=== PATIENT | female | born 1985 | race Caucasian/White ===

== ENCOUNTER 2022-06-11 02:43 | Outpatient (CLI) | payer BC, SELFPAY ==
[2022-06-11 09:25] LABS: *AMPHETAMINES SCREEN URINE Negative (Negative); *BARBITURATES SCREEN URINE Negative (Negative); *BENZODIAZEPINES SCREEN URINE Negative (Negative); Cannabinoids THC Negative (Negative); Cocaine Screen,Urine Negative (Negative); METHADONE URINE SCREEN Negative (Negative); OPIATES URINE SCREEN Negative (Negative)
[2022-06-11 09:27] LABS: Tricyclic Antidepressants Negative (Negative)
[2022-06-11 09:36] LABS: ALT 31 U/L (14-59); AST 16 U/L (15-37); Albumin 3.9 g/dL (3.4-5.0); Alkaline Phosphatase 87 U/L (46-116); Anion Gap 9.5 mmol/L (3-11); BUN 11 mg/dL (7-18); Bilirubin, Total 0.4 mg/dL (0.2-1.0); CO2 25.5 mmol/L (21.0-32.0); CREATININE 0.9 mg/dL (0.55-1.02); Calcium 8.4 mg/dL (8.5-10.1); Calculated LDL 131 mg/dL (<100); Chloride 102 mmol/L (98-107); Cholesterol 207 mg/dL (<200); Glucose 102 mg/dL (74-106); HDL Cholesterol 48 mg/dL (40-60); Potassium 3.7 mmol/L (3.5-5.1); Sodium 137 mmol/L (136-145); Total Protein 7.1 g/dL (6.4-8.2); Triglyceride 143 mg/dL (<150)
== END 2022-06-11 02:44 | disposition home or self-care (01) ==
LOC: LBO 02:45
PROVIDERS: Visit Provider Nurse Practitioner Adult Health
DX: F41.9 Anxiety disorder, unspecified (principal); E66.9 Obesity, unspecified; Z79.899 Other long term (current) drug therapy
CPT/HCPCS: 36415; 80053; 80061; 80307; 83036

== ENCOUNTER 2023-03-10 10:23 | Outpatient (REF) | payer BC, SELFPAY ==
--- NOTE | 2023-03-10 09:50 | ENDOMET_PTH ---
PATIENT: Kay Wyatt LOC: [facility] #:[id number] AGE/SX: 37/F ROOM: RE03/10/[address]: Florencia Srivastava : 1985 BED: DIS: 03/10/2023 SPEC #: [id number] RECD: 03/10/23 12:43 STATUS: GREG REQ #: [id number] TENA: 03/10/23 09:[address]: Florencia Srivastava DEPT: Surgical Specimen RECD BY: Chelo Short Tissues: 1 - ENDOMETRIUM BX/DEMAR Procedures: GROSS AND MICRO LEVEL 4 Comments: [id number]
== END 2023-03-10 10:24 | disposition home or self-care (01) ==
LOC: LBN 10:23
PROVIDERS: Visit Provider Obstetrics & Gynecology Gynecology
DX: N93.9 Abnormal uterine and vaginal bleeding, unspecified (principal)
CPT/HCPCS: 88305

== ENCOUNTER 2023-04-01 04:57 | Outpatient (CLI) | payer BC, SELFPAY ==
[2023-04-01 10:09] LABS: HCT 44.1 % (36.0-46.0); HGB 14.5 g/dL (11.2-15.7); MCHC 32.9 % (32.0-36.0); MCV 85 fL (80-95); MPV 9.8 fL (8.0-11.0); Platelet Count 363 10^3/uL (130-400); RBC 5.17 10^6/uL (3.93-5.22); RDW 12.8 % (11.7-14.6); RDW-SD 39.9 fL; WBC 6.98 10^3/uL (4.4-10.8)
[2023-04-01 10:27] LABS: ALT 25 U/L (14-59); AST 15 U/L (15-37); Albumin 4.2 g/dL (3.4-5.0); Alkaline Phosphatase 85 U/L (46-116); Anion Gap 9.5 mmol/L (3-11); BUN 14 mg/dL (7-18); Bilirubin, Total 0.8 mg/dL (0.2-1.0); CO2 25.5 mmol/L (21.0-32.0); Calcium 9.1 mg/dL (8.5-10.1); Chloride 103 mmol/L (98-107); Estimated GFR 74.88 (mL/min/1.73m2); Glucose 100 mg/dL (74-106); Potassium 4.3 mmol/L (3.5-5.1); Sodium 138 mmol/L (136-145); Total Protein 7.9 g/dL (6.4-8.2)
[2023-04-01 10:54] LABS: HCG Qual (Serum) Negative
[2023-04-01 11:05] LABS: Calculated LDL 167 mg/dL (<100); Cholesterol 236 mg/dL (<200); HDL Cholesterol 52 mg/dL (40-60); Triglyceride 86 mg/dL (<150)
== END 2023-04-01 04:58 | disposition home or self-care (01) ==
LOC: LBO 04:58
PROVIDERS: Nurse Practitioner Adult Health; Visit Provider Obstetrics & Gynecology Gynecology
DX: Z00.01 Encounter for general adult medical examination with abnormal findings (principal)
CPT/HCPCS: 36415; 80048; 80053; 80061; 85027; 86850; 86900; 86901; 84443; 84703

== ENCOUNTER 2023-04-03 09:01 | Day surgery (SDC) | payer BC, SELFPAY ==
[2023-04-03] VITALS (10 sets, daily range): BP systolic 125–154; BP diastolic 61–98; PULSE 74–84; RESP 11–17; TEMP 36.5–37; O2SAT 95–98; BMI 32.5
[2023-04-03] MEDS: Lactated Ringers 1,000 ML 125 ML IV (09:25)
--- NOTE | 2023-04-03 10:21 | W.ANESPRE ---
General Info Date of Service Date Performed: 04/03/23 Height: 5 ft 5 in Weight: 88.6 kg Body Mass Index (BMI): 32.5 Surgical Procedure: Operation Date: 04/03/23 10:40 Proposed Procedure Side Surgeon p DIXIE Endometrial Ablation Florencia Srivastava MD s Salpingectomy Laparoscopic Bilateral Florencia Srivastava MD Meds Allergies and Home Medications Allergies Allergy/AdvReac Type Severity Reaction Status Date / Time cat dander Allergy Mild Verified 04/02/23 12:37 Home Medication Medication Instructions Recorded buspirone 10 mg tablet 10 mg PO BID 02/10/23 trazodone 50 mg tablet 50 mg PO QHS PRN 02/10/23 semaglutide (weight loss) 0.25 0.25 mg subcut QWEEK 04/01/23 mg/0.5 mL subcutaneous pen injector (Wegovy) erenumab-aooe 140 mg/mL 140 mg subcut DIRECTED 04/02/23 subcutaneous auto-injector (Aimovig Autoinjector) loratadine 10 mg tablet 10 mg PO DAILY 04/02/23 Current Visit Medications: Current Medications Generic Name Dose Route Start Last Admin Trade Name Freq PRN Reason Stop Dose Admin Ringer's Solution 1,000 mls @ 125 mls/hr 04/03/23 06:00 04/03/23 09:25 IV 05/02/23 23:59 125 mls/hr INFUSION LIZBETH Administration IV Miscellaneous Supplies 1 each 04/03/23 06:00 Iv Access IV 05/02/23 23:59 DIRECTED LIZBETH Sodium Chloride 0 ml 04/03/23 06:00 Normal Saline Flush 10 Ml Syr IV 05/02/23 23:59 PRN PRN Sodium Chloride 0 ml 04/03/23 06:00 Normal Saline 10 Ml Vial IJ 05/02/23 23:59 DIRECTED PRN Sterile Water 0 ml 04/03/23 06:00 Water,Injection,Sterile 10 Ml Vial IJ 05/02/23 23:59 DIRECTED PRN PFSH Active Problems Active Problems: Problem Status Onset Code Sterilization Z30.2 Dysmenorrhea N94.6 Preop examination Z01.818 History of endometrial biopsy Z92.89 General counseling and advice on female contraception Z30.09 Tobacco use Z72.0 Heavy menstrual bleeding N92.0 Endometriosis determined by laparoscopy N80.9 PCOS (polycystic ovarian syndrome) E28.2 Medical History Medical History Migraine Surgical History Surgical History H/O laparoscopy (~2009) Tobacco Smoking/Tobacco Use Status: Current-Occasional Tobacco Type: cigars Per week: 1 Counseling given: provider counseling Alcohol Alcohol Intake: current Alcohol intake frequency: a few times a week Substance Use Substance use: Never Substance use type: does not use Prental History History 0 Para Hx # Term Pregnancies Multiple births Hx # Pregnancies Ectopic pregnancies AB induced Hx Number of Living Children AB spontaneous Vital Signs and Lab Results Vital Signs Most Recent Vital Signs in EMR: Most Recent Vital Signs Temp Pulse Resp BP Pulse Ox 36.5 C 81 16 130/83 98 04/03/23 09:11 04/03/23 09:11 04/03/23 09:11 04/03/23 09:11 04/03/23 09:11 Lab Results Blood Type / Crossmatch: Patient ABO/Rh O Positive 04/01/23 Antibody Screen NEGATIVE 04/01/23 Complete Blood Count: White Blood Count 6.98 10^3/uL (4.4-10.8) 04/01/23 10:04 Red Blood Count 5.17 10^6/uL (3.93-5.22) 04/01/23 10:04 Hemoglobin 14.5 g/dL (11.2-15.7) 04/01/23 10:04 Hematocrit 44.1 % (36.0-46.0) 04/01/23 10:04 Platelet Count 363 10^3/uL (130-400) 04/01/23 10:04 Complete Metabolic Panel: Sodium 138 mmol/L (136-145) 04/01/23 10:04 Potassium 4.3 mmol/L (3.5-5.1) 04/01/23 10:04 Chloride 103 mmol/L (98-107) 04/01/23 10:04 Carbon Dioxide 25.5 mmol/L (21.0-32.0) 04/01/23 10:04 BUN 14 mg/dL (7-18) 04/01/23 10:04 Creatinine 1.0 mg/dL (0.55-1.02) 04/01/23 10:04 Est GFR (CKD-EPI 2020) 74.88 (mL/min/1.73m2) 04/01/23 10:04 Calcium 9.1 mg/dL (8.5-10.1) 04/01/23 10:04 Albumin 4.2 g/dL (3.4-5.0) 04/01/23 10:04 Glucose 100 mg/dL (74-106) 04/01/23 10:04 Liver Function Panel: Alanine Aminotransferase (ALT/SGPT) 25 U/L (14-59) 04/01/23 10:04 Aspartate Amino Transf (AST/SGOT) 15 U/L (15-37) 04/01/23 10:04 Coagulation Panel: No Data to Display Cardiac Panel: No Data to Display Arterial Blood Gas: No Data to Display Venous Blood Gas: No Data to Display Pancreas Panel: No Data to Display Thyroid Panel: Thyroid Stimulating Hormone (TSH) 1.50 uIU/mL (0.36-3.74) 04/01/23 10:04 Infectious Disease: No Data to Display Blood Cultures: No Data to Display Toxicology Panel: No Data to Display Panel: Serum HCG, Qualitative Negative 04/01/23 10:04 Anesthesia Assessment and Plan Anesthesia History Personal History: No History of Anesthesia Complications Family History: No Family History of Anesthesia Complications Exercise Tolerance Exercise Tolerance: Metabolic Equivalents>4 Pertinent Negatives Pertinent Negatives: No Symptoms of GERD, No Major Cardiovascular Symptoms or Complaints and No Major Pulmonary Symptoms or Complaints Cardiac & Pulmonary Exam Cardiac Exam: Normal S1/S2 Heart Sounds Pulmonary Exam: Clear Bilateral Breath Sounds Implantable Cardiac Device Does patient have a Pacemaker or an ICD?: No Airway Exam Known Difficult Airway: No Mallampati Class: 3 Mouth Opening: Normal (> 3cm) Thyromental Distance: Greater than 3 cm Neck Range of Motion: Full ROM Neck Circumference: Normal Teeth Condition: Normal Dentition ASA Classification ASA Score: ASA 2 Emergency Case?: No NPO Status NPO Status: NPO Clears >2 hours, Solids >8 hours Status Status: Negative HCG Anesthesia Plan Resuscitation Status: Full Code Anesthesia Technique: General Anesthesia Airway Planned: Endotracheal Tube Monitors Used: Standard Monitors and SedLine
--- NOTE | 2023-04-03 12:36 | FALL_PTH ---
PATIENT: Kay Wyatt LOC: [facility] U#:[id number] AGE/SX: 37/F ROOM: RE04/03/[address]: Florencia Srivastava : 1985 BED: DIS: 04/03/2023 SPEC #: [id number] RECD: 04/03/23 13:31 STATUS: GREG [facility] #: [id number] TENA: 04/03/23 12:[address]: Florencia Srivastava DEPT: Surgical Specimen RECD BY: Chelo Short ENTERED: 04/03/23 13:32 SP TYPE: Fall OTHR DR: SHAGGY LAINEZ Tissues: 1 - FALLOPIAN TUBE (STERILIZATION) 2 - FALLOPIAN TUBE (STERILIZATION) Procedures: GROSS AND MICRO LEVEL 2 Comments: [id number]
[2023-04-03] MEDS: Bupivacaine 0.25% Pres-Free 30 ML VIAL (12:43)
--- NOTE | 2023-04-03 12:56 | W.PM.DSUDISC ---
Date of service: 04/03/23 Time of Service: 12:56 Discharge Plan Disposition Patient Disposition: Home Discharge Details Attending Provider: Florencia Srivastava Primary Care Provider: SHAGGY LAINEZ Home Meds and New Rx's Prescriptions: No Action buspirone 10 mg tablet 10 mg PO BID trazodone 50 mg tablet 50 mg PO QHS PRN Wegovy 0.25 mg/0.5 mL pen injector 0.25 mg subcut QWEEK Rx Instructions: administer weeks 1 through 4 of therapy loratadine 10 mg Tablet 10 mg PO DAILY Aimovig Autoinjector 140 mg/mL auto-injector 140 mg SUBCUT DIRECTED Patient Comments: DIRECTED SUBCUTANEOUSLY ONCE A MONTH Discharge Instructions Additional Instructions: You can expect watery vaginal discharge mixed with some blood for the next 48 hours. After that you can expect watery discharge for the next 4 weeks. Keep your incisions covered with a right Steri-Strips for 48 hours. You may remove and change the bandages at any time. You can take a shower in 24 hours. He may have bruising on her abdomen which is normal. No intercourse until the watery vaginal discharge is stopped. You have a prescription for Percocet 5/325 1 tablet every 6 hours as needed for pain take that in conjunction with Motrin 600 mg every 6 hours as needed for pain. You also may use acetaminophen and Motrin together. Keep your postop appointment with Dr. Srivastava. Stand Alone Forms: DSU Post Senior Production Manager SurgeryW/Incision Activity:: Activity as Tolerated Remove Dressings/Wound Care:: 24 hours Shower/Bathe:: 24 hours Diet:: As Tolerated Discharge Orders Discharge Orders: Discharge Order (Routine); Ordered 04/03/23 Ordered By: Florencia Srivastava DS: Diagnosis Discharge Diagnosis (1) Dysmenorrhea: Status: Acute (2) Sterilization: Status: Acute (3) Heavy menstrual bleeding: Status: Acute (4) History of endometrial ablation: Status: Acute
--- NOTE | 2023-04-03 13:05 | W.PM.OP ---
Date of service: 04/03/23 Time of Service: 13:05 Operative Note Operative Note DATE OF PROCEDURE: 04/03/23 PRE-OP DIAGNOSIS: Abnormal uterine bleeding, desires permanent sterilization PROCEDURE: Hydrothermal endometrial ablation followed by laparoscopic bilateral salpingectomy SURGEON: Florencia Srivastava ASSISTING SURGEON: Virginia Becerra Refer to Anesthesia Record ESTIMATED BLOOD LOSS: 5 PATHOLOGY: other (Bilateral fallopian tubes to pathology) COMPLICATIONS: None Patient was transported to: PACU Patient's condition: stable Implants: None Indications: 37yo G0 female history of heavy menses who desired permanent sterilization. Pelvic us which was performed on 03/10/23 :?Normal-appearing uterus with endometrial stripe within normal limits. and unremarkable bilateral ovaries. EMBx: inactive endometrium. Findings: Endometrium: Polypoid. Pelvic cavity normal normal adnexa, normal upper abdomen. No evidence of endometriosis. Procedure Description: Patient was taken to the operating room where she was placed in the dorsal supine position and general anesthesia was administered without difficulty. She was then placed in the dorsolithotomy position in yellowfin stirrups and prepped and draped in the usual sterile fashion. SCDs were in place. No antibiotics were required. After a surgical timeout was performed a bivalve speculum was placed in the patient's vagina. Morfin catheter inserted to gravity drainage. The anterior lip of the cervix was infiltrated with 1 cc 0.25% bupivacaine and a single-tooth tenaculum was used to grasp the anterior lip of the cervix. A paracervical block was performed with infiltration of 5 cc of 0.25% bupivacaine at the 4 o'clock and 8 o'clock paracervical spaces respectively. Cervix was then sequentially dilated to a maximum of 16 [place]. A hysteroscope sheath was inserted into the uterine cavity and a cavity assessment was performed with the above noted findings. The tip of the hysteroscope sheath was positioned to allow visualization of the uterine fundus, both tubal ostia in the midportion of the uterine cavity. The sheath was protected from the vaginal lopez by the speculum. Heated isotonic saline was then administered via gravity into the uterus through the sheath. Once a safety assessment was performed the treatment phase of the procedure began and under direct observation the uterine cavity was treated with heated isotonic saline at 90 ?C for 10 minutes. Intrauterine cool-down phase was performed for 1 minute. The uterine cavity was carefully assessed with hysteroscopy and the uterus was noted to have a satisfactory treatment effect and the integrity of the uterine cavity was confirmed. After these findings the hysteroscope was removed as were the instruments removed from the vagina. Tenaculum site was noted to be hemostatic. A Hulka uterine retractor was then inserted and attention turned to the patient's abdomen The umbilical fold was infiltrated with 0.25% Marcaine without epinephrine and 12 mm vertical skin incision was made in the umbilicus. Through this incision a varies needle connected to carbon dioxide gas was inserted into the abdomen but we were unable to confirm intra-abdominal placement confirmed by drop in the intra-abdominal pressure. The subcutaneous tissue was dissected, the fascia tented up and incised with a scalpel and a 12 mm Visiport trocar was introduced into the abdomen under direct visualization. Pneumoperitoneum was acheived and the patient was then placed in Trendelenburg and 2 sites on the abdomen approximately 6 cm diagonal to the right of and left of the umbilical incision were transilluminated, the skin infiltrated with 0.25% Marcaine and incised with a scalpel and under direct visualization two 5 mm ports were placed in the right and left lower quadrants respectively. The abdomen was inspected with the above-noted findings. The left fallopian tube located and followed out to its fimbriated end and a LigaSure electrocautery device was used to clamp cauterize and transect the fimbria from the left mesosalpinx to the level of the left uterine cornua. The left fallopian tube was then delivered through the 10 mm umbilical port and passed off of the operative field. A similar technique was carried out on the right fallopian tube without difficulty. The right fallopian tube was then delivered through the umbilical port. Both fallopian tube pedicles were inspected and noted to be hemostatic. Under direct visualization the two 5 mm ports were removed, pneumoperitoneum reduced, and the umbilical port removed. The fascia of the umbilical port site was reapproximated with interrupted suture of 0 Vicryl. The skin of all trocar sites was reapproximated with 4-0 Monocryl and covered with dry sterile dressings. The morfin catheter and the Hulka uterine manipulator were removed. The cervix was hemostatic. The patient was awakened extubated and transported to recovery area in stable condition. All sponge lap needle counts are correct x2.
[2023-04-03] MEDS: HYDROmorphone 2 MG/ML SYR IVP ×2 (13:32→13:47)
[2023-04-03] MEDS: Normal Saline 10 ML VIAL IJ (13:36)
--- NOTE | 2023-04-03 14:18 | W.ANESPOSTOP ---
Postoperative Evaluation Date, Time and Location Date Performed: 04/03/23 Time Performed: 14:15 Patient Location: Day Surgery Unit Vital Signs Most Recent Imported Vital Signs: Most Recent Vital Signs Temp Pulse Resp BP Pulse Ox 36.7 C 81 11 L 154/98 H 96 04/03/23 14:03 04/03/23 14:03 04/03/23 14:03 04/03/23 14:03 04/03/23 14:03 Pain Score Most Recent Pain Score: Most Recent Pain Score Pain Level 4 04/03/23 14:03 Assessment Mental Status: Awake (Alert & Oriented to Patient Baseline) Airway and Respiratory Function: Patent airway with normal (patient baseline) respiratory exam Cardiovascular Function: Hemodynamically Stable Hydration Status: Adequately Hydrated Nausea & Vomiting: No Nausea or Vomiting Pain: Pain is tolerable per patient Peripheral Nerve Block: Patient did not receive a nerve block
== END 2023-04-03 16:44 | disposition home or self-care (01) ==
PROVIDERS: PCP Nurse Practitioner Adult Health; Visit Provider Obstetrics & Gynecology Gynecology
PROC: (CPT 58353; principal; 2023-04-03 10:30)
PROC: (CPT 58661; 2023-04-03 10:30)
DX: N94.6 Dysmenorrhea, unspecified (principal); Z30.2 Encounter for sterilization; N92.0 Excessive and frequent menstruation with regular cycle; E28.2 Polycystic ovarian syndrome
CPT/HCPCS: 58661; 58563; 86850; 86900; 86901; 88302; J0131; J1100; J1170; J1885; J2250; J2405; J2704; J3010

== ENCOUNTER 2023-05-21 14:28 | Emergency (ER) | payer BC, SELFPAY ==
[2023-05-21] VITALS (14 sets, daily range): BP systolic 138; BP diastolic 86; PULSE 73–87; RESP 18; TEMP 36.7; O2SAT 97–100
--- NOTE | 2023-05-21 14:30 | RT.EKG_ITS ---
APPROVED REPORT Exam: Resting ECG Reason for Exam: chest pain Patient Location: E HR:73 bpm ECG Measurements Heart Rate 73 AXIS NJ 184 P 54 QRSd 75 QRS 50 QT 363 T 12 QTc 401 Conclusion Sinus rhythm...normal P axis, V-rate 60- 99
--- NOTE | 2023-05-21 15:24 | ED.GENADUL_ITS ---
Discharge Plan Disposition Patient Disposition: Home Discharge Details Clinical Impression: Acute chest wall pain Primary Care Provider: SHAGGY LAINEZ ED Provider: Fabrice Pisano Home Meds and New Rx's Prescriptions: New ibuprofen [IBU] 600 mg tablet 600 mg PO QID PRN (Reason: pain) Qty: 20 0RF methocarbamol 500 mg tablet 500 mg PO TID PRN (Reason: muscle pain) Qty: 20 0RF benzonatate 200 mg capsule 200 mg PO TID PRN (Reason: cough) Qty: 30 0RF Continued buspirone 10 mg tablet 10 mg PO BID trazodone 50 mg tablet 50 mg PO QHS PRN Wegovy 0.25 mg/0.5 mL pen injector 0.25 mg subcut QWEEK Rx Instructions: administer weeks 1 through 4 of therapy loratadine 10 mg Tablet 10 mg PO DAILY Aimovig Autoinjector 140 mg/mL auto-injector 140 mg SUBCUT DIRECTED Patient Comments: DIRECTED SUBCUTANEOUSLY ONCE A MONTH Discharge Instructions Instructions: Chest Wall Pain (ED) Additional Instructions: Please take medication as prescribed and continue to monitor symptoms with return for any new or significant worsening of your condition. Otherwise perform some range of motion of your shoulders and back and follow-up with your primary care provider for recheck preferably in 1 week especially if you are not improving. Referrals: SHAGGY LAINEZ [Primary Care Provider] - Discharge Data Discharge Date/Time-TO BE ENTERED AT DEPARTURE: 05/21/23 19:46 Medical Decision Making <RITA Ramírez - Last Filed: 05/22/23 14:49> 37-year-old female presenting with left mid axillary tenderness, denies any anterior chest pain or shortness of breath Has had some upper Respiratory symptoms including cough and runny nose, denies fever or chills or chance of Given her paternal history of coronary artery disease, I did order troponin, D- dimer, and will order chest x-ray or CT based on D-dimer results Her pain is reproducible in nature, this is reassuring We will order 2 troponins as her pain started several hours prior to arrival and review diagnostic blood work She has 2 negative troponins and D-dimer and her imaging of her chest is within normal limits she is stable for discharge home with close outpatient follow-up and ibuprofen and muscle relaxants <Fabrice Pisano NP - Last Filed: 05/23/23 09:11> 37-year-old female presenting with left mid axillary tenderness, denies any anterior chest pain or shortness of breath Has had some upper Respiratory symptoms including cough and runny nose, denies fever or chills or chance of Given her paternal history of coronary artery disease, I did order troponin, D- dimer, and will order chest x-ray or CT based on D-dimer results Her pain is reproducible in nature, this is reassuring We will order 2 troponins as her pain started several hours prior to arrival and review diagnostic blood work She has 2 negative troponins and D-dimer and her imaging of her chest is within normal limits she is stable for discharge home with close outpatient follow-up and ibuprofen and muscle relaxants 1610-patient signed out to me pending chest x-ray, D-dimer, and second troponin. Reviewed D-dimer which was negative so chest x-ray ordered. Chest x-ray reviewed by me and reviewed radiologist interpretation that shows no acute findings which I agree with. Second troponin was also negative nondetected. Did reassess patient and patient continues to endorse reproducible discomfort. With palpation of the posterior thorax it significantly reproduces pain with radiation. I suspect a muscular injury secondary to patient's coughing episodes which she states she has had pretty significantly over the past couple days. I do feel low likelihood that this is cardiac in nature but given her family history will refer her to follow-up with primary care provider. Will discharge patient home with recommended ibuprofen and muscle relaxers and Tessalon Perles to see if this helps with cough which I feel is contributing factor. After discussion of diagnosis and plan of care patient has no further needs, questions, or concerns and states clear understanding to return to the emergency department for any worsening symptoms. This documentation was generated using [employer] system, please disregard any oddities of phrase or misspellings. HPI <RITA Ramírez - Last Filed: 05/22/23 14:49> General Date/Time Provider Initiated Documentation: 05/21/23 14:48 . HPI Narrative: This 37-year-old female presents with report of left mid axillary pain with radiation down left arm. Denies any fever or chills. Denies known injuries. Denies any chest discomfort anteriorly or shortness of breath. Has a family history of coronary artery disease, dad with an MS at 38. Patient smokes cigars but does not smoke tobacco, denies any illicit drug use, denies history of hyperlipidemia. Denies illicit drug use. Denies any calf pain or swelling, denies any recent flights, surgeries has also had a cough and upper respiratory complaints per patient., long drives. States pain is exacerbated with palpation and movement. Mother denies any nausea vomiting or diaphoresis. Denies chance . Related Data Home Medications Medication Instructions Recorded Confirmed buspirone 10 mg tablet 10 mg PO BID 02/10/23 05/21/23 trazodone 50 mg tablet 50 mg PO QHS PRN 02/10/23 05/21/23 semaglutide (weight loss) 0.25 0.25 mg subcut QWEEK 04/01/23 05/21/23 mg/0.5 mL subcutaneous pen injector ([employer]) erenumab-aooe 140 mg/mL 140 mg subcut DIRECTED 04/02/23 05/21/23 subcutaneous auto-injector (Aimovig Autoinjector) loratadine 10 mg tablet 10 mg PO DAILY 04/02/23 05/21/23 benzonatate 200 mg capsule 200 mg PO TID PRN cough #30 caps 05/21/23 ibuprofen 600 mg tablet (IBU) 600 mg PO QID PRN pain #20 tabs 05/21/23 methocarbamol 500 mg tablet 500 mg PO TID PRN muscle pain #20 05/21/23 tabs Previous Rx's Medication Instructions Recorded benzonatate 200 mg capsule 200 mg PO TID PRN cough #30 caps 05/21/23 ibuprofen 600 mg tablet (IBU) 600 mg PO QID PRN pain #20 tabs 05/21/23 methocarbamol 500 mg tablet 500 mg PO TID PRN muscle pain #20 05/21/23 tabs Allergies Allergy/AdvReac Type Severity Reaction Status Date / Time cat dander Allergy Mild Verified 04/21/23 13:29 General Stated Complaint: Chest Pain CESAR: 2 PFS <RITA Ramírez - Last Filed: 05/22/23 14:49> All Active Problems (Updated 05/21/23 @ 19:36 by Fabrice Pisano NP) Acute chest wall pain (Acute) History of endometrial ablation (Acute) Sterilization (Acute) Dysmenorrhea (Acute) Preop examination (Acute) History of endometrial biopsy (Acute) General counseling and advice on female contraception (Acute) Tobacco use (Acute) smokes one cigar weekly Heavy menstrual bleeding (Acute) Endometriosis determined by laparoscopy (Acute) PCOS (polycystic ovarian syndrome) (Acute) Medical History (Updated 05/21/23 @ 19:36 by Fabrice Pisano NP) Migraine Surgical History (Updated 04/03/23 @ 12:57 by Florencia Srivastava MD) H/O laparoscopy (~2009) Family History (Updated 02/10/23 @ 10:14 by Izzy Wagoner RN) Mother Cancer uterine Social History (Updated 03/10/23 @ 21:04 by Florencia Srivastava MD) Smoking/Tobacco Use Status: Current-Occasional Tobacco Type: cigars Per week: 1 Quit status: not considering quitting Counseling given: provider counseling Smoking risk assessment performed?: Yes Alcohol Intake: current Alcohol Intake frequency: a few times a month Drug use: Never Substance use type: does not use Household members: spouse and other Details: H - Murphy. Has 12yo step-son. Autism spectrum Number of Children: 0 Current gender identity: female Do you feel safe at home: Yes Do you feel safe in your relationship?: Yes Female Reproductive History Menstrual control method: pills (POP) History History 0 Para Hx # Term Pregnancies Multiple births Hx # Pregnancies Ectopic pregnancies AB induced Hx Number of Living Children AB spontaneous Course <RITA Ramírez - Last Filed: 05/22/23 14:49> Vital Signs Vital signs: Vital Signs Temperature 36.7 C 05/21/23 14:31 Pulse 81 05/21/23 14:31 Respiratory Rate 18 05/21/23 14:31 Blood Pressure 138/86 05/21/23 14:31 Pulse Oximetry 100 05/21/23 14:31 Temperature 36.7 C 05/21/23 14:31 Temperature Source Oral 05/21/23 14:31 Pulse 81 05/21/23 14:31 Respiratory Rate 18 05/21/23 14:52 Respiratory Effort Normal 05/21/23 14:52 Respiratory Depth Normal 05/21/23 14:52 Respiratory Pattern Normal 05/21/23 14:52 Blood Pressure 138/86 05/21/23 14:31 Blood Pressure Position Sitting 05/21/23 14:31 Pulse Oximetry 100 05/21/23 14:31 Sign Out <RITA Ramírez - Last Filed: 05/22/23 14:49> Sign Out Data: Sign Out Comment: Pending troponin, imaging interpretation and review, D-dimer, x2 Last updated by Chelo Miguel PA at 05/21/23 16:19
[2023-05-21 15:38] LABS: Source Nasal/Nares
[2023-05-21 15:48] LABS: Abs Immature Grans 0.07 10^3/uL (0.0-0.06); Absolute Basophil Count 0.06 10^3/uL (0.0-0.2); Absolute Lymphocyte Count 2.57 10^3/uL (1.2-3.4); Absolute Monocyte Count 0.52 10^3/uL (0.1-0.8); Absolute Neutrophil Count 5.77 10^3/uL (1.2-6.7); Basophils % 0.7; Eosinophils % 2.2; HCT 42.6 % (36.0-46.0); HGB 14.2 g/dL (11.2-15.7); Immature Grans % 0.8; MCH 28.1 pg (27.0-33.0); MCHC 33.3 % (32.0-36.0); MCV 84 fL (80-95); MPV 9.8 fL (8.0-11.0); Monocytes % 5.7; Neutrophils % 62.6; Platelet Count 345 10^3/uL (130-400); RBC 5.06 10^6/uL (3.93-5.22); RDW 12.6 % (11.7-14.6); RDW-SD 38.3 fL; WBC 9.19 10^3/uL (4.4-10.8)
[2023-05-21 16:10] LABS: ALT 28 U/L (14-59); AST 16 U/L (15-37); Alkaline Phosphatase 84 U/L (46-116); Anion Gap 5.9 mmol/L (3-11); BUN 7 mg/dL (7-18); Bilirubin, Total 0.6 mg/dL (0.2-1.0); CO2 28.1 mmol/L (21.0-32.0); Chloride 102 mmol/L (98-107); Estimated GFR 74.88 (mL/min/1.73m2); Glucose 90 mg/dL (74-106); Lipase 55 U/L (16-77); Potassium 4.2 mmol/L (3.5-5.1); Sodium 136 mmol/L (136-145); Total Protein 7.6 g/dL (6.4-8.2); Troponin I < 50 ng/L (<or=60)
[2023-05-21] MEDS: Ketorolac 15 MG/ML VIAL IVP (16:15)
--- NOTE | 2023-05-21 16:15 | DI.RAD_ITS ---
Exam(s) XR CHEST 2V PA LATERAL EXAM: XR CHEST 2V PA LATERAL CLINICAL HISTORY: left sided chest pain TECHNIQUE: 2D digital imaging was performed. COMPARISON: No exams were available for comparison FINDINGS: HEART: Normal size. Aorta: Not dilated. PULMONARY VASCULATURE: Normal. LUNGS: Clear. PLEURAL SPACE: No pleural effusion or pneumothorax. BONE:Unremarkable for age. IMPRESSION: No acute abnormality. DATA REPOSITORY: RADIATION DOSE DELIVERED:
[2023-05-21 16:19] LABS: D-Dimer 165 ng/mlFEU (<500)
[2023-05-21 16:23] LABS: COVID-19 PCR Negative (Negative)
--- NOTE | 2023-05-21 17:26 | DI.VRAD_ITS ---
PROCEDURE INFORMATION: Exam: XR Chest Exam date and time: 05/21/2023 4:56 PM Age: 37 years old Clinical indication: Other: Left sided chest pain TECHNIQUE: Imaging protocol: Radiologic exam of the chest. Views: 2 views. COMPARISON: No relevant prior studies available. FINDINGS: Lungs: Unremarkable. No consolidation. Pleural spaces: Unremarkable. No pleural effusion. No pneumothorax. Heart/Mediastinum: Unremarkable. No cardiomegaly. Bones/joints: Unremarkable. IMPRESSION: No acute findings. Dictated and Authenticated by: Juli Woods MD. Ordering:MARYANA Avina MD
[2023-05-21 18:55] LABS: Troponin I < 50 ng/L (<or=60)
[2023-05-21] MEDS: Lidocaine 5% Patch 1 PATCH TP (19:46)
--- NOTE | 2023-05-21 20:03 | NUR.NOTE ---
Referral to Care Management to refer to patient pcp in [facility] to f/u in a week for chest pain.Nursing Note:
--- NOTE | 2023-05-22 07:40 | NUR.NOTE ---
Nursing Note: Accessed chart to determine orders for EKG and to determine whether or not one needs to be cancelled.
--- NOTE | 2023-05-22 15:24 | PDOC.CMACT ---
Date of service: 05/22/23 Time of Service: 15:25 Care Management Activity Note Activity Note Text Activity Note Text: Kay is seen in the ED for chest wall pain. At the request of ED provider, CM contacts patient's PCP via fax to request they contact patient to schedule a follow up appointment within a week.
== END 2023-05-21 19:46 | disposition home or self-care (01) ==
PROVIDERS: Physician Assistant; Emergency Provider Nurse Practitioner Family; PCP Nurse Practitioner Adult Health
DX: R07.89 Other chest pain (principal); R06.02 Shortness of breath
CPT/HCPCS: 80053; 83690; 87635; 93005; 96374; 99284; 71046; 84484; 85025; 85379; 93010; J1885

== ENCOUNTER 2024-05-28 15:20 | Outpatient (REF) | payer BC, SELFPAY ==
--- OUTSIDE RECORDS SUMMARY | 2024-05-28 15:27 | XMS_ITS ---
Author Name Unknown Address [address], [place] [phone] Phone Organization Unknown Address [address] [place] [phone] Phone Care Team Providers Care Legal Aid Name Role Phone JASKARAN STOVER Attending Unavailable Social History Type Status Start Date End Date Code Code Syst em Smoking History Current every day smoker [id number] SNOMED CT Sex Female Hospital Discharge Instructions Should you have any questions prior to discharge, please contact a member of your healthcare team. If you have left the hospital and have any questions, please contact your primary care physician. Reason For Referral No Data Found Plan of Treatment No Data Found Encounters Encounter Diagnosis Start Date Code Code Sys tem Chronic migraine without aur a, intractable, without status migrainosus 05/28/2022 SNOMED-CT Personal Care Team Section Performer Name Performer Role Active Date Inactive Da te
--- OUTSIDE RECORDS SUMMARY | 2024-05-28 15:28 | XMS_ITS | Continuity of Care Document ---
Author Name [facility] Address [address] [place] [address] Organization [facility] Address [address] [place] [address] Care Team Providers Care Landman Name Role Phone Brenda Hernandez Primary Care Physician Francisco laresle Allergies, Adverse Reactions, Alerts Allergen Type Severity Reaction Last Updated Verified Status metformin Allergy Unknown unknown April 23, 2019 Y Active weed pollen Allergy unknown April 23, 2019 Y Active cat dander Adverse Reaction Unknown unknown April 23, 2019 Y Active dog dander Adverse Reaction Unknown unknown April 23, 2019 Y Active Medications Active Medications Medication Dose Units Route Sig Qty Start Date Status Instructions Buspirone 5 MG ORAL TWICE A DAY 180 May 04, 2019 Active Clonazepam 0.5 MG ORAL Q8H PRN For Anxiety 10 April 14, 2019 Active 1-2 tabs as needed for anxiety Levonorgestrel-Eth inyl Estrad [Kurvelo (28)] 1 TAB ORAL DAILY April 14, 2019 Active Feverfew 100 MG ORAL TWICE A DAY April 14, 2019 Active Cholecalciferol (Vitamin D3) UNK UNK ORAL DAILY April 14, 2019 Active Riboflavin (Vitamin B2) 100 MG ORAL TWICE A DAY April 14, 2019 Active Magnesium Oxide 400 MG ORAL DAILY April 14, 2019 Active Biotin 15 MG ORAL DAILY April 14, 2019 Active Loratadine [Claritin] 10 MG ORAL DAILY April 16, 2019 Active Hydroxyzine Hcl 10 MG ORAL TWICE A DAY PRN For Anxiety May 03, 2019 Active Erenumab-Aooe [Aimovig Autoinjector] 70 MG SUBCUTANEOUS Q30D May 03, 2019 Active Discontinued Medications Medication Dose Units Route Sig Qty Start Date Discontinued Date Status Instructions Buspirone 5 MG ORAL TWICE A DAY 60 April 14, 2019 May 04, 2019 Discontinued Problem List Active Problems Medical Problem Onset Date Status Polycystic ovaries June 29, 2015 Acute sinusitis April 23, 2017 Arthralgia of shoulder May 16, 2015 Laceration of left index finger Active Knee pain April 16, 2018 Lipoma of skin January 18, 2016 Internal derangement of knee April 16, 2018 Internal derangement of knee April 16, 2018 Procedures Procedure Date Status US Transvaginal Non-OB April 23, 2019 active Relevant Diagnostic Tests and/or Laboratory Data No known relevant diagnostic tests, laboratory data, and/or discharge summary. Chief Complaint and Reason for Visit Encounter Admit Date Chief Complaint Reason for V isit Departed Emergency May 31, 2019 10:42am [facility] Hospital Discharge Instructions Additional Discharge Instructions keep t he steri-strips clean and dry...you can trim the ends if they curl up but avoid pulling it off as you can pull the wound open..after about 5 days the strips will be ready to come off...take them off in the shower as they will be easier to remove...be sure to keep the nail trimmed short and the cut section nears the tip to avoid catching the sharp nail and tearing it. No Instructions/Education Pr ovided Hospital Discharge Medications Medication Dose Units Route Sig Qty Days Order Date Status Instructions Buspirone 5 MG ORAL TWICE A DAY 180 May 04, 2019 Active Clonazepam 0.5 MG ORAL Q8H PRN For Anxiety 10 April 14, 2019 Active 1-2 tabs as needed for anxiety Buspirone 5 MG ORAL TWICE A DAY 60 April 14, 2019 Discontinue d Levonorgestrel-E thinyl Estrad 1 TAB ORAL DAILY April 14, 2019 Active Feverfew 100 MG ORAL TWICE A DAY April 14, 2019 Active Cholecalciferol (Vitamin D3) UNK UNK ORAL DAILY April 14, 2019 Active Riboflavin (Vitamin B2) 100 MG ORAL TWICE A DAY April 14, 2019 Active Magnesium Oxide 400 MG ORAL DAILY April 14, 2019 Active Biotin 15 MG ORAL DAILY April 14, 2019 Active Loratadine 10 MG ORAL DAILY April 16, 2019 Active Hydroxyzine Hcl 10 MG ORAL TWICE A DAY PRN For Anxiety May 03, 2019 Active Erenumab-Aooe 70 MG SUBCUTANEOU S Q30D May 03, 2019 Active Encounters Encounter Facility Location Admit/Visit Date Discharge/Departure Date Attending Provider Departed Emergency [facility] Emergency Department May 31, 2019 10:42am May 31, 2019 12:30pm Departed Physician/Pr ovider Office Visit [facility] PULLING UNIT FLOORHAND April 23, 2019 9:04am April 23, 2019 9:52am Hien Reyes Departed Physician/Pr ovider Office Visit [facility] PULLING UNIT FLOORHAND April 23, 2019 9:03am April 23, 2019 9:52am Kishan Baltazar Departed Clinical [facility] RANGE MOUNTER April 23, 2019 9:01am April 23, 2019 9:02am Kishan Baltazar Departed Physician/Pr ovider Office Visit [facility] PULLING UNIT FLOORHAND April 16, 2019 9:49am April 16, 2019 10:25am Hien Reyes Departed Physician/Pr ovider Office Visit [facility] Primary Care March 26, 2019 12:00am March 26, 2019 Brenda Hernandez Departed Physician/Pr ovider Office Visit [facility] Primary Care March 03, 2019 12:00am March 03, 2019 Brenda Hernandez Departed Physician/Pr ovider Office Visit [facility] Primary Care January 18, 2019 12:00am January 18, 2019 Brenda Hernandez Departed Physician/Pr ovider Office Visit [facility] Primary Care December 21, 2018 12:00am December 21, 2018 Brenda Hernandez Departed Physician/Pr ovider Office Visit [facility] Primary Care August 31, 2018 12:00am August 31, 2018 Brenda Hernandez Functional Status Query Response Date Recorded Comment Living Situation Home May 31, 2019 12:29pm Immunizations Immunization Name Date Given Type Influenza IIV4 PF September 29, 2017 Historical Influenza Split Virus 3YR Older August 31, 2014 Historical Tdap December 01, 2011 Historical Tdap May 31, 2019 Administered Payers Payer Name Policy Type Covered Democrat Covered Democrat Id Relationship Subscriber Subscriber Id [employer] Commercial YAMILETH TAYLOR [id number] Self/Same as Patient YAMILETH TAYLOR [id number] FEP [employer] (DO NOT USE) Commercial YAMILETHСЕРГЕЙ TAYLOR [id number] Self/Same as Patient YAMILETH TAYLOR [id number] SELF PAY Personal Plan of Care No Known Plan of Care Information Social History No known social history. Vital Signs Vital Reading Result Reference Range Collection Date/Time Height 5 ft 5 in April 23, 2019 9: 24am Weight 92.986 kg May 31, 2019 10 :45am Temperature 98.9 F 97.6 F-99.6 F May 31, 2019 1 0:45am Pulse 89 BPM 60-100 May 31, 2019 12 :20pm Respiration 18 RPM -May 31, 2019 12 :20pm Pulse Oximetry 96 % 95-100 May 31, 2019 12:20pm Blood Pressure Systolic 150 100-140 May 31, 2019 12:20pm Blood Pressure Diastolic 100 50-85 May 12:20pm Body Mass Index n/a
--- OUTSIDE RECORDS SUMMARY | 2024-05-28 15:28 | XMS_ITS | Continuity of Care Document ---
Author Name [facility] Address [address] [place] [address] Organization [facility] Address [address] [place] [address] Care Team Providers Care Instrument Person Name Role Phone Brenda Hernandez Primary Care Physician Brenda Hernandez Attending Physician [phone] Allergies, Adverse Reactions, Alerts Allergen Type Severity Reaction Last Updated Verified Status acetaminophen Allergy hives August 24, 2017 Y Active hydrocodone Allergy hives August 24, 2017 Y A ctive Medications Active Medications Medication Dose Route Start Date Status Levonorgestrel-Ethinyl Estrad [Kurvelo] August 24, 2017 Active Sumatriptan 100 August 24, 2017 Activ e Problem List No problem information available. Procedures Procedure Date Status Foot 3 vw Min RT August 24, 2017 completed Relevant Diagnostic Tests and/or Laboratory Data Laboratory Results Test Date/Time Result Interp. Ref. Range Result Co mment Sodium Level March 20, 2018 9:57am 140 mmol/L 137-145 Potassium Level March 20, 2018 9:57am 4.6 mmol/L 3.6-5.0 Chloride Level March 20, 2018 9:57am 108 mmol/L High 98-107 Carbon Dioxide Level March 20, 2018 9:57am 24 mmol/L 22-30 Anion Gap March 20, 2018 9:57am 8 7-16 Blood Urea Nitrogen March 20, 2018 9:57am 11 mg/dL 7-17 Creatinine March 20, 2018 9:57am 0.81 mg/dL 0.52-1.04 Glomerular Filtration Rate Calc March 20, 2018 9:57am > 60 mL/min 60.0- Glucose Level March 20, 2018 9:57am 85 mg/dL 70-100 Calcium Level March 20, 2018 9:57am 9.3 mg/dL 8.4-10.2 Calcium Adjusted for Albumin March 20, 2018 9:57am 9.3 mg/dL 8.4-10.2 Total Bilirubin March 20, 2018 9:57am 0.6 mg/dL 0.2-1.3 Aspartate Amino Transf (AST/SGOT) March 20, 2018 9:57am 20 U/L 14-36 Alanine Aminotransferase (ALT/SGPT) March 20, 2018 9:57am 27 U/L 9-52 Total Protein March 20, 2018 9:57am 7.0 g/dL 6.3-8.2 Albumin March 20, 2018 9:57am 4.3 g/dL 3.5-5.0 Cholesterol Level March 20, 2018 9:57am 237 mg/dL High 59-199 HDL Cholesterol March 20, 2018 9:57am 51 mg/dL 40-60 The National Cholesterol Education Program (NCEP) has set the following guidelines (reference values) for cholesterol, HDL: Low HDL: <40 mg/dL Normal: 40-60 mg/dL Desirable: >60 mg/dL LDL Cholesterol March 20, 2018 9:57am 149.0 mg/dL High 0-129 VLDL Cholesterol March 20, 2018 9:57am 37.0 mg/dL High 0-32 Cholesterol/HDL Ratio March 20, 2018 9:57am 4.64 High 0-3.9 Triglycerides Level March 20, 2018 9:57am 185 mg/dL High 0-149 Alkaline Phosphatase March 20, 2018 9:57am 55 U/L 38-126 Thyroid Stimulating Hormone (TSH) March 20, 2018 9:57am 1.81 mlU/L 0.47-4.68 Hemoglobin A1c Percent March 20, 2018 9:57am 4.77 % 4.2-6.5 < 7% Recommended goal by ADA guidelines 7-8% Suboptimal by ADA guidelines >8% Further action suggested by ADA guidelines Estimated Average Glucose mg/dL March 20, 2018 9:57am 90 mg/dL Advance Directives Advance Directive Response Recorded Date/ Time Do we have a copy on file here at [facility]? No February 22, 2017 8:32am Does patient have an Advanced Directive? No August 19, 2015 10:32am Pt has a Living Will? No August 19, 2015 10:32am Pt has a Power of Cast Shell Grinder? No Aug 10:32am Hospital Discharge Instructions No known hospital discharge instructions. Hospital Discharge Medications Medication Dose Units Route Sig Qty Days Order Date Status Ins tructions Levonorgestrel-Ethi nyl Estrad August 24, 2017 Active Sumatriptan 100 Aug Active Encounters Encounter Facility Location Admit/Visit Date Discharge/Departure Date Attending Provider Departed Referred [facility] Primary Care March 24, 2018 7:30am March 24, 2018 7:31am Brenda Hernandez Departed Referred [facility] Pathology March 20, 2018 11:14am March 20, 2018 11:15am Brenda Hernandez Departed Clinical [facility] Laboratory March 20, 2018 9:48am March 20, 2018 9:49am Brenda Hernandez Departed Emergency [facility] Emergency Department August 24, 2017 4:56pm August 24, 2017 6:40pm Functional Status No known functional status. Immunizations No known immunizations. Payers Payer Name Policy Type Covered Libertarian Covered Libertarian Id Relationship Subscriber Subscriber Id [employer] Commercial [id number] Self/Same as Patient [id number] [facility] [employer] (DO NOT USE) Take the Interview BRANDON [id number] Self/Same as Patient YAMILETH TAYLOR [id number] SELF PAY Personal Plan of Care No Known Plan of Care Information Social History Query Response Start Date Stop Date Smoking Status Current some day smoker Vital Signs Vital Reading Result Reference Range Collection Date/Time Height n/a Weight 84.55 kg August 24 017 5:13pm Temperature 97.8 F 97.6 F-99.6 F August 24, 2017 5:13pm Pulse 87 BPM 60-100 August 24 017 5:13pm Respiration 20 RPM 11-23August 24 017 5:13pm Pulse Oximetry 100 % 95-100 August 24, 2017 5:13pm Blood Pressure Systolic 156 100-140 Aug 5:13pm Blood Pressure Diastolic 94 50-85 Aug 5:13pm Body Mass Index n/a
--- OUTSIDE RECORDS SUMMARY | 2024-05-28 15:28 | XMS_ITS ---
Author Name Unknown Address [address], [place] [id number] Phone Organization Unknown Address [address] [place] [phone] Phone Care Team Providers Care Supervisor Cook Room Name Role Phone JASKARAN STOVER Attending Unavailable FATOU Sesay Primary Unavailable Social History Type Status Start Date End Date Code Code Syst em Smoking History Current every day smoker [id number] SNOMED CT Sex Female Hospital Discharge Instructions Should you have any questions prior to discharge, please contact a member of your healthcare team. If you have left the hospital and have any questions, please contact your primary care physician. Reason For Referral No Data Found Plan of Treatment No Data Found Encounters Encounter Diagnosis Start Date Code Code Sys tem Chronic intractable migraine without aura 05/27/2023 [id number] SNOMED-CT Personal Care Team Section Performer Name Performer Role Active Date Inactive Da aram
--- OUTSIDE RECORDS SUMMARY | 2024-05-28 15:28 | XMS_ITS | Continuity of Care Document ---
Author Name [facility] Address [address] [place] [address] Organization [facility] Address [address] [place] [address] Care Team Providers Care Storage Consultant Name Role Phone Brenda Hernandez Primary Care Physician [phone] Brenda Hernandez Attending Physician Allergies, Adverse Reactions, Alerts Allergen Type Severity [...] have a copy on file here at [facility]? No February 22, 2017 8:32am Does patient have an Advanced Directive? No August 19, 2015 10:32am Pt has a Living Will? No August 19, 2015 10:32am Pt has a Power of Rail Transit Operator? No Aug 10:32am Hospital Discharge Instructions No known hospital discharge instructions. Hospital Discharge Medications Medication Dose Units Route Sig Qty Days Order Date Status Ins tructions Levonorgestrel-Ethi nyl Estrad August 24, 2017 Active Sumatriptan 100 Aug Active Encounters Encounter Facility Location Admit/Visit Date Discharge/Departure Date Attending Provider Departed Referred [facility] Pathology March 20, 2018 11:14am March 20, 2018 11:15am Brenda Hernandez Departed Clinical [facility] Laboratory March 20, 2018 9:48am March 20, 2018 9:49am Brenda Hernandez Departed Emergency [facility] Emergency Department August 24, 2017 4:56pm August 24, 2017 6:40pm Functional Status No known functional status. Immunizations No known immunizations. Payers Payer Name Policy Type Covered Constitution Party Covered Constitution Party Id Relationship Subscriber Subscriber Id [facility] [id number] Self/Same as Patient [id number] [facility] [email or web address] (DO NOT USE) Xhale YAMILETHExogenesisLEY [id number] Self/Same as Patient YAMILETH AREVALOLEY [id number] SELF PAY Personal Plan of Care No Known Plan of Care Information Social History Query Response Start Date Stop Date Smoking Status Current some day smoker Vital Signs Vital Reading Result Reference Range Collection Date/Time Height n/a Weight 84.55 kg August 24, 017 5:13pm Temperature 97.8 F 97.6 F-99.6 F August 24, 2017 5:13pm Pulse 87 BPM 60-100 August 24, 2 017 5:13pm Respiration 20 RPM -August 24, 2 017 5:13pm Pulse Oximetry 100 % 95-100 August 24, 2017 5:13pm Blood Pressure Systolic 156 100-140 Aug 5:13pm Blood Pressure Diastolic 94 50-85 Aug 5:13pm Body Mass Index n/a
--- OUTSIDE RECORDS SUMMARY | 2024-05-28 15:28 | XMS_ITS | Continuity of Care Document ---
Author Name [facility] Address [address] [place] [address] Organization [facility] Address [address] [place] [id number] Care Team Providers Care Automotive Refinisher Name Role Phone Brenda Hernandez Primary Care Physician Deb Bynum Attending Physician Unavailab le Allergies, Adverse Reactions, Alerts Allergen Type Severity Reaction Last Updated Verified Status acetaminophen Allergy hives August 24, 2017 Y Active hydrocodone Allergy hives August 24, 2017 Y A ctive Medications Active Medications Medication Dose Route Start Date Status Levonorgestrel-Ethinyl Estrad [Kurvelo] August 24, 2017 Active Sumatriptan 100 August 24, 2017 Activ e Problem List No problem information available. Procedures Procedure Date Status Knee 4 vw Min Bilat (No XIX) April 16, 2018 act walt Foot 3 vw Min RT August 24, 2017 completed Relevant Diagnostic Tests and/or Laboratory Data Laboratory Results Test Date/Time Result Interp. Ref. Range Result Co mment Urine Collection Duration March 25, 2018 7:30am 24 H Urine Total Volume 24 Hours March 25, 2018 7:30am 2700 mL Urine Cortisol 24 Hour March 25, 2018 7:30am 19 ug/24H Reference Value: 3.5-45 Urine Cortisone Level March 25, 2018 7:30am 84 ug/24H Reference Value: 17-129 Sodium Level March 20, 2018 9:57am 140 [...] have a copy [place] [facility] No February 22, 2017 8:32am Does patient have an Advanced Directive? No August 19, 2015 10:32am Pt has a Living Will? No August 19, 2015 10:32am Pt has a Power of Volleyball Coach? No Aug 10:32am Chief Complaint and Reason for Visit Encounter Admit Date Chief Complaint Reason for V isit Departed Clinical May 01, 2018 7:59am Lab Hospital Discharge Instructions No known hospital discharge instructions. Hospital Discharge Medications Medication Dose Units Route Sig Qty Days Order Date Status Ins tructions Levonorgestrel-Ethi nyl Estrad August 24, 2017 Active Sumatriptan 100 Aug Active Encounters Encounter Facility Location Admit/Visit Date Discharge/Departure Date Attending Provider Departed Clinical [facility] May 01, 2018 7:59am May 01, 2018 8:00am Deb Bynum Departed Clinical [facility] Orthopedics April 16, 2018 8:59am April 16, 2018 9:00am Ciarra Rubin Departed Referred [facility] Primary Care March 24, 2018 7:30am March 24, 2018 7:31am Brenda Hernandez Departed Referred [facility] Pathology March 20, 2018 11:14am March 20, 2018 11:15am Brenda Hernandez Departed Clinical [facility] Laboratory March 20, 2018 9:48am March 20, 2018 9:49am Brenda Hernandez Departed Emergency [facility] Emergency Department August 24, 2017 4:56pm August 24, 2017 6:40pm Functional Status No known functional status. Immunizations No known immunizations. Payers Payer Name Policy Type Covered Alliance Party Covered Alliance Party Id Relationship Subscriber Subscriber Id [employer] Commercial [id number] Self/Same as Patient [id number] [facility] [employer] (DO NOT USE) Commercial YAMILETH AREVALOLEY [id number] Self/Same as Patient YAMILETH TAYLOR [id number] SELF PAY Personal Plan of Care No Known Plan of Care Information Social History Query Response Start Date Stop Date Smoking Status Current some day smoker Vital Signs Vital Reading Result Reference Range Collection Date/Time Height n/a Weight 84.55 kg August 24 017 5:13pm Temperature 97.8 F 97.6 F-99.6 F August 24, 2017 5:13pm Pulse 87 BPM 60-100 August 24 5:13pm Respiration 20 RPM 11-23August 24 017 5:13pm Pulse Oximetry 100 % 95-100 August 24, 2017 5:13pm Blood Pressure Systolic 156 100-140 Sept [facility] 5:13pm Blood Pressure Diastolic 94 50-85 Sep [facility] 2016 5:13pm Body Mass Index n/a
--- OUTSIDE RECORDS SUMMARY | 2024-05-28 15:28 | XMS_ITS | Continuity of Care Document ---
Author Name [facility] Address [address] [place] [address] Organization [facility] Address [address] [place] [address] Care Team Providers Care Web Site Designer Name Role Phone Brenda Hernandez Primary Care Physician [phone] Allergies, Adverse Reactions, Alerts No allergy information available. Medications No medication information available. Problem List No problem information available. Procedures No known history of procedures. Relevant Diagnostic Tests and/or Laboratory Data No known relevant diagnostic tests, laboratory data, and/or discharge summary. Advance Directives Advance Directive Response Recorded Date/ Time Does the patient have a living will? No August 19, 2015 10:32am Does the patient have an advanced directive? No August 19, 2015 10:32am Power of Vamp Wetter? No August 19, 2015 10:32am Hospital Discharge Instructions No known hospital discharge instructions. Encounters Encounter Facility Location Admit Date Discharge Date Attending Provider Departed Emergency [facility] Emergency Department January 24, 2017 4:55pm January 24, 2017 7:05pm Functional Status No known functional status. Immunizations No known immunizations. Payers Payer Name Policy Type Covered Republican Covered Republican Id Relationship Subscriber Subscriber Id [facility] [employer] ([email or web address]) CROSS Commercial YAMILETH TAYLOR [id number] SELF/SAME PATIENT YAMILETH TAYLOR [id number] Plan of Care No known plan of care. Social History No known social history. Vital Signs No known vital signs results.
--- OUTSIDE RECORDS SUMMARY | 2024-05-28 15:28 | XMS_ITS | Continuity of Care Document ---
Author Name [facility] Address [address] [place] [address] Organization [facility] Address [address] [place] [address] Care Team Providers Care Time Recorder Name Role Phone Brenda Hernandez Primary Care Physician Allergies, Adverse Reactions, Alerts Allergen Type Severity Reaction Last Updated Verified Status acetaminophen Allergy hives August 24, 2017 Y Active hydrocodone Allergy hives August 24, 2017 Y A ctive Medications Active Medications Medication Dose Start Date Status Levonorgestrel-Ethinyl Estrad [Kurvelo] S eptember 2016 Active Sumatriptan 100 August 24, 2017 Active Problem List No problem information available. Procedures Procedure Date Status Foot 3 vw Min RT August 24, 2017 completed EMERGENCY DEPT VISIT January 24, 2017 active URINE TEST January 24, 2017 active Reason for Referral Reason for Referral Date Referral was Provided Provider Office Contact Location Relevant Diagnostic Tests and/or Laboratory Data Laboratory Results Test Date/Time Result Interp. Ref. Range Result Co mment Sodium Level February 22, 2017 8:34am 141 mmol/L 137-145 Potassium Level February 22, 2017 8:34am 4.8 mmol/L 3.6-5.0 Chloride Level February 22, 2017 8:34am 106 mmol/L 98-107 Carbon Dioxide Level February 22, 2017 8:34am 24 mmol/L 22-30 Anion Gap February 22, 2017 8:34am 11 7-16 Blood Urea Nitrogen February 22, 2017 8:34am 19 mg/dL High 7-17 Creatinine February 22, 2017 8:34am 0.8 mg/dL 0.52-1.04 Glomerular Filtration Rate Calc February 22, 2017 8:34am > 60 mL/min Glucose Level February 22, 2017 8:34am 103 mg/dL High 70-100 Calcium Level February 22, 2017 8:34am 9.5 mg/dL 8.4-10.2 Calcium Adjusted for Albumin February 22, 2017 8:34am 9.4 mg/dL 8.4-10.2 Total Bilirubin February 22, 2017 8:34am 0.8 mg/dL 0.2-1.3 Aspartate Amino Transf (AST/SGOT) February 22, 2017 8:34am 25 U/L 14-36 Alanine Aminotransferase (ALT/SGPT) February 22, 2017 8:34am 45 U/L 9-52 Total Protein February 22, 2017 8:34am 7.2 g/dL 6.3-8.2 Albumin February 22, 2017 8:34am 4.4 g/dL 3.5-5.0 Cholesterol Level February 22, 2017 8:34am 216 mg/dL High 59-199 HDL Cholesterol February 22, 2017 8:34am 62 mg/dL High 40-60 The National Cholesterol Education Program (NCEP) has set the following guidelines (reference values) for cholesterol, HDL: Low HDL: <40 mg/dL Normal: 40-60 mg/dL Desirable: >60 mg/dL LDL Cholesterol February 22, 2017 8:34am 133.2 mg/dL High 0-129 VLDL Cholesterol February 22, 2017 8:34am 20.8 mg/dL 0-32 Cholesterol/HDL Ratio February 22, 2017 8:34am 3.48 0-3.9 Triglycerides Level February 22, 2017 8:34am 104 mg/dL 0-149 Alkaline Phosphatase February 22, 2017 8:34am 63 U/L 38-126 Thyroid Stimulating Hormone (TSH) February 22, 2017 8:34am 1.87 mlU/L 0.47-4.68 TSH cascade is not recommended for patients in which pituitary or hypothalmic disorders are suspected. Hemoglobin A1c Percent February 22, 2017 8:34am 4.87 % 4.2-6.5 < 7% Recommended goal by ADA guidelines 7-8% Suboptimal by ADA guidelines >8% Further action suggested by ADA guidelines Estimated Average Glucose mg/dL February 22, 2017 8:34am 93 mg/dL Advance Directives Advance Directive Response Recorded Date/ Time Do we [place] a [place] [facility] No February 22, 2017 8:32am Does patient have an Advanced Directive? No August 19, 2015 10:32am Pt has a Living Will? No August 19, 2015 10:32am Pt has a Power of Scouring Machine Tender? No Aug 10:32am Chief Complaint and Reason for Visit Encounter Admit Date Chief Complaint Reason for V isit Departed Emergency August 24, 2017 4:56pm [facility] Discharge Instructions Additional Discharge Instructions For yo ur foot- Crutches to allow rest of injured structures. weight bearing as tolerated. RICE treatment for sprains, strains, contusions: REST-with increased weight bearing and activity as tolerated. ICE packs several times a day 15-20 minutes for 2-3 days. COMPRESSION- Khang wrap for compression and comfort will help keep swelling down. ELEVATION- when feasible for pain and swelling. Over the counter pain medications as directed may be helpful. If not significantly better in a week, you need to see your doctor for further evaluation. CONCUSSION: If you have any worrisome new symptoms as discussed and included in the information provided, return right away to the ED. This included- vomiting, vision changes, double vision, confusion, severe headache, difficulty breathing, and seizures. Continue with ice packs for 1-2 days for bruising or swelling. You need rest. No heavy exertion or contact sports 1 week or until symptoms have completely subsided. Call your primary care office for an appt. Instruction/Education Provided Brain Inj ury Mild Traum Concuss Tx Crutches Weight Bearing Dc Strain Sprain Contusion Ch Hospital Discharge Medications Medication Dose Units Route Sig Qty Days Order Date Status Ins tructions Levonorgestrel-Ethi nyl Estrad August 24, 2017 Active Sumatriptan 100 Aug Active Encounters Encounter Facility Location Admit/Visit Date Discharge/Departure Date Attending Provider Departed Emergency [facility] Emergency Department August 24, 2017 4:56pm August 24, 2017 6:40pm Departed Clinical [facility] Laboratory February 22, 2017 8:29am February 22, 2017 8:30am Brenda Hernandez Departed Emergency [facility] Emergency Department January 24, 2017 4:55pm January 24, 2017 7:05pm Functional Status No known functional status. Immunizations No known immunizations. Payers Payer Name Policy Type Covered Libertarian Covered Libertarian Id Relationship Subscriber Subscriber Id [employer] [id number] Self/Same as Patient [id number] [facility] [employer] (DO NOT USE) [employer] YAMILETH TAYLOR [id number] Self/Same as Patient YAMILETH TAYLOR [id number] SELF PAY Personal Plan of Care Instructions Brain Injury Mild Traum Conc uss Tx Crutches Weight Bearing Dc Strain Sprain Contusion Ch Social History Query Response Start Date Stop Date Smoking Status Current some day smoker Vital Signs Vital Reading Result Reference Range Collection Date/Time Height n/a Weight 84.55 kg August 24 5:13pm Temperature 97.8 F 97.6 F-99.6 F August 24, 2017 5:13pm Pulse 87 BPM 60-100 August 24 017 5:13pm Respiration 20 RPM 11-23August 24 017 5:13pm Pulse Oximetry 100 % 95-100 August 24, 2017 5:13pm Blood Pressure Systolic 156 100-140 Aug 5:13pm Blood Pressure Diastolic 94 50-85 Aug 5:13pm Body Mass Index n/a
--- OUTSIDE RECORDS SUMMARY | 2024-05-28 15:28 | XMS_ITS | Continuity of Care Document ---
Author Name [facility] Address [address] [place] [id number] Organization [facility] Address [address] [place] [address] Support Name Relationship Address Phone Brenda Hernandez Primary Care Provider [address] [address] Brenda Hernandez Attending Provider [facility] [address] [address] Referral, Self Referring Provider Unknown Unavail able Allergies, Adverse Reactions, Alerts Allergen Type Severity Reaction Last Updated Verified Status metformin Allergy Unknown unknown March 11, 2022 Y Active weed pollen Allergy Unknown unknown March 11, 2022 Y Activ e cat dander Adverse Reaction Unknown unknown March 11, 2022 Y Active dog dander Adverse Reaction Unknown unknown March 11, 2022 Y Active Medications Active Medications Medication Dose Units Route Sig Qty Start Date Status In structions Norethindrone (Contraceptive) 0.35 MG ORAL DAILY 84 June 15, 2021 Active Buspirone 5 MG ORAL TWICE A DAY 180 June 15, 2021 Active Clonazepam 1 MG ORAL Q8H PRN For Anxiety 10 March 11, 2022 Active Biotin 15 MG ORAL DAILY April 14, 2019 Active Loratadine [Claritin] 10 MG ORAL DAILY April 16, 2019 Active Erenumab-Aooe [Aimovig Autoinjector] 140 MG SUBCUTANEOUS Q30D August 03, 2019 Active Discontinued Medications Medication Dose Units Route Sig Qty Start Date Discontinued Date Status Instructions Buspirone 5 MG ORAL TWICE A DAY 180 May 04, 2019 December 20, 2019 Discontin ued Hydroxyzine Hcl 10 MG ORAL TWICE A DAY PRN For Anxiet y 30 July 22, 2019 October 19, 2019 Discontin ued Hydroxyzine Hcl 10 MG ORAL TWICE A DAY PRN For Anxiet y 30 October 19, 2019 December 20, 2019 Discontin ued Levonorgestre l-Ethinyl Estrad [Kurvelo (28)] 1 TAB ORAL DAILY 84 January 10, 2020 September 15, 2020 Discontin ued Hydroxyzine Hcl 0 Route .COMPL EX PRN For insomn ia 30 2019September 15, 2020 Discontin ued 1-2 tabs qhs PRN for insomnia Clonazepam 0.5 MG ORAL Q8H PRN For Anxiet y 10 April 06, 2021 September 28, 2021 Discontin ued Levonorgestre l-Ethinyl Estrad [Kurvelo (28)] 1 TAB ORAL DAILY 84 May 29, 2021 June 15, 2021 Discontin ued may skip placebo pills Clonazepam 0.5 MG ORAL Q8H PRN For Anxiet y 10 December 31, 2021 March 11, 2022 Discontin ued Buspirone 7.5 MG ORAL TWICE A DAY 180 April 06, 2021 June 15, 2021 Discontin ued Clonazepam 0.5 MG ORAL Q8H PRN For Anxiet y 10 April 06, 2021 April 06, 2021 Discontin ued 1-2 tabs as needed for anxiety flu vacc [id number] 6mos up(PF) 0.5 ML INTRAMUS CULAR ONCE 0.5 December 20, 2019 December 20, 2019 Discontin ued Hydroxyzine Hcl 10 MG ORAL TWICE A DAY PRN For Anxiet y 30 December 20, 2019 June 07, 2020 Discontin ued Clonazepam 0.5 MG ORAL Q8H PRN For Anxiet y 10 April 14, 2019 August 03, 2019 Discontin ued 1-2 tabs as needed for anxiety Buspirone 5 MG ORAL TWICE A DAY 60 April 14, 2019 May 04, 2019 Discontin ued Levonorgestre l-Ethinyl Estrad [Kurvelo (28)] 1 TAB ORAL DAILY April 14, 2019 January 10, 2020 Discontin ued Cholecalcifer ol (Vitamin D3) UNK UNK ORAL DAILY April 14, 2019 August 03, 2019 Discontin ued Cholecalcifer ol (Vitamin D3) 2000 UNITS ORAL DAILY Augemb2018March 11, 2022 Discontin ued Hydroxyzine Hcl 0 Route .COMPL EX PRN For insomn ia 90 September 15, 2020 September 28, 2021 Discontin ued 1-2 tabs qhs PRN for insomnia Buspirone 10 MG ORAL TWICE A DAY 180 September 15, 2020 February 19, 2021 Discontin ued Clonazepam 0.5 MG ORAL Q8H PRN For Anxiet y 20 September 15, 2020 April 06, 2021 Discontin ued 1-2 tabs as needed for anxiety Levonorgestre l-Ethinyl Estrad [Kurvelo (28)] 1 TAB ORAL DAILY 84 September 15, 2020 May 29, 2021 Discontin ued may skip placebo pills Clonazepam 0.5 MG ORAL Q8H PRN For Anxiet y 10 September 28, 2021 December 31, 2021 Discontin ued Clonazepam 0.5 MG ORAL Q8H PRN For Anxiet y 14 Sept2018September 15, 2020 Discontin ued 1-2 tabs as needed for anxiety Sumatriptan 20 MG NASAL ONCE PRN For migrai ne headac he July 29, 2019 July 29, 2019 Discontin ued 1 spray intranasally once daily PRN at onset of migraine Sumatriptan 20 MG NASAL ONCE PRN For migrai ne headac he 1 July 29, 2019 June 07, 2020 Discontin ued 1 spray intranasally once daily PRN at onset of migraine Trazodone 0 ORAL DAILY PRN For insomn ia 90 June 07, 2020 September 15, 2020 Discontin ued 1-2 tabs qhs PO daily PRN; Buspirone 5 MG ORAL TWICE A DAY 180 June 07, 2020 September 15, 2020 Discontin ued Buspirone 15 MG ORAL TWICE A DAY 180 February 19, 2021 April 06, 2021 Discontin ued Hydroxyzine Hcl 10 MG ORAL TWICE A DAY PRN For Anxiet y May 03, 2019 July 22, 2019 Discontin ued Erenumab-Aooe [Aimovig Autoinjector] 70 MG SUBCUTAN EOUS Q30D May 03, 2019 August 03, 2019 Discontin ued Problem List Active Problems Medical Problem Onset Date Status Nicotine dependence Active Insomnia Active Contraception management Active Family history of hypertrophic cardiomyopathy Active Polycystic ovaries June 29, 2015 Anxiety Active Migraine Active Arthralgia of shoulder May 16, 2015 Wheat sensitive enteropathy Acti ve Adult general medical exam Activ e Abnormal uterine bleeding (AUB) Active Knee pain April 16, 2018 White coat syndrome with hypertension Active Endometriosis Active Internal derangement of knee April 16, 2018 Obesity Active Inactive/Resolved Problems Medical Problem Onset Date Status Acute sinusitis April 23, 2017 Resolved Laceration of left index finger Inactive Lipoma of skin January 18, 2016 Resolved Internal derangement of knee April 16, 2018 Res olved Procedures Procedure Date Status ECHO Complete April 24, 2021 completed Relevant Diagnostic Tests and/or Laboratory Data Laboratory Results Test Date/Time Result Interp. Ref. Range Result Co mment Sodium Level April 24, 2021 9:34am 139 mmol/L 137-145 Potassium Level April 24, 2021 9:34am 5.2 mmol/L High 3.6-5.0 Chloride Level April 24, 2021 9:34am 105 mmol/L 98-107 Carbon Dioxide Level April 24, 2021 9:34am 23 mmol/L 22-30 Anion Gap April 24, 2021 9:34am 11 7-16 Blood Urea Nitrogen April 24, 2021 9:34am 13 mg/dL 7-17 Creatinine April 24, 2021 9:34am 0.86 mg/dL 0.52-1.04 Glomerular Filtration Rate Calc April 24, 2021 9:34am > 60 mL/min 60.0- Glucose Level April 24, 2021 9:34am 94 mg/dL 70-100 Calcium Level April 24, 2021 9:34am 9.4 mg/dL 8.4-10.2 Calcium Adjusted for Albumin April 24, 2021 9:34am 9.6 mg/dL 8.4-10.2 Total Bilirubin April 24, 2021 9:34am 0.3 mg/dL 0.2-1.3 Aspartate Amino Transf (AST/SGOT) April 24, 2021 9:34am 25 U/L 14-36 Alanine Aminotransferase (ALT/SGPT) April 24, 2021 9:34am 23 U/L As of 03/31/20, th e Reference Range for ALT/SGPT for adult patients has been updated. The Reference Range for ALT/SGPT has not been established for patients <18 years of age. Total Protein April 24, 2021 9:34am 6.8 g/dL 6.3-8.2 Albumin April 24, 2021 9:34am 4.1 g/dL 3.5-5.0 Cholesterol Level April 24, 2021 9:34am 221 mg/dL High 59-199 HDL Cholesterol April 24, 2021 9:34am 54 mg/dL 40-60 The National Cholesterol Education Program (NCEP) has set the following guidelines (reference values) for cholesterol, HDL: Low HDL: <40 mg/dL Normal: 40-60 mg/dL Desirable: >60 mg/dL LDL Cholesterol April 24, 2021 9:34am 135.6 mg/dL High 0-129 VLDL Cholesterol April 24, 2021 9:34am 31.4 mg/dL 0-32 Cholesterol/HDL Ratio April 24, 2021 9:34am 4.09 High 0-3.9 Triglycerides Level April 24, 2021 9:34am 157 mg/dL High 0-149 Alkaline Phosphatase April 24, 2021 9:34am 72 U/L 38-126 Hemoglobin A1c Percent April 24, 2021 9:34am 4.88 % <5.7%: Normal 5.7%-6.4%: Prediabetes >=6.5%: Diagnostic for diabetes Goals for Glycemic Control in Diabetes (ADA 2018) <7.0%: A1c target for non adults with diabetes. More or less stringent glycemic goals may be appropriate for individual patients. <7.5%: A1c target for children and adolescents with type I diabetes. A lower goal is reasonable if it can be achieved without excessive hypoglycemia. Estimated Average Glucose mg/dL April 24, 2021 9:34am 93 mg/dL Chief Complaint and Reason for Visit Encounter Admit Date Chief Complaint Reason for V isit Departed Physician/Provider Office Visit March 11, 2022 12:35pm Annual Physical - Adult Adult general medical exam Anxiety Hospital Discharge Instructions No known hospital discharge instructions. Hospital Discharge Medications Medication Dose Units Route Sig Qty Days Order Date Status Instructions Buspirone 5 MG ORAL TWICE A DAY 180 May 04, 2019 Discontinu ed Hydroxyzine Hcl 10 MG ORAL TWICE A DAY PRN For Anxiety July 22, 2019 Discontinu ed Hydroxyzine Hcl 10 MG ORAL TWICE A DAY PRN For Anxiety October 19, 2019 Discontinu ed Levonorgestrel- Ethinyl Estrad 1 TAB ORAL DAILY 84 Febru 2019 Discontinu ed Hydroxyzine Hcl 0 Route .COMPLEX PRN For insomnia August 17, 2020 Discontinu ed 1-2 tabs qhs PRN for insomnia Clonazepam 0.5 MG ORAL Q8H PRN For Anxiety April 06, 2021 Discontinu ed Levonorgestrel- Ethinyl Estrad 1 TAB ORAL DAILY 84 May 29, 2021 Discontinu ed may skip placebo pills Clonazepam 0.5 MG ORAL Q8H PRN For Anxiety 10 December 31, 2021 Discontinu ed Buspirone 7.5 MG ORAL TWICE A DAY 180 April 06, 2021 Discontinu ed Clonazepam 0.5 MG ORAL Q8H PRN For Anxiety 10 April 06, 2021 Discontinu ed 1-2 tabs as needed for anxiety Norethindrone (Contraceptive) 0.35 MG ORAL DAILY 84 June 15, 2021 Active Buspirone 5 MG ORAL TWICE A DAY 180 June 15, 2021 Active flu vacc [id number] 6mos up(PF) 0.5 ML INTRAMUSCU LAR ONCE 0.5 December 20, 2019 Discontinu ed Hydroxyzine Hcl 10 MG ORAL TWICE A DAY PRN For Anxiety 30 December 20, 2019 Discontinu ed Clonazepam 1 MG ORAL Q8H PRN For Anxiety March 11, 2022 Active Clonazepam 0.5 MG ORAL Q8H PRN For Anxiety 10 April 14, 2019 Discontinu ed 1-2 tabs as needed for anxiety Buspirone 5 MG ORAL TWICE A DAY 60 April 14, 2019 Discontinu ed Levonorgestrel- Ethinyl Estrad 1 TAB ORAL DAILY March 312018 Discontinu ed Cholecalciferol (Vitamin D3) UNK UNK ORAL DAILY April 14, 2019 Discontinu ed Biotin 15 MG ORAL DAILY April 14, 2019 Active Loratadine 10 MG ORAL DAILY March 312018 Active Cholecalciferol (Vitamin D3) 2000 UNITS ORAL DAILY Septemb er 2018 Discontinu ed Hydroxyzine Hcl 0 Route .COMPLEX PRN For insomnia 90 September 15, 2020 Discontinu ed 1-2 tabs qhs PRN for insomnia Buspirone 10 MG ORAL TWICE A DAY 180 September 15, 2020 Discontinu ed Clonazepam 0.5 MG ORAL Q8H PRN For Anxiety September 15, 2020 Discontinu ed 1-2 tabs as needed for anxiety Levonorgestrel- Ethinyl Estrad 1 TAB ORAL DAILY 84 Octob er 2019 Discontinu ed may skip placebo pills Clonazepam 0.5 MG ORAL Q8H PRN For Anxiety 10 September 28, 2021 Discontinu ed Clonazepam 0.5 MG ORAL Q8H PRN For Anxiety August 03, 2019 Discontinu ed 1-2 tabs as needed for anxiety Sumatriptan 20 MG NASAL ONCE PRN For migraine headache July 29, 2019 Discontinu ed 1 spray intranasally once daily PRN at onset of migraine Sumatriptan 20 MG NASAL ONCE PRN For migraine headache 1 July 29, 2019 Discontinu ed 1 spray intranasally once daily PRN at onset of migraine Trazodone 0 ORAL DAILY PRN For insomnia 90 June 07, 2020 Discontinu ed 1-2 tabs qhs PO daily PRN; Buspirone 5 MG ORAL TWICE A DAY 180 June 07, 2020 Discontinu ed Buspirone 15 MG ORAL TWICE A DAY 180 February 19, 2021 Discontinu ed Hydroxyzine Hcl 10 MG ORAL TWICE A DAY PRN For Anxiety May 03, 2019 Discontinu ed Erenumab-Aooe 70 MG SUBCUTANEO US Q30D May 03, 2019 Discontinu ed Erenumab-Aooe 140 MG SUBCUTANEO US Q30D August 03, 2019 Active Encounters Encounter Facility Location Admit/Visit Date Discharge/Departure Date Attending Provider Departed Physician/Pr ovider Office Visit [facility] March 11, 2022 12:35pm March 11, 2022 1:36pm Brenda Hernandez Departed Physician/Pr ovider Office Visit [facility] September 28, 2021 7:33am September 28, 2021 1:42pm Brenda Hernandez Departed Physician/Pr ovider Office Visit [facility] June 15, 2021 7:35am June 15, 2021 11:03am Brenda Hernandez Clinical [facility] Laboratory April 24, 2021 9:15am April 24, 2021 9:16am Brenda Hernandez Departed Clinical [facility] DI [facility] April 24, 2021 9:14am April 24, 2021 9:15am Brenda Hernandezed Physician/Pr ovider Office Visit [facility] April 06, 2021 7:48am April 06, 2021 1:58pm Brenda Hernandez Encounter Diagnosis Onset Date Adult general medical exam Anxiety Functional Status No known functional status. Immunizations Immunization Name Date Given Type Covid-19 30mcg/0.3ml Harry and David (Purple top) May 05, 2021 Historical Covid-19 30mcg/0.3ml Pfizer (Purple top) May Historical Influenza IIV4 PF September 29, 2017 Historical Influenza IIV4 PF December 20, 2019 Administered Influenza Split Virus 3YR Older August 31, 2014 Historical Tdap December 01, 2011 Historical Tdap May 31, 2019 Administered Plan of Care No Known Plan of Care Information Social History Query Response Date Recorded Comment Alcohol Use Yes May 31, 2019 12:06pm Smoking Status Current some day smoker March 11, 2022 1:05pm Substance/Street Drug Use No May 31, 2019 12 :06pm alcohol intake frequency holidays/specia l occasions only March 11, 2022 1:05pm substance use type does not use March 11, 2022 1:05pm Query Response Start Date Stop Date Smoking Status Current some day smoker Vital Signs Vital Reading Result Reference Range Collection Date/Time Height 5 ft 5 in March 11, 2022 1:02pm Weight 88.451 kg March 11, 2022 1:02pm Temperature 98.2 F 97.6 F-99.6 F March 11, 2022 1:02pm Pulse 89 BPM 60-100 March 11, 2022 1:02pm Respiration 16 RPM 12-24 March 11, 2022 1:02pm Pulse Oximetry 99 % 95-100 March 11 1:02pm Blood Pressure Systolic 138 100-140 Apri l 2021 1:02pm Blood Pressure Diastolic 86 50-85 Apr il 2021 1:02pm Body Mass Index 32.4 March 11 1:02pm
--- OUTSIDE RECORDS SUMMARY | 2024-05-28 15:28 | XMS_ITS | Continuity of Care Document ---
Author Name [facility] Address [address] [place] [address] Organization [facility] Address [address] [place] [address] Care Team Providers Care Irrigator Gravity Flow Name Role Phone Brenda Hernandez Primary Care Physician [phone] Alissa Rivers Attending Physician [phone] Allergies, Adverse Reactions, Alerts Allergen Type Severity Reaction Last Updated Verified Status metformin Allergy Unknown unknown December 20, 2019 Y Activ e weed pollen Allergy Unknown unknown August 03, 2019 Y Ac tive cat dander Adverse Reaction Unknown unknown December 20, 2019 Y Active dog dander Adverse Reaction Unknown unknown December 20, 2019 Y Active Medications Active Medications Medication Dose Units Route Sig Qty Start Date Status In structions Levonorgestrel-Et hinyl Estrad [Kurvelo (28)] 1 TAB ORAL DAILY 84 January 10, 2020 Active Sumatriptan Succinate 6 MG SUBCUTANEOUS .BID Q30D PRN December 20, 2019 Active [place]-3 Fatty Acids [Super [place]-3] 2000 MG ORAL DAILY December 20, 2019 Active Riboflavin (Vitamin B2) 100 MG ORAL TWICE A DAY April 14, 2019 Active Biotin 15 MG ORAL DAILY April 14, 2019 Active Loratadine [Claritin] 10 MG ORAL DAILY April 16, 2019 Active Cholecalciferol (Vitamin D3) 2000 UNITS ORAL DAILY August 03, 2019 Active Clonazepam 0.5 MG ORAL Q8H PRN For Anxiety 14 August 03, 2019 Active 1-2 tabs as needed for anxiety Trazodone 0 ORAL DAILY PRN For insomnia 90 June 07, 2020 Active 1-2 tabs qhs PO daily PRN; Buspirone 5 MG ORAL TWICE A DAY 180 June 07, 2020 Active Erenumab-Aooe [Aimovig Autoinjector] 140 MG SUBCUTANEOUS [...] 19, 2019 December 20, 2019 Discontin ued flu vacc [id number] 6mos up(PF) 0.5 ML INTRAMUS CULAR ONCE [...] 14, 2019 August 03, 2019 Discontin ued Sumatriptan 20 MG NASAL ONCE PRN For migrai ne headac he July 29, 2019 July 29, 2019 Discontin ued 1 spray intranasally once daily PRN at onset of migraine Sumatriptan 20 MG NASAL ONCE PRN For migrai ne headac he 1 July 29, 2019 June 07, 2020 Discontin ued 1 spray intranasally once daily PRN at onset of migraine Hydroxyzine Hcl 10 MG ORAL TWICE A DAY PRN For Anxiet y May 03, 2019 July 22, 2019 Discontin ued Erenumab-Aooe [Aimovig Autoinjector] 70 MG SUBCUTAN EOUS Q30D May 03, 2019 August 03, 2019 Discontin ued Problem List Active Problems Medical Problem Onset Date Status Insomnia Active Polycystic ovaries June 29, 2015 Anxiety Active Migraine Active Arthralgia of shoulder May 16, 2015 Wheat sensitive enteropathy Acti ve Abnormal uterine bleeding (AUB) Active Knee pain April 16, 2018 Internal derangement of knee April 16, 2018 Inactive/Resolved Problems Medical Problem Onset Date Status Acute sinusitis April 23, 2017 Resolved Laceration of left index finger Inactive Lipoma of skin January 18, 2016 Resolved Internal derangement of knee April 16, 2018 Res olved Procedures No known history of procedures. Relevant Diagnostic Tests and/or Laboratory Data Laboratory Results Test Date/Time Result Interp. Ref. Range Result Comment Thyroid Stimulating Hormone (TSH) July 06, 2020 10:19am 1.52 mlU/L 0.47-4.68 TSH cascade is n ot recommended for patients in which pituitary or hypothalmic disorders are suspected. Hemoglobin A1c Percent July 06, 2020 10:19am 5.30 % <5.7%: Normal 5.7%-6.4%: Prediabetes >=6.5%: Diagnostic [...] without excessive hypoglycemia. Estimated Average Glucose mg/dL July 06, 2020 10:19am 105 mg/dL Tissue Transglutaminase IgA Ab November 19, 2019 8:52am < 1.2 U/mL --- REFERENCE VALUE <4.0 (Negative) Tissue Transglutaminase IgG Ab November 19, 2019 8:52am 1.3 U/mL --- REFERENCE VALUE <6.0 (Negative) Test Performed by: [facility] [address] [place] [address] Loss Prevention Leader: Abdullahi Goodrich M.D. Ph.D.; CLIA# [id number] Urine 6-Acetylmorphine Screen August 03, 2019 8:55am Negative ng/mL Urine Amphetamine Screen August 03, 2019 8:55am Negative ng/mL Urine Barbiturates Screen August 03, 2019 8:55am Negative ng/mL Urine Benzodiazepines Screen August 03, 2019 8:55am Negative ng/mL Urine Buprenorphine Screen August 03, 2019 8:55am Negative ng/mL Urine Cocaine Screen August 03, 2019 8:55am Negative ng/mL EDDP (Methadone Metabolite) Screen August 03, 2019 8:55am Negative ng/mL Urine Ethyl Glucuronide Screen August 03, 2019 8:55am Negative ng/mL Urine Methadone Screen August 03, 2019 8:55am Negative ng/mL Urine Opiates Screen August 03, 2019 8:55am Negative ng/mL Urine Oxycodone Screen August 03, 2019 8:55am Negative ng/mL Urine Propoxyphene Screen August 03, 2019 8:55am Negative ng/mL Urine Marijuana (THC) Screen August 03, 2019 8:55am Negative ng/mL Urine THC/Creatinine Ratio August 03, 2019 8:55am Test not performed Urine Fentanyl Screen August 03, 2019 8:55am Negative ng/mL Testing Performe d By: [address] CARLOS ALBERTO Mccormack, [place] [address] Loss Prevention Leader: Estefania Aguilera MD, Ph.D Adulterants Urine Creatinine August 03, 2019 8:55am 39.15 mg/dL Testing Performe d By: [address] CARLOS ALBERTO Mccormack, [place] [address] Loss Prevention Leader: Estefania Aguilera MD, Ph.D Adulterants Urine Oxidants August 03, 2019 8:55am <200 ug/mL Adulterants Urine pH August 03, 2019 8:55am 5.3 Adulterants Urine Specific [place] August 03, 2019 8:55am 1.004 g/mL --- REFERENCE VALUE 1.003 - 1.035 Wheat Allergen IgE Antibody November 19, 2019 8:52am <0.35 kU/L Class 0 (Negativ e <0.35) Test Performed by: [facility] [address] [place] [id number] Loss Prevention Leader: Abdullahi Goodrich M.D. Ph.D.; CLIA# [id number] Wheat Allergen IgG Antibody November 19, 2019 8:52am 5.4 mcg/mL Reference ranges have not been established for food-specific IgG tests. The clinical utility of food-specific IgG tests has not been established. These tests can be used in special clinical situations to select foods for evaluation by diet elimination and challenge in patients who have food-related complaints. It should be recognized that the presence of food-specific IgG alone cannot be taken as evidence of food allergy and only indicates immunologic sensitization by the food allergen in question. This test should only be ordered by physicians who recognize the limitations of the test. *This test was developed and its performance characteristics determined by [email or web address]. It has not been cleared or approved by the U.S. Food and Drug Administration. Test Performed by: [email or web address], Interface [address] [place] [address] Chief Complaint and Reason for Visit Encounter Admit Date Chief Complaint Reason for V isit Departed Clinical July 06, 2020 10:07am Lab Hospital Discharge Instructions No known hospital [...] 1 TAB ORAL DAILY 84 Febru 2019 Active flu vacc [id number] 6mos up(PF) 0.5 ML INTRAMUSCU LAR ONCE 0.5 December 20, 2019 Discontinu ed Sumatriptan Succinate 6 MG SUBCUTANEO US .BID Q30D PRN December 20, 2019 Active [place]-3 Fatty Acids 2000 MG ORAL DAILY December 20, 2019 Active Hydroxyzine Hcl 10 MG ORAL TWICE A DAY PRN For Anxiety December 20, 2019 Discontinu ed Clonazepam 0.5 MG ORAL Q8H PRN For Anxiety April 14, 2019 Discontinu ed 1-2 tabs as needed for anxiety Buspirone 5 MG ORAL TWICE A DAY 60 April 14, 2019 Discontinu ed Levonorgestrel- Ethinyl Estrad 1 TAB ORAL DAILY March 312018 Discontinu ed Cholecalciferol (Vitamin D3) UNK UNK ORAL DAILY April 14, 2019 Discontinu ed Riboflavin (Vitamin B2) 100 MG ORAL TWICE A DAY April 14, 2019 Active Biotin 15 MG ORAL DAILY April 14, 2019 Active Loratadine 10 MG ORAL DAILY March 312018 Active Cholecalciferol (Vitamin D3) 2000 UNITS ORAL DAILY Septemb 2018 Active Clonazepam 0.5 MG ORAL Q8H PRN For Anxiety 14 August 03, 2019 Active 1-2 tabs as needed for anxiety Sumatriptan [...] PRN For insomnia 90 June 07, 2020 Active 1-2 tabs qhs PO daily PRN; Buspirone 5 MG ORAL TWICE A DAY 180 June 07, 2020 Active Hydroxyzine Hcl 10 MG ORAL TWICE A DAY PRN For Anxiety May 03, 2019 Discontinu ed Erenumab-Aooe 70 MG SUBCUTANEO US Q30D May 03, 2019 Discontinu ed Erenumab-Aooe 140 MG SUBCUTANEO US Q30D August 03, 2019 Active Encounters Encounter Facility Location Admit/Visit Date Discharge/Departure Date Attending Provider Departed Clinical [facility] Laboratory July 06, 2020 10:07am July 06, 2020 10:08am Alissa Rivers Departed Physician/Pr ovider Office Visit [facility] June 07, 2020 7:37am June 07, 2020 1:28pm Brenda Hernandez Departed Physician/Pr ovider Office Visit [facility] PORTAL DEVELOPER February 24, 2020 8:33am February 24, 2020 11:59pm Alissa Rivers Departed Physician/Pr ovider Office Visit [facility] December 20, 2019 8:25am December 20, 2019 9:43am Brenda Hernandez Departed Clinical [facility] Laboratory November 19, 2019 8:36am November 19, 2019 8:37am Brenda Hernandez Registered Inpatient [facility] October 19, 2019 11:59pm Brenda Hernandez Registered Inpatient [facility] October 18, 2019 8:39am Brad Michel Departed Referred [facility] Lab [facility] Primary Care August 03, 2019 8:55am August 03, 2019 8:56am Alissa Us Departed Physician/Pr ovider Office Visit [facility] Primary [facility] August 03, 2019 8:39am August 03, 2019 10:31am Alissa Us Registered Inpatient [facility] July 29, 2019 11:52am Mecca Toledo Registered Inpatient [facility] July 15, 2019 11:59pm Brenda Hernandez Functional Status Query Response Date Recorded Comment Ambulation Ability Independent December 17, 2019 9:08p m Immunizations Immunization Name Date Given Type Influenza IIV4 PF September 29, 2017 Historical Influenza IIV4 PF December 20, 2019 Administered Influenza Split Virus 3YR Older August 31, 2014 Historical Tdap December 01, 2011 Historical Tdap May 31, 2019 Administered Payers Payer Name Policy Type Covered Constitution Party Covered Constitution Party Id Relationship Subscriber Subscriber Id [employer] EM[employer] YAMILETH TAYLOR [id number] Self/Same as Patient YAMILETH TAYLOR [id number] [facility] [place] (DO NOT USE) Commercial YAMILETH TAYLOR [id number] Self/Same as Patient YAMILETH TAYLOR [id number] SELF PAY Personal Plan of Care No Known Plan of Care Information Social History Query Response Date Recorded Comment Alcohol Use Yes May 31, 2019 12:06pm Smoking Status Current some day smoker June 07, 2020 1: 29pm Substance/Street Drug Use No May 31, 2019 12 :06pm alcohol intake frequency holidays/specia l occasions only May 31, 2019 12:06pm substance use type does not use December 17, 2019 9:08p m Query Response Start Date Stop Date Smoking Status Current some day smoker Vital Signs Vital Reading Result Reference Range Collection Date/Time Height 5 ft 5 in December 20 0 8:40am Weight 94.007 kg December 20 0 8:40am Temperature 98.9 F 97.6 F-99.6 F December 20 20 8:40am Pulse 78 BPM 60-100 December 20 0 8:40am Respiration 16 RPM 12-December 20 0 8:40am Pulse Oximetry 98 % 95-100 December 20 020 8:40am Blood Pressure Systolic 139 100-140 Ozzy shirin2019 8:40am Blood Pressure Diastolic 85 50-85 Alex uary 2019 8:40am Body Mass Index 34.4 December 20, 2019 8:40am
--- OUTSIDE RECORDS SUMMARY | 2024-05-28 15:28 | XMS_ITS | Continuity of Care Document ---
Author Name [facility] Address [address] [place] [address] Organization [facility] Address [address] [place] [address] Support Name Relationship Address Phone Brenda Hernandez Primary Care Provider [facility] [address] [facility] [address] [place] [address] Kishan Baltazar Attending Provider [facility] SNACK STEWARDESS [address] [place], [place] [phone] Referral, Self Referring Provider Unknown Unavail able Allergies, Adverse Reactions, Alerts Allergen Type Severity Reaction Last Updated Verified Status metformin Allergy Unknown unknown July 17, 2020 Y Active weed pollen Allergy Unknown unknown July 17, 2020 Y Acti ve cat dander Adverse Reaction Unknown unknown July 17, 2020 Y Active dog dander Adverse Reaction Unknown unknown July 17, 2020 Y Active Medications Active Medications Medication Dose Units Route Sig Qty Start Date Status In structions Levonorgestrel-Et hinyl Estrad [Kurvelo (28)] 1 TAB ORAL DAILY 84 January 10, 2020 Active Sumatriptan Succinate 6 MG SUBCUTANEOUS .BID Q30D PRN December 20, 2019 Active Riboflavin (Vitamin B2) [...] December 20, 2019 Discontin ued flu vacc [id number] 6mos up(PF) 0.5 ML INTRAMUS CULAR ONCE [...] (AUB) Active Knee pain April 16, 2018 Endometriosis Active Internal derangement of knee April [...] Result Interp. Ref. Range Result Co mment Thyroid Stimulating Hormone (TSH) July 06, 2020 10:19am 1.52 mlU/L 0.47-4.68 TSH cascade is n ot recommended for patients in which pituitary or hypothalmic disorders are suspected. Follicle Stimulating Hormone July 06, 2020 10:19am 6.5 mIU/mL NOTE: Female FSH Reference Ranges (>= 13 Menstruating): PHYSIOLOGICAL STATUS REFERENCE RANGE Follicular (-12 to -4 days): 2.5 - 10.2 mIU/mL Midcycle (-3 to +2 days): 3.4 - 33.4 mIU/mL Luteal (+4 to +12 days): 1.5 - 9.1 mIU/mL Postmenopausal: 23.0 - 116.3 mIU/mL Reference Ranges for female patients <13 years old have not been established. Test performed or referred by The [address] [address] Prolactin July 06, 2020 10:19am 5.5 ng/mL NOTE: Female Reference Ranges: PHYSIOLOGICAL STATUS EXPECTED RANGE Postmenopausal 1.8 - 20.3 ng/mL 9.7 - 208.5 ng/mL Non- 2.8 - 29.2 ng/mL Reference Ranges for Prolactin in female patients <18 years old have not been established. Test performed or referred by The [address] [address] Hemoglobin A1c Percent July 06, 2020 10:19am [...] November 19, 2019 8:52am < 1.2 U/mL ---R EFERENCE VALUE <4.0 (Negative) Tissue Transglutaminase IgG Ab November 19, 2019 8:52am 1.3 U/mL ---R EFERENCE VALUE <6.0 (Negative) Test Performed by: [place] [address] Mine Promotor: Abdullahi Goodrich M.D. Ph.D.; CLIA# [id number] Wheat Allergen IgE Antibody November 19, 2019 8:52am <0.35 kU/L Class 0 (Negativ e <0.35) Test Performed by: [place] [address] Mine Promotor: Abdullahi Goodrich M.D. Ph.D.; CLIA# [id number] Wheat Allergen IgG Antibody November 19, 2019 [...] developed and its performance characteristics determined by [facility]. It has not been cleared or approved by the U.S. Food and Drug Administration. Test Performed by: [facility], Interface [address] [place] [address] Chief Complaint and Reason for Visit Encounter Admit Date Chief Complaint Reason for V isit Departed Physician/Provider Office Visit July 17, 2020 2:06pm CONSULT Endometriosis Polycystic ovaries Hospital Discharge Instructions No known hospital discharge [...] DAILY 84 Febru 2019 Active flu vacc [id number] 6mos up(PF) 0.5 ML INTRAMUSCU LAR ONCE 0.5 December 20, 2019 Discontinu ed Sumatriptan Succinate 6 MG SUBCUTANEO US .BID Q30D PRN December 20, 2019 Active Hydroxyzine Hcl 10 MG ORAL TWICE A DAY PRN For Anxiety 30 December 20, 2019 Discontinu ed Clonazepam 0.5 [...] Cholecalciferol (Vitamin D3) 2000 UNITS ORAL DAILY Sept2018 Active Clonazepam 0.5 MG ORAL Q8H PRN For Anxiety August 03, 2019 Active 1-2 tabs as [...] Attending Provider Departed Physician/Pr ovider Office Visit [facility] SNACK STEWARDESS July 17, 2020 2:06pm July 17, 2020 2:38pm Kishan Baltazar Departed Clinical [facility] Laboratory July 06, 2020 10:07am July 06, 2020 10:08am Alissa Rivers Departed Physician/Pr ovider Office Visit [facility] June 07, 2020 7:37am June 07, 2020 1:28pm Brenda Hernandez Departed Physician/Pr ovider Office Visit [facility] SNACK STEWARDESS February 24, 2020 8:33am February 24, 2020 11:59pm Alissa Rivers Departed Physician/Pr ovider Office Visit [facility] December 20, 2019 8:25am December 20, 2019 9:43am Brenda Hernandez Departed Clinical [facility] Laboratory November 19, 2019 8:36am November 19, 2019 8:37am Brenda Hernandez Registered Inpatient [facility] October 19, 2019 11:59pm Brenda Hernandez Registered Inpatient [facility] October 18, 2019 8:39am Brad Michel Encounter Diagnosis Onset Date Endometriosis Polycystic ovaries June 29, 2015 Functional Status Query Response Date Recorded Comment Ambulation Ability Independent December 17, 2019 9:08p m Immunizations Immunization Name Date Given Type Influenza IIV4 PF September 29, 2017 Historical Influenza IIV4 PF December 20, 2019 Administered Influenza Split Virus 3YR Older August 31, 2014 Historical Tdap December 01, 2011 Historical Tdap May 31, 2019 Administered Payers Payer Name Policy Type Covered Libertarian Covered Libertarian Id Relationship Subscriber Subscriber Id [employer] Commercial YAMILETH TAYLOR [id number] Self/Same as Patient YAMILETH TAYLOR [id number] [employer]EP [employer] (DO NOT USE) Commercial YAMILETH TAYLOR [id number] Self/Same as Patient YAMILETH TAYLOR [id number] SELF PAY Personal Plan of Care No Known Plan of Care Information Social History Query Response Date Recorded Comment Alcohol Use Yes May 31, 2019 12:06pm Smoking Status Current some day smoker July 18, 2020 6:21am Substance/Street Drug Use No May 31, 2019 12 :06pm alcohol intake frequency holidays/specia l occasions only May 31, 2019 12:06pm substance use type does not use December 17, 2019 9:08p m Query Response Start Date Stop Date Smoking Status Current some day smoker Vital Signs Vital Reading Result Reference Range Collection Date/Time Height 5 ft 5 in July 17, 2020 2:14pm Weight 92.306 kg July 17, 2020 2:14pm Temperature 98.9 F 97.6 F-99.6 F December 20 8:40am Pulse 78 BPM 60-100 December 20 0 8:40am Respiration 16 RPM -December 20 0 8:40am Pulse Oximetry 98 % 95-100 December 20 020 8:40am Blood Pressure Systolic 140 100-140 2019 2:14pm Blood Pressure Diastolic 90 50-85 Jul 2019 2:14pm Body Mass Index 33.8 July 17 020 2:14pm
--- OUTSIDE RECORDS SUMMARY | 2024-05-28 15:28 | XMS_ITS | Continuity of Care Document ---
Author Name [facility] Address [address] [place] [address] Organization [facility] Address [address] [place] [address] Care Team Providers Care Environmental Education Specialist Name Role Phone Brenda Hernandez Primary Care Physician [phone] Brenda Hernandez Attending Physician [phone] Allergies, Adverse Reactions, Alerts Allergen Type Severity [...] have a copy on file here at [facility]? No February 22, 2017 8:32am Does patient have an Advanced Directive? No August 19, 2015 10:32am Pt has a Living Will? No August 19, 2015 10:32am Pt has a Power of Outbound Sales Representative? No Aug 10:32am Hospital Discharge Instructions No known hospital discharge instructions. Hospital Discharge Medications Medication Dose Units Route Sig Qty Days Order Date Status Ins tructions Levonorgestrel-Ethi nyl Estrad August 24, 2017 Active Sumatriptan 100 Aug Active Encounters Encounter Facility Location Admit/Visit Date Discharge/Departure Date Attending Provider Departed Referred [facility] Pathology [...] Alliance Party Id Relationship Subscriber Subscriber Id [employer] [id number] Self/Same as Patient [id number] [facility] [employer] (DO NOT USE) [employer] YAMILETHVisual RealmLEY [id number] Self/Same as Patient YAMILETH AREVALOLEY [id number] SELF PAY Personal Plan of Care No [...]
--- OUTSIDE RECORDS SUMMARY | 2024-05-28 15:28 | XMS_ITS | Continuity of Care Document ---
Author Name [facility] Address [address] [place] [address] Organization [facility] Address [address] [place] [address] Support Name Relationship Address Phone Brenda Hernandez Primary Care Provider [facility] [address] [facility] [address] [place] [address] Kishan Baltazar Attending Provider [facility] NICKING MACHINE OPERATOR [address] [place], [place] [phone] Referral, Self Referring Provider Unknown Unavail able [...] December 20, 2019 Discontin ued flu vacc [id number] 6mos up(PF) 0.5 ML INTRAMUS CULAR ONCE [...] established. Test performed or referred by The [address] [address] Prolactin July 06, 2020 10:19am 5.5 ng/mL NOTE: Female Reference Ranges: PHYSIOLOGICAL STATUS EXPECTED RANGE Postmenopausal 1.8 - 20.3 ng/mL 9.7 - 208.5 ng/mL Non- 2.8 - 29.2 ng/mL Reference Ranges for Prolactin in female patients <18 years old have not been established. Test performed or referred by The [address] [address] Hemoglobin A1c Percent July 06, 2020 10:19am [...] EFERENCE VALUE <6.0 (Negative) Test Performed by: [place] [address] Repeat Chief: Abdullahi Goodrich M.D. Ph.D.; CLIA# [id number] Wheat Allergen IgE Antibody November 19, 2019 8:52am <0.35 kU/L Class 0 (Negativ e <0.35) Test Performed by: [place] [address] Repeat Chief: Abdullahi Goodrich M.D. Ph.D.; CLIA# [id number] Wheat Allergen IgG Antibody November 19, 2019 [...] developed and its performance characteristics determined by [facility]. It has not been cleared or approved by the U.S. Food and Drug Administration. Test Performed by: [facility], Interface [address] [place] [address] Chief Complaint and Reason for Visit Encounter [...] DAILY 84 Febru 2019 Active flu vacc [id number] 6mos up(PF) 0.5 ML INTRAMUSCU LAR ONCE [...] Attending Provider Departed Physician/Pr ovider Office Visit [facility] NICKING MACHINE OPERATOR July 17, 2020 2:06pm July 17, 2020 2:38pm Kishan Baltazar Departed Clinical [facility] Laboratory July 06, 2020 10:07am July 06, 2020 10:08am Alissa Rivers Departed Physician/Pr ovider Office Visit [facility] Primary [facility] June 07, 2020 7:37am June 07, 2020 1:28pm Brenda Hernandez Departed Physician/Pr ovider Office Visit [facility] NICKING MACHINE OPERATOR February 24, 2020 8:33am February 24, 2020 11:59pm Alissa Rivers Departed Physician/Pr ovider Office Visit [facility] December 20, 2019 8:25am December 20, 2019 9:43am Brenda Hernandez Departed Clinical [facility] Laboratory November 19, 2019 8:36am November 19, 2019 8:37am Brenda Hernandez Registered Inpatient [facility] October 19, 2019 11:59pm Brenda Hernandez Registered Inpatient [facility] October 18, 2019 8:39am [...] [employer] Commercial YAMILETH TAYLOR [id number] Self/Same as Patient YAMILETH TAYLOR [id number] [employer]EP [employer] (DO NOT USE) Commercial YAMILETH TAYLOR [id number] Self/Same as Patient YAMILETH TAYLOR [id number] SELF PAY Personal Plan of Care No [...]
--- OUTSIDE RECORDS SUMMARY | 2024-05-28 15:28 | XMS_ITS | Continuity of Care Document ---
Author Name [facility] Address [address] [place] [address] Organization [facility] Address [address] [place] [address] Support Name Relationship Address Phone Brenda Hernandez Primary Care Provider [address] [address] Brenda Hernandez Attending Provider [facility]ar [address] [address] Referral, Self Referring Provider Unknown Unavail able Allergies, Adverse Reactions, Alerts Allergen Type Severity Reaction Last Updated Verified Status metformin Allergy Unknown unknown February 19, 2021 Y Active weed pollen Allergy Unknown unknown February 19, 2021 Y Activ e cat dander Adverse Reaction Unknown unknown February 19, 2021 Y Active dog dander Adverse Reaction Unknown unknown February 19, 2021 Y Active Medications Active Medications Medication Dose Units Route Sig Qty Start Date Status In structions Norethindrone (Contraceptive) 0.35 MG ORAL DAILY 84 June 15, 2021 Active Buspirone 5 MG ORAL TWICE A DAY 180 June 15, 2021 Active Sumatriptan Succinate 6 MG SUBCUTANEOUS .BID [...] PRN For Anxiety 10 September 28, 2021 Active Erenumab-Aooe [Aimovig Autoinjector] 140 MG SUBCUTANEOUS [...] MG ORAL Q8H PRN For Anxiet y April 06, 2021 September 28, 2021 Discontin ued Levonorgestre l-Ethinyl Estrad [Kurvelo (28)] 1 TAB ORAL DAILY 84 May 29, 2021 June 15, 2021 Discontin ued may skip placebo pills Buspirone 7.5 MG ORAL TWICE A DAY 180 April 06, 2021 June 15, 2021 Discontin ued Clonazepam 0.5 MG ORAL Q8H PRN For Anxiet y 10 April 06, 2021 April 06, 2021 Discontin ued 1-2 tabs as needed for anxiety flu vacc [id number] 6mos up(PF) 0.5 ML INTRAMUS CULAR ONCE [...] 14, 2019 August 03, 2019 Discontin ued Hydroxyzine Hcl 0 Route .COMPL [...] ORAL Q8H PRN For Anxiet y 14 Septembe r 2018September 15, 2020 Discontin ued 1-2 tabs as [...] for V isit Departed Physician/Provider Office Visit September 28, 2021 7:33am Follow Up Anxiety Hospital Discharge Instructions No known hospital [...] Ethinyl Estrad 1 TAB ORAL DAILY 84 2019 Discontinu ed Hydroxyzine Hcl 0 Route .COMPLEX PRN For insomnia August 17, 2020 Discontinu ed 1-2 tabs qhs PRN for insomnia Clonazepam 0.5 MG ORAL Q8H PRN For Anxiety April 06, 2021 Discontinu ed Levonorgestrel- Ethinyl Estrad 1 TAB ORAL DAILY 84 May 29, 2021 Discontinu ed may skip placebo pills Buspirone 7.5 MG ORAL TWICE A DAY 180 April 06, 2021 Discontinu ed Clonazepam 0.5 MG ORAL Q8H PRN For Anxiety 10 April 06, 2021 Discontinu ed 1-2 tabs as needed for anxiety Norethindrone (Contraceptive) 0.35 MG ORAL DAILY 84 June 15, 2021 Active Buspirone 5 MG ORAL TWICE A DAY 180 June 15, 2021 Active flu vacc [id number] 6mos up(PF) 0.5 ML INTRAMUSCU LAR ONCE [...] 2000 UNITS ORAL DAILY Septemb er 2018 Active Hydroxyzine Hcl 0 Route .COMPLEX PRN For [...] PRN For Anxiety 10 September 28, 2021 Active Clonazepam 0.5 MG ORAL Q8H PRN For Anxiety 14 August 03, 2019 Discontinu ed 1-2 tabs [...] Attending Provider Departed Physician/Pr ovider Office Visit [facility] September 28, 2021 7:33am September 28, 2021 1:42pm Brenda Hernandez Departed Physician/Pr ovider Office Visit [facility] June 15, 2021 7:35am June 15, 2021 11:03am Brenda Hernandez Departed Clinical [facility] Laboratory April 24, 2021 9:15am April 24, 2021 9:16am Brenda Hernandez Departed Clinical [facility] April 24, 2021 9:14am April 24, 2021 9:15am Brenda Hernandez Departed Physician/Pr ovider Office Visit [facility] April 06, 2021 7:48am April 06, 2021 1:58pm Brenda Hernandez Departed Physician/Pr ovider Office Visit [facility] February 19, 2021 2:54pm February 19, 2021 4:11pm Brenda Hernandez Departed Physician/Pr ovider Office Visit [facility] October 30, 2020 8:11am October 30, 2020 11:34am Nasima Gomes Departed Physician/Pr ovider Office Visit [facility] October 16, 2020 11:45am October 16, 2020 11:45am Nasima Gomes Departed Physician/Pr ovider Office Visit [facility] October 02, 2020 10:38am October 02, 2020 10:38am Nasima Gomes Encounter Diagnosis Onset Date Anxiety Functional Status No known functional status. Immunizations Immunization Name Date Given Type Covid-19 30mcg/0.3ml Pfizer May 05, 2021 Hist orical Covid-19 30mcg/0.3ml Pfizer May 26, 2021 Hist orical Influenza IIV4 PF September 29, 2017 Historical Influenza IIV4 PF December 20, 2019 Administered Influenza Split Virus 3YR Older August 31, 2014 Historical Tdap December 01, 2011 Historical Tdap May 31, 2019 Administered Plan of Care No Known Plan of Care Information Social History Query Response Date Recorded Comment Alcohol Use Yes May 31, 2019 12:06pm Smoking Status Current some day smoker September 28 10:58am Substance/Street Drug Use No May 31, 2019 12 :06pm alcohol intake frequency holidays/specia l occasions only February 19, 2021 3:08pm substance use type does not use February 19, 2021 3:08pm Query Response Start Date Stop Date Smoking Status Current some day smoker Vital Signs Vital Reading Result Reference Range Collection Date/Time Height 5 ft 5 in February 19, 2021 3:00pm Weight 92.986 kg February 19, 2021 3:00pm Temperature 98.8 F 97.6 F-99.6 F February 19, 2021 3:00pm Pulse 84 BPM 60-100 February 19, 2021 3:00pm Respiration 16 RPM 12-February 19, 2021 3:00pm Pulse Oximetry 99 % 95-100 February 19 3:00pm Blood Pressure Systolic 144 100-140 [facility] 2020 3:00pm Blood Pressure Diastolic 100 50-85 [facility] 2020 3:00pm Body Mass Index 34.1 February 19 3:00pm
--- OUTSIDE RECORDS SUMMARY | 2024-05-28 15:28 | XMS_ITS | Continuity of Care Document ---
Author Name [facility] Address [address] [place] [address] Organization [facility] Address [address] [place] [address] Care Team Providers Care Supportability Engineer Name Role Phone Brenda Hernandez Primary Care Physician Kishan Perdomo Attending Physician Pito henderson Allergies, Adverse Reactions, Alerts Allergen Type Severity [...] Sig Qty Start Date Status In structions Clonazepam 0.5 MG ORAL Q8H PRN 10 April 14, 2019 Active 1-2 tabs as needed for anxiety Buspirone 5 MG ORAL TWICE A DAY 60 April 14, 2019 Active Levonorgestrel-Ethi nyl Estrad [Kurvelo (28)] 1 TAB ORAL DAILY April 14, 2019 Active Feverfew 100 MG ORAL TWICE A DAY April 14, 2019 Active Cholecalciferol (Vitamin D3) UNK UNK ORAL DAILY April 14, 2019 Active Riboflavin (Vitamin B2) 100 MG ORAL TWICE A DAY April 14, 2019 Active Magnesium Oxide 400 MG ORAL DAILY April 14, 2019 Ac tive Biotin 15 MG ORAL DAILY April 14, 2019 Active Loratadine [Claritin] 10 MG ORAL DAILY April 16, 2019 Active Sumatriptan 100 August Active Problem List Active Problems Medical Problem Onset Date Status Polycystic ovaries June 29, 2015 Acute sinusitis April 23, 2017 Arthralgia of shoulder May 16, 2015 Knee pain April 16, 2018 Lipoma of skin January 18, 2016 Internal derangement of knee April 16, 2018 Internal derangement of knee April 16, 2018 Procedures Procedure Date Status US Transvaginal Non-OB April 23, 2019 active Relevant Diagnostic Tests and/or Laboratory Data Laboratory Results Test Date/Time Result Interp. Ref. Range Result Comment 25-Hydroxy Vitamin D2 May 01, 2018 8:06am < 4.0 ng/mL 25-Hydroxy Vitamin D3 May 01, 2018 8:06am 18 ng/mL 25-Hydroxy Vitamin D Total May 01, 2018 8:06am 18 ng/mL Low Interpretation: 10-19 ng/mL (mild to moderate deficiency) REFERENCE VALUE 25-HYDROXY D TOTAL (D2+D3) Optimum levels in the healthy population are 20-50, patients with bone disease may benefit from higher levels within this range. ADDITIONAL INFORMATION-------- This test was developed and its performance characteristics determined by [facility] in a manner consistent with CLIA requirements. This test has not been cleared or approved by the U.S. Food and Drug Administration. Test Performed by: [facility] [address] [place] [address] Testosterone Level May 01, 2018 8:06am 23 ng/dL 14-76 Reference Range: Premenopausal (21-60 yrs): 9-48 ng/dL Postmenopausal (45-89 yrs): <46 ng/dL The results of this assay can be falsely elevated due to the consumption of Biotin. Free Testosterone May 01, 2018 8:06am 0.3 ng/mL Test not recommended in patients with plasma protein abnormalities. Test Performed by: [facility] [address] [address] Sex Hormone Binding Globulin May 01, 2018 8:06am 54.8 nmol/L Reference Range: Premenopausal (21-60 yrs): >10.8 nmol/L Postmenopausal (45-89 yrs): 23.2-159.1 nmol/L The results of this assay can be falsely lowered due to the consumption of Biotin. Dehydroepiandrosterone Sulfate May 01, 2018 8:06am 194 ug/dL Test Performed b y: [facility] [address] [address] Chief Complaint and Reason for Visit Encounter Admit Date Chief Complaint Reason for V isit Departed Clinical April 23, 2019 9:01am Hospital Discharge Instructions No known hospital discharge instructions. Hospital Discharge Medications Medication Dose Units Route Sig Qty Days Order Date Status Ins tructions Clonazepam 0.5 MG ORAL Q8H PRN 10 April 14, 2019 Active 1-2 tabs as needed for anxiety Buspirone 5 MG ORAL TWICE A DAY 60 April 14, 2019 Active Levonorgestrel-Eth inyl Estrad 1 TAB ORAL DAILY April 14, 2019 Active Feverfew 100 MG ORAL TWICE A DAY April 14, 2019 Active Cholecalciferol (Vitamin D3) UNK UNK ORAL DAILY April 14, 2019 Active Riboflavin (Vitamin B2) 100 MG ORAL TWICE A DAY April 14, 2019 Active Magnesium Oxide 400 MG ORAL DAILY April 14, 2019 Act walt Biotin 15 MG ORAL DAILY April 14, 2019 Active Loratadine 10 MG ORAL DAILY April 16, 2019 Active Sumatriptan 100 Sept emb2016 Active Encounters Encounter Facility Location Admit/Visit Date Discharge/Departure Date Attending Provider Departed Physician/Pr ovider Office Visit [facility] 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 LADLE PATCHER April 23, 2019 9:01am April 23, 2019 9:02am Kishan Baltazar Departed Physician/Pr ovider Office Visit [facility] TUR[employer] FARM WORKER April 16, 2019 9:49am April 16, 2019 10:25am Hien Reyes Departed Physician/Pr ovider Office Visit [facility] March 26, 2019 12:00am March 26, 2019 Brenda Hernandez Departed Physician/Pr ovider Office Visit [facility] Primary [facility] March 03, 2019 12:00am March 03, 2019 Brenda Hernandez Departed Physician/Pr ovider Office Visit [facility] January 18, 2019 12:00am January 18, 2019 Brenda Hernandez Departed Physician/Pr ovider Office Visit [facility] December 21, 2018 12:00am December 21, 2018 Brenda Hernandez Departed Physician/Pr ovider Office Visit [facility] Primary [facility] August 31, 2018 12:00am August 31, 2018 Brenda Hernandez Departed Clinical [facility] May 01, 2018 7:59am May 01, 2018 8:00am Deb Bynum Functional Status No known functional status. Immunizations Immunization Name Date Given Type Influenza IIV4 PF September 29, 2017 Historical Influenza Split Virus 3YR Older August 31, 2014 Historical Tdap December 01, 2011 Historical Payers Payer Name Policy Type Covered Green Party Covered Green Party Id Relationship Subscriber Subscriber Id [employer] Commercial YAMILETH TAYLOR [id number] Self/Same as Patient YAMILETH TAYLOR [id number] FEP [employer] (DO NOT USE) Commercial YAMILETH TAYLOR [id number] Self/Same as Patient YAMILETH TAYLOR [id number] SELF PAY Personal Plan of Care No Known Plan of Care Information Social History No known social history. Vital Signs Vital Reading Result Reference Range Collection Date/Time Height 5 ft 5 in April 23, 2019 9: 24am Weight 91.801 kg April 23, 2019 9: 24am Temperature 98.4 F 97.6 F-99.6 F December 21 8:12am Pulse 70 BPM 60-100 April 16, 2019 10 :00am Respiration 18 RPM -April 16, 2019 10 :00am Pulse Oximetry n/a Blood Pressure Systolic 122 100-140 April 23, 2019 9:24am Blood Pressure Diastolic 74 50-85 April 23, 2019 9:24am Body Mass Index n/a
--- OUTSIDE RECORDS SUMMARY | 2024-05-28 15:28 | XMS_ITS | Continuity of Care Document ---
Author Name [facility] Address [address] [place] [address] Organization [facility] Address [address] [place] [address] Care Team Providers Care Gage Designer Name Role Phone Brenda Hernandez Primary Care Physician Brenda Hernandez Attending Physician Allergies, Adverse Reactions, Alerts No allergy information available. Medications No medication information available. Problem List No problem information available. Procedures Procedure Date Status EMERGENCY DEPT VISIT January 24, 2017 active URINE TEST January 24, 2017 active Relevant Diagnostic Tests and/or Laboratory Data [...] have a copy on file here at [facility]? No February 22, 2017 8:32am Does patient have an Advanced Directive? No August 19, 2015 10:32am Pt has a Living Will? No August 19, 2015 10:32am Pt has a Power of Chair Springer? No Aug 10:32am Chief Complaint and Reason for Visit Encounter Admit Date Chief Complaint Reason for V isit Departed Clinical February 22, 2017 8:29am BLOODWORK Hospital Discharge Instructions No known hospital discharge instructions. Encounters Encounter Facility Location Admit/Visit Date Discharge/Departure Date Attending Provider Departed Clinical [facility] Laboratory February 22, 2017 8:29am February 22, 2017 8:30am Brenda Hernandez Departed Emergency [facility] Emergency Department January 24, 2017 4:55pm January 24, 2017 7:05pm Functional Status No known functional status. Immunizations No known immunizations. Payers Payer Name Policy Type Covered Libertarian Covered Libertarian Id Relationship Subscriber Subscriber Id [employer] Commercial [id number] Self/Same as Patient [id number] [facility] [employer] Commercial YAMILETH TAYLOR [id number] Self/Same as Patient YAMILETH TAYLOR [id number] SELF PAY Personal Plan of Care No Known Plan of Care Information Social History No known social history. Vital Signs No known vital signs results.
--- OUTSIDE RECORDS SUMMARY | 2024-05-28 15:28 | XMS_ITS | Continuity of Care Document ---
Author Name [facility] Address [address] [place] [id number] Organization [facility] Address [address] [place] [address] Care Team Providers Care Farm Machinery Erector Name Role Phone Brenda Hernandez Primary Care [...] structions Clonazepam 0.5 MG ORAL Q8H PRN For Anxiety 10 April 06, 2021 Active Buspirone 7.5 MG ORAL TWICE A DAY 180 April 06, 2021 Active Sumatriptan Succinate 6 MG SUBCUTANEOUS .BID Q30D PRN December 20, 2019 Active Riboflavin (Vitamin B2) 100 MG ORAL TWICE A DAY April 14, 2019 Active Biotin 15 MG ORAL DAILY April 14, 2019 Active Loratadine [Claritin] 10 MG ORAL DAILY April 16, 2019 Active Cholecalciferol (Vitamin D3) 2000 UNITS ORAL DAILY August 03, 2019 Active Hydroxyzine Hcl 0 Route .COMPLEX PRN For insomnia 90 September 15, 2020 Active 1-2 tabs qhs PRN for insomnia Levonorgestrel-Et hinyl Estrad [Kurvelo (28)] 1 TAB ORAL DAILY 84 September 15, 2020 Active may skip placebo pills Erenumab-Aooe [Aimovig Autoinjector] 140 MG SUBCUTANEOUS Q30D [...] tabs as needed for anxiety flu vacc [id number] 6mos up(PF) 0.5 ML INTRAMUS CULAR ONCE [...] 14, 2019 August 03, 2019 Discontin ued Buspirone 10 MG ORAL TWICE A DAY 180 September 15, 2020 February 19, 2021 Discontin ued Clonazepam 0.5 MG ORAL Q8H PRN For Anxiet y 20 September 15, 2020 April 06, 2021 Discontin ued 1-2 tabs as needed for anxiety Clonazepam 0.5 MG ORAL Q8H PRN For Anxiet y 14 2018September 15, 2020 Discontin ued 1-2 tabs [...] Date Status Nicotine dependence Active Insomnia Active Family history of hypertrophic cardiomyopathy Active [...] April 24, 2021 9:34am 72 U/L 38-126 Thyroid Stimulating Hormone (TSH) July 06, 2020 10:19am 1.52 mlU/L 0.47-4.68 TSH cascade is not recommended for patients in which pituitary or hypothalmic disorders are suspected. Follicle Stimulating Hormone July 06, 2020 10:19am 6.5 mIU/mL NOTE: Female FSH Reference Ranges (>= 13 Menstruating): PHYSIOLOGICAL STATUS REFERENCE RANGE --- Follicular (-12 to -4 days): 2.5 - 10.2 mIU/mL Midcycle (-3 to +2 days): 3.4 - 33.4 mIU/mL Luteal (+4 to +12 days): 1.5 - 9.1 mIU/mL Postmenopausal: 23.0 - 116.3 mIU/mL Reference Ranges for female patients <13 years old have not been established. Test performed [place] [address] Prolactin July 06, 2020 10:19am 5.5 ng/mL NOTE: Female Reference Ranges: PHYSIOLOGICAL STATUS EXPECTED RANGE --- Postmenopausal 1.8 - 20.3 ng/mL 9.7 - 208.5 ng/mL Non- 2.8 - 29.2 ng/mL Reference Ranges for Prolactin in female patients <18 years old have not been established. Test performed or referred by The [address] [address] Hemoglobin A1c Percent April 24, 2021 9:34am [...] Reason for V isit Departed Clinical April 24, 2021 9:14am Z82.49 - F amily history of ischemic heart disease Hospital Discharge Instructions No known hospital discharge [...] Estrad 1 TAB ORAL DAILY 84 Febru shirin2019 Discontinu ed Hydroxyzine Hcl 0 Route .COMPLEX PRN For insomnia August 17, 2020 Discontinu ed 1-2 tabs qhs PRN for insomnia Clonazepam 0.5 MG ORAL Q8H PRN For Anxiety April 06, 2021 Active Buspirone 7.5 MG ORAL TWICE A DAY 180 April 06, 2021 Active Clonazepam 0.5 MG ORAL Q8H PRN For Anxiety April 06, 2021 Discontinu ed 1-2 tabs as needed for anxiety flu vacc [id number] 6mos up(PF) 0.5 ML INTRAMUSCU LAR ONCE [...] D3) 2000 UNITS ORAL DAILY Sept2018 Active Hydroxyzine Hcl 0 Route .COMPLEX PRN For insomnia September 15, 2020 Active 1-2 tabs qhs PRN for insomnia Buspirone 10 MG ORAL TWICE A DAY 180 September 15, 2020 Discontinu ed Clonazepam 0.5 MG ORAL Q8H PRN For Anxiety September 15, 2020 Discontinu ed 1-2 tabs as needed for anxiety Levonorgestrel- Ethinyl Estrad 1 TAB ORAL DAILY 84 Octob er 2019 Active may skip placebo pills Clonazepam 0.5 MG [...] Date Discharge/Departure Date Attending Provider Departed Clinical [facility] Laboratory April 24, 2021 9:15am April 24, 2021 9:16am Brenda Hernandez Departed Clinical [facility] DI [facility] April 24, 2021 9:14am April 24, 2021 9:15am Brenda Hernandez Departed Physician/Pr ovider Office Visit [facility] Primary Care April 06, 2021 7:48am April 06, 2021 1:58pm Brenda Hernandez Departed Physician/Pr ovider Office Visit [facility] Care February 19, 2021 2:54pm February 19, 2021 4:11pm Brenda Hernandez Departed Physician/Pr ovider Office Visit [facility] October 30, 2020 8:11am October 30, 2020 11:34am Nasima Gomes Departed Physician/Pr ovider Office Visit [facility] October 16, 2020 11:45am October 16, 2020 11:45am Nasima Gomes Departed Physician/Pr ovider Office Visit [facility] October 02, 2020 10:38am October 02, 2020 10:38am Nasima Gomes Departed Physician/Pr ovider Office Visit [facility] September 18, 2020 7:38am September 18, 2020 10:45am Nasima Gomes Departed Physician/Pr ovider Office Visit [facility] September 15, 2020 12:04pm September 15, 2020 12:04pm Brenda Hernandez Departed Physician/Pr ovider Office Visit [facility] COMMERCIAL PRINT SALESMAN July 17, 2020 2:06pm July 17, 2020 2:38pm Kishan Baltazar Departed Clinical [facility] Laboratory July 06, 2020 10:07am July 06, 2020 10:08am Alissa Rivers Departed Physician/Pr ovider Office Visit [facility] June 07, 2020 7:37am June 07, 2020 1:28pm Brenda Hernandez Functional Status No known functional status. Immunizations [...] 12:06pm Smoking Status Current some day smoker April 06, 2021 1:5 8pm Substance/Street Drug Use No May 31, 2019 [...] February 19, 2021 3:00pm Respiration 16 RPM 12-24 February 19, 2021 3:00pm Pulse Oximetry 99 % 95-100 February 19 3:00pm Blood Pressure Systolic 144 100-140 Jordin h 2020 3:00pm Blood Pressure Diastolic 100 50-85 [facility] 2020 3:00pm Body Mass Index 34.1 February 19 3:00pm
--- OUTSIDE RECORDS SUMMARY | 2024-05-28 15:28 | XMS_ITS | Continuity of Care Document ---
Author Name [facility] Address [address] [place] [address] Organization [facility] Address [address] [place] [address] Care Team Providers Care Panel Coverer Name Role Phone Brenda Hernandez Primary Care [...] tabs as needed for anxiety flu vacc [id number] 6mos up(PF) 0.5 ML INTRAMUS CULAR ONCE [...] established. Test performed [place] [address] Prolactin July 06, 2020 10:19am 5.5 ng/mL NOTE: Female Reference Ranges: PHYSIOLOGICAL STATUS EXPECTED RANGE --- Postmenopausal 1.8 - 20.3 ng/mL 9.7 - 208.5 ng/mL Non- 2.8 - 29.2 ng/mL Reference Ranges for Prolactin in female patients <18 years old have not been established. Test performed or referred by The [address] [address] Hemoglobin A1c Percent April 24, 2021 9:34am [...] V isit Departed Clinical April 24, 2021 9:15am Lab Hospital Discharge Instructions No known hospital [...] tabs as needed for anxiety flu vacc [id number] 6mos up(PF) 0.5 ML INTRAMUSCU LAR ONCE [...] Cholecalciferol (Vitamin D3) 2000 UNITS ORAL DAILY 2018 Active Hydroxyzine Hcl 0 Route .COMPLEX [...] Date Discharge/Departure Date Attending Provider Departed Clinical [facility] Laboratory April 24, 2021 9:15am April 24, 2021 9:16am Brenda Hernandez Departed Clinical [facility] DI [facility] April 24, 2021 9:14am April 24, 2021 9:15am Brenda Hernandez Departed Physician/Pr ovider Office Visit [facility] Primary [facility] April 06, 2021 7:48am April 06, 2021 1:58pm Brenda Hernandez Departed Physician/Pr ovider Office Visit [facility] February 19, 2021 2:54pm February 19, 2021 4:11pm Brenda Hernandez Departed Physician/Pr ovider Office Visit [facility] October 30, 2020 8:11am October 30, 2020 11:34am Nasima Gomes Departed Physician/Pr ovider Office Visit [facility] October 16, 2020 11:45am October 16, 2020 11:45am Nasima Gomes Departed Physician/Pr ovider Office Visit [facility] October 02, 2020 10:38am October 02, 2020 10:38am Nasima Gomes Departed Physician/Pr ovider Office Visit [facility] September 18, 2020 7:38am September 18, 2020 10:45am Nasima Gomes Departed Physician/Pr ovider Office Visit [facility] September 15, 2020 12:04pm September 15, 2020 12:04pm Brenda Hernandez Departed Physician/Pr ovider Office Visit [facility] SUPERVISOR [employer]ORE July 17, 2020 2:06pm July 17, 2020 2:38pm Kishan Baltazar Departed Clinical [facility] July 06, 2020 10:07am July 06, 2020 10:08am Alissa Rivers Departed Physician/Pr ovider Office Visit [facility] June 07, 2020 [...] 3:00pm Blood Pressure Systolic 144 100-140 Jordin 2020 3:00pm Blood Pressure Diastolic 100 50-85 [facility] 2020 3:00pm Body Mass Index 34.1 February 19 3:00pm
--- OUTSIDE RECORDS SUMMARY | 2024-05-28 15:28 | XMS_ITS | Continuity of Care Document ---
Author Name [facility] Address [address] [place] [address] Organization [facility] Address [address] [place] [address] Care Team Providers Care Sinter Feeder Name Role Phone Brenda Hernandez Primary Care Physician [phone] Brenda Hernandez Attending Physician Allergies, Adverse Reactions, [...] have a copy on file here at [facility]? No February 22, 2017 8:32am Does patient have an Advanced Directive? No August 19, 2015 10:32am Pt has a Living Will? No August 19, 2015 10:32am Pt has a Power of Supervisor Ride Assembly? No Aug 10:32am Hospital Discharge Instructions No known hospital discharge instructions. Hospital Discharge Medications Medication Dose Units Route Sig Qty Days Order Date Status Ins tructions Levonorgestrel-Ethi nyl Estrad August 24, 2017 Active Sumatriptan 100 Aug Active Encounters Encounter Facility Location Admit/Visit Date Discharge/Departure Date Attending Provider Departed Referred [facility] Pathology March 20, 2018 11:14am March 20, 2018 11:15am Brenda Hernandez Departed Clinical [facility] Laboratory March 20, 2018 9:48am March 20, 2018 9:49am Brenda Hernandez Departed Emergency [facility] Emergency Department August 24, 2017 4:56pm August 24, 2017 6:40pm Functional Status No known functional status. Immunizations No known immunizations. Payers Payer Name Policy Type Covered Republican Covered Republican Id Relationship Subscriber Subscriber Id [employer] [id number] Self/Same as Patient [id number] [facility] LIFEmee (DO NOT USE) [employer] YAMILETHCloudJayLEY [id number] Self/Same as Patient YAMILETH AREVALOLEY [id number] SELF PAY Personal Plan of Care No [...]
--- OUTSIDE RECORDS SUMMARY | 2024-05-28 15:28 | XMS_ITS | Continuity of Care Document ---
Author Name [facility] Address [address] [place] [address] Organization [facility] Address [address] [place] [address] Care Team Providers Care Drafter Electrical Name Role Phone Brenda Hernandez Primary Care Physician Alissa Alfonso Attending Physician Yves le Allergies, Adverse Reactions, Alerts Allergen Type Severity Reaction Last Updated Verified Status metformin Allergy Unknown unknown August 03, 2019 Y Acti ve weed pollen Allergy Unknown unknown August 03, 2019 Y Ac tive cat dander Adverse Reaction Unknown unknown August 03, 2019 Y Active dog dander Adverse Reaction Unknown unknown August 03, 2019 Y Active Medications Active Medications Medication Dose Units Route Sig Qty Start Date Status In structions Buspirone 5 MG ORAL TWICE A DAY 180 May 04, 2019 Active Hydroxyzine Hcl 10 MG ORAL TWICE A DAY PRN For Anxiety July 22, 2019 Active Levonorgestrel-Et hinyl Estrad [Kurvelo (28)] 1 TAB ORAL DAILY April 14, 2019 Active Feverfew 100 MG ORAL TWICE A DAY April 14, 2019 Active Riboflavin (Vitamin B2) [...] PRN For migraine headache July 29, 2019 Active 1 spray intranasally once daily PRN at onset of migraine Erenumab-Aooe [Aimovig Autoinjector] 140 MG SUBCUTANEOUS Q30D August 03, 2019 Active Discontinued Medications Medication Dose Units Route Sig Qty Start Date Discontinued Date Status Instructions Clonazepam 0.5 MG ORAL Q8H PRN For Anxiet y 10 April 14, 2019 August 03, 2019 Discontin ued 1-2 tabs as needed for anxiety Buspirone 5 MG ORAL TWICE A DAY 60 April 14, 2019 May 04, 2019 Discontin ued Cholecalcifero l (Vitamin D3) UNK UNK ORAL DAILY April [...] 29, 2015 Acute sinusitis April 23, 2017 Anxiety Active Arthralgia of shoulder May 16, 2015 Knee pain April 16, 2018 Lipoma of skin January 18, 2016 Internal derangement of knee April 16, 2018 Internal derangement of knee April 16, 2018 Inactive/Resolved Problems Medical Problem Onset Date Status Laceration of left index finger Inactive Procedures Procedure Date Status US Transvaginal Non-OB April 23, 2019 active Relevant Diagnostic Tests and/or Laboratory Data No known relevant diagnostic tests, laboratory data, and/or discharge summary. Hospital Discharge Instructions No known hospital discharge instructions. Hospital Discharge Medications Medication Dose Units Route Sig Qty Days Order Date Status Instructions Buspirone 5 MG ORAL TWICE A DAY 180 May 04, 2019 Active Hydroxyzine Hcl 10 MG ORAL TWICE A DAY PRN For Anxiety 30 July 22, 2019 Active Clonazepam 0.5 MG ORAL Q8H PRN For Anxiety 10 April 14, 2019 Discontinu ed 1-2 tabs as needed for anxiety Buspirone 5 MG ORAL TWICE A DAY 60 April 14, 2019 Discontinu ed Levonorgestrel- Ethinyl Estrad 1 TAB ORAL DAILY March 312018 Active Feverfew 100 MG ORAL TWICE A [...] PRN For migraine headache July 29, 2019 Active 1 spray intranasally once daily PRN at onset of migraine Hydroxyzine Hcl 10 MG ORAL TWICE A DAY PRN For Anxiety May 03, 2019 Discontinu ed Erenumab-Aooe 70 MG SUBCUTANEO US Q30D May 03, 2019 Discontinu ed Erenumab-Aooe 140 MG SUBCUTANEO US Q30D August 03, 2019 Active Encounters Encounter Facility Location Admit/Visit Date Discharge/Departure Date Attending Provider Departed Referred [facility] Primary Care August 03, 2019 8:55am August 03, 2019 8:56am Alissa Us Departed Physician/Pr ovider Office Visit [facility] Primary Care August 03, 2019 8:39am August 03, 2019 10:31am Alissa Us Registered Inpatient [facility] July 29, 2019 11:52am Mecca Toledo Registered Inpatient [facility] Primary Care July 15, 2019 11:59pm Brenda Hernandez Departed Emergency [facility] Emergency Department May 31, 2019 10:42am May 31, 2019 12:30pm Departed Physician/Pr ovider Office Visit [facility] RECORD LABEL INTERNSHIP April 23, 2019 9:04am April 23, 2019 9:52am Hien Reyes Departed Physician/Pr ovider Office Visit [facility] RECORD LABEL INTERNSHIP April 23, 2019 9:03am April 23, 2019 9:52am Kishan Baltazar Departed Clinical [facility] DIESEL ENGINE ASSEMBLER April 23, 2019 9:01am April 23, 2019 9:02am Kishan Baltazar Departed Physician/Pr ovider Office Visit [facility] RECORD LABEL INTERNSHIP April 16, 2019 9:49am April 16, 2019 10:25am Von Hien Clifton Departed Physician/Pr ovider Office Visit [facility] March 26, 2019 12:00am March 26, 2019 Brenda Hernandez Departed Physician/Pr ovider Office Visit [facility] March 03, 2019 12:00am March 03, 2019 Brenda Hernandez Departed Physician/Pr ovider Office Visit [facility] January 18, 2019 12:00am January 18, 2019 Brenda Hernandez Departed Physician/Pr ovider Office Visit [facility] December 21, 2018 12:00am December 21, 2018 Brenda Hernandez Departed Physician/Pr ovider Office Visit [facility] August 31, 2018 12:00am August 31, 2018 Brenda Hernandez Functional Status Query Response Date Recorded Comment Living Situation Home May 31, 2019 12:29pm Immunizations Immunization Name Date Given Type Influenza IIV4 PF September 29, 2017 Historical Influenza Split Virus 3YR Older August 31, 2014 Historical Tdap December 01, 2011 Historical Tdap May 31, 2019 Administered Payers Payer Name Policy Type Covered Alliance Party Covered Alliance Party Id Relationship Subscriber Subscriber Id [employer] Commercial YAMILETH TAYLOR [id number] Self/Same as Patient YAMILETH TAYLOR [id number] [facility] [employer] (DO NOT USE) Commercial YAMILETHСЕРГЕЙ TAYLOR [id number] Self/Same as Patient YAMILETH TAYLOR [id number] SELF PAY Personal Plan of Care No Known Plan of Care Information Social History No known social history. Vital Signs Vital Reading Result Reference Range Collection Date/Time Height 5 ft 5 in August 03 8:45am Weight 97.721 kg August 03 8:45am Temperature 98.6 F 97.6 F-99.6 F August 03 019 8:45am Pulse 88 BPM 60-100 August 03 8:45am Respiration 18 RPM -August 03 8:45am Pulse Oximetry 96 % 95-100 May 31, 2019 12:20pm Blood Pressure Systolic 124 100-140 Sept emb2018 8:45am Blood Pressure Diastolic 94 50-85 Sep tember 2018 8:45am Body Mass Index n/a
--- OUTSIDE RECORDS SUMMARY | 2024-05-28 15:29 | XMS_ITS | Continuity of Care Document ---
Author Name Unknown Address [address] [place] [address] Phone [facility] Address [address] [place] [address] Phone Care Team Providers Care Video Engineer Name Role Phone David, Rbenda D Primary Care Provider Unavail able Kishan Baltazar Attending Provider Unavailable David, Brenda D Primary Care Provider Unavail able Allergies, Adverse Reactions, Alerts Allergen Type Severity Reaction Last Updated Verified Status metformin Allergy Unknown unknown April 23, 2019 Yes Active weed pollen Allergy unknown April 23, 2019 Yes Activ e cat dander Adverse Reaction Unknown unknown April 23, 2019 Yes Active dog dander Adverse Reaction Unknown unknown April 23, 2019 Yes Active Medications Medication Status Dose Units Route Sig Qty Days Start Date End Date Instructions Buspirone Active 5 MG ORAL TWICE A DAY 180 May 04, 2019 12:21pm Clonazepam Active 0.5 MG ORAL Q8H 10 April 14, 2019 2:42pm 1-2 tabs as needed for anxiety Levonorgestrel-Eth inyl Estrad Active 1 TAB ORAL DAILY April 14, 2019 2:44pm Feverfew Active 100 MG ORAL TWICE A DAY April 14, 2019 2:45pm Cholecalciferol (Vitamin D3) Active UNK UNK ORAL DAILY April 14, 2019 2:46pm Riboflavin (Vitamin B2) Active 100 MG ORAL TWICE A DAY April 14, 2019 2:48pm Magnesium Oxide Active 400 MG ORAL DAILY 2018 2:49pm Biotin Active 15 MG ORAL DAILY April 14, 2019 2:50pm Loratadine Active 10 MG ORAL DAILY April 16, 2019 10:06am Hydroxyzine Hcl Active 10 MG ORAL TWIC E A DAY May 03, 2019 8:06am Erenumab-Aooe Active 70 MG Q30D May 8:06am Problems Active Problems Medical Problem Onset Date Status Polycystic ovaries June 29, 2015 Active Acute sinusitis April 23, 2017 Active Arthralgia of shoulder May 16, 2015 Active Laceration of left index finger Active Knee pain April 16, 2018 Active Lipoma of skin January 18, 2016 Active Internal derangement of knee April 16, 2018 Act walt Internal derangement of knee April 16, 2018 Act walt Procedures Procedure Date Performed Status US Transvaginal Non-OB April 23, 2019 active Chief Complaint and Reason for Visit Chief Complaint Cervical pain US Ultrasound 60 Follow Up LACERATION Encounters Encounter Location(s) Arrival/Admit Date Discharge/Depart Date Provider(s) [facility]arted [facility] August 31, 2018 12:00am August 31, 2018 Brenda Hernandez NP Departed Physician[facility] December 21, 2018 12:00am December 21, 2018 Brenda Hernandez NP Departed Physician[facility]Prov [facility] January 18, 2019 12:00am January 18, 2019 Brenda Hernandez NP Departed Physician[facility]Prov [facility] March 03, 2019 12:00am March 03, 2019 Brenda Hernandez NP Departed Physician[facility] March 26, 2019 12:00am March 26, 2019 Brenda Hernandez NP Departed Physician[facility]Prov [facility] CHARGING OPERATOR April 16, 2019 9:49am April 16, 2019 10:25am RITA Delacruz Departed Clinical [facility] PIZZA DRIVER April 23, 2019 9:01am April 23, 2019 9:02am Kishan Baltazar MD Departed Physician/Prov ider [facility] CHARGING OPERATOR April 23, 2019 9:03am April 23, 2019 9:52am Kishan Baltazar MD [facility]arted [facility] CHARGING OPERATOR April 23, 2019 9:04am April 23, 2019 9:52am RITA Delacruz Departed Emergency [facility] May 31, 2019 10:42am May 31, 2019 12:30pm null Assessments No Assessments Information Available Family History Relationship Condition Age at Onset Recorded Date/T baldemar Parent Cardiac disease Unknown Myocardial infarction Unknown Hypertension Unknown Parent Diabetes mellitus Unknown Hypertension Unknown Malignant neoplasm of uterus Unknown Not Specified Diabetes mellitus Unknown Malignant neoplasm Unknown Functional Status Observation Response Date Recorded Living Situation Home May 31, 2019 12:29pm Goals No Goals Information Available Immunizations Immunization Event Date Not Given Reason Dose Number Checker Stocker Lot Number Vaccine Information Statement (VIS) Detail Influenza IIV4 PF September 29, 2017 VIS not given Influenza Split Virus 3YR Older August 31, 2014 VIS not given Tdap December 01, 2011 VIS not given Tdap May 31, 2019 [id number] VIS not given Mental Status No Mental Status Information Available Medical Equipment No Medical Equipment Information available Insurance Providers Guarantor YAMILETH TAYLOR Address [address] [place] [address] Contact Info. Home Phone: Payer Policy Id Coverage Id Subscriber's Name Subscriber Id Effective Date Expiration Date [employer] [id number] YAMILETH TAYLOR [id number] [facility] [employer] (DO NOT USE) [id number] YAMILETH TAYLOR [id number] 2011 SELF PAY Self N/A Plan of Treatment Future Tests Future scheduled test information is unavailable Pending Tests Pending diagnostic test information is unavailable Future Visits Future appointment information is unavailable Referrals to Other Providers Reason for Referral Referral Start Date Provider Provider Contact Information Provider Address Bradford Gutierrez Work Phone: [facility] Primary Care [facility] [address] [facility] [address] [facility] [address] Future Procedures Future procedure information is unavailable Future Medications Future medication information is unavailable Patient Instructions Patient instructions are unavailable Social History Assigned Sex Female Vital Signs Vital Reading Result Reference Range Collection Date/Time Height 65 [in_i] August 31 9:45am Weight 88.70 kg August 31 9:45am Body Temperature 98.3 [degF] 97.6-99.6 August 9:45am Heart Rate 84 /min 60-100 August 31 9:45am Respiratory rate 17 /min -August 9:45am BP Systolic 118 mm[Hg] 100-140 August 31 9:45am BP Diastolic 82 mm[Hg] 50-85 August 31 9:45am Height 65 [in_i] December 21, 019 8:12am Weight 88.95 kg December 21, 019 8:12am Body Temperature 98.4 [degF] 97.6-99.6 December 8:12am Heart Rate 102 /min 60-100 December 21, 019 8:12am Respiratory rate 16 /min -December 8:12am BP Systolic 124 mm[Hg] 100-140 December 21, 2 019 8:12am BP Diastolic 86 mm[Hg] 50-85 December 21, 2 019 8:12am Height 65 [in_i] April 16, 2019 10:00am Weight 94.80 kg April 16, 2019 10:00am Heart Rate 70 /min 60-100 April 16, 2019 10:00am Respiratory rate 18 /min -April 16, 2 019 10:00am BP Systolic 122 mm[Hg] 100-140 April 16, 2019 10:00am BP Diastolic 74 mm[Hg] 50-85 April 16, 2019 10:00am Height 65 [in_i] April 23, 2019 9:24am Weight 91.80 kg April 23, 2019 9:24am BP Systolic 122 mm[Hg] 100-140 April 23, 2019 9:24am BP Diastolic 74 mm[Hg] 50-85 April 23, 2019 9:24am Weight 92.98 kg May 31, 2019 10:45am Body Temperature 98.9 [degF] 97.6-99.6 May 31, 2 019 10:45am Heart Rate 89 /min 60-100 May 31, 2019 12:20pm Respiratory rate 18 /min -May 31, 2 019 12:20pm Oxygen saturation by Pulse oximetry 96 % 95-100 May 31, 2019 12:20 pm BP Systolic 150 mm[Hg] 100-140 May 31, 2019 12:20pm BP Diastolic 100 mm[Hg] 50-85 May 31, 2019 12:20pm
--- OUTSIDE RECORDS SUMMARY | 2024-05-28 15:29 | XMS_ITS | Continuity of Care Document ---
Author Name [facility] Address [address] [place] [address] Organization [facility] Address [address] [place] [address] Care Team Providers Care A P Mechanic Name Role Phone Brenda Hernandez Primary Care Physician [phone] Ciarra Rubin Attending Physician [phone] Allergies, Adverse Reactions, Alerts Allergen Type Severity [...] a copy on file here at [facility]? No February 22, 2017 8:32am Does patient have an Advanced Directive? No August 19, 2015 10:32am Pt has a Living Will? No August 19, 2015 10:32am Pt has a Power of Jig Inspector? No Aug 10:32am Chief Complaint and Reason for Visit Encounter Admit Date Chief Complaint Reason for V isit Departed Clinical April 16, 2018 8:59am Xray Hospital Discharge Instructions No known hospital discharge instructions. Hospital Discharge Medications Medication Dose Units Route Sig Qty Days Order Date Status Ins tructions Levonorgestrel-Ethi nyl Estrad August 24, 2017 Active Sumatriptan 100 Aug Active Encounters Encounter Facility Location Admit/Visit Date Discharge/Departure Date Attending Provider Departed Clinical [facility] Orthopedics April 16, 2018 8:59am April 16, 2018 9:00am Ciarra Rubin Departed Referred [facility] Primary Care March 24, 2018 7:30am March 24, 2018 7:31am Brenda Hernandez Departed Referred [facility] Pathology March 20, 2018 11:14am March 20, 2018 11:15am Brenda Hernandez Departed Clinical [facility] Laboratory March 20, 2018 9:48am March 20, 2018 9:49am Brenda Hernandez Departed Emergency [facility] Emergency Department August 24, 2017 4:56pm August 24, 2017 6:40pm Functional Status No known functional status. Immunizations No known immunizations. Payers Payer Name Policy Type Covered Constitution Party Covered Constitution Party Id Relationship Subscriber Subscriber Id [id number] EM[employer]YE[employer] Commercial [id number] Self/Same as Patient [id number] [facility] [employer] (DO NOT USE) Commercial YAMILETH TAYLOR [id number] Self/Same as Patient YAMILETH TAYLOR [id number] SELF PAY Personal Plan of Care No Known Plan of Care Information Social History Query Response Start Date Stop Date Smoking Status Current some day smoker Vital Signs Vital Reading Result Reference Range Collection Date/Time Height n/a Weight 84.55 kg August 24 017 5:13pm Temperature 97.8 F 97.6 F-99.6 F August 24, 2017 5:13pm Pulse 87 BPM 60-100 August 24 2 017 5:13pm Respiration 20 RPM -August 24 017 5:13pm Pulse Oximetry 100 % 95-100 August 24, 2017 5:13pm Blood Pressure Systolic 156 100-140 Aug 5:13pm Blood Pressure Diastolic 94 50-85 Aug 5:13pm Body Mass Index n/a
--- OUTSIDE RECORDS SUMMARY | 2024-05-28 15:29 | XMS_ITS | Continuity of Care Document ---
Author Name [facility] Address [address] [place] [address] Organization [facility] Address [address] [place] [address] Care Team Providers Care Machine Feller Name Role Phone Brenda Hernandez Primary Care Physician [phone] Brenda Hernandez Attending Physician Allergies, Adverse Reactions, [...] have a copy on file here at [facility] [place]? No February 22, 2017 8:32am Does patient have an Advanced Directive? No August 19, 2015 10:32am Pt has a Living Will? No August 19, 2015 10:32am Pt has a Power of Privacy Compliance Manager? No Aug 10:32am Chief Complaint and Reason for Visit Encounter Admit Date Chief Complaint Reason for V isit Departed Clinical March 20, 2018 9:48am Lab Hospital Discharge Instructions No known hospital discharge instructions. Hospital Discharge Medications Medication Dose Units Route Sig Qty Days Order Date Status Ins tructions Levonorgestrel-Ethi nyl Estrad August 24, 2017 Active Sumatriptan 100 Aug Active Encounters Encounter Facility Location Admit/Visit Date Discharge/Departure Date Attending Provider Departed Referred [facility] Pathology March 20, 2018 11:14am March 20, 2018 11:15am Brenda Hernandez Departed Clinical [facility] Laboratory March 20, 2018 9:48am March 20, 2018 9:49am Brenda Hernandez Departed Emergency [facility] Emergency Department August 24, 2017 4:56pm August 24, 2017 6:40pm Functional Status No known functional status. Immunizations No known immunizations. Payers Payer Name Policy Type Covered Alliance Party Covered Alliance Party Id Relationship Subscriber Subscriber Id [employer] EMPLOYEES Commercial [id number] Self/Same as Patient [id number] [facility] Pager (DO NOT USE) [employer] TAYLOR [id number] Self/Same as Patient YAMILETH TAYLOR [id number] SELF PAY Personal Plan of Care No Known Plan of Care Information Social History Query Response Start Date Stop Date Smoking Status Current some day smoker Vital Signs Vital Reading Result Reference Range Collection Date/Time Height n/a Weight 84.55 kg August 24 2 017 5:13pm Temperature 97.8 F 97.6 F-99.6 F August 24, 2017 5:13pm Pulse 87 BPM 60-100 August 24 2 017 5:13pm Respiration 20 RPM 11-23August 24 2 017 5:13pm Pulse Oximetry 100 % 95-100 August 24, 2017 5:13pm Blood Pressure Systolic 156 100-140 Aug 5:13pm Blood Pressure Diastolic 94 50-85 Aug 5:13pm Body Mass Index n/a
--- OUTSIDE RECORDS SUMMARY | 2024-05-28 15:29 | XMS_ITS | Continuity of Care Document ---
Author Name [facility] Address [address] [place] [address] Organization [facility] Address [address] [place] [address] Care Team Providers Care Exchange Consultant Name Role Phone Brenda Hernandez Primary Care Physician Brenda Hernandez Attending Physician [phone] Allergies, Adverse Reactions, Alerts Allergen Type Severity [...] have a copy on file here at [facility]? No February 22, 2017 8:32am Does patient have an Advanced Directive? No August 19, 2015 10:32am Pt has a Living Will? No August 19, 2015 10:32am Pt has a Power of Tapering Machine Operator? No Aug 10:32am Hospital Discharge Instructions No known hospital discharge instructions. Hospital Discharge Medications Medication Dose Units Route Sig Qty Days Order Date Status Ins tructions Levonorgestrel-Ethi nyl Estrad August 24, 2017 Active Sumatriptan 100 Aug Active Encounters Encounter Facility Location Admit/Visit Date Discharge/Departure Date Attending Provider Departed Referred [facility] Primary Care March 24, 2018 7:30am March 24, 2018 7:31am Brenda Hernandez Departed Referred [facility] Pathology March 20, 2018 11:14am March 20, 2018 11:15am Brenda Hernandez Departed Clinical [facility] Laboratory March 20, 2018 9:48am March 20, 2018 9:49am Brenda Hernandez Departed Emergency [facility] Emergency Department August 24, 2017 4:56pm August 24, 2017 6:40pm Functional Status No known functional status. Immunizations No known immunizations. Payers Payer Name Policy Type Covered Republican Covered Republican Id Relationship Subscriber Subscriber Id [employer] Commercial [id number] Self/Same as Patient [id number] [facility] [employer] (DO NOT USE) [email or web address] BRANDON [id number] Self/Same as Patient YAMILETH TAYLOR [id number] SELF PAY Personal Plan of Care No [...]
--- OUTSIDE RECORDS SUMMARY | 2024-05-28 15:29 | XMS_ITS | Continuity of Care Document ---
Author Name Unknown Address [address] [place] [address] Phone [facility] Address [address] [place] [address] Phone Care Team Providers Care Hotbed Lever Operator Name Role Phone Brenda Hernandez Primary Care Provider Alissa Us Attending Provider Unavailabl e Brenda Hernandez Attending Provider Allergies, Adverse Reactions, Alerts Allergen Type Severity Reaction Last Updated Verified Status metformin Allergy Unknown unknown December 20, 2019 8:43am Yes Active weed pollen Allergy Unknown unknown August 9:34am Yes Active cat dander Adverse Reaction Unknown unknown December 20, 2019 8:43am Yes Active dog dander Adverse Reaction Unknown unknown December 20, 2019 8:43am Yes Active Medications Medication Status Dose Units Route Sig Qty Days Start Date End Date Instructions Buspirone Discontinu ed 5 MG PO TWICE A DAY 180 May 04, 2019 12:21pm December 20, 2019 9:27am Hydroxyzine Hcl Discontinu ed 10 MG PO TWICE A DAY July 22, 2019 2:13pm 2018 8:05am Hydroxyzine Hcl Discontinu ed 10 MG PO TWICE A DAY October 19, 2019 8:05am December 20, 2019 9:31am Levonorgestrel -Ethinyl Estrad (Kurvelo (28)) 0.15-0.03 mg tablet Active 1 TAB PO DAILY January 10, 2020 9:52am flu vacc [id number] 6mos up(PF) Discontinu ed 0.5 ML IM ONCE 0.5 December 20, 2019 8:25am December 20, 2019 10:06am Sumatriptan Succinate Active 6 MG SC .BID Q30D December 20, 2019 8:45am Chandler-3 Fatty Acids (Super Chandler-3) 1,000 mg capsule Active 2000 MG PO DAILY December 20, 2019 8:46am Hydroxyzine Hcl Discontinu ed 10 MG PO TWICE A DAY 30 December 20, 2019 9:29am June 07, 2020 1:10pm Clonazepam Discontinu ed 0.5 MG PO Q8H 10 April 14, 2019 2:42pm [facility] 2018 9:11am 1-2 tabs as needed for anxiety Buspirone Discontinu ed 5 MG PO TWICE A DAY 60 April 14, 2019 2:44pm May 04, 2019 12:21pm Levonorgestrel -Ethinyl Estrad (Kurvelo (28)) 0.15-0.03 mg tablet Discontinu ed 1 TAB PO DAILY April 14, 2019 2:44pm 2019 9:52am Cholecalcifero l (Vitamin D3) Discontinu ed UNK UNK PO DAILY April 14, 2019 2:46pm [facility] 2018 8:46am Riboflavin (Vitamin B2) Active 100 MG PO TWICE A DAY April 14, 2019 2:48pm Biotin Active 15 MG PO DAILY April 14, 2019 2:50pm Loratadine (Claritin) 10 mg tablet Active 10 MG PO DAILY April 16, 2019 10:06am Cholecalcifero l (Vitamin D3) Active 2000 UNITS PO DAILY August 03, 2019 8:46am Clonazepam Active 0.5 MG PO Q8H 14 [facility] 2018 9:09am 1-2 tabs as needed for anxiety Sumatriptan Discontinu ed 20 MG NA ONCE July 29, 2019 11:53am July 29, 2019 11:57am 1 spray intranasally once daily PRN at onset of migraine Sumatriptan Discontinu ed 20 MG NA ONCE 1 July 29, 2019 11:57am June 07, 2020 1:12pm 1 spray intranasally once daily PRN at onset of migraine Trazodone Active 0 PO DAILY May 1:06pm 1-2 tabs qhs PO daily PRN; Buspirone Active 5 MG PO TWICE A DAY June 07, 2020 1:14pm Hydroxyzine Hcl Discontinu ed 10 MG PO TWICE A DAY May 03, 2019 8:06am July 22, 2019 2:14pm Erenumab-Aooe (Aimovig Autoinjector) 70 mg/mL auto-injector Discontinu ed 70 MG SC Q30D May 03, 2019 8:06am Septemb 2018 8:46am Erenumab-Aooe (Aimovig Autoinjector) 70 mg/mL auto-injector Active 140 MG SC Q30D August 03, 2019 8:46am Problems Active Problems Medical Problem Onset Date Status Insomnia Active Polycystic ovaries June 29, 2015 Active Anxiety Active Migraine Active Arthralgia of shoulder May 16, 2015 Active Wheat sensitive enteropathy Acti ve Abnormal uterine bleeding (AUB) Active Knee pain April 16, 2018 Active Internal derangement of knee April 16, 2018 Act walt Inactive/Resolved Problems Medical Problem Onset Date Status Acute sinusitis April 23, 2017 Resolved Laceration of left index finger Resolved Lipoma of skin January 18, 2016 Resolved Internal derangement of knee April 16, 2018 Res olved Relevant Diagnostic Tests and/or Laboratory Data Laboratory Results Test Date/Time Result Interpretation Reference Range Result Comment Performing Site Tissue Transglutami nase IgA Ab November 19, 2019 8:52am < 1.2 U/mL ----REFERENCE VALUE -<4.0 (Negative) [facility] Tissue Transglutami nase IgG Ab November 19, 2019 8:52am 1.3 U/mL ----REFERENCE VALUE -<6.0 (Negative)Test Performed by:[facility] [place] [id number] Director: Abdullahi Goodrich M.D. Ph.D.; CLIA# [id number] [facility] Urine 6-Acetylmorp negar Screen August 03, 2019 8:55am Negative ng/mL [facility] Urine Amphetamine Screen August 03, 2019 8:55am Negative ng/mL [facility] Urine Barbiturates Screen August 03, 2019 8:55am Negative ng/mL [facility] Urine Benzodiazepi guicho Screen August 03, 2019 8:55am Negative ng/mL [facility] Urine Buprenorphin e Screen August 03, 2019 8:55am Negative ng/mL [facility] Urine Cocaine Screen August 03, 2019 8:55am Negative ng/mL [facility] EDDP (Methadone Metabolite) Screen August 03, 2019 8:55am Negative ng/mL [facility] Urine Ethyl Glucuronide Screen August 03, 2019 8:55am Negative ng/mL [facility] Urine Methadone Screen August 03, 2019 8:55am Negative ng/mL [facility] Urine Opiates Screen August 03, 2019 8:55am Negative ng/mL [facility] Urine Oxycodone Screen August 03, 2019 8:55am Negative ng/mL [facility] Urine Propoxyphene Screen August 03, 2019 8:55am Negative ng/mL [facility] Urine Marijuana (THC) Screen August 03, 2019 8:55am Negative ng/mL [facility] Urine THC/Creatini ne Ratio August 03, 2019 8:55am Test not performed [facility] Urine Fentanyl Screen August 03, 2019 8:55am Negative ng/mL Testing Performed By:[address] CARLOS ALBERTO [facility] [id number] Director: Estefania Aguilera MD, Ph.D [facility] Adulterants Urine Creatinine August 03, 2019 8:55am 39.15 mg/dL Testing Performed By:[address] CARLOS ALBERTO [facility], [facility] [id number] Director: Estefania Aguilera MD, Ph.D [facility] Ad[employer]terants Urine Oxidants August 03, 2019 8:55am <200 ug/mL [facility] [employer] Urine pH August 03, 2019 8:55am 5.3 [facility] [employer] Urine Specific Hollis August 03, 2019 8:55am 1.004 g/mL ----REFERENCE VALUE -1.003 - 1.035 [facility] Wheat Allergen IgE Antibody November 19, 2019 8:52am <0.35 kU/L Class 0 (Negative <0.35)Test Performed by:[facility] [place], [place] [id number] Director: Abdullahi Goodrich M.D. Ph.D.; CLIA# [id number] [facility] Wheat Allergen IgG Antibody November 19, 2019 8:52am 5.4 mcg/mL Reference ranges have not been established forfood-specifi c IgG tests. The clinical utility offood-specific IgG tests has not been established. Thesetests can be used in special clinical situations to selectfoods for evaluation by diet elimination and challenge inpatients who have food-related complaints. It should berecognized that the presence of food-specific IgG alonecannot be taken as evidence of food allergy and onlyindicates immunologic sensitization by the food allergen inquestion. This test should only be ordered by physicianswho recognize the limitations of the test. *This test wasdeveloped and its performance characteristics determined by[employer]. It has not been cleared or approved bythe U.S. Food and Drug Administration. Test Performed by:[facility], [id number] [facility] [address] [facility] Advance Directives Advance Directive Response Recorded Date/ Time Does patient have an Advanced Directive? No August 19, 2015 10:32am Do we have a copy on file here at [facility]? No February 22, 2017 8:32am Pt has a Living Will? No August 19, 2015 10:32am Do we have a copy on file here at [facility]? No February 22, 2017 8:32am Pt has a Power of Cash Management Associate? No Aug ember 2014 10:32am Do we have a copy on file here at [facility]? 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 ANXIETY FOLLOW UP/WAS PHYSICAL Reason for Visit Wheat sensitive ente ropathy Abnormal uterine bleeding (AUB) Insomnia Anxiety Encounters Encounter Location(s) Arrival/Admit Date Discharge /Depart Date Provider(s) Registered Inpatient [facility] July 15, 2019 11:59pm Brenda Hernandez NP Registered Inpatient [facility]- July 29, 2019 11:52am Mecca Toledo RN Departed Physician/Provi payam Office Visit [facility] August 03, 2019 8:39am August 03, 2019 10:31am Alissa Us APRN Departed Referred [facility] August 03, 2019 8:55am August 03, 2019 8:56am Alissa Us APRN Registered Inpatient [facility] October 18, 2019 8:39am Traci Salinas RN Registered Inpatient [facility] October 19, 2019 11:59pm Brenda Hernandez NP Departed Clinical [facility] November 19, 2019 8:36am November 19, 2019 8:37am Brenda Hernandez NP Departed Physician/Provi payam Office Visit [facility] December 20, 2019 8:25am December 20, 2019 9:43am Brenda Hernandez NP Departed Physician/Provi payam Office Visit [facility] KIER DRIER February 24, 2020 8:33am February 24, 2020 11:59pm Alissa Rivers MD Departed Physician/Provi payam Office Visit [facility] June 07, 2020 7:37am June 07, 2020 1:28pm Brenda Hernandez NP Recent Diagnosis Onset Date Wheat sensitive enteropathy Abnormal uterine bleeding (AUB) Insomnia Anxiety Assessments Diagnosis Onset Date Resolution Status Wheat sensitive enteropathy acute Abnormal uterine bleeding (AUB) acute Insomnia acute Anxiety chronic Family History Relationship Condition Age at Onset Recorded Date/T baldemar Parent Cardiac disease Unknown Myocardial infarction Unknown Hypertension Unknown Parent Diabetes mellitus Unknown Hypertension Unknown Malignant neoplasm of uterus Unknown Not Specified Diabetes mellitus Unknown Malignant neoplasm Unknown Functional Status Observation Response Date Recorded Ambulation Ability Independent December 17, 2019 9:08pm Goals Goals may be documented in an alternate section. 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 Home Phone: Payer Policy Id Coverage Id Subscriber's Name Subscriber Id Effective Date Expiration Date [employer] [id number] YAMILETH Easley BRANDON [id number] FEP [employer] (DO NOT USE) [id number] YAMILETH Easley BRANDON [id number] 2011 SELF PAY Self N/A Plan of Treatment #AUB: long h/o oligoovulation, has been on cOCPs x10yrs with irregular light menses; sometimes 3mo of amenorrhea. No h/o hyperandrogenism (labs 2018, nor Sx). Normal US 2019 w/o polycystic ovaries. Pt states she has PCOS, but currently not meeting [place] criteria. Low suspicion for POI. - FSH, TSH, prolactin, A1c ordered -- to be obtained at outpatient lab after COVID. Will call pt with results. - Reassurance provided. Pt to continue current cOCP for endometrial protection with progesterone. Also using for contraception. 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 She wonders if she should try going off BuSpar as her anxiety is so well managed at this time. She uses clonazepam very rarely for panic attack. Discussed it would be okay for her to trial coming off BuSpar and she should know in 2 to 4 weeks if she is getting benefit and should resume it. She reports itchy burning mouth and diarrhea when she consumes wheat. She had blood test for wheat allergy and celiac disease which was negative. Discussed she could still have a sensitivity or I could see if there is additional follow-up testing that could be done. Alternatively I could refer her for allergy testing with professor of languages. She declines any referral or additional blood work at this time and will just avoid eating wheat. Future Tests Future scheduled test information is unavailable Pending Tests Pending diagnostic test information is unavailable Future Visits Future appointment information is unavailable Referrals to Other Providers Referral information is unavailable Future Procedures Future procedure information is unavailable Future Medications Future medication information is unavailable Patient Instructions Patient instructions are unavailable Social History Smoking Status Status Date of Observation Current some day smoker February 24, 2020 9:16am Observation Status Observation Response Date of Response Alcohol Use Yes May 31, 2019 1 2:06pm alcohol intake frequency holidays/special occasi ons only May 31, 2019 12:06pm Substance/Street Drug Use No May 312018 12:06pm substance use type does not use December 17, 2019 9:08pm Smoking Status Current some day smoker February 232019 9:16am Assigned Sex Female Vital Signs Vital Reading Result Reference Range Collection Date/Time Height 65 [in_i] August 03, 2019 8:45am Weight 97.72 kg August 03, 2019 8:45am Body Temperature 98.6 [degF] 97.6-99.6 August 032018 8:45am Heart Rate 88 /min 60-100 August 03, 2019 8:45am Respiratory rate 18 /min 12-24 August 032018 8:45am BP Systolic 124 mm[Hg] 100-140 August 03, 2019 8:45am BP Diastolic 94 mm[Hg] 50-85 August 03, 2019 8:45am Height 65 [in_i] December 20 8:40am Weight 94.00 kg December 20 8:40am Body Temperature 98.9 [degF] 97.6-99.6 December 8:40am Heart Rate 78 /min 60-100 December 20 8:40am Respiratory rate 16 /min -December 8:40am Oxygen saturation by Pulse oximetry 98 % 95-100 December 20, 2019 8 :40am BP Systolic 139 mm[Hg] 100-140 December 20 8:40am BP Diastolic 85 mm[Hg] 50-85 December 20 8:40am BMI (Body Mass Index) 34.4 kg/m2 Marcos kang 2019 8:40am
--- OUTSIDE RECORDS SUMMARY | 2024-05-28 15:29 | XMS_ITS | Continuity of Care Document ---
Author Name [facility] Address [address] [place] [address] Organization [facility] Address [address] [place] [address] Care Team Providers Care Herbicide Service Sales Representative Name Role Phone Brenda Hernandez Primary Care [...] DAY PRN For Anxiety October 19, 2019 Active Levonorgestrel-Et hinyl Estrad [Kurvelo (28)] [...] Qty Start Date Discontinued Date Status Instructions Hydroxyzine Hcl 10 MG ORAL TWICE A DAY PRN For Anxiet y 30 July 22, 2019 October 19, 2019 Discontin ued Clonazepam 0.5 MG ORAL Q8H [...] Status US Transvaginal Non-OB April 23, 2019 completed Knee 4 vw Min Bilat April 16, 2018 active Foot 3 vw Min RT August 24, [address] Head w/o Contrast August 19, 2015 complete d EMERGENCY DEPT VISIT August 19, 2015 active RBC SED RATE AUTOMATED August 19, 2015 active COMPLETE CBC W/AUTO DIFF WBC August 19, 2015 active ASSAY OF UREA NITROGEN August 19, 2015 active ASSAY THYROID STIM HORMONE August 19, 2015 ac tive ASSAY OF MAGNESIUM August 19, 2015 active ASSAY GLUCOSE BLOOD QUANT August 19, 2015 act walt ASSAY OF CREATININE August 19, 2015 active ASSAY OF CALCIUM August 19, 2015 active URINE TEST August 19, 2015 active URINALYSIS AUTO W/O SCOPE August 19, 2015 act walt HEPATIC FUNCTION PANEL August 19, 2015 active ELECTROLYTE PANEL August 19, [address] HEAD/BRAIN W/O DYE August 19, 2015 active ROUTINE VENIPUNCTURE August 19, 2015 active Relevant Diagnostic Tests and/or Laboratory Data Laboratory Results Test Date/Time Result Interp. Ref. Range Result Comment White Blood Count 7.65 1000/mm3 4.8-10.8 Red Blood Count 4.84 M/mm3 4.20-5.40 Hemoglobin 13.8 g/dL 12.0-16.0 Hematocrit 41.4 % 37-47 Mean Corpuscular Volume 85.5 fL 81.0-9 9.0 Mean Corpuscular Hemoglobin 28.5 pg 27-31 Mean Corpuscular Hemoglobin Concent 33.3 g/dL 33-37 Red Cell Distribution Width 13.0 % 11.5-14.5 Platelet Count 334 1000/mm3 140-440 Mean Platelet Volume 10.4 fL 7.4-10.4 Neutrophils (%) (Auto) 62.1 % 40.0-72 .0 Lymphocytes (%) (Auto) 30.3 % 17-45 Monocytes (%) (Auto) 5.5 % 3-11 Eosinophils (%) (Auto) 1.8 % 0-3 Basophils (%) (Auto) 0.3 % 0-1 Neutrophils # (Auto) 4.75 1000/mm3 1.4-6 .5 Lymphocytes # (Auto) 2.32 1000/mm3 1.2-3 .4 Monocytes # (Auto) 0.42 1000/mm3 0.0-0.8 Eosinophils # (Auto) 0.14 1000/mm3 0.0-0 .7 Basophils # (Auto) 0.02 1000/mm3 0.0-0.1 Differential Method Automated Erythrocyte Sedimentation Rate 1 mm/hr 0-15 Urine Collection Duration 24 H Urine Total Volume 24 Hours 2700 mL Urine Cortisol 24 Hour 19 ug/24H Reference Value: 3.5-45 Urine Cortisone Level 84 ug/24H Reference Value: 17-129 Sodium Level 137 mmol/L 137-145 Potassium Level 4.7 mmol/L 3.6-5.0 Chloride Level 105 mmol/L 98-107 Carbon Dioxide Level 24 mmol/L 22-30 Anion Gap 8 7-16 Blood Urea Nitrogen 12 mg/dL 7-17 Creatinine 0.85 mg/dL 0.52-1.04 Glomerular Filtration Rate Calc > 60 mL/min Glucose Level 87 mg/dL 70-100 Calcium Level 9.5 mg/dL 8.4-10.2 Calcium Adjusted for Albumin 9.4 mg/dL 8.4-10.2 Magnesium Level 1.9 mg/dL 1.6-2.3 Total Bilirubin 0.8 mg/dL 0.2-1.3 Direct Bilirubin 0 mg/dL 0-0.3 Aspartate Amino Transf (AST/SGOT) 24 U/L 14-36 Alanine Aminotransferase (ALT/SGPT) 34 U/L 9-52 Total Protein 7.0 g/dL 6.3-8.2 Albumin 4.4 g/dL 3.5-5.0 Cholesterol Level 216 mg/dL High 59-199 HDL Cholesterol 62 mg/dL High 40-60 The National Cholesterol Education Program (NCEP) has set the following guidelines (reference values) for cholesterol, HDL: Low HDL: <40 mg/dL Normal: 40-60 mg/dL Desirable: >60 mg/dL LDL Cholesterol 133.2 mg/dL High 0-129 VLDL Cholesterol 20.8 mg/dL 0-32 Cholesterol/HDL Ratio 3.48 0-3.9 Triglycerides Level 104 mg/dL 0-149 Alkaline Phosphatase 64 U/L 38-126 25-Hydroxy Vitamin D2 < 4.0 ng/mL 25-Hydroxy Vitamin D3 18 ng/mL 25-Hydroxy Vitamin D Total 18 ng/mL Low Interpretation: 10-19 ng/mL (mild to moderate deficiency) REFERENCE VALUE 25-HYDROXY D TOTAL (D2+D3) Optimum levels in the healthy population are 20-50, patients with bone disease may benefit from higher levels within this range. ADDITIONAL INFORMATION-------- This test was developed and its performance characteristics determined by [facility] in a manner consistent with CLIA requirements. This test has not been cleared or approved by the U.S. Food and Drug Administration. Test Performed by: [facility] [address] [place] [address] Thyroid Stimulating Hormone (TSH) 1.71 mlU/L 0.47-4.68 Thyroid Stimulating Hormone (TSH) 1.87 mlU/L 0.47-4.68 TSH cascade is not recommended for patients in which pituitary or hypothalmic disorders are suspected. Testosterone Level 23 ng/dL 14-76 R eference Range: Premenopausal (21-60 yrs): 9-48 ng/dL Postmenopausal (45-89 yrs): <46 ng/dL The results of this assay can be falsely elevated due to the consumption of Biotin. Free Testosterone 0.3 ng/mL Te st not recommended in patients with plasma protein abnormalities. Test Performed by: [place] [address] Sex Hormone Binding Globulin 54.8 nmol/L Reference Range : Premenopausal (21-60 yrs): >10.8 nmol/L Postmenopausal (45-89 yrs): 23.2-159.1 nmol/L The results of this assay can be falsely lowered due to the consumption of Biotin. Dehydroepiandrosterone Sulfate 194 ug/dL Test Performed by: [place] [address] Hemoglobin A1c Percent 4.87 % 4.2-6.5 < 7% Recommended goal by ADA guidelines 7-8% Suboptimal by ADA guidelines >8% Further action suggested by ADA guidelines Estimated Average Glucose mg/dL 93 mg/dL Urine 6-Acetylmorphine Screen Negative ng/mL Urine Amphetamine Screen Negativ e ng/mL Urine Barbiturates Screen Negati ve ng/mL Urine Benzodiazepines Screen Negative ng/mL Urine Buprenorphine Screen Negat walt ng/mL Urine Cocaine Screen Negative ng/mL EDDP (Methadone Metabolite) Screen Negative ng/mL Urine Ethyl Glucuronide Screen Negative ng/mL Urine Methadone Screen Negative ng/mL Urine Opiates Screen Negative ng/mL Urine Oxycodone Screen Negative ng/mL Urine Propoxyphene Screen Negati ve ng/mL Urine Marijuana (THC) Screen Negative ng/mL Urine THC/Creatinine Ratio Test not performed Urine Fentanyl Screen Negative ng/mL Testing Performed By: [address] CARLOS ALBERTO Mccormack, [place] [id number] Legend Maker: Estefania Aguilera MD, Ph.D Adulterants Urine Creatinine 39.15 mg/dL Testing Perform ed By: [address] CARLOS ALBERTO Mccormack, [facility] [address] Legend Maker: Estefania Aguilera MD, Ph.D Adulterants Urine Oxidants <200 ug/mL Adulterants Urine pH 5.3 Adulterants Urine Specific [place] 1.004 g/mL ---- REFERENCE VALUE 1.003 - 1.035 Advance Directives Advance Directive Response Recorded Date/ Time Do we have a copy on file here at [facility]? No February 22, 2017 8:32am Does patient have an Advanced Directive? No August 19, 2015 10:32am Pt has a Living Will? No August 19, 2015 10:32am Pt has a Power of Game Manager? No Aug 10:32am Chief Complaint and Reason for Visit Encounter Admit Date Chief Complaint Reason for V isit Departed Clinical November 19, 2019 8:36am Lab Hospital Discharge Instructions No known hospital [...] DAY PRN For Anxiety October 19, 2019 Active Clonazepam 0.5 MG ORAL Q8H [...] For migraine headache 1 July 29, 2019 Active 1 spray intranasally once daily PRN at onset of migraine Hydroxyzine Hcl 10 MG ORAL TWICE A DAY PRN For Anxiety May 03, 2019 Discontinu ed Erenumab-Aooe 70 MG SUBCUTANEO US Q30D May 03, 2019 Discontinu ed Erenumab-Aooe 140 MG SUBCUTANEO US Q30D August 03, 2019 Active Encounters Encounter Facility Location Admit/Visit Date Discharge/Departure Date Attending Provider Departed Clinical [facility] Laboratory November 19, 2019 8:36am November 19, 2019 8:37am Brenda Hernandez Registered Inpatient [facility] Primary Care October 19, 2019 11:59pm Brenda Hernandez Registered Inpatient [facility] Primary Care October 18, 2019 8:39am Brad Michel Departed Referred [facility] Primary Care August 03, 2019 8:55am August 03, 2019 8:56am Alissa Us Departed Physician/Pr ovider Office Visit [facility] Primary [facility] Emergency Department August 03, 2019 8:39am August 03, 2019 10:31am Alissa Us Registered Inpatient [facility] July 29, 2019 11:52am Mecca Toledo Registered Inpatient [facility] Primary Care July 15, 2019 11:59pm Brenda Hernandez Departed Emergency [facility] Emergency Department May 31, 2019 10:42am May 31, 2019 12:30pm Departed Physician/Pr ovider Office Visit [facility] 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 April 23, 2019 9:04am April 23, 2019 9:52am Hien Reyes Departed Physician/Pr ovider Office Visit [facility] 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 April 23, 2019 9:03am April 23, 2019 9:52am Kishan Baltazar Departed Clinical [facility] DI [facility] PILER April 23, 2019 9:01am April 23, 2019 9:02am Kishan Baltazar Departed Physician/Pr ovider Office Visit [facility] 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 April 16, 2019 9:49am April 16, 2019 10:25am Hien Reyes Departed Physician/Pr ovider Office Visit [facility] Primary Care March 26, 2019 12:00am March 26, 2019 Brenda Hernandez Departed Physician/Pr ovider Office Visit [facility] Primary Care March 03, 2019 12:00am March 03, 2019 Brenda Hernandez Departed Physician/Pr ovider Office Visit [facility] Primary Care January 18, 2019 12:00am January 18, 2019 Brenda Hernandez Departed Physician/Pr ovider Office Visit [facility] Primary Care December 21, 2018 12:00am December 21, 2018 Brenda Hernandez Departed Physician/Pr ovider Office Visit [facility] Primary Care August 31, 2018 12:00am August 31, 2018 Brenda Hernandez Departed Clinical [facility] May 01, 2018 7:59am May 01, 2018 8:00am Deb Bynum Departed Clinical [facility] Orthopedics April 16, 2018 8:59am April 16, 2018 9:00am Ciarra Rubin Departed Physician/Pr ovider Office Visit [facility] Orthopedic&Deann ab April 16, 2018 12:00am April 16, 2018 Ciarra Rubin Departed Physician/Pr ovider Office Visit [facility] Orthopedic&Deann ab April 09, 2018 12:00am April 09, 2018 Ciarra Rubin Departed Referred [facility] Primary Care March 24, 2018 7:30am March 24, 2018 7:31am Brenda Hernandez Departed Referred [facility] Pathology March 20, 2018 11:14am March 20, 2018 11:15am Brenda Hernandez Departed Clinical [facility] Laboratory March 20, 2018 9:48am March 20, 2018 9:49am Brenda Hernandez Departed Physician/Pr ovider Office Visit [facility] Primary Care March 20, 2018 12:00am March 20, 2018 Brenda Hernandez Departed Physician/Pr ovider Office Visit [facility] Primary Care February 20, 2018 12:00am February 20, 2018 Brenda Hernandez Departed Emergency [facility] Emergency Department August 24, 2017 4:56pm August 24, 2017 6:40pm Departed Physician/Pr ovider Office Visit [facility] April 23, 2017 12:00am April 23, 2017 Dorothea Morales Departed Clinical [facility] Laboratory February 22, 2017 8:29am February 22, 2017 8:30am Brenda Hernandez Departed Physician/Pr ovider Office Visit [facility] Primary Care February 19, 2017 12:00am February 19, 2017 Brenda Hernandez Departed Emergency [facility] Emergency Department January 24, 2017 4:55pm January 24, 2017 7:05pm Departed Physician/Pr ovider Office Visit [facility] Primary Care December 23, 2016 12:00am December 23, 2016 Brenda Hernandez Departed Physician/Pr ovider Office Visit [facility] Primary Care July 09, 2016 12:00am July 09, 2016 Medent, Shar Departed Physician/Pr ovider Office Visit [facility] Primary Care May 16, 2016 12:00am May 16, 2016 Irene Seals Departed Physician/Pr ovider Office Visit [facility] February 19, 2016 12:00am February 19, 2016 Shelly Childress Registered Clinical [facility] Diabetes and Nutrition Therapy January 22, 2016 8:30am Brenda Hernandez Departed Physician/Pr ovider Office Visit [facility] Surgery January 18, 2016 12:00am January 18, 2016 Medent, Shar Departed Physician/Pr ovider Office Visit [facility] Primary Care January 01, 2016 12:00am January 01, 2016 Brenda Hernandez Departed Physician/Pr ovider Office Visit [facility] Primary [facility] Emergency Department November 02, 2015 12:00am November 02, 2015 Medent, Conversion Departed Emergency [facility] Emergency Department August 19, 2015 10:19am August 19, 2015 1:10pm Departed Physician/Pr ovider Office Visit [facility] Primary Care August 03, 2015 12:00am August 03, 2015 Medent, Conversion Departed Physician/Pr ovider Office Visit [facility] Primary Care July 06, 2015 12:00am July 06, 2015 Medent, Conversion Registered Referred [facility] Pathology June 29, 2015 9:17pm Kishan Baltazar Departed Physician/Pr ovider Office Visit [facility] 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 June 29, 2015 12:00am June 29, 2015 Medent, Conversion Departed Physician/Pr ovider Office Visit [facility] 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 June 15, 2015 12:00am June 15, 2015 Medent, Conversion Departed Physician/Pr ovider Office Visit [facility] Primary Care June 01, 2015 12:00am June 01, 2015 Medent, Conversion Departed Physician/Pr ovider Office Visit [facility]gent [facility] [place] May 16, 2015 12:00am May 16, 2015 Oanh Rojo Departed Physician/Pr ovider Office Visit [facility] Addiction Mgmt CONV Misc Comp Pain location Medent, Conversion Functional Status Query Response Date Recorded Comment Speech Appropriate August 24, 2017 5:29pm Query Response Date Recorded Comment Living Situation Home May 31, 2019 12:29pm Immunizations Immunization Name Date Given Type Influenza IIV4 PF September 29, 2017 Historical Influenza Split Virus 3YR Older August 31, 2014 Historical Tdap December 01, 2011 Historical Tdap May 31, 2019 Administered Payers Payer Name Policy Type Covered Constitution Party Covered Constitution Party Id Relationship Subscriber Subscriber Id [employer] EM[employer] [id number] Self/Same as Patient YAMILETH TAYLOR [id number] [facility] [employer] (DO NOT USE) Commercial YAMILETH BRANDON [id number] Self/Same as Patient YAMILETH TAYLOR [id number] SELF PAY Personal Plan of Care No Known Plan of Care Information Social History Query Response Date Recorded Comment Alcohol Use Yes May 31, 2019 12:06pm Smoking Status Current some day smoker August 03 9:34am Substance/Street Drug Use No May 31, 2019 12 :06pm alcohol intake frequency holidays/specia l occasions only May 31, 2019 12:06pm Query Response Start Date Stop Date Smoking Status Current some day smoker Vital Signs Vital Reading Result Reference Range Collection Date/Time Height 5 ft 5 in August 03 8:45am Weight 97.721 kg August 03 8:45am Temperature 98.6 F 97.6 F-99.6 F August 03 8:45am Pulse 88 BPM 60-100 August 03 8:45am Respiration 18 RPM -August 03 8:45am Pulse Oximetry 96 % 95-100 May 31, 2019 12:20pm Blood Pressure Systolic 124 100-140 Sept emb2018 8:45am Blood Pressure Diastolic 94 50-85 Sep tem2018 8:45am Body Mass Index 34.7 April 16, 2019 10:00am
--- OUTSIDE RECORDS SUMMARY | 2024-05-28 15:29 | XMS_ITS | Continuity of Care Document ---
Author Name Unknown Address [address] [place] [address] Phone [facility] Address [address] [place] [address] Phone Support Name Relationship Address Phone BRANDON WOLFE Spouse Unknown Medselene, Shar Attending Provider Unknown Charito Oanh [place] [address] Mateo Anaya Emergency Provider [facility] [address] Brenda Hernandez Attending Provider [facility] [place] [address] Shelly Childress Attending Provider [facility] [place] [address] Irene Seals Attending Provider [address] [place] [id number] Jimmy Diaz Emergency Provider [facility] [address] Dorothea Morales Attending Provider [facility] [place] [address] Angelo Osuna Emergency Provider [facility] [place] [address] Ciarra Rubin Attending Provider [facility] [place] [address] Hien Reyes Attending Provider [facility] [employer] [place] [address] Kishan Baltazar Attending Provider [facility] [employer] [place] [address] Referral, Self Referring Provider Unknown Unavail able Florencia Herrera Emergency Provider [facility] [place] [address] Mecca Toledo Attending Provider Unknown Unav ailable Alissa Us Attending Provider [facility] [place] [address] Brad Michel Attending Provider Unknown Unavai lable Care Team Providers Care Carpenter/Labor Name Role Phone Kishan Baltazar Attending Provider [phone] PCP, Not Given Primary Care Provider Carmen Meadows Primary Care Provider Brenda Zacarias Primary Care Provider Brenda Hernandez Attending Provider Ciarra Rubin Attending Provider Deb Bynum Attending Provider Alissa Us Attending Provider [phone] Allergies, Adverse Reactions, Alerts Allergen Type Severity Reaction Last Updated Verified Status metformin Allergy Unknown unknown August 03, 2019 Yes Ac tive weed pollen Allergy Unknown unknown August 03, 2019 Yes Active cat dander Adverse Reaction Unknown unknown August 03, 2019 Yes Active dog dander Adverse Reaction Unknown unknown August 03, 2019 Yes Active Medications Medication Status Dose Units Route Sig Qty Days Start Date End Date Instructions Buspirone Active 5 MG ORAL TWICE A DAY 180 May 04, 2019 12:21pm Hydroxyzine Hcl Discontinu ed 10 MG ORAL TWICE A DAY July 22, 2019 2:13pm Novembe r 2018 8:05am Hydroxyzine Hcl Active 10 MG ORAL TWICE A DAY October 19, 2019 8:05am Clonazepam Discontinu ed 0.5 MG ORAL Q8H April 14, 2019 2:42pm Septemb 2018 9:11am 1-2 tabs as needed for anxiety Buspirone Discontinu ed 5 MG ORAL TWICE A DAY 60 April 14, 2019 2:44pm May 04, 2019 12:21pm Levonorgestrel -Ethinyl Estrad Active 1 TAB ORAL DAILY April 14, 2019 2:44pm Feverfew Active 100 MG ORAL TWICE A DAY April 14, 2019 2:45pm Cholecalcifero l (Vitamin D3) Discontinu ed UNK UNK ORAL DAILY April 14, 2019 2:46pm [facility] 2018 8:46am Riboflavin (Vitamin B2) Active 100 MG ORAL TWICE A DAY April 14, 2019 2:48pm Magnesium Oxide Active 400 MG ORAL DAILY April 14, 2019 2:49pm Biotin Active 15 MG ORAL DAILY April 14, 2019 2:50pm Loratadine Active 10 MG ORAL DAILY April 162018 10:06am Cholecalcifero l (Vitamin D3) Active 2000 UNITS ORAL DAILY August 03, 2019 8:46am Clonazepam Active 0.5 MG ORAL Q8H 14 [facility]em [facility] 2018 9:09am 1-2 tabs as needed for anxiety Sumatriptan Discontinu ed 20 MG NASAL ONCE July 29, 2019 11:53am July 29, 2019 11:57am 1 spray intranasally once daily PRN at onset of migraine Sumatriptan Active 20 MG NASAL ONCE 1 Augus 2018 11:57am 1 spray intranasally once daily PRN at onset of migraine Hydroxyzine Hcl Discontinu ed 10 MG ORAL TWICE A DAY May 03, 2019 8:06am July 22, 2019 2:14pm Erenumab-Aooe Discontinu ed 70 MG Q30D May 03, 2019 8:06am [facility] 2018 8:46am Erenumab-Aooe Active 140 MG Q30D Sep 2018 8:46am Problems Active Problems Medical Problem Onset Date Status Polycystic ovaries June 29, 2015 Active Acute sinusitis April 23, 2017 Active Anxiety Active Arthralgia of shoulder May 16, 2015 Active Knee pain April 16, 2018 Active Lipoma of skin January 18, 2016 Active Internal derangement of knee April 16, 2018 Act walt Internal derangement of knee April 16, 2018 Act walt Inactive/Resolved Problems Medical Problem Onset Date Status Laceration of left index finger Resolved Procedures Procedure Date Performed Status US Transvaginal Non-OB April 23, 2019 completed Foot 3 vw Min RT August 24, 2017 completed Knee 4 vw Min Bilat April 16, [address] Head w/o Contrast August 19, 2015 comple magali EMERGENCY DEPT VISIT August 19, 2015 active RBC SED RATE AUTOMATED August 19, 2015 acti ve COMPLETE CBC W/AUTO DIFF WBC August 19 5 active ASSAY OF UREA NITROGEN August 19, 2015 acti ve ASSAY THYROID STIM HORMONE August 19, 2015 active ASSAY OF MAGNESIUM August 19, 2015 active ASSAY GLUCOSE BLOOD QUANT August 19, 2015 a ctive ASSAY OF CREATININE August 19, 2015 active ASSAY OF CALCIUM August 19, 2015 active URINE TEST August 19, 2015 active URINALYSIS AUTO W/O SCOPE August 19, 2015 a ctive HEPATIC FUNCTION PANEL August 19, 2015 acti ve ELECTROLYTE PANEL August 19, [address] HEAD/BRAIN W/O DYE August 19, 2015 activ e ROUTINE VENIPUNCTURE August 19, 2015 active Relevant Diagnostic Tests and/or Laboratory Data Laboratory Results Test Date/Time Result Interpretation Reference Range Result Comment Performing Site White Blood Count 7.65 1000/mm3 4.8-10.8 Red Blood Count 4.84 M/mm3 4.20-5.40 Hemoglobin 13.8 g/dL 12.0-16.0 Hematocrit 41.4 % 37-47 Mean Corpuscular Volume 85.5 fL 81.0-99.0 Mean Corpuscular Hemoglobin 28.5 pg 27-31 Mean Corpuscular Hemoglobin Concent 33.3 g/dL 33-37 Red Cell Distribution Width 13.0 % 11.5-14.5 Platelet Count 334 1000/mm3 140-440 Mean Platelet Volume 10.4 fL 7.4-10.4 Neutrophils (%) (Auto) 62.1 % 40.0-72.0 Lymphocytes (%) (Auto) 30.3 % 17-45 Monocytes (%) (Auto) 5.5 % 3-11 Eosinophils (%) (Auto) 1.8 % 0-3 Basophils (%) (Auto) 0.3 % 0-1 Neutrophils # (Auto) 4.75 1000/mm3 1.4-6.5 Lymphocytes # (Auto) 2.32 1000/mm3 1.2-3.4 Monocytes # (Auto) 0.42 1000/mm3 0.0-0.8 Eosinophils # (Auto) 0.14 1000/mm3 0.0-0.7 Basophils # (Auto) 0.02 1000/mm3 0.0-0.1 Differential Method Automated Erythrocyte Sedimentatio n Rate 1 mm/hr 0-15 Urine Collection Duration 24 H [facility] Urine Total Volume 24 Hours 2700 mL [facility] Urine Cortisol 24 Hour 19 ug/24H Reference Value: 3.5-45 [facility] Urine Cortisone Level 84 ug/24H Reference Value: 17-129 [facility] Sodium Level 141 mmol/L 137-145 MAIN LAB , [address] [place] [address] Sodium Level 137 mmol/L 137-145 Sodium Level 140 mmol/L 137-145 MAIN LAB , [address] [place] [address] Potassium Level 4.6 mmol/L 3.6-5.0 MAIN LAB, [address] [place] [address]009 Potassium Level 4.7 mmol/L 3.6-5.0 Potassium Level 4.8 mmol/L 3.6-5.0 MAIN LAB, [address] [place] [address] Chloride Level 105 mmol/L 98-107 Chloride Level 108 mmol/L 98-107 MAIN LAB, [address] [place] [address]20 Chloride Level 106 mmol/L 98-107 MAIN LAB, [address] [place] [address]328 Carbon Dioxide Level 24 mmol/L 22-30 MAIN LAB, [address] [place] [address] 24749 Carbon Dioxide Level 24 mmol/L 22-30 MAIN LAB, [address] [place] [address]6968 Carbon Dioxide Level 24 mmol/L 22-30 Anion Gap 8 7-16 MAIN LAB, [address] [place] [address] Anion Gap 8 7-16 Anion Gap 11 7-16 MAIN LAB, [address] [place] [address]116 Blood Urea Nitrogen 11 mg/dL 7-17 MAIN LAB, [address] [place] [address] 39145 Blood Urea Nitrogen 19 mg/dL 7-17 MAIN LAB, [address] [place] [address] 45828 Blood Urea Nitrogen 12 mg/dL 7-17 Creatinine 0.8 mg/dL 0.52-1.04 MAIN LAB, [address] [place] [address] 44107 Creatinine 0.81 mg/dL 0.52-1.04 MAIN LAB , [address] [place] [address]32[address] Creatinine 0.85 mg/dL 0.52-1.04 Glomerular Filtration Rate Calc > 60 mL/min Glomerular Filtration Rate Calc > 60 mL/min MAIN LAB, [address] [place] [address] Glomerular Filtration Rate Calc > 60 mL/min >60.0 MAIN LAB, [address] [place] [address] Glucose Level 85 mg/dL 70-100 [facility], [address] [place] [address] Glucose Level 103 mg/dL 70-100 MAIN [facility], [address] [place] [address] Glucose Level 87 mg/dL 70-100 Calcium Level 9.5 mg/dL 8.4-10.2 MAIN [facility], [address] [place] [address] Calcium Level 9.5 mg/dL 8.4-10.2 Calcium Level 9.3 mg/dL 8.4-10.2 MAIN [facility], [address] [place] [address] Calcium Adjusted for Albumin 9.4 mg/dL 8.4-10.2 MAIN LAB, [address] [place] [address] Calcium Adjusted for Albumin 9.3 mg/dL 8.4-10.2 MAIN [facility], [address] [place] [address] Magnesium Level 1.9 mg/dL 1.6-2.3 Total Bilirubin 0.8 mg/dL 0.2-1.3 MAIN LAB, [address] [place] [address] 512[address] Total Bilirubin 0.6 mg/dL 0.2-1.3 MAIN LAB, [address] [place] [address] 32418 Total Bilirubin 0.8 mg/dL 0.2-1.3 Direct Bilirubin 0 mg/dL 0-0.3 Aspartate Amino Transf (AST/SGOT) 24 U/L 14-36 Aspartate Amino Transf (AST/SGOT) 25 U/L 14-36 MAIN LAB, [address] [place] [address] 610[address] Aspartate Amino Transf (AST/SGOT) 20 U/L 14-36 MAIN LAB, [address] [place] [address] Alanine Aminotransfe rase (ALT/SGPT) 34 U/L 9-52 Alanine Aminotransfe rase (ALT/SGPT) 27 U/L 9-52 MAIN LAB, [facility] [address] Alanine Aminotransfe rase (ALT/SGPT) 45 U/L 9-52 MAIN LAB, [address] [place] [address] 45627 Total Protein 7.0 g/dL 6.3-8.2 MAIN LAB, [address] [place] [address] 04854 Total Protein 7.2 g/dL 6.3-8.2 MAIN LAB, [address] [place] [address] 33283 Total Protein 7.0 g/dL 6.3-8.2 Albumin 4.4 g/dL 3.5-5.0 Albumin 4.3 g/dL 3.5-5.0 MAIN LAB, [address] [place] [address] 67582 Albumin 4.4 g/dL 3.5-5.0 MAIN LAB, [address] [place] [address] 82511 Cholesterol Level 216 mg/dL 59-199 MAIN LAB, [address] [place] [address] 85023 Cholesterol Level 237 mg/dL 59-199 MAIN LAB, [address] [place] [address] 00597 HDL Cholesterol 62 mg/dL 40-60 The National Cholesterol Education Program (NCEP) has set the following guidelines (reference values) for cholesterol, HDL:Low HDL: <40 mg/dLNormal: 40-60 mg/dLDesirable: >60 mg/dL MAIN LAB, [address] [place] [address] 10911 HDL Cholesterol 51 mg/dL 40-60 The National Cholesterol Education Program (NCEP) has set the following guidelines (reference values) for cholesterol, HDL:Low HDL: <40 mg/dLNormal: 40-60 mg/dLDesirable: >60 mg/dL MAIN LAB, [address] [place] [address] 98262 LDL Cholesterol 133.2 mg/dL 0-129 MAIN [facility], [address] [place] [address] 40345 LDL Cholesterol 149.0 mg/dL 0-129 MAIN [facility], [address] [place] [address] 16876 VLDL Cholesterol 37.0 mg/dL 0-32 MAIN LAB, [address] [place] [address] 83024 VLDL Cholesterol 20.8 mg/dL 0-32 MAIN LAB, [address] [place] [address] 84698 Cholesterol/ HDL Ratio 3.48 0-3.9 MAIN LAB, [address] [facility] [address] Cholesterol/ HDL Ratio 4.64 0-3.9 MAIN LAB, [address] [place] [address] 41198 Triglyceride s Level 185 mg/dL 0-149 MAIN LAB, [address] [facility] [address] Triglyceride s Level 104 mg/dL 0-149 MAIN LAB, [address] [place] [address] 61146 Alkaline Phosphatase 64 U/L 38-126 Alkaline Phosphatase 55 U/L 38-126 MAIN LAB, [address] [place] [address] 79989 Alkaline Phosphatase 63 U/L 38-126 MAIN [facility], [address] [place] [address] 64824 25-Hydroxy Vitamin D2 < 4.0 ng/mL [facility] 25-Hydroxy Vitamin D3 18 ng/mL [facility] 25-Hydroxy Vitamin D Total 18 ng/mL Interpretation: 10-19 ng/mL (mild to moderate deficiency)---- REFERENCE VALUE -25-HYDROXY D TOTAL (D2+D3) Optimum levels in the [facility] on are 20-50, patients with bone disease maybenefit from higher levels within this range.--------- ADDIT IONAL INFORMATION---- This test was developed and its performance characteristics determined by [facility] in a manner consistent with CLIArequirement s. This test has not been cleared or approved bythe U.S. Food and Drug Administration. Test Performed by:[facility] [place] [address] [facility] Thyroid Stimulating Hormone (TSH) 1.71 mlU/L 0.47-4.68 Thyroid Stimulating Hormone (TSH) 1.81 mlU/L 0.47-4.68 MAIN LAB, [address] [place] [address]371 Thyroid Stimulating Hormone (TSH) 1.87 mlU/L 0.47-4.68 TSH cascade is not recommended for patients in which pituitary or hypothalmic disorders are suspected. MAIN LAB, [address] [place] [address] Testosterone Level 23 ng/dL 14-76 Reference Range: Premenopausal (21-60 yrs): 9-48 ng/dL Postmenopausal (45-89 yrs): <46 ng/dL The results of this assay can be falsely elevated due to the consumption of Biotin. [facility] Free Testosterone 0.3 ng/mL Test not recommended in patients with plasma protein abnormalities.T est Performed by:THE [address] Sex Hormone Binding Globulin 54.8 nmol/L Reference Range: Premenopausal (21-60 yrs): >10.8 nmol/L Postmenopausal (45-89 yrs): 23.2-159.1 nmol/L The results of this assay can be falsely lowered due to the consumption of Biotin. [facility] Dehydroepian drosterone Sulfate 194 ug/dL Test Performed by:[facility] [address] Hemoglobin A1c Percent 4.77 % 4.2-6.5 < 7% Recommended goal by ADA guidelines7-8% Suboptimal by ADA guidelines>8% Further action suggested by ADA guidelines MAIN LAB, [address] [place] [address] Hemoglobin A1c Percent 4.87 % 4.2-6.5 < 7% Recommended goal by ADA guidelines7-8% Suboptimal by ADA guidelines>8% Further action suggested by ADA guidelines MAIN LAB, [address] [facility] [address] Estimated Average Glucose mg/dL 90 mg/dL MAIN LAB, [address] [facility] [address] Estimated Average Glucose mg/dL 93 mg/dL MAIN LAB, [address] [place] [address] Urine 6-Acetylmorp negar Screen Negative ng/mL [facility] Urine Amphetamine Screen Negative ng/mL [facility] Urine Barbiturates Screen Negative ng/mL [facility] Urine Benzodiazepi guicho Screen Negative ng/mL [facility] Urine Buprenorphin e Screen Negative ng/mL [facility] Urine Cocaine Screen Negative ng/mL [facility] EDDP (Methadone Metabolite) Screen Negative ng/mL [facility] Urine Ethyl Glucuronide Screen Negative ng/mL [facility] Urine Methadone Screen Negative ng/mL [facility] Urine Opiates Screen Negative ng/mL [facility] Urine Oxycodone Screen Negative ng/mL [facility] Urine Propoxyphene Screen Negative ng/mL [facility] Urine Marijuana (THC) Screen Negative ng/mL [facility] Urine THC/Creatini ne Ratio Test not performed [facility] Urine Fentanyl Screen Negative ng/mL Testing Performed By:[address], [place] [id number] Director: Estefania Aguilera MD, Ph.D [facility] Adulterants Urine Creatinine 39.15 mg/dL Testing Performed By:[address], [place] [id number] Director: Estefania Aguilera MD, Ph.D [facility] Adulterants Urine Oxidants <200 ug/mL [facility] Adulterants Urine pH 5.3 [facility] Adulterants Urine Specific Herman 1.004 g/mL ----REFERENCE VALUE -1.003 - 1.035 [facility] Diagnostic Imaging Reports Report Dictated Date/Time Dictated By Status Radiology Report August 19, 2015 12:08pm Justyna Ellis MD completed [facility] CAT SCAN REPORT PATIENT NAME: YAMILETH TAYLOR [id number] DATE OF : 1985 ATTENDING/ER PHYSICIAN: ER/ATTENDING PHYSICIAN: Mateo Anaya MD PRIMARY CARE PHYS: DAFNE Maldonado ADMITTING PHYSICIAN: CONSULTING PHYSICIAN: PROCEDURE DATE: 08/19/15 REPORT STATUS: Signed DICTATING PHYSICIAN: Justyna Ellis MD REASON FOR EXAM: Evaluate for:CT Head-HEADACHE NOS r/o bleed, lesion, STUDY: CT HEAD W/O CONTRAST No comparison exam is available. TECHNIQUE: Serial axial images of the brain were obtained from the skull base to the vertex without administration of IV contrast. Coronal and sagittal reformatted images were made available from this axial data set. FINDINGS: There is no hemorrhage, mass, infarction or hydrocephalus. The ruano-white matter differentiation is normally maintained. No extra-axial fluid collections are identified. The ventricles are normal in size, shape and configuration. The osseous calvarium is intact. The orbits and orbital contents are within normal limits. Paranasal sinuses and mastoid air cells are clear. The extracranial soft tissues are unremarkable. CONCLUSION: 1. No acute intracranial abnormalities. dd: 08/19/15 1208 <Electronically signed by Justyna Ellis MD> 08/19/15 1210 Electrocardiogram January 24, 2017 6:23pm Cristopher Meehan MD completed Test Reason : Blood Pressure : / mmHG Vent. Rate : 061 BPM Atrial Rate : 061 BPM P-R Int : 166 ms QRS Dur : 084 ms QT Int : 402 ms P-R-T Axes : 038 039 021 degrees QTc Int : 404 ms Normal sinus rhythm with sinus arrhythmia Normal ECG No previous ECGs available Confirmed by Cristopher Meehan ([id number]) on 03/12/2017 10:33:07 PM Referred By: BATISTA Confirmed By:Cristopher Meehan Radiology Report August 24, 2017 6:03pm Deb Ramirez MD completed [facility] RADIOLOGY REPORT PATIENT NAME: YAMILETH TAYLOR [id number] DATE OF : 1985 ATTENDING/ER PHYSICIAN: ER/ATTENDING PHYSICIAN: Angelo Osuna NP PRIMARY CARE PHYS: Brenda Hernandez NP ADMITTING PHYSICIAN: CONSULTING PHYSICIAN: PROCEDURE DATE: 08/24/17 REPORT STATUS: Signed DICTATING PHYSICIAN: Deb Ramirez MD REASON FOR EXAM: bruising swelling pain STUDY: Foot 3 vw Min RT CLINICAL HISTORY: Bruising, swelling, pain. COMPARISON: None. FINDINGS/IMPRESSION: There is no acute fracture or dislocation. The Lisfranc joint is well aligned. There are no radiopaque foreign bodies. dd: 08/24/17 180 <Electronically signed by Deb Ramirez MD in OV> 08/24/17 1804 Advance Directives Advance Directive Response Recorded Date/ Time Does patient have an Advanced Directive? No August 19, 2015 10:32am Do we have a copy on file here at [facility]? No February 22, 2017 8:32am Pt has a Living Will? No August 19, 2015 10:32am Do we have a copy on file here at [facility]? No February 22, 2017 8:32am Pt has a Power of Board Winder? No Aug 10:32am Do we have a copy on file here at [facility]? No February 22, 2017 8:32am Chief Complaint and Reason for Visit Chief Complaint NUTRITION COUNSELING BLOODWORK FALL Lab Xray Lab Cervical pain US Ultrasound 60 Follow Up LACERATION Refill Request Scanned Amb Documentation med check [id number] Amb Documentation FAXES Lab Encounters Encounter Location(s) Arrival/Admit Date Discharge /Depart Date Provider(s) Departed Physician/Provi payam Office Visit [facility] Misc Comp Pain location Conversion Medent Departed Physician[facility]vi [facility] May 16, 2015 12:00am May 16, 2015 AFSHAN Rojo Departed Physician/Provi payam [facility] June 01, 2015 12:00am June 01, 2015 Conversion Medent Departed Physician/Provi payam [facility] SURGICAL INSTRUMENTS INSPECTOR June 15, 2015 12:00am June 15, 2015 Conversion Medent Departed Physician/Provi payam [facility] INSTRUMENTS INSPECTOR June 29, 2015 12:00am June 29, 2015 Conversion Medent Registered Referred [facility]-Pathology June 29, 2015 9:17pm Kishan Baltazar MD Departed Physician/Provi payam [facility] July 06, 2015 12:00am July 06, 2015 Conversion Medent Departed Physician/Provi payam [facility] August 03, 2015 12:00am August 03, 2015 Conversion Medent Departed Emergency [facility]-Emergency Department August 19, 2015 10:19am August 19, 2015 1:10pm null Departed Physician/Provi payam [facility] November 02, 2015 12:00am November 02, 2015 Conversion Medent Departed Physician/Provi payam [facility] January 01, 2016 12:00am January 01, 2016 Brenda Hernandez NP Departed Physician/Provi payam [facility] January 18, 2016 12:00am January 18, 2016 Conversion Medent Registered Clinical [facility]Diabetes and Nutrition Therapy January 22, 2016 8:30am Brenda Hernandez NP Departed Physician/Provi payam Office Visit [facility] [facility] February 19, 2016 12:00am February 19, 2016 RITA Cavanaugh Departed Physician/Provi payam Office Visit [facility] [facility] May 16, 2016 12:00am May 16, 2016 RITA Sanchez Departed Physician/Provi payam Office Visit [facility] sports internship July 09, 2016 12:00am July 09, 2016 Conversion Medent Departed Physician/Provi payam Office Visit [facility] [facility] December 23, 2016 12:00am December 23, 2016 Brenda Hernandez NP Departed Emergency [facility]-Emergency Department January 24, 2017 4:55pm January 24, 2017 7:05pm null Departed Physician/Provi payam Office Visit [facility] sports internship February 19, 2017 12:00am February 19, 2017 Brenda Hernandez NP Departed Clinical [facility]-Laboratory February 22, 2017 8:29am February 22, 2017 8:30am Brenda Hernandez NP Departed Physician/Provi payam Office Visit [facility] rn Urgent [facility] April 23, 2017 12:00am April 23, 2017 RITA Guzman Departed Emergency [facility]-Emergency Department August 24, 2017 4:56pm August 24, 2017 6:40pm null Departed Physician/Provi payam Office Visit [facility] sports internship February 20, 2018 12:00am February 20, 2018 Brenda Hernandez NP Departed Physician[facility]vi [facility] March 20, 2018 12:00am March 20, 2018 Brenda Hernandez NP Departed Clinical [facility]-Laboratory March 20, 2018 9:48am March 20, 2018 9:49am Brenda Hernandez NP Departed Referred [facility]-Pathology March 20, 2018 11:14am March 20, 2018 11:15am Brenda Hernandez NP [facility] March 24, 2018 7:30am March 24, 2018 7:31am Brenda Hernandez NP Departed Physician/Provi payam [facility] April 09, 2018 12:00am April 09, 2018 Ciarra Rubin NP Departed Physician/Provi payam [facility] April 16, 2018 12:00am April 16, 2018 Ciarra Rubin NP Departed Clinical [facility] April 16, 2018 8:59am April 16, 2018 9:00am Ciarra Rubin NP Departed Clinical [facility] May 01, 2018 7:59am May 01, 2018 8:00am Deb Bynum DO Departed Physician/Provi payam Office Visit [facility] sports internship August 31, 2018 12:00am August 31, 2018 Brenda Hernandez NP Departed Physician/[facility]vi pay[facility] December 21, 2018 12:00am December 21, 2018 Brenda Hernandez NP Departed Physician/[facility]vi pay[facility] January 18, 2019 12:00am January 18, 2019 Brenda Hernandez NP Departed Physician/Provi payam [facility] March 03, 2019 12:00am March 03, 2019 Brenda Hernandez NP Departed Physician/Provi payam [facility] March 26, 2019 12:00am March 26, 2019 Brenda Hernandez NP Departed Physician/Provi payam [facility] SURGICAL INSTRUMENTS INSPECTOR April 16, 2019 9:49am April 16, 2019 10:25am RITA Delacruz Departed Clinical [facility] G[employer] VP CREAT[employer] US April 23, 2019 9:01am April 23, 2019 9:02am Kishan Baltazar MD Departed Physician/Provi payam [facility] INSTRUMENTS INSPECTOR April 23, 2019 9:03am April 23, 2019 9:52am Kishan Baltazar MD Departed Physician/Provi payam [facility] SURGICAL INSTRUMENTS INSPECTOR April 23, 2019 9:04am April 23, 2019 9:52am RITA Delacruz Departed Emergency [facility]Emergency [facility] May 31, 2019 10:42am May 31, 2019 12:30pm null [facility] July 15, 2019 11:59pm Brenda Hernandez NP Registered Inpatient [facility]- July 29, 2019 11:52am Mecca Toledo RN Departed Physician/Provi payam [facility] August 03, 2019 8:39am August 03, 2019 10:31am Alissa Us APRN [facility] August 03, 2019 8:55am August 03, 2019 8:56am Alissa Us APRN [facility] October 18, 2019 8:39am Traci Salinas , DOMINIK [facility] October 19, 2019 11:59pm Brenda Hernandez NP Departed Clinical [facility]Laboratory November 19, 2019 8:36am November 19, 2019 8:37am Brenda Hernandez NP Assessments No Assessments Information Available Family History Relationship Condition Age at Onset Recorded Date/T baldemar Parent Cardiac disease Unknown Myocardial infarction Unknown Hypertension Unknown Parent Diabetes mellitus Unknown Hypertension Unknown Malignant neoplasm of uterus Unknown Not Specified Diabetes mellitus Unknown Malignant neoplasm Unknown Functional Status Observation Response Date Recorded Living Situation Home August 24, 2017 6:40pm Living Situation Home May 31, 2019 12:29pm Goals Goals may be documented in an alternate section. Immunizations Immunization Event Date Not Given Reason Dose Number Service Coordinator Elderly Facility Lot Number Vaccine Information Statement (VIS) Detail Influenza IIV4 PF September 29, 2017 Influenza Split Virus 3YR Older August 31, 2014 Tdap December 01, 2011 Tdap May 31, 2019 [id number] Mental Status Observation Response Date Recorded Speech Appropriate August 24, 2017 5:29pm Medical Equipment No Medical Equipment Information available Insurance Providers Guarantor YAMILETH TAYLOR Address [address] [phone] Contact Info. Home Phone: Payer Policy Id Coverage Id Subscriber's Name Subscriber Id Effective Date Expiration Date [employer] [id number] YAMILETH TAYLOR [id number] FEP [employer] (DO NOT USE) [id number] YAMILETH TAYLOR [id number] 2011 SELF PAY Self N/A Plan of Treatment Future Tests Future scheduled test information is unavailable Pending Tests Pending diagnostic test information is unavailable Future Visits Future appointment information is unavailable Referrals to Other Providers Reason for Referral Referral Start Date Provider Provider Contact Information Provider Address Brenda Hernandez NP Work Phone: [place] [phone] Brenda Hernandez NP Work Phone: [address] [address] Future Procedures Future procedure information is unavailable Future Medications Future medication information is unavailable Patient Instructions Brain Injury Mild Traum Conc uss Tx Crutches Weight Bearing Dc Strain Sprain Contusion Ch Social History Smoking Status Status Date of Observation Current some day smoker August 03 9:34am Observation Status Observation Response Date of Response Alcohol Use Yes May 31, 2019 1 2:06pm alcohol intake frequency holidays/special occasi ons only May 31, 2019 12:06pm Substance/Street Drug Use No May 312018 12:06pm Smoking Status Current some day smoker [facility] 2018 9:34am Assigned Sex Female Vital Signs Vital Reading Result Reference Range Collection Date/Time Body Temperature 97.8 [degF] 97.6-99.6 August 022016 12:00am Heart Rate 87 /min 60-100 August 24, 2017 12:00am Respiratory rate 20 /min 12-August 022016 12:00am Oxygen saturation by Pulse oximetry 100 % 95-100 August 24, 2017 12:00am BP Systolic 156 mm[Hg] 100-140 August 24, 2017 12:00am BP Diastolic 94 mm[Hg] 50-85 August 24, 2017 12:00am Height 65.25 [in_i] May 16, 2015 8:24am Weight 80.85 kg May 16, 2015 8:24am Body Temperature 98.3 [degF] 97.6-99.6 May 16, 2015 8:24am Heart Rate 85 /min 60-100 May 16, 2015 8:24am Respiratory rate 12 /min -May 16, 2015 8:24am Oxygen saturation by Pulse oximetry 98 % 95-100 May 16, 2015 8:24 am BP Systolic 126 mm[Hg] 100-140 May 16, 2015 8:24am BP Diastolic 94 mm[Hg] 50-85 May 16, 2015 8:24am BMI (Body Mass Index) 29.4 kg/m2 May 012014 8:24am Height 65 [in_i] June 01, 2015 8:59am Weight 81.19 kg June 01, 2015 8:59am Heart Rate 64 /min 60-100 June 01, 2015 8:59am Respiratory rate 16 /min -June 01 015 8:59am BP Systolic 110 mm[Hg] 100-140 June 01, 2015 8:59am BP Diastolic 74 mm[Hg] 50-85 June 01, 2015 8:59am BMI (Body Mass Index) 29.8 kg/m2 June 012014 8:59am Height 65 [in_i] June 29, 2015 8:39am Weight 81.87 kg June 29, 2015 8:39am BP Systolic 120 mm[Hg] 100-140 June 29, 2015 8:39am BP Diastolic 70 mm[Hg] 50-85 June 29, 2015 8:39am BMI (Body Mass Index) 30.0 kg/m2 June 022014 8:39am Height 65 [in_i] July 06 5 9:47am Weight 83.46 kg July 06 9:47am Heart Rate 76 /min 60-100 July 06 5 9:47am Respiratory rate 16 /min -July 06, 2015 9:47am BP Systolic 120 mm[Hg] 100-140 July 06 5 9:47am BP Diastolic 80 mm[Hg] 50-85 July 06 9:47am BMI (Body Mass Index) 30.6 kg/m2 July 06, 2015 9:47am Height 65 [in_i] August 03, 2015 9:03am Weight 80.73 kg August 03, 2015 9:03am Heart Rate 68 /min 60-100 August 03, 2015 9:03am Respiratory rate 16 /min 12-August 032014 9:03am BP Systolic 100 mm[Hg] 100-140 August 03, 2015 9:03am BP Diastolic 84 mm[Hg] 50-85 August 03, 2015 9:03am BMI (Body Mass Index) 29.6 kg/m2 2014 9:03am Height 65 [in_i] January 01, 2 016 9:01am Weight 82.55 kg January 01, 2 016 9:01am Heart Rate 88 /min 60-100 January 01, 2 016 9:01am Respiratory rate 16 /min -January 9:01am BP Systolic 102 mm[Hg] 100-140 January 01, 2 016 9:01am BP Diastolic 82 mm[Hg] 50-85 January 01, 2 016 9:01am BMI (Body Mass Index) 30.3 kg/m2 2015 9:01am Height 65 [in_i] January 18, 2016 8:31am Weight 77.11 kg January 18, 2016 8:31am Body Temperature 98.1 [degF] 97.6-99.6 January 182015 8:31am Heart Rate 86 /min 60-100 January 18, 2016 8:31am Respiratory rate 14 /min -January 182015 8:31am Oxygen saturation by Pulse oximetry 100 % 95-100 January 18, 2016 8:31am BP Systolic 153 mm[Hg] 100-140 January 18, 2016 8:31am BP Diastolic 85 mm[Hg] 50-85 January 18, 2016 8:31am BMI (Body Mass Index) 28.3 kg/m2 2015 8:31am Height 65 [in_i] February 18 6 11:36am Weight 77.11 kg February 18 11:36am Body Temperature 98.1 [degF] 97.6-99.6 February 19, 2016 11:36am Heart Rate 90 /min 60-100 February 18 6 11:36am Respiratory rate 16 /min -February 19, 2016 11:36am Oxygen saturation by Pulse oximetry 98 % 95-100 February 19, 2016 11: 36am BP Systolic 104 mm[Hg] 100-140 February 18 11:36am BP Diastolic 74 mm[Hg] 50-85 February 18 11:36am BMI (Body Mass Index) 28.3 kg/m2 February 19, 2016 11:36am Height 65 [in_i] May 16, 2016 10:56am Weight 75.74 kg May 16, 2016 10:56am Body Temperature 98.3 [degF] 97.6-99.6 May 16, 2016 10:56am Heart Rate 76 /min 60-100 May 16, 2016 10:56am Respiratory rate 16 /min -May 16, 2016 10:56am Oxygen saturation by Pulse oximetry 97 % 95-100 May 16, 2016 10:5 6am BP Systolic 108 mm[Hg] 100-140 May 16, 2016 10:56am BP Diastolic 60 mm[Hg] 50-85 May 16, 2016 10:56am BMI (Body Mass Index) 27.8 kg/m2 May 012015 10:56am Height 65 [in_i] December 23, 2 017 10:35am Weight 76.79 kg December 23, 2 017 10:35am Body Temperature 99.1 [degF] 97.6-99.6 December 10:35am Heart Rate 72 /min 60-100 December 23, 2 017 10:35am Respiratory rate 17 /min -December 10:35am BP Systolic 104 mm[Hg] 100-140 December 23, 2 017 10:35am BP Diastolic 62 mm[Hg] 50-85 December 23, 2 017 10:35am BMI (Body Mass Index) 28.2 kg/m2 2016 10:35am Height 65 [in_i] February 19 5:58pm Weight 77.19 kg February 19 5:58pm Heart Rate 74 /min 60-100 February 19 7 5:58pm Respiratory rate 18 /min -February 19, 2017 5:58pm BP Systolic 104 mm[Hg] 100-140 March 22nd, 201 7 5:58pm BP Diastolic 72 mm[Hg] 50-85 February 19 7 5:58pm BMI (Body Mass Index) 28.3 kg/m2 February 19, 2017 5:58pm Height 65 [in_i] April 23, 2017 4:37pm Weight 77.11 kg April 23, 2017 4:37pm Body Temperature 98.1 [degF] 97.6-99.6 April 23, 2 017 4:37pm Heart Rate 77 /min 60-100 April 23, 2017 4:37pm Respiratory rate 16 /min -April 23, 2 017 4:37pm Oxygen saturation by Pulse oximetry 95 % 95-100 April 23, 2017 4:37p m BP Systolic 116 mm[Hg] 100-140 April 23, 2017 4:37pm BP Diastolic 70 mm[Hg] 50-85 April 23, 2017 4:37pm BMI (Body Mass Index) 28.3 kg/m2 April 232016 4:37pm Weight 84.54 kg August 24, 2017 5:13pm Body Temperature 97.8 [degF] 97.6-99.6 August 022016 5:13pm Heart Rate 87 /min 60-100 August 24, 2017 5:13pm Respiratory rate 20 /min -August 022016 5:13pm Oxygen saturation by Pulse oximetry 100 % 95-100 August 24, 2017 5:13pm BP Systolic 156 mm[Hg] 100-140 August 24, 2017 5:13pm BP Diastolic 94 mm[Hg] 50-85 August 24, 2017 5:13pm Height 65 [in_i] March 20 8 9:04am Weight 89.04 kg March 20 8 9:04am Heart Rate 80 /min 60-100 March 20 8 9:04am Respiratory rate 16 /min -March 20, 2018 9:04am BP Systolic 122 mm[Hg] 100-140 March 20 8 9:04am BP Diastolic 84 mm[Hg] 50-85 March 20 8 9:04am BMI (Body Mass Index) 32.7 kg/m2 March 20, 2018 9:04am Height 65 [in_i] April 16, 2018 9:16am Weight 83.91 kg April 16, 2018 9:16am Heart Rate 81 /min 60-100 April 16, 2018 9:16am Oxygen saturation by Pulse oximetry 98 % 95-100 April 16, 2018 9:16a m BP Systolic 120 mm[Hg] 100-140 April 16, 2018 9:16am BP Diastolic 82 mm[Hg] 50-85 April 16, 2018 9:16am BMI (Body Mass Index) 30.8 kg/m2 April 162017 9:16am Height 65 [in_i] August 31 9:45am Weight 88.70 kg August 31 9:45am Body Temperature 98.3 [degF] 97.6-99.6 August 9:45am Heart Rate 84 /min 60-100 August 31 9:45am Respiratory rate 17 /min -August 9:45am BP Systolic 118 mm[Hg] 100-140 August 31 9:45am BP Diastolic 82 mm[Hg] 50-85 August 31 9:45am BMI (Body Mass Index) 32.5 kg/m2 2017 9:45am Height 65 [in_i] December 21, 2 019 8:12am Weight 88.95 kg December 21, 2 019 8:12am Body Temperature 98.4 [degF] 97.6-99.6 December 8:12am Heart Rate 102 /min 60-100 December 21, 2 019 8:12am Respiratory rate 16 /min -December 8:12am BP Systolic 124 mm[Hg] 100-140 December 21, 2 019 8:12am BP Diastolic 86 mm[Hg] 50-85 December 21, 2 019 8:12am BMI (Body Mass Index) 32.6 kg/m2 2018 8:12am Height 65 [in_i] April 16, 2019 10:00am Weight 94.80 kg April 16, 2019 10:00am Heart Rate 70 /min 60-100 April 16, 2019 10:00am Respiratory rate 18 /min -April 16, 2 019 10:00am BP Systolic 122 mm[Hg] 100-140 April 16, 2019 10:00am BP Diastolic 74 mm[Hg] 50-85 April 16, 2019 10:00am BMI (Body Mass Index) 34.7 kg/m2 April 162018 10:00am Height 65 [in_i] April 23, 2019 [...] 12:20pm Respiratory rate 18 /min -May 31, 019 12:20pm Oxygen saturation by Pulse oximetry 96 % 95-100 May 31, 2019 12:20 pm BP Systolic 150 mm[Hg] 100-140 May 31, 2019 12:20pm BP Diastolic 100 mm[Hg] 50-85 May 31, 2019 12:20pm Height 65 [in_i] August 03, 2019 8:45am Weight 97.72 kg August 03, 2019 8:45am Body Temperature 98.6 [degF] 97.6-99.6 August 032018 8:45am Heart Rate 88 /min 60-100 August 03, 2019 8:45am Respiratory rate 18 /min -August 032018 8:45am BP Systolic 124 mm[Hg] 100-140 August 03, 2019 8:45am BP Diastolic 94 mm[Hg] 50-85 August 03, 2019 8:45am
--- OUTSIDE RECORDS SUMMARY | 2024-05-28 15:29 | XMS_ITS | Continuity of Care Document ---
Author Name Unknown Address [address] [place] [address] Phone [facility] Address [address] [place] [address] Phone Care Team Providers Care Forest Resource Specialist Name Role Phone Brenda Hernandez Primary Care Provider Brenda Hernandez Attending Provider Alissa Rivers Attending Provider [phone] Allergies, Adverse Reactions, Alerts Allergen Type Severity Reaction Last Updated Verified Status metformin Allergy Unknown unknown July 17 020 2:12pm Yes Active weed pollen Allergy Unknown unknown July 17, 2020 2:12pm Yes Active cat dander Adverse Reaction Unknown unknown July 012019 2:12pm Yes Active dog dander Adverse Reaction Unknown unknown July 012019 2:12pm Yes Active Medications Medication Status Dose Units Route Directions Qty Days St art Date End Date Instructions Buspirone Discontin ued 5 MG PO TWICE A DAY 180 May 04, 2019 12:21pm 2019 10:27a m Hydroxyzine Hcl Discontin ued 10 MG PO TWICE A DAY July 22, 2019 2:13pm er 2018 9:05am Hydroxyzine Hcl Discontin ued 10 MG PO TWICE A DAY r 2018 9:05am 2019 10:31a m Levonorgestre l-Ethinyl Estrad (Tankvelo (28)) 0.15-0.03 mg tablet Discontin ued 1 TAB PO DAILY 2019 10:52am Octobe r 2019 11:44a m Hydroxyzine Hcl Discontin ued 0 .ROUTE .COMPLEX 2019 1:14pm Octobe r 2019 11:43a m 1-2 tabs qhs PRN for insomnia flu vacc [id number] 6mos up(PF) Discontin ued 0.5 ML IM ONCE 0.5 December 20, 2019 9:25am 2019 11:06a m Sumatriptan Succinate Active 6 MG SC .BID Q30D December 20, 2019 9:45am Hydroxyzine Hcl Discontin ued 10 MG PO TWICE A DAY 30 December 20, 2019 10:29am June 07, 2020 1:10pm Clonazepam Discontin ued 0.5 MG PO Q8H 10 April 14, 2019 2:42pm 2018 9:11am 1-2 tabs as needed for anxiety Buspirone Discontin ued 5 MG PO TWICE A DAY 60 April 14, 2019 2:44pm May 04, 2019 12:21p m Levonorgestre l-Ethinyl Estrad (Tankvelo (28)) 0.15-0.03 mg tablet Discontin ued 1 TAB PO DAILY April 14, 2019 2:44pm 2019 10:52a m Cholecalcifer ol (Vitamin D3) Discontin ued UNK UNK PO DAILY April 14, 2019 2:46pm Augem 2018 8:46am Riboflavin (Vitamin B2) Active 100 MG PO TWICE A DAY April 14, 2019 2:48pm Biotin Active 15 MG PO DAILY April 14, 2019 2:50pm Loratadine (Claritin) 10 mg tablet Active 10 MG PO DAILY April 16, 2019 10:06am Cholecalcifer ol (Vitamin D3) Active 2000 UNITS PO DAILY 2018 8:46am Hydroxyzine Hcl Active 0 .ROUTE .COMPLEX September 15, 2020 11:37am 1-2 tabs qhs PRN for insomnia Buspirone Active 10 MG PO TWICE A DAY 180 Oc tob2019 11:38am Clonazepam Active 0.5 MG PO Q8H [facility] 11:[facility]am 1-2 tabs as needed for anxiety Levonorgestre l-Ethinyl Estrad (Kurvelo (28)) 0.15-0.03 mg tablet Active 1 TAB PO DAILY 84 September 15, 2020 11:44am may skip placebo pills Clonazepam Discontin ued 0.5 MG PO Q8H 14 er 2018 9:09am [facility] r 2019 11:43a m 1-2 tabs as needed for anxiety Sumatriptan Discontin ued 20 MG NA ONCE July 29, 2019 11:53am July 29, 2019 11:57a m 1 spray intranasally once daily PRN at onset of migraine Sumatriptan Discontin ued 20 MG NA ONCE 1 July 29, 2019 11:57am June 07, 2020 1:12pm 1 spray intranasally once daily PRN at onset of migraine Trazodone Discontin ued 0 PO DAILY 90 June 07, 2020 1:06pm [facility] r 2019 11:37a m 1-2 tabs qhs PO daily PRN; Buspirone Discontin ued 5 MG PO TWICE A DAY 180 June 07, 2020 1:14pm [facility] r 2019 11:43a m Hydroxyzine Hcl Discontin ued 10 MG PO TWICE A DAY May 03, 2019 8:06am July 22, 2019 2:14pm Erenumab-Aooe (Aimovig Autoinjector) 70 mg/mL auto-injector Discontin ued 70 MG SC Q30D May 03, 2019 8:06am Septem taco 2018 8:46am Erenumab-Aooe (Aimovig Autoinjector) 70 mg/mL auto-injector Active 140 [facility] 8:[facility]am Problems Active Problems Medical Problem Onset Date Status Insomnia Active Polycystic ovaries June 29, 2015 Active Anxiety Active Migraine Active Arthralgia of shoulder May 16, 2015 Active Wheat sensitive enteropathy Acti ve Abnormal uterine bleeding (AUB) Active Knee pain April 16, 2018 Active Endometriosis Active Internal derangement of knee [...] Interpretation Reference Range Result Comment Performing Site Thyroid Stimulating Hormone (TSH) July 06, 2020 10:19am 1.52 mlU/L 0.47-4.68 TSH cascade is not recommended for patients in which pituitary or hypothalmic disorders are suspected. MAIN LAB, [address] [place] [id number] Follicle Stimulating Hormone July 06, 2020 10:19am 6.5 mIU/mL See Note NOTE:Female FSH Reference Ranges (>= 13 Menstruating):PH YSIOLOGICAL STATUS REFERENCE RANGE --------- Follicular (-12 to -4 days): 2.5 - 10.2 mIU/mL Midcycle (-3 to +2 days): 3.4 - 33.4 mIU/mL Luteal (+4 to +12 days): 1.5 - 9.1 mIU/mL Postmenopausal: 23.0 - 116.3 mIU/mLReference Ranges for female patients <13 years old have notbeen established.Test performed or referred by[id number] [place] [address] [employer] Prolactin July 06, 2020 10:19am 5.5 ng/mL See Table NOTE:Female Reference Ranges:PHYSIOLOG ICAL STATUS EXPECTED RANGE --------- Po stmenopausal 1.8 - 20.3 ng/mL 9.7 - 208.5 ng/mLNon-pregnan t 2.8 - 29.2 ng/mLReference Ranges for Prolactin in female patients <18 yearsold have not been established.Test performed or referred by[id number] [place] [address] Hemoglobin A1c Percent July 06, 2020 10:19am 5.30 % <5.7 <5.7%: Normal5.7%-6.4%: Prediabetes>=6.5 %: Diagnostic for diabetesGoals for Glycemic Control in Diabetes (ADA 2018)<7.0%: A1c target for non adults with diabetes. More or less stringent glycemic goals may be appropriate for individual patients.<7.5%: A1c target for children and adolescents with type I diabetes. A lower goal is reasonable if it can be achieved without excessive hypoglycemia. MAIN LAB, [address] [place] [address] Estimated Average Glucose mg/dL July 06, 2020 10:19am 105 mg/dL MAIN LAB, [address] [place], [place] [address] Tissue Transglutamina se IgA Ab November 19, 2019 9:52am < 1.2 U/mL ---REFERENCE VALUE < 4.0 (Negative) [facility] Tissue Transglutamina se IgG Ab November 19, 2019 9:52am 1.3 U/mL ---REFERENCE VALUE < 6.0 (Negative)Test Performed by:[address] [id number] Director: Abdullahi Goodrich M.D. Ph.D.; CLIA# [id number] [facility] Wheat Allergen IgE Antibody November 19, 2019 9:52am <0.35 kU/L Class 0 (Negative <0.35)Test Performed by:[address] [id number] Director: Abdullahi Goodrich M.D. Ph.D.; CLIA# [id number] [facility] Wheat Allergen IgG Antibody November 19, 2019 9:52am 5.4 mcg/mL Reference ranges have not been established forfood-specific IgG tests. The clinical utility offood-specific IgG [...] test wasdeveloped and its performance characteristics determined by[employer]. It has not been cleared or approved bythe U.S. Food and Drug Administration.T est Performed by:[employer], [id number] [place] [address] [facility] Advance Directives Advance Directive Response Recorded Date/ Time Does patient have an Advanced Directive? No August 19, 2015 10:32am Do we have a copy on file here at [facility]? No February 22, 2017 8:32am Pt has a Living Will? No August 19, 2015 10:32am Do we have a copy on file here at [facility]? No February 22, 2017 8:32am Pt has a Power of Employee Placement Specialist? No Aug 10:32am Do we have a copy on file here at [facility]? No February 22, 2017 8:32am Chief Complaint and Reason for Visit Chief Complaint Amb Documentation FAXES Lab Z00.01 F/U: Dec 2019 mood check HANDBAG STITCHER annual exam ANXIETY FOLLOW UP/WAS PHYSICAL Lab CONSULT Follow Up Reason for Visit Wheat sensitive ente ropathy Abnormal uterine bleeding (AUB) Insomnia Anxiety Endometriosis Polycystic ovaries Insomnia Anxiety Encounters Encounter Location(s) Arrival/Admit Date Discharge /Depart Date Provider(s) Registered Inpatient [facility] October 18, 2019 9:39am Traci Salinas , DOMINIK Registered Inpatient [facility] October 20, 2019 12:59am Brenda Hernandez NP Departed Clinical [facility] November 19, 2019 9:36am November 19, 2019 9:37am Brenda Hernandez NP Departed Physician/Provi payam Office Visit [facility] December 20, 2019 9:25am December 20, 2019 10:43am Brenda Hernandez NP Departed Physician/Provi payam Office Visit [facility] PIER WORKER February 24, 2020 8:33am February 24, 2020 11:59pm Alissa Rivers MD Departed Physician/Provi payam Office Visit [facility] June 07, 2020 7:37am June 07, 2020 1:28pm Brenda Hernandez NP Departed Clinical [facility] July 06, 2020 10:07am July 06, 2020 10:08am Alissa Rivers MD Departed Physician/Provi payam Office Visit [facility] PIER WORKER July 17, 2020 2:06pm July 17, 2020 2:38pm Kishan Baltazar MD Departed Physician/Provi payam Office Visit [facility] September 15, 2020 12:04pm September 15, 2020 12:04pm Brenda Hernandez NP Recent Diagnosis Onset Date Wheat sensitive enteropathy Abnormal uterine bleeding (AUB) Insomnia Anxiety Endometriosis Polycystic ovaries June 29, 2015 Insomnia Anxiety Assessments Diagnosis Onset Date Resolution Status Wheat sensitive enteropathy acute Abnormal uterine bleeding (AUB) acute Insomnia acute Anxiety chronic Endometriosis acute Polycystic ovaries June 29, 2015 noneac tive Insomnia acute Anxiety chronic Family History Relationship Condition Age at Onset Recorded Date/T baldemar Parent Cardiac disease Unknown Myocardial infarction Unknown Hypertension Unknown Parent Diabetes mellitus Unknown Hypertension Unknown Malignant neoplasm of uterus Unknown Not Specified Diabetes mellitus Unknown Malignant neoplasm Unknown Functional Status Observation Response Date Recorded Ambulation Ability Independent December 17, 2019 10:08pm Goals Goals may be documented in an alternate section. Immunizations Immunization Event Date Not Given Reason Dose Number Medical Surgery Nurse Lot Number Vaccine Information Statement (VIS) Detail Influenza IIV4 PF September 29, 2017 Influenza IIV4 PF December 20, 2019 [id number] Influenza Split Virus 3YR Older August 31, 2014 Tdap December 01, 2011 Tdap May 31, 2019 [id number] Mental Status No Mental Status Information Available Medical Equipment No Medical Equipment Information available Insurance Providers Guarantor YAMILETH TAYLOR Address [address] [place] [address] Contact Info. Home Phone: Payer Policy Id Coverage Id Subscriber's Name Subscriber Id Effective Date Expiration Date [employer] [id number] YAMILETH TAYLOR [id number] [facility] MUSA QUINN (DO NOT USE) [id number] YAMILETH TAYLOR [id number] 2011 SELF PAY Self N/A Plan of Treatment Jagdeep 7 score of 6, anxiety control at goal. Discussed she may use our in-house counselor if need be while her counselor is on maternity leave. Hydroxyzine not very helpful for sleep. Discussed other options and will trial trazodone. Reviewed adverse drug effects. Jagdeep 7??20 Anxiety poorly controlled. We will increase BuSpar to 10 mg as she is tolerating it well. I have refilled her clonazepam which she takes rarely. We will connect her with our counselor until hers returns from maternity leave. I will increase her hydroxyzine. She will increase 1 medication at a time, starting with BuSpar for a couple weeks before trying increasing hydroxyzine. #AUB: long h/o oligoovulation, has been on [...] protection with progesterone. Also using for contraception. I have reviewed and discussed with her the treatment for both of her conditions. Discussed doing a pelvic ultrasound if her pain persist. At this time we could do a trial of non stop OCP use as discuss with her. I have discuss the normal irregular bleeding that happens on OCP after a long time of use. She is reassured. Follow in 3 months for review. She reports her mood is very good [...] could refer her for allergy testing with water meter installer. She declines any referral or additional blood [...] Date of Observation Current some day smoker September 15 12:02pm Observation Status Observation Response Date of Response Alcohol Use Yes May 31, 2019 1 2:06pm alcohol intake frequency holidays/special occasi ons only May 31, 2019 12:06pm Substance/Street Drug Use No May 312018 12:06pm substance use type does not use December 17, 2019 10:08pm Smoking Status Current some day smoker September 15, 2020 12:02pm Assigned Sex Female Vital Signs Vital Reading Result Reference Range Collection Date/Time Height 65 [in_i] December 20 9:40am Weight 94.00 kg December 20 9:40am Body Temperature 98.9 [degF] 97.6-99.6 December 9:40am Heart Rate 78 /min 60-100 December 20 9:40am Respiratory rate 16 /min 12-24 December 9:40am Oxygen saturation by Pulse oximetry 98 % 95-100 December 20, 2019 9 :40am BP Systolic 139 mm[Hg] 100-140 December 20, 020 9:40am BP Diastolic 85 mm[Hg] 50-85 December 20, 020 9:40am BMI (Body Mass Index) 34.4 kg/m2 2019 9:40am Height 65 [in_i] July 17 2:14pm Weight 92.30 kg July 17 2:14pm BP Systolic 140 mm[Hg] 100-140 July 17 2:14pm BP Diastolic 90 mm[Hg] 50-85 July 17 2:14pm BMI (Body Mass Index) 33.8 kg/m2 July 17, 2020 2:14pm
--- OUTSIDE RECORDS SUMMARY | 2024-05-28 15:29 | XMS_ITS | Continuity of Care Document ---
Author Name Unknown Address [address] [place] [address] Phone [facility] Address [address] [place] [address] Phone Care Team Providers Care Framing Consultant Name Role Phone David, Brenda D Primary Care Provider Unavail able Kishan [...] Date Provider(s) Departed [facility] August 31, 2018 12:00am August 31, 2018 Brenda Hernandez NP Departed Physician[facility]Prov [facility] December 21, 2018 12:00am December 21, 2018 Brenda Hernandez NP Departed Physician/Prov [facility] January 18, 2019 12:00am January 18, 2019 Brenda Hernandez NP [facility]arted Physician[facility]Prov [facility] March 03, 2019 12:00am March 03, 2019 Brenda Hernandez NP Departed Physician[facility]Prov [facility] March 26, 2019 12:00am March 26, 2019 Brenda Hernandez NP Departed Physician/Prov ider [facility] RAG ROOM SUPERVISOR April 16, 2019 9:49am April 16, 2019 10:25am RITA Delacruz Departed Clinical [facility] FITNESS LEADER April 23, 2019 9:01am April 23, 2019 9:02am Kishan Baltazar MD Departed Physician/Prov ider [facility] RAG ROOM SUPERVISOR April 23, 2019 9:03am April 23, 2019 9:52am Kishan Baltazar MD Departed Physician[facility]OM SUPERVIS[facility] April 23, 2019 9:04am April 23, 2019 9:52am RITA Delacruz Departed Emergency [facility] May 31, 2019 10:42am May [...] Event Date Not Given Reason Dose Number Licensing Engineer Lot Number Vaccine Information Statement (VIS) Detail Influenza IIV4 PF September 29, 2017 VIS not given Influenza Split Virus 3YR Older August 31, 2014 VIS not given Tdap December 01, 2011 VIS not given Tdap May 31, 2019 [id number] VIS not given Mental Status No Mental Status Information Available Medical Equipment No Medical Equipment Information available Insurance Providers Guarantor YAMILETH TAYLOR Address [address] [place] [address] Contact Info. Home Phone: Payer Policy Id Coverage Id Subscriber's Name Subscriber Id Effective Date Expiration Date [employer] FED[employer] [id number] YAMILETH TAYLOR [id number] [facility] [employer] (DO NOT USE) [id number] YAMILETH TAYLOR [id number] 2011 SELF PAY Self N/A Plan of Treatment Future Tests Future scheduled test information is unavailable Pending Tests Pending diagnostic test information is unavailable Future Visits Future appointment information is unavailable Referrals to Other Providers Reason for Referral Referral Start Date Provider Provider Contact Information Provider Address Bradford Gutierrez Work Phone: [facility] Primary Care [facility] [address] [facility] [address] [facility] [address] Future Procedures Future procedure information is unavailable [...]
--- OUTSIDE RECORDS SUMMARY | 2024-05-28 15:29 | XMS_ITS | Continuity of Care Document ---
Author Name Unknown Address [address] [place] [address] Phone [facility] Address [address] [place] [address] Phone Care Team Providers Care Self Defense Instructor Name Role Phone Brenda Hernandez Primary Care Provider Kishan Baltazar Attending Provider Alissa Us Attending Provider Unavailabl e Brenda Hernandez Attending Provider [phone] Allergies, Adverse Reactions, Alerts Allergen Type Severity Reaction Last Updated Verified Status metformin Allergy Unknown unknown December 20, 2019 Yes Act walt weed pollen Allergy Unknown unknown August 03, 2019 Yes Active cat dander Adverse Reaction Unknown unknown December 20, 2019 Y es Active dog dander Adverse Reaction Unknown unknown December 20, 2019 Y es Active Medications Medication Status Dose Units Route Sig Qty Days Start Date End Date Instructions Buspirone Discontin ued 5 MG ORAL TWICE A DAY 180 May 04, 2019 12:21pm December 20, 2019 9:27am Hydroxyzine Hcl Discontin ued 10 MG ORAL TWICE A DAY 30 July 22, 2019 2:13pm [facility] 2018 8:05am Hydroxyzine Hcl Discontin ued 10 MG ORAL TWICE A DAY 30 October 19, 2019 8:05am December 20, 2019 9:31am Levonorgestrel -Ethinyl Estrad Active 1 TAB ORAL DAILY 84 January 10, 2020 9:52am flu vacc [id number] 6mos up(PF) Discontin ued 0.5 ML INTRAMUS CULAR ONCE 0.5 December 20, 2019 8:25am December 20, 2019 10:06am Sumatriptan Succinate Active 6 MG .BID Q30D December 20, 2019 8:45am [place]-3 Fatty Acids Active 2000 MG ORAL DAILY December 20, 2019 8:46am Hydroxyzine Hcl Active 10 MG ORAL TWICE A DAY 30 December 20, 2019 9:29am Clonazepam Discontin ued 0.5 MG ORAL Q8H 10 April 14, 2019 2:42pm [facility] 2018 9:11am 1-2 tabs as needed for anxiety Buspirone Discontin ued 5 MG ORAL TWICE A DAY 60 April 14, 2019 2:44pm May 04, 2019 12:21pm Levonorgestrel -Ethinyl Estrad Discontin ued 1 TAB ORAL DAILY April 14, 2019 2:44pm 2019 9:52am Feverfew Active 100 MG ORAL TWICE A DAY April 14, 2019 2:45pm Cholecalcifero l (Vitamin D3) Discontin ued UNK UNK ORAL DAILY April 14, 2019 2:46pm [facility] 2018 8:46am Riboflavin (Vitamin B2) Active 100 MG ORAL TWICE A DAY April 14, 2019 2:48pm Magnesium Oxide Active 400 MG ORAL DAILY April 14, 2019 2:49pm Biotin Active 15 MG ORAL DAILY April 14, 2019 2:50pm Loratadine Active 10 MG ORAL DAILY April 16, 2019 10:06am Cholecalcifero l (Vitamin D3) Active 2000 UNITS ORAL DAILY [facility] 2018 8:46am Clonazepam Active 0.5 MG ORAL Q8H 14 be 2018 9:09am 1-2 tabs as needed for anxiety Sumatriptan Discontin ued 20 MG NASAL ONCE July 29, 2019 11:53am July 29, 2019 11:57am 1 spray intranasally once daily PRN at onset of migraine Sumatriptan Active 20 MG NASAL ONCE 1 Aug2018 11:57am 1 spray intranasally once daily PRN at onset of migraine Hydroxyzine Hcl Discontin ued 10 MG ORAL TWICE A DAY May 03, 2019 8:06am July 22, 2019 2:14pm Erenumab-Aooe Discontin ued 70 MG Q30D May 03, 2019 8:06am Sept2018 8:46am Erenumab-Aooe Active 140 MG Q30D Sep [facility] 2018 8:46am Problems Active Problems Medical Problem [...] US Transvaginal Non-OB April 23, 2019 completed Relevant Diagnostic Tests and/or Laboratory Data Laboratory Results Test Date/Time Result Interpretation Reference Range Result Comment Performing Site Tissue Transglutami nase IgA Ab November 19, 2019 8:52am < 1.2 U/mL ----REFERENCE VALUE -<4.0 (Negative) [facility] Tissue Transglutami nase IgG Ab November 19, 2019 8:52am 1.3 U/mL ----REFERENCE VALUE -<6.0 (Negative)Test Performed by:[facility] [address] [place] [id number] Director: Abdullahi Goodrich M.D. Ph.D.; CLIA# [id number] [facility] Urine 6-Acetylmorp negar Screen August 03, 2019 8:55am Negative ng/mL [facility] Urine Amphetamine Screen August 03, 2019 8:55am Negative ng/mL [facility] Urine Barbiturates Screen August 03, 2019 8:55am Negative ng/mL [facility] Urine Benzodiazepi guicho Screen August 03, 2019 8:55am Negative ng/mL [facility] Urine Buprenorphin e Screen August 03, 2019 8:55am Negative ng/mL [facility] Urine Cocaine Screen August 03, 2019 8:55am Negative ng/mL [facility] EDDP (Methadone Metabolite) Screen August 03, 2019 8:55am Negative ng/mL [facility] Urine Ethyl Glucuronide Screen August 03, 2019 8:55am Negative ng/mL [facility] Urine Methadone Screen August 03, 2019 8:55am Negative ng/mL [facility] Urine Opiates Screen August 03, 2019 8:55am Negative ng/mL [facility] Urine Oxycodone Screen August 03, 2019 8:55am Negative ng/mL [facility] Urine Propoxyphene Screen August 03, 2019 8:55am Negative ng/mL [facility] Urine Marijuana (THC) Screen August 03, 2019 8:55am Negative ng/mL [facility] Urine THC/Creatini ne Ratio August 03, 2019 8:55am Test not performed [facility] Urine Fentanyl Screen August 03, 2019 8:55am Negative ng/mL Testing Performed By:[address] CARLOS ALBERTO [facility]cc[facility], [facility] [id number] Director: Estefania Aguilera MD, Ph.D [facility] Adulterants Urine Creatinine August 03, 2019 8:55am 39.15 mg/dL Testing Performed By:[address] [facility] ALB[facility], [facility] [id number] Director: Estefania Aguilera MD, Ph.D [facility] [employer]ter[employer] Urine Oxidants August 03, 2019 8:55am <200 ug/mL [facility] [email or web address] Adulterants Urine pH August 03, 2019 8:55am 5.3 [facility] [employer] Urine Specific Rousseau August 03, 2019 8:55am 1.004 g/mL ----REFERENCE VALUE -1.003 - 1.035 [facility] Wheat Allergen IgE Antibody November 19, 2019 8:52am <0.35 kU/L Class 0 (Negative <0.35)Test Performed by:[facility] [place], [place] [address]Ptn Director: Abdullahi Goodrich M.D. Ph.D.; CLIA# [id number] [facility] Wheat Allergen IgG Antibody November 19, [...] test wasdeveloped and its performance characteristics determined by[facility]. It has not been cleared or approved bythe U.S. Food and Drug Administration. Test Performed by:[employer] [facility], [id number] [place], [place] [id number] [place] [address] Advance Directives Advance Directive Response Recorded Date/ Time Does patient have an Advanced Directive? No August 19, 2015 10:32am Do we have a copy on file here at [facility]? No February 22, 2017 8:32am Pt has a Living Will? No August 19, 2015 10:32am Do we have a copy on file here at [facility]? No February 22, 2017 8:32am Pt has a Power of Basketballs And Footballs Reverser? No Aug 10:32am Do we have a copy on file here at [facility]? 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 Reason for Visit Wheat sensitive ente ropathy Abnormal uterine bleeding (AUB) Encounters Encounter Location(s) Arrival/Admit Date Discharge /Depart Date Provider(s) Departed Physician/Provi payam Office Visit [facility] March 03, 2019 12:00am March 03, 2019 Brenda Hernandez NP Departed Physician/Provi payam Office Visit [facility] March 26, 2019 12:00am March 26, 2019 Brenda Hernandez NP Departed Physician/Provi payam Office Visit [facility] TEXTBOOK ASSOCIATE April 16, 2019 9:49am April 16, 2019 10:25am RITA Delacruz Departed Clinical [facility] MANUFACTURING MECHANIC April 23, 2019 9:01am April 23, 2019 9:02am Kishan Baltazar MD Departed Physician/Provi payam Office Visit [facility] TEXTBOOK ASSOCIATE April 23, 2019 9:03am April 23, 2019 9:52am Kishan Baltazar MD Departed Physician/Provi payam Office Visit [facility] TEXTBOOK ASSOCIATE April 23, 2019 9:04am April 23, 2019 9:52am RITA Delacruz Departed Emergency [facility]gency Department May 31, 2019 10:42am May 31, 2019 12:30pm null Registered Inpatient [facility] July 15, 2019 11:59pm Brenda Hernandez NP Registered Inpatient [facility]- July 29, 2019 11:52am Mecca Toledo RN Departed Physician/Provi payam Office Visit [facility] August 03, 2019 8:39am August 03, 2019 10:31am Alissa Us APRN Departed Referred [facility] August 03, 2019 8:55am August 03, 2019 8:56am Alissa Us APRN Registered Inpatient [facility] October 18, 2019 8:39am Traci Salinas RN Registered Inpatient [facility] October 19, 2019 11:59pm Brenda Hernandez NP Departed Clinical [facility] November 19, 2019 8:36am November 19, 2019 8:37am Brenda Hernandez NP Departed Physician/Provi payam Office Visit [facility] December 20, 2019 8:25am December 20, 2019 9:43am Brenda Hernandez NP Departed Physician/Provi payam Office Visit [facility] TEXTBOOK ASSOCIATE February 24, 2020 8:33am February 24, 2020 11:59pm Alissa Rivers MD Recent Diagnosis Onset Date Wheat sensitive enteropathy Abnormal uterine bleeding (AUB) Assessments Diagnosis Onset Date Resolution Status Wheat sensitive enteropathy acute Abnormal uterine bleeding (AUB) acute Family History Relationship Condition Age at Onset Recorded Date/T baldemar Parent Cardiac disease Unknown Myocardial infarction Unknown Hypertension Unknown Parent Diabetes mellitus Unknown Hypertension Unknown Malignant neoplasm of uterus Unknown Not Specified Diabetes mellitus Unknown Malignant neoplasm Unknown Functional Status Observation Response Date Recorded Ambulation Ability Independent December 17, 2019 9:08pm Living Situation Home May 31, 2019 12:29pm Goals Goals may be documented in an alternate section. Immunizations Immunization Event Date Not Given Reason Dose Number College Admissions Counselor Lot Number Vaccine Information Statement (VIS) Detail Influenza IIV4 PF September 29, 2017 Influenza IIV4 PF December 20, 2019 [id number] Influenza Split Virus 3YR Older August 31, 2014 Tdap December 01, 2011 Tdap May 31, 2019 [id number] Mental Status No Mental Status Information Available Medical Equipment No Medical Equipment Information available Insurance Providers Guarantor YAMILETH TAYLOR Address [address] [place] [address] Contact Info. Home Phone: Payer Policy Id Coverage Id Subscriber's Name Subscriber Id Effective Date Expiration Date [employer] [id number] YAMILETH TAYLOR [id number] [facility] [employer] (DO NOT USE) [id number] YAMILETH TAYLOR [id number] 2011 SELF PAY Self N/A Plan of [...] her mood is very good since the [employer] job hold has added and she has [...] could refer her for allergy testing with agent contract clerk. She declines any referral or additional blood work at this time and will just avoid eating wheat. Future Tests Future scheduled test information is unavailable Pending Tests Pending diagnostic test information is unavailable Future Visits Future appointment information is unavailable Referrals to Other Providers Reason for Referral Referral Start Date Provider Provider Contact Information Provider Address Brenda Hernandez NP Work Phone: [facility] [address] [address] Brenda Hernandez NP Work Phone: [facility] [address] [address] Future Procedures Future procedure information is unavailable [...] Reference Range Collection Date/Time Height 65 [in_i] April 16, 2019 10:00am [...] 03, 2019 8:45am Height 65 [in_i] December 20, 8:40am Weight 94.00 kg December 20, 8:40am Body Temperature 98.9 [degF] 97.6-99.6 December 8:40am Heart Rate 78 /min 60-100 December 20, 8:40am Respiratory rate 16 /min 12-24 December 8:40am Oxygen saturation by Pulse oximetry 98 % 95-100 December 20, 2019 8 :40am BP Systolic 139 mm[Hg] 100-140 December 20, 8:40am BP Diastolic 85 mm[Hg] 50-85 December 20, 8:40am BMI (Body Mass Index) 34.4 kg/m2 2019 8:40am
--- OUTSIDE RECORDS SUMMARY | 2024-05-28 15:29 | XMS_ITS | Continuity of Care Document ---
Author Name Unknown Address [address] [place] [address] Phone Organization Address [address] [place] [address] Phone Care Team Providers Care Bus Company Manager Name Role Phone JELANI Hernandez Primary Care Provider JELANI Hernandez Attending Provider Chief Complaint and Reason for Visit Chief Complaint Counseling f/u (phon e) Counseling f/u (phone) Counseling f/u (phone) Annual Physical - Adult Mood check Z82.49 - Family history of ischemic heart disease Lab Control Follow Up Reason for Visit Anxiety Adult general medical exam Nicotine dependence White coat syndrome with hypertension Anxiety Family history of hypertrophic cardiomyopathy Anxiety Contraception management Anxiety Anxiety Allergies, Adverse Reactions, Alerts Allergen Type Severity Reaction Last Updated Verified Status metformin Allergy Unknown unknown February 19 3:05pm Yes Active weed pollen Allergy Unknown unknown February 19, 3:05pm Yes Active cat dander Adverse Reaction Unknown unknown February 192020 3:05pm Yes Active dog dander Adverse Reaction Unknown unknown February 192020 3:05pm Yes Active Social History Smoking Status Status Start Date End Date Date of Observa tion Current some day smoker 2020 10:58am Observation Status Observation Response Date of Response Alcohol Use Yes May 31, 2019 1 2:06pm alcohol intake frequency holidays/special occasi ons only February 19, 2021 3:08pm Substance/Street Drug Use No May 312018 12:06pm substance use type does not use February 19 021 3:08pm Smoking Status Current some day smoker September 28, 2021 10:58am Additional Data Assigned Sex Female Family History Relationship Condition Age at Onset Recorded Date/T baldemar Parent Cardiac disease Unknown Myocardial infarction Unknown Hypertension Unknown Parent Diabetes mellitus Unknown Hypertension Unknown Malignant neoplasm of uterus Unknown Not Specified Diabetes mellitus Unknown Malignant neoplasm Unknown Problems Active Problems Medical Problem Onset Date Status Nicotine dependence Active Insomnia Active Contraception management Active Family history of hypertrophic cardiomyopathy Active Polycystic ovaries June 29, 2015 Active Anxiety Active Migraine Active Arthralgia of shoulder May 16, 2015 Active Wheat sensitive enteropathy Acti ve Adult general medical exam Activ e Abnormal uterine bleeding (AUB) Active Knee pain April 16, 2018 Active White coat syndrome with hypertension Active Endometriosis Active Internal derangement of knee April 16, 2018 Act walt Obesity Active Inactive/Resolved Problems Medical Problem Onset Date Status Acute sinusitis April 23, 2017 Resolved Laceration of left index finger Resolved Lipoma of skin January 18, 2016 Resolved Internal derangement of knee April 16, 2018 Res olved Medications Medication Status Dose Units Route Directions Qty Days St art Date End Date Instructions Buspirone Discontin ued 5 MG PO TWICE A DAY 180 May 04, 2019 12:21pm 2019 10:27a m Hydroxyzine Hcl Discontin ued 10 MG PO TWICE A DAY 30 July 22, 2019 2:13pm er 2018 9:05am Hydroxyzine Hcl Discontin ued 10 MG PO TWICE A DAY 2018 9:05am 2019 10:31a m Levonorgestre l-Ethinyl Estrad (Adio (28)) 0.15-0.03 mg tablet Discontin ued 1 TAB PO DAILY 84 2019 10:52am r 2019 11:44a m Hydroxyzine Hcl Discontin ued 0 .ROUTE .COMPLEX er 2019 1:14pm r 2019 11:43a m 1-2 tabs qhs PRN for insomnia Clonazepam Discontin ued 0.5 MG PO Q8H 10 April 06, 2021 4:24pm Octobe r 2020 1:09pm Levonorgestre l-Ethinyl Estrad (Tankvelo (28)) 0.15-0.03 mg tablet Discontin ued 1 TAB PO DAILY 84 May 29, 2021 6:49pm June 15, 2021 10:52a m march skip placebo pills Buspirone Discontin ued 7.5 MG PO TWICE A DAY 180 April 06, 2021 1:35pm June 15, 2021 10:53a m Clonazepam Discontin ued 0.5 MG PO Q8H 10 April 06, 2021 1:54pm April 06, 2021 4:26pm 1-2 tabs as needed for anxiety Norethindrone (Contraceptiv e) Active 0.35 MG PO DAILY 84 June 15, 2021 10:49am Buspirone Active 5 MG PO TWICE A DAY 180 2020 10:53am Sumatriptan Succinate Active 6 MG SC .BID [...] UNK PO DAILY April 14, 2019 2:46pm 2018 8:46am Riboflavin (Vitamin B2) Active 100 MG PO TWICE A DAY April 14, 2019 2:48pm Biotin Active 15 MG PO DAILY April 14, 2019 2:50pm Loratadine (Claritin) 10 mg tablet Active 10 MG PO DAILY April 16, 2019 10:06am Cholecalcifer ol (Vitamin D3) Active 2000 UNITS PO [facility] 8:46am Hydroxyzine Hcl Discontin ued 0 .ROUTE .COMPLEX September 15, 2020 11:37am [facility] 1:08pm 1-2 tabs qhs PRN for insomnia Buspirone Discontin ued 10 MG PO TWICE A DAY 180 September 15, 2020 11:38am February 19, 2021 3:58pm Clonazepam Discontin ued 0.5 MG PO Q8H September 15, 2020 11:41am April 06, 2021 1:55pm 1-2 tabs as needed for anxiety Levonorgestre l-Ethinyl Estrad (Kurvelo (28)) 0.15-0.03 mg tablet Discontin ued 1 TAB PO DAILY September 15, 2020 11:44am May 29, 2021 6:49pm may skip placebo pills Clonazepam Active 0.5 MG PO Q8H [facility] 1:08pm Clonazepam Discontin ued 0.5 MG PO Q8H 14 [facility] 9:09am [facility] 2019 11:43a m 1-2 tabs as needed [...] migraine Trazodone Discontin ued 0 PO DAILY June 07, 2020 1:06pm [facility] 11:37a m 1-2 tabs qhs PO daily PRN; Buspirone Discontin ued 5 MG PO TWICE A DAY 180 June 07, 2020 1:14pm [facility] 11:43a m Buspirone Discontin ued 15 MG PO TWICE A DAY 180 February 19, 2021 3:57pm April 06, 2021 1:37pm Hydroxyzine Hcl Discontin ued 10 MG PO TWICE A DAY May 03, 2019 8:06am July 22, 2019 2:14pm Erenumab-Aooe (Aimovig Autoinjector) 70 mg/mL auto-injector Discontin ued 70 MG SC Q30D May 03, 2019 8:06am Septem 2018 8:46am Erenumab-Aooe (Aimovig Autoinjector) 70 mg/mL auto-injector Active 140 MG SC Q30D Septemb 2018 8:46am Immunizations Immunization Event Date Not Given Reason Dose Number Well Logger Lot Number Vaccine Information Statement (VIS) Detail Covid-19 30mcg/0.3ml Pfizer May 05, 2021 Covid-19 30mcg/0.3ml Pfizer May 26, 2021 Influenza IIV4 PF September 29, 2017 Influenza IIV4 PF December 20, 2019 [id number] Influenza Split Virus 3YR Older August 31, 2014 Tdap December 01, 2011 Tdap May 31, 2019 [id number] Procedures Procedure Date Performed Status ECHO Complete April 24, 2021 10:00am completed Relevant Diagnostic Tests and/or Laboratory Data Laboratory Results Test Date/Time Result Interpretation Reference Range Result Comment Performing Site Sodium Level April 24, 2021 9:34am 139 mmol/L 137-145 [facility] [address] [place] [address] Potassium Level April 24, 2021 9:34am 5.2 mmol/L 3.6-5.0 [facility] [address] [place] [address] Chloride Level April 24, 2021 9:34am 105 mmol/L 98-107 [facility] [address] [place] [address] 48049 Carbon Dioxide Level April 24, 2021 9:34am 23 mmol/L 22-30 [facility] [address] [facility] [address] Anion Gap April 24, 2021 9:34am 11 7-16 [facility] [address] [place] [address] 407[address] Blood Urea Nitrogen April 24, 2021 9:34am 13 mg/dL 7-17 [facility] [address] [place] [address] Creatinine April 24, 2021 9:34am 0.86 mg/dL 0.52-1.04 [facility] [address] [place] [address]36 Glomerular Filtration Rate Calc April 24, 2021 9:34am > 60 mL/min >60.0 [facility] [address] [place] [address] Glucose Level April 24, 2021 9:34am 94 mg/dL 70-100 [facility] [address] [place] [address] Calcium Level April 24, 2021 9:34am 9.4 mg/dL 8.4-10.2 [facility] [address] [place] [address] Calcium Adjusted for Albumin April 24, 2021 9:34am 9.6 mg/dL 8.4-10.[address] [facility] [address] [place] [address] Total Bilirubin April 24, 2021 9:34am 0.3 mg/dL 0.2-1.3 [facility] [address] [place] [address] Aspartate Amino Transf (AST/SGOT) April 24, 2021 9:34am 25 U/L 14-36 [facility] [address] [place] [address] Alanine Aminotransferase (ALT/SGPT) April 24, 2021 9:34am 23 U/L <35 As of 03/31/20, the Reference Range for ALT/SGPT for adult patients has been updated. The Reference Range for ALT/SGPT has not been established for patients <18 years of age. MAIN LAB [address] [place] [address] Total Protein April 24, 2021 9:34am 6.8 g/dL 6.3-8.[address] [facility] [address] [place] [address] Albumin April 24, 2021 9:34am 4.1 g/dL 3.5-5.0 [facility] [address] [place] [address] Cholesterol Level April 24, 2021 9:34am 221 mg/dL 59-199 [facility] [address] [place] [address] 14769 HDL Cholesterol April 24, 2021 9:34am 54 mg/dL 40-60 The National Cholesterol Education Program (NCEP) has set the following guidelines (reference values) for cholesterol, HDL:Low HDL: <40 mg/dLNormal: 40-60 mg/dLDesirable : >60 mg/dL MAIN LAB [address] [place] [address] LDL Cholesterol April 24, 2021 9:34am 135.6 mg/dL 0-129 [facility] [address] [place] [address] 17847 VLDL Cholesterol April 24, 2021 9:34am 31.4 mg/dL 0-32 [facility] [address] [facility] [address] Cholesterol/HDL Ratio April 24, 2021 9:34am 4.09 0-3.9 [facility] [address] [facility] [address] Triglycerides Level April 24, 2021 9:34am 157 mg/dL 0-149 [facility] [address] [facility] [address] Alkaline Phosphatase April 24, 2021 9:34am 72 U/L 38-126 MA[facility] LAB [address] [facility] [address] Hemoglobin A1c Percent April 24, 2021 9:34am 4.88 % <5.7 <5.7%: Normal5.7%-6.4 %: Prediabetes>=6 .5%: Diagnostic for diabetesGoals for Glycemic Control in Diabetes (ADA 2018)<7.0%: A1c target for non adults with diabetes. More or less stringent glycemic goals may be appropriate for individual patients.<7.5% : A1c target for children and adolescents with type I diabetes. A lower goal is reasonable if it can be achieved without excessive hypoglycemia. MAIN LAB [address] [facility] [address] Estimated Average Glucose mg/dL April 24, 2021 9:34am 93 mg/dL MA[facility] [address] [facility] [address] Vital Signs Vital Reading Result Reference Range Collection Date/Time Height 65 [in_i] February 19 3:00pm Weight 92.98 kg February 19 3:00pm Body Temperature 98.8 [degF] 97.6-99.6 February 19, 2021 3:00pm Heart Rate 84 /min 60-100 February 19 3:00pm Respiratory rate 16 /min 12-24 February 19, 2021 3:00pm Oxygen saturation by Pulse oximetry 99 % 95-100 February 19, 2021 3:0 0pm BP Systolic 144 mm[Hg] 100-140 February 19 3:00pm BP Diastolic 100 mm[Hg] 50-85 February 19 3:00pm BMI (Body Mass Index) 34.1 kg/m2 February 19, 2021 3:00pm Advance Directives Advance Directive Response Recorded Date/ Time Does patient have an Advanced Directive? No August 19, 2015 10:32am Do we have a copy on file here at [facility]? No February 22, 2017 8:32am Pt has a Living Will? No August 19, 2015 10:32am Do we have a copy on file here at [facility]? No February 22, 2017 8:32am Pt has a Power of Buhr Dresser? No Aug 10:32am Do we have a copy on file here at [facility]? No February 22, 2017 8:32am Insurance Providers Guarantor YAMILETH TAYLOR Address [address] [place] [address] [facility] [address] Contact Info. Home Phone: Payer Policy Id Coverage Id Subscriber's Name Subscriber Id Effective Date Expiration Date [email or web address] [id number] YAMILETH TAYLOR [id number] [facility] [email or web address] CR[employer] (DO NOT USE) [id number] YAMILETH TAYLOR [id number] 2011 SELF PAY Self N/A Encounters Encounter Location(s) Arrival/Admit Date Discharge/Depart Date Provider(s) Departed Physician/Prov ider Office Visit [facility] October 02, 2020 11:38am October 02, 2020 11:38am MONISHA Cam Departed Physician/Prov ider Office Visit [facility] October 16, 2020 12:45pm October 16, 2020 12:45pm OMNISHA Cam Departed Physician/Prov ider Office Visit [facility] October 30, 2020 9:11am October 30, 2020 12:34pm MONISHA Cam Departed Physician/Prov ider Office Visit [facility] February 19, 2021 2:54pm February 19, 2021 4:11pm Brenda Hernandez NP Departed Physician/Prov ider Office Visit [facility] April 06, 2021 7:48am April 06, 2021 1:58pm Brenda Hernandez NP Departed Clinical [facility] April 24, 2021 9:14am April 24, 2021 9:15am Brenda Hernandez NP Departed Clinical [facility] April 24, 2021 9:15am April 24, 2021 9:16am Brenda Hernandez NP Departed Physician/Prov ider Office Visit [facility] June 15, 2021 7:35am June 15, 2021 11:03am Brenda Hernandez NP Departed Physician/Prov ider Office Visit [facility] September 28, 2021 7:33am September 28, 2021 1:42pm Brenda Hernandez NP Recent Diagnosis Onset Date Anxiety Adult general medical exam Nicotine dependence White coat syndrome with hypertension Anxiety Family history of hypertrophic cardiomyo yg Anxiety Contraception management Anxiety Anxiety Assessments Diagnosis Onset Date Resolution Status Anxiety chronic Adult general medical exam a cute Nicotine dependence acute White coat syndrome with hypertension acute Anxiety chronic Family history of hypertrophic cardiomyopathy acute Anxiety chronic Contraception management acu te Anxiety chronic Anxiety chronic Plan of Treatment cigars occasionlly, disucssed risk will try increasing buspar, she does not want to try SSRI she knows this could worsen headache in which we would try something else Dental exam up-to-date Vision exam up-to-date Tetanus shot up-to-date Flu shot - had this Pneumonia shot - declines Shingles shot - due 50 Colonoscopy - due 50 Fasting blood work - offered Pap - due 2022 Mammo - due 40 Bone density test - due 65 Home BPs 120-130/80s she will continue to monitor recommended stopping smoking cigars Discussed with [employer] colleague Dr. Rivers her control options. Patient would like to remain on pills so progesterone only pill is her best option. Patient is in agreement with this plan. I have sent the medication. Anxiety is doing well and she would like a reduction in BuSpar. I sent this. Overall symptoms are relatively stable, medications refilled Given the strong family history I recommended an echocardiogram to further evaluate her heart. Also she will get her fasting labs done. Future Tests Future scheduled test information is unavailable Pending Tests Pending diagnostic test information is unavailable Future Visits Future appointment information is unavailable Referrals to Other Providers Referral information is unavailable Future Procedures Future procedure information is unavailable Future Medications Future medication information is unavailable Patient Instructions Patient instructions are unavailable
--- OUTSIDE RECORDS SUMMARY | 2024-05-28 15:29 | XMS_ITS | Continuity of Care Document ---
Author Name Unknown Address [address] [place] [address] Phone [facility] Address [address] [place] [address] Phone Support Name Relationship Address Phone BRANDON WOLFE Spouse Unknown David, Brenda D Attending Provider Unknown Charito vailable David, Brenda D Attending Provider Unknown Charito vailable David, Brenda D Attending Provider Unknown Charito vailable David, Brenda D Attending Provider Unknown Charito vailable David, Brenda D Attending Provider Unknown Charito vailable Hien Reyes Attending Provider Unknown Charito vailable David, Brenda D Primary Care Provider Unknown Unavailable David, Brenda D Referring Provider Unknown Charito vailable David, Brenda D Primary Care Provider Unknown Unavailable Kishan Baltazar Attending Provider Unknown Unav ailable Referral, Self Referring Provider Unknown Unavail able Hien Reyes Attending Provider Unknown Charito vailable David, Brenda D Primary Care Provider Unknown Unavailable Referral, Self Referring Provider Unknown Unavail able Florencia Herrera Emergency Provider Unknown Unavail able David, Brenda D Attending Provider Unknown Charito vailable Mecca Toledo Attending Provider Unknown Unav ailable Alissa Us Attending Provider Unknown Charito vailable David, Brenda D Primary Care Provider Unknown Unavailable Referral, Self Referring Provider Unknown Unavail able Care Team Providers Care Risk Management Consultant Name Role Phone David, Brenda D Primary Care Provider Unavail able Kishan Baltazar Attending Provider Unavailable David, Brenda D Primary Care Provider Unavail able David, Brenda D Primary Care Provider Unavail able Alissa Us Attending Provider Unavailabl e Allergies, Adverse Reactions, Alerts Allergen Type Severity [...] 180 May 04, 2019 12:21pm Hydroxyzine Hcl Active 10 MG ORAL TWIC E A DAY July 22, 2019 2:13pm Levonorgestrel-Et hinyl Estrad Active 1 TAB ORAL DAILY April 14, 2019 2:44pm Feverfew Active 100 MG ORAL TWICE A DAY April 14, 2019 2:45pm Riboflavin (Vitamin B2) Active 100 MG ORAL TWICE A DAY April 14, 2019 2:48pm Magnesium Oxide Active 400 MG ORAL DAILY 2018 2:49pm Biotin Active 15 MG ORAL DAILY April 14, 2019 2:50pm Loratadine Active 10 MG ORAL DAILY April 162018 10:06am Cholecalciferol (Vitamin D3) Active 2000 UNITS ORAL DAILY August 03, 2019 8:46am Clonazepam Active 0.5 MG ORAL Q8H 14 Septem 2018 9:09am 1-2 tabs as needed for anxiety Sumatriptan Active 20 MG NASAL ONCE 1 Augus 2018 11:57am 1 spray intranasally once daily PRN at onset of migraine Erenumab-Aooe Active 140 MG Q30D Sep tember 2018 8:46am Problems Active Problems Medical Problem [...] Refill Request Scanned Amb Documentation med check Encounters Encounter Location(s) Arrival/Admit Date Discharge /Depart Date Provider(s) Departed Physician/Provi payam Office Visit [facility] August 31, 2018 12:00am August 31, 2018 Brenda Hernandez NP Departed Physician/Provi payam Office Visit [facility] December 21, 2018 12:00am December 21, 2018 Brenda Hernandez NP Departed Physician/Provi payam Office Visit [facility] January 18, 2019 12:00am January 18, 2019 Brenda Hernandez NP Departed Physician/Provi payam Office Visit [facility] March 03, 2019 12:00am March 03, 2019 Brenda Hernandez NP Departed Physician/Provi payam Office Visit [facility] March 26, 2019 12:00am March 26, 2019 Brenda Hernnadez NP Departed Physician/Provi payam Office Visit [facility] ESCROW PROCESSOR April 16, 2019 9:49am April 16, 2019 10:25am RITA Delacruz Departed Clinical [facility] DELIVERY April 23, 2019 9:01am April 23, 2019 9:02am Kishan Baltazar MD Departed Physician/Provi payam Office Visit [facility] ESCROW PROCESSOR April 23, 2019 9:03am April 23, 2019 9:52am Kishan Baltazar MD Departed Physician/Provi payam Office Visit [facility] ESCROW PROCESSOR April 23, 2019 9:04am April 23, 2019 9:52am RITA Delacruz Departed Emergency [facility] May 31, 2019 10:42am May 31, 2019 12:30pm null Registered Inpatient [facility] July 15, 2019 11:59pm Brenda Hernandez NP Registered Inpatient [facility]- July 29, 2019 11:52am Mecca Toledo RN Departed Physician/Provi payam Office Visit [facility] August 03, 2019 8:39am August 03, 2019 10:31am Alissa Us APRN Registered Referred [facility] August 03, 2019 8:55am Alissa Us MARINE SURVEYOR Assessments No Assessments Information Available Family History [...] Event Date Not Given Reason Dose Number Straw Baler Lot Number Vaccine Information Statement (VIS) Detail Influenza IIV4 PF September 29, 2017 VIS not given Influenza Split Virus 3YR Older August 31, 2014 VIS not given Tdap December 01, 2011 VIS not given Tdap May 31, 2019 [id number] VIS not given Mental Status No Mental Status Information Available Medical Equipment No Medical Equipment Information available Insurance Providers Guarantor YAMILETH M BRANDON Address [address] [place] [id number] Contact Info. Home Phone: Payer Policy Id Coverage Id Subscriber's Name Subscriber Id Effective Date Expiration Date [employer] [id number] YAMILETH Easley BRANDON [id number] [facility] [employer] (DO NOT USE) [id number] YAMILETH Easley BRANDON [id number] 2011 SELF PAY Self N/A Plan of Treatment Future Tests Future scheduled test information is unavailable Pending Tests Pending diagnostic test information is unavailable Future Visits Future appointment information is unavailable Referrals to Other Providers Reason for Referral Referral Start Date Provider Provider Contact Information Provider Address Bradford Gutierrez Work Phone: [facility] [address] [address] Future Procedures Future procedure information is unavailable [...] August 31 9:45am Respiratory rate 17 /min 12-August 9:45am BP Systolic 118 mm[Hg] 100-140 August 31 9:45am BP Diastolic 82 mm[Hg] 50-85 August 31 9:45am Height 65 [in_i] December 21, 019 8:12am Weight 88.95 kg December 21, 019 8:12am Body Temperature 98.4 [degF] 97.6-99.6 December 8:12am Heart Rate 102 /min 60-100 December 21, 019 8:12am Respiratory rate 16 /min 12-24 December 8:12am BP Systolic 124 mm[Hg] 100-140 December 21, 019 8:12am BP Diastolic 86 mm[Hg] 50-85 December 21, 019 8:12am Height 65 [in_i] April 16, 2019 10:00am Weight 94.80 kg April 16, 2019 10:00am Heart Rate 70 /min 60-100 April 16, 2019 10:00am Respiratory rate 18 /min -April 16, 019 10:00am BP Systolic 122 mm[Hg] 100-140 [...] 10:45am Body Temperature 98.9 [degF] 97.6-99.6 May 31 019 10:45am Heart Rate 89 /min 60-100 [...]
--- OUTSIDE RECORDS SUMMARY | 2024-05-28 15:29 | XMS_ITS | Continuity of Care Document ---
Author Name Unknown Address [address] [place] [address] [facility] Address [address] [place] [address] Phone Care Team Providers Care Unit Manager Name Role Phone Brenda Hernandez Primary Care Provider Alissa Us Attending Provider Unavailabl e Brenda Hernandez Attending Provider Alissa Rivers Attending Provider [phone] Allergies, Adverse Reactions, Alerts Allergen Type Severity [...] 2:13pm Novembe r 2018 8:05am Hydroxyzine Hcl Discontinu ed 10 MG PO TWICE A DAY 30 October 19, 2019 8:05am December 20, 2019 9:31am Levonorgestrel -Ethinyl Estrad (Kurvelo (28)) 0.15-0.03 mg tablet Active 1 TAB PO DAILY 84 January 10, 2020 9:52am flu vacc [id number] 6mos up(PF) Discontinu ed 0.5 ML IM ONCE 0.5 December 20, 2019 8:25am December 20, 2019 10:06am Sumatriptan Succinate Active 6 MG SC .BID Q30D December 20, 2019 8:45am Hydroxyzine Hcl Discontinu ed 10 MG PO TWICE A DAY December 20, 2019 9:29am June 07, 2020 1:10pm Clonazepam Discontinu ed 0.5 MG PO Q8H 10 April 14, 2019 2:42pm [facility] 2018 9:11am 1-2 tabs as needed for anxiety Buspirone Discontinu ed 5 MG PO TWICE A DAY 60 April 14, 2019 2:44pm May 04, 2019 12:21pm Levonorgestrel -Ethinyl Estrad (Tankvelo (28)) 0.15-0.03 mg tablet Discontinu ed 1 TAB PO DAILY April 14, 2019 2:44pm 2019 9:52am Cholecalcifero l (Vitamin D3) Discontinu ed UNK UNK PO DAILY April 14, 2019 2:46pm [facility] 2018 8:46am Riboflavin (Vitamin B2) Active 100 MG PO TWICE A DAY April 14, 2019 2:48pm Biotin Active 15 MG PO DAILY April 14, 2019 2:50pm Loratadine (Claritin) 10 mg tablet Active 10 MG PO DAILY April 16, 2019 10:06am Cholecalcifero l (Vitamin D3) Active 2000 UNITS PO DAILY August 03, 2019 8:46am Clonazepam Active 0.5 MG PO Q8H 14 taco 2018 9:09am 1-2 tabs as needed [...] A DAY 180 June 07, 2020 1:14pm Hydroxyzine Hcl Discontinu [...] hypothalmic disorders are suspected. MAIN LAB, [address] [facility] [address] Follicle Stimulating Hormone July 06, 2020 10:19am 6.5 mIU/mL See Note NOTE:Female FSH Reference Ranges (>= 13 Menstruating):P HYSIOLOGICAL STATUS REFERENCE RANGE Follicular (-12 to -4 days): 2.5 - 10.2 mIU/mL Midcycle (-3 to +2 days): 3.4 - 33.4 mIU/mL Luteal (+4 to +12 days): 1.5 - 9.1 mIU/mL Postmenopausal: 23.0 - 116.3 mIU/mLReference Ranges for female patients <13 years old have notbeen established.Kayli t performed or referred by[address] Prolactin July 06, 2020 10:19am 5.5 ng/mL See Table NOTE:Female Reference Ranges:PHYSIOLO GICAL STATUS EXPECTED RANGE P ostmenopausal 1.8 - 20.3 ng/mL 9.7 - 208.5 ng/mLNon-pregna nt 2.8 - 29.2 ng/mLReference Ranges for Prolactin in female patients <18 yearsold have not been established.Kayli t performed or referred by[address] Hemoglobin A1c Percent July 06, 2020 10:19am 5.30 % <5.7 <5.7%: Normal5.7%-6.4% : Prediabetes>=6. 5%: Diagnostic for diabetesGoals for Glycemic Control in Diabetes (ADA 2018)<7.0%: A1c target for non adults with diabetes. More or less stringent glycemic goals may be appropriate for individual patients.<7.5%: A1c target for children and adolescents with type I diabetes. A lower goal is reasonable if it can be achieved without excessive hypoglycemia. MAIN LAB, [address] [place] [address] Estimated Average Glucose mg/dL July 06, 2020 10:19am 105 mg/dL MAIN LAB, [address] [place] [address] Tissue Transglutami nase IgA Ab November 19, 2019 8:52am < 1.2 U/mL ----REFERENCE VALUE -<4.0 (Negative) [facility] Tissue Transglutami nase IgG Ab November 19, 2019 8:52am 1.3 U/mL ----REFERENCE VALUE -<6.0 (Negative)Test Performed by:[facility] [place] [place] [id number] Director: Abdullahi Goodrich M.D. Ph.D.; CLIA# [id number] [facility] Urine 6-Acetylmorp negar Screen August 03, 2019 8:55am Negative ng/mL [facility] [employer] Urine Amphetamine Screen August 03, 2019 8:55am Negative ng/mL [facility] [employer] Urine Barbiturates Screen August 03, 2019 8:55am Negative ng/mL [facility] [employer] Urine Benzodiazepi guicho Screen August 03, 2019 8:55am Negative ng/mL [facility] [employer] Urine Buprenorphin e Screen August 03, 2019 8:55am Negative ng/mL [facility] [employer] Urine Cocaine Screen August 03, 2019 8:55am Negative ng/mL [facility] EDDP (Methadone Metabolite) Screen August 03, 2019 8:55am Negative ng/mL [facility] [employer] Urine Ethyl Glucuronide Screen August 03, 2019 8:55am Negative ng/mL [facility] [employer] Urine Methadone Screen August 03, 2019 8:55am Negative ng/mL [facility] [employer] Urine Opiates Screen August 03, 2019 8:55am Negative ng/mL [facility] [employer] Urine Oxycodone Screen August 03, 2019 8:55am Negative ng/mL [facility] [employer] Urine Propoxyphene Screen August 03, 2019 8:55am Negative ng/mL [facility] [employer] Urine Marijuana (THC) Screen August 03, 2019 8:55am Negative ng/mL [facility] [employer] Urine THC/Creatini ne Ratio August 03, 2019 8:55am Test not performed [facility] [employer] Urine Fentanyl Screen August 03, 2019 8:55am Negative ng/mL Testing Performed By:[address] CARCAMO [address] [place] [id number] Director: Estefania Aguilera MD, Ph.D [facility] [employer] Urine Creatinine August 03, 2019 8:55am 39.15 mg/dL Testing Performed By:[address] CARCAMO [address], [facility] [id number] Director: Estefania Aguilera MD, Ph.D [facility] [employer] Urine Oxidants August 03, 2019 8:55am <200 ug/mL [facility] [employer] Urine pH August 03, 2019 8:55am 5.3 [facility] [employer] Urine Specific [place] August 03, 2019 8:55am 1.004 g/mL ----REFERENCE VALUE -1.003 - 1.035 [facility] Wheat Allergen IgE Antibody November 19, 2019 8:52am <0.35 kU/L Class 0 (Negative <0.35)Test Performed by:[address] [id number] Director: Abdullahi Goodrich M.D. Ph.D.; CLIA# [id number] [facility] Wheat Allergen IgG Antibody November 19, 2019 [...] test wasdeveloped and its performance characteristics determined by[facility]. It has not been cleared or approved bythe U.S. Food and Drug Administration. Test Performed by:[employer], [id number] [place] [id number] [place] [address] Advance Directives Advance Directive Response Recorded Date/ Time Does patient have an Advanced Directive? No August 19, 2015 10:32am Do we have a copy on file here at [facility]? No February 22, 2017 8:32am Pt has a Living Will? No August 19, 2015 10:32am Do we have a copy on file here at [facility]? No February 22, 2017 8:32am Pt has a Power of Loss Prevention Operations Manager? No Aug 10:32am Do we have a copy on file here at [facility]? 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 annual exam ANXIETY FOLLOW UP/WAS PHYSICAL Lab CONSULT Reason for Visit Wheat sensitive ente ropathy Abnormal uterine bleeding (AUB) Insomnia Anxiety Encounters Encounter Location(s) Arrival/Admit Date Discharge /Depart Date Provider(s) Registered Inpatient [facility]- July 29, 2019 11:52am Mecca Toledo RN Departed Physician/Provi payam Office Visit [facility] August 03, 2019 8:39am August 03, 2019 10:31am Alissa Us APRN Departed Referred [facility] August 03, 2019 8:55am August 03, 2019 8:56am Alissa Us APRN Registered Inpatient [facility] October 18, 2019 8:39am Traci Salinas RN Registered Inpatient [facility] October 19, 2019 11:59pm Brenda Hernandez NP Departed Clinical [facility] November 19, 2019 8:36am November 19, 2019 8:37am Brenda Hernandez NP Departed Physician/Provi payam Office Visit [facility] December 20, 2019 8:25am December 20, 2019 9:43am Brenda Hernandez NP Departed Physician/Provi payam Office Visit [facility] 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 February 24, 2020 8:33am February 24, 2020 11:59pm Alissa Rivers MD Departed Physician/Provi payam Office Visit [facility] June 07, 2020 7:37am June 07, 2020 1:28pm Brenda Hernandez NP Departed Clinical [facility] July 06, 2020 10:07am July 06, 2020 10:08am Alissa Rivers MD Departed Physician/Provi payam Office Visit [facility] [facility] 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 July 17, 2020 2:06pm July 17, 2020 2:38pm Kishan Baltazar MD Recent Diagnosis Onset Date Wheat sensitive [...] Event Date Not Given Reason Dose Number Supervisor Inspection Room Lot Number Vaccine Information Statement (VIS) Detail Influenza IIV4 PF September 29, 2017 Influenza IIV4 PF December 20, 2019 [id number] Influenza Split Virus 3YR Older August 31, 2014 Tdap December 01, 2011 Tdap May 31, 2019 [id number] Mental Status No Mental Status Information Available Medical Equipment No Medical Equipment Information available Insurance Providers Guarantor YAMILETH TAYLOR Address [address] [place] [address] Contact Info. Home Phone: Payer Policy Id Coverage Id Subscriber's Name Subscriber Id Effective Date Expiration Date [employer] [id number] YAMILETH TAYLOR [id number] [facility] [employer] (DO NOT USE) [id number] YAMILETH TAYLOR [id number] 2011 SELF PAY Self N/A Plan of Treatment Jagdeep 7 score of 6, anxiety control at goal. Discussed she may use our in-house counselor if need be while her counselor is on maternity leave. Hydroxyzine not very helpful for sleep. Discussed other options and will trial trazodone. Reviewed adverse drug effects. #AUB: long h/o oligoovulation, has been on [...] could refer her for allergy testing with knot picker cloth. She declines any referral or additional blood [...] Date of Observation Current some day smoker June 07, 2020 1 :29pm Observation Status Observation Response Date of Response Alcohol Use Yes May 31, 2019 1 2:06pm alcohol intake frequency holidays/special occasi ons only May 31, 2019 12:06pm Substance/Street Drug Use No May 312018 12:06pm substance use type does not use December 17, 2019 9:08pm Smoking Status Current some day smoker May 1:29pm Assigned Sex Female Vital Signs Vital Reading [...] Heart Rate 78 /min 60-100 December 20, 020 8:40am Respiratory rate 16 /min -December 8:40am Oxygen saturation by Pulse oximetry 98 % 95-100 December 20, 2019 8 :40am BP Systolic 139 mm[Hg] 100-140 December 20, 020 8:40am BP Diastolic 85 mm[Hg] 50-85 December 20, 020 8:40am BMI (Body Mass Index) 34.4 kg/m2 2019 8:40am Height 65 [in_i] July 17 2:14pm Weight 92.30 kg July 17 2:14pm BP Systolic 140 mm[Hg] 100-140 July 17 2:14pm BP Diastolic 90 mm[Hg] 50-85 July 17 2:14pm BMI (Body Mass Index) 33.8 kg/m2 July 17, 2020 2:14pm
--- OUTSIDE RECORDS SUMMARY | 2024-05-28 15:29 | XMS_ITS | Continuity of Care Document ---
Author Name Unknown Address [address] [place] [address] Phone [facility] Address [address] [place] [address] Phone Care Team Providers Care Hostage Negotiator Name Role Phone Brenda Hernandez Primary Care Provider Alissa Rivers Attending Provider Allergies, Adverse Reactions, Alerts Allergen Type Severity Reaction Last Updated Verified Status metformin Allergy Unknown unknown February 19 3:05pm Yes Active weed pollen Allergy Unknown unknown February 19, 2 021 3:05pm Yes Active cat dander Adverse Reaction Unknown unknown February 192020 3:05pm Yes Active dog dander Adverse Reaction Unknown unknown February 192020 3:05pm Yes Active Medications Medication Status Dose Units Route Directions Qty Days St art Date End Date Instructions Buspirone Discontin ued 5 MG PO TWICE A DAY 180 May 04, 2019 12:21pm Decuar y 2019 10:27a m Hydroxyzine Hcl Discontin ued 10 MG PO TWICE A DAY 30 July 22, 2019 2:13pm Novemb er 2018 9:05am Hydroxyzine Hcl Discontin ued 10 MG PO TWICE A DAY 30 Novem r 2018 9:05am 2019 10:31a m Levonorgestre l-Ethinyl Estrad (Tankvelo (28)) 0.15-0.03 mg tablet Discontin ued 1 TAB PO DAILY 84 2019 10:52am Octobe r 2019 11:44a m Hydroxyzine Hcl Discontin ued 0 .ROUTE .COMPLEX 30 er 2019 1:14pm Octobe r 2019 11:43a m 1-2 tabs qhs PRN for insomnia Buspirone Active 7.5 MG PO TWICE A DAY 180 2020 1:35pm Clonazepam Active 0.5 MG PO Q8H April 06, 2021 1:54pm 1-2 tabs as needed for anxiety flu vacc [id number] 6mos up(PF) Discontin ued 0.5 ML IM ONCE 0.5 December 20, 2019 9:25am 2019 11:06a m Sumatriptan Succinate Active 6 MG SC .BID Q30D December 20, 2019 9:45am Hydroxyzine Hcl Discontin ued 10 MG PO TWICE A DAY 30 December 20, 2019 10:29am June 07, 2020 1:10pm Clonazepam Discontin ued 0.5 MG PO Q8H 10 April 14, 2019 2:42pm Septem 2018 9:11am 1-2 tabs as needed for anxiety Buspirone Discontin ued 5 MG PO TWICE A DAY 60 April 14, 2019 2:44pm May 04, 2019 12:21p m Levonorgestre l-Ethinyl Estrad (Tankvelo (28)) 0.15-0.03 mg tablet Discontin ued 1 TAB PO DAILY April 14, 2019 2:44pm ry 2019 10:52a m Cholecalcifer ol (Vitamin D3) Discontin ued UNK UNK PO DAILY April 14, 2019 2:46pm Septem 2018 8:46am Riboflavin (Vitamin B2) Active 100 MG PO TWICE A DAY April 14, 2019 2:48pm Biotin Active 15 MG PO DAILY April 14, 2019 2:50pm Loratadine (Claritin) 10 mg tablet Active 10 MG PO DAILY April 16, 2019 10:06am Cholecalcifer ol (Vitamin D3) Active 2000 [facility] 8:46am Hydroxyzine Hcl Active 0 .ROUTE [...] MG PO Q8H 14 er 2018 9:09am [facility] 2019 11:43a m 1-2 tabs as needed [...] PO DAILY 90 June 07, 2020 1:06pm [facility] 2019 11:37a m 1-2 tabs qhs PO daily PRN; Buspirone Discontin ued 5 MG PO TWICE A DAY 180 June 07, 2020 [facility] 11:43a m Buspirone Discontin ued 15 [...] mg/mL auto-injector Active 140 MG SC Q30D 2018 8:46am Problems Active Problems Medical Problem [...] or hypothalmic disorders are suspected. MAIN LAB, [address] [place] [address] Follicle Stimulating Hormone July 06, 2020 10:19am 6.5 mIU/mL See Note NOTE:Female FSH Reference Ranges (>= 13 Menstruating): PHYSIOLOGICAL STATUS REFERENCE RANGE--------- - Follicular (-12 to -4 days): 2.5 - 10.2 mIU/mL Midcycle (-3 to +2 days): 3.4 - 33.4 mIU/mL Luteal (+4 to +12 days): 1.5 - 9.1 mIU/mL Postmenopausal : 23.0 - 116.3 mIU/mLReferenc e Ranges for female patients <13 years old have notbeen established.Te st performed or referred by[id number] [place] [address] [employer]ICAL [employer] Prolactin July 06, 2020 10:19am 5.5 ng/mL See Table NOTE:Female Reference Ranges:PHYSIOL OGICAL STATUS EXPECTED RANGE--------- Postmenopausal 1.8 - 20.3 ng/mL 9.7 - 208.5 ng/mLNon-pregn ant 2.8 - 29.2 ng/mLReference Ranges for Prolactin in female patients <18 yearsold have not been established.Te st performed or referred by[address] [facility] Hemoglobin A1c Percent July 06, 2020 10:19am 5.30 % <5.7 <5.7%: Normal5.7%-6.4 %: Prediabetes>=6 .5%: Diagnostic for diabetesGoals for Glycemic Control in Diabetes (ADA 2018)<7.0%: A1c target for non adults with diabetes. More or less stringent glycemic goals may be appropriate for individual patients.<7.5% : A1c target for children and adolescents with type I diabetes. A lower goal is reasonable if it can be achieved without excessive hypoglycemia. MAIN LAB, [address] [facility] [address] Estimated Average Glucose mg/dL July 06, 2020 10:19am 105 mg/dL MAIN LAB, [address] [facility] [address] Advance Directives Advance Directive Response Recorded Date/ Time Does patient have an Advanced Directive? No August 19, 2015 10:32am Do we have a copy on file here at [facility]? No February 22, 2017 8:32am Pt has a Living Will? No August 19, 2015 10:32am Do we have a copy on file here at [facility]? No February 22, 2017 8:32am Pt has a Power of Automobile Appraiser? No Aug 10:32am Do we have a copy on file here at [facility]? No February 22, 2017 8:32am Chief Complaint and Reason for Visit Chief Complaint ANXIETY FOLLOW UP/WA S PHYSICAL Lab CONSULT Follow Up Counseling referral (phone) Counseling f/u (phone) Counseling f/u (phone) Counseling f/u (phone) Annual Physical - Adult Mood check Reason for Visit Insomnia Anxiety Endometriosis Polycystic ovaries Insomnia Anxiety Anxiety Adult general medical exam Nicotine dependence White coat syndrome with hypertension Anxiety Family history of hypertrophic cardiomyopathy Anxiety Encounters Encounter Location(s) Arrival/Admit Date Discharge/Depart Date Provider(s) Departed Physician/Prov ider Office Visit [facility] June 07, 2020 7:37am June 07, 2020 1:28pm [facility]:07[facility] July 06, 2020 10:08am Alissa Rivers MD Departed Physician/Prov ider Office Visit [facility] 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 July 17, 2020 2:06pm July 17, 2020 2:38pm Kishan Baltazar MD Departed Physician/Prov ider Office Visit [facility] September 15, 2020 12:04pm September 15, 2020 12:04pm Brenda Hernandez NP Departed Physician/Prov ider Office Visit [facility] September 18, 2020 7:38am September 18, 2020 10:45am MONISHA Cam Departed Physician/Prov ider Office Visit [facility] October 02, 2020 11:38am October 02, 2020 11:38am MONISHA Cam Departed Physician/Prov ider Office Visit [facility] October 16, 2020 12:45pm October 16, 2020 12:45pm MONISHA Cam Departed Physician/Prov ider Office Visit [facility] October 30, 2020 9:11am October 30, 2020 12:34pm MONISHA Cam Departed Physician/Prov ider Office Visit [facility] February 19, 2021 2:54pm February 19, 2021 4:11pm Brenda Hernandez NP Departed Physician/Prov ider Office Visit [facility] April 06, 2021 7:48am April 06, 2021 1:58pm Brenda Hernandez NP Recent Diagnosis Onset Date Insomnia Anxiety Endometriosis Polycystic ovaries June 29, 2015 Insomnia Anxiety Anxiety Adult general medical exam Nicotine dependence White coat syndrome with hypertension Anxiety Family history of hypertrophic cardiomyo yg Anxiety Assessments Diagnosis Onset Date Resolution Status Insomnia acute Anxiety chronic Endometriosis acute Polycystic ovaries June 29, 2015 noneac tive Insomnia acute Anxiety chronic Anxiety chronic Adult general medical exam a cute Nicotine dependence acute White coat syndrome with hypertension acute Anxiety chronic Family history of hypertrophic cardiomyopathy acute Anxiety chronic Family History Relationship Condition Age at Onset Recorded Date/T baldemar Parent Cardiac disease Unknown Myocardial infarction Unknown Hypertension Unknown Parent Diabetes mellitus Unknown Hypertension Unknown Malignant neoplasm of uterus Unknown Not Specified Diabetes mellitus Unknown Malignant neoplasm Unknown Functional Status No Functional Status information available Goals Goals may be documented in an alternate section. Immunizations Immunization Event Date Not Given Reason Dose Number Supervisor Cutting Department Lot Number Vaccine Information Statement (VIS) Detail Influenza IIV4 PF September 29, 2017 Influenza IIV4 PF December 20, 2019 [id number] Influenza Split Virus 3YR Older August 31, 2014 Tdap December 01, 2011 Tdap May 31, 2019 [id number] Mental Status No Mental Status Information Available Medical Equipment No Medical Equipment Information available Insurance Providers Guarantor YAMILETH TAYLOR Address [address] [facility] [address] Contact Info. Home Phone: Payer Policy Id Coverage Id Subscriber's Name Subscriber Id Effective Date Expiration Date [employer] [id number] YAMILETH M BRANDON [id number] [facility] [employer] (DO NOT USE) [id number] YAMILETH Easley BRANDON [id number] 2011 SELF PAY Self N/A Plan of Treatment cigars occasionlly, disucssed risk [...] continue to monitor recommended stopping smoking cigars Jagdeep 7 score of 6, anxiety control at goal. Discussed she may use our in-house counselor if need be while her counselor is on maternity leave. Hydroxyzine not very helpful for sleep. Discussed other options and will trial trazodone. Reviewed adverse drug effects. Jagdeep 7???20 Anxiety poorly controlled. We will increase BuSpar to 10 mg as she is tolerating it well. I have refilled her clonazepam which she takes rarely. We will connect her with our counselor until hers returns from maternity leave. I will increase her hydroxyzine. She will increase 1 medication at a time, starting with BuSpar for a couple weeks before trying increasing hydroxyzine. I have reviewed and discussed with her [...] reassured. Follow in 3 months for review. Overall symptoms are relatively stable, medications refilled [...] Date of Observation Current some day smoker April 06, 2021 1: 58pm Observation Status Observation Response Date of Response Alcohol Use Yes May 31, 2019 1 2:06pm alcohol intake frequency holidays/special occasi ons only February 19, 2021 3:08pm Substance/Street Drug Use No May 312018 12:06pm substance use type does not use February 19 021 3:08pm Smoking Status Current some day smoker April 06, 2021 1:58pm Assigned Sex Female Vital Signs Vital Reading Result Reference Range Collection Date/Time Height 65 [in_i] July 17 2:14pm Weight 92.30 kg July 17 2:14pm BP Systolic 140 mm[Hg] 100-140 July 17 2:14pm BP Diastolic 90 mm[Hg] 50-85 July 17 2:14pm BMI (Body Mass Index) 33.8 kg/m2 July 17, 2020 2:14pm Height 65 [in_i] February 19 3:00pm Weight [...]
--- OUTSIDE RECORDS SUMMARY | 2024-05-28 15:30 | XMS_ITS | Continuity of Care Document ---
Author Name Unknown Address [address] [place] [address] [facility] Address [address] [place] [address] Phone Care Team Providers Care Residential Service Technician Name Role Phone Brenda Hernandez Primary Care Provider Brenda Hernandez Attending Provider Alissa Rivers Attending Provider Allergies, Adverse [...] ued 1 TAB PO DAILY 2019 10:52am Augobe r 2019 11:44a m Hydroxyzine Hcl Discontin ued 0 .ROUTE .COMPLEX 2019 1:14pm r 2019 11:43a m 1-2 tabs qhs PRN for insomnia flu vacc [id number] 6mos up(PF) Discontin ued 0.5 ML IM [...] MG PO TWICE A DAY 180 Oc 2019 11:38am Clonazepam Active 0.5 MG PO Q8H 20 [facility] r 2019 11:41am 1-2 tabs as needed for anxiety Levonorgestre l-Ethinyl Estrad (Kurvelo (28)) 0.15-0.03 mg tablet Active 1 TAB PO DAILY September 15, 2020 11:44am may skip placebo pills Clonazepam Discontin ued 0.5 MG PO Q8H 14 2018 9:09am [facility] 2019 11:43a m 1-2 tabs as [...] 0 PO DAILY June 07, 2020 1:06pm [facility] 2019 11:37a m 1-2 tabs qhs PO daily PRN; Buspirone Discontin ued 5 MG PO TWICE A DAY 180 June 07, 2020 1:14pm [facility] r 2019 11:43a m Hydroxyzine Hcl Discontin ued 10 MG PO TWICE A DAY May 03, 2019 8:06am July 22, 2019 2:14pm Erenumab-Aooe (Aimovig Autoinjector) 70 mg/mL auto-injector Discontin ued 70 MG SC Q30D May 03, 2019 8:06am Septem taco 2018 8:46am Erenumab-Aooe (Aimovig Autoinjector) 70 mg/mL auto-injector Active 140 MG SC [facility]D [facility] 8:[facility]am Problems Active Problems Medical [...] or hypothalmic disorders are suspected. MAIN LAB, [address] [place] [address] Follicle Stimulating Hormone July 06, 2020 10:19am [...] old have notbeen established.Test performed or referred by[id number] [place] [address] Prolactin July 06, 2020 10:19am 5.5 ng/mL See Table NOTE:Female Reference Ranges:PHYSIOLOG ICAL STATUS EXPECTED RANGE --------- Po stmenopausal 1.8 - 20.3 ng/mL 9.7 - 208.5 ng/mLNon-pregnan t 2.8 - 29.2 ng/mLReference Ranges for Prolactin in female patients <18 yearsold have not been established.Test performed or referred by[address] Hemoglobin A1c Percent July 06, 2020 [...] achieved without excessive hypoglycemia. MAIN LAB, [address] [address] Estimated Average Glucose mg/dL July 06, 2020 10:19am 105 mg/dL MAIN LAB, [address] [address] Tissue Transglutamina se IgA Ab November 19, 2019 9:52am < 1.2 U/mL ---REFERENCE VALUE < 4.0 (Negative) [facility] Tissue Transglutamina se IgG Ab November 19, 2019 9:52am 1.3 U/mL ---REFERENCE VALUE < 6.0 (Negative)Test Performed by:[address] [id number] Director: Abdullahi Goodrich M.D. Ph.D.; CLIA# [id number] [facility] Wheat Allergen IgE Antibody November 19, 2019 9:52am <0.35 kU/L Class 0 (Negative <0.35)Test Performed by:[address] [id number] Director: Abdullahi Goodrich M.D. Ph.D.; CLIA# [id number] [facility] Wheat Allergen IgG Antibody November 19, 2019 [...] test wasdeveloped and its performance characteristics determined by[facility]. It has not been cleared or approved bythe U.S. Food and Drug Administration.T est Performed by:[facility], [id number] [place] [address] [facility] Advance Directives Advance Directive Response Recorded Date/ Time Does patient have an Advanced Directive? No August 19, 2015 10:32am Do we have a copy on file here at [facility]? No February 22, 2017 8:32am Pt has a Living Will? No August 19, 2015 10:32am Do we have a copy on file here at [facility]? No February 22, 2017 8:32am Pt has a Power of Accounts Receivable Accountant? No Aug 10:32am Do we have a copy on file here at [facility]? 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 ANXIETY FOLLOW UP/WAS PHYSICAL Lab CONSULT Follow Up Counseling referral (phone) Reason for Visit Wheat sensitive ente ropathy Abnormal uterine bleeding (AUB) Insomnia Anxiety Endometriosis Polycystic ovaries Insomnia Anxiety Encounters Encounter Location(s) Arrival/Admit Date Discharge /Depart Date Provider(s) Registered Inpatient [facility] October 18, 2019 9:39am Traci Salinas RN Registered Inpatient [facility] October 20, 2019 12:59am Brenda Hernandez NP Departed Clinical [facility] November 19, 2019 9:36am November 19, 2019 9:37am Bredna Hernandez NP Departed Physician/Provi payam Office Visit [facility] December 20, 2019 9:25am December 20, 2019 10:43am Brenda Hernandez NP Departed Physician/Provi payam Office Visit [facility] WIRE HANGER February 24, 2020 8:33am February 24, 2020 11:59pm Alissa Rivers MD Departed Physician/Provi payam Office Visit [facility] June 07, 2020 7:37am June 07, 2020 1:28pm Brenda Hernandez NP Departed Clinical [facility] July 06, 2020 10:07am July 06, 2020 10:08am Alissa Rivers MD Departed Physician/Provi payam Office Visit [facility] W[employer] [facility] July 17, 2020 2:06pm July 17, 2020 2:38pm Kishan Baltazar MD Departed Physician/Provi payam Office Visit [facility] September 15, 2020 12:04pm September 15, 2020 12:04pm Brenda Hernanedz NP Departed Physician/Provi payam Office Visit [facility] September 18, 2020 7:38am September 18, 2020 10:45am MONISHA Cam Recent Diagnosis Onset Date Wheat sensitive enteropathy [...] Event Date Not Given Reason Dose Number Food Service Driver Lot Number Vaccine Information Statement (VIS) Detail Influenza IIV4 PF September 29, 2017 Influenza IIV4 PF December 20, 2019 [id number] Influenza Split Virus 3YR Older August 31, 2014 Tdap December 01, 2011 Tdap May 31, 2019 [id number] Mental Status No Mental Status Information Available Medical Equipment No Medical Equipment Information available Insurance Providers Guarantor YAMILETH TAYLOR Address [address] [address] Contact Info. Home Phone: Payer Policy Id Coverage Id Subscriber's Name Subscriber Id Effective Date Expiration Date [employer] [id number] YAMILETH TAYLOR [id number] FEP [employer] (DO NOT USE) [id number] YAMILETH TAYLOR [id number] 2011 SELF PAY Self N/A Plan of [...] her mood is very good since the [employer] job hold has added and she has [...] could refer her for allergy testing with de icer kit assembler. She declines any referral or additional blood work at this time and will just avoid eating wheat. Future Tests Future scheduled test information is unavailable Pending Tests Pending diagnostic test information is unavailable Future Visits Future appointment information is unavailable Referrals to Other Providers Reason for Referral Referral Start Date Provider Provider Contact Information Provider Address F41.9 - Anxiety disorder, unspecified September 15, 2020 CHT Future Procedures Future procedure information is unavailable [...] December 20 9:40am Respiratory rate 16 /min 12-December 9:40am Oxygen saturation by Pulse oximetry 98 % 95-100 December 20, 2019 9 :40am BP Systolic 139 mm[Hg] 100-140 December 20 9:40am BP Diastolic 85 mm[Hg] 50-85 December 20 9:40am BMI (Body Mass Index) 34.4 kg/m2 Marcos kang 2019 9:40am Height 65 [in_i] July 17 2:14pm Weight 92.30 kg July 17 2:14pm BP Systolic 140 mm[Hg] 100-140 July 17 2:14pm BP Diastolic 90 mm[Hg] 50-85 July 17 2:14pm BMI (Body Mass Index) 33.8 kg/m2 July 17, 2020 2:14pm
--- OUTSIDE RECORDS SUMMARY | 2024-05-28 15:30 | XMS_ITS | Continuity of Care Document ---
Author Name Unknown Address [address] [place] [address] Phone Organization [facility] Address [address] [place] [address] Phone Care Team Providers Care Furnace Puncher Name Role Phone JELANI Hernandez Primary Care Provider [phone] JELANI Hernandez Attending Provider Chief Complaint and Reason for Visit Chief Complaint Mood check Z82.49 - Family history of ischemic heart disease Lab Control Follow Up Annual Physical - Adult Reason for Visit Family history of hy pertrophic cardiomyopathy Anxiety Contraception management Anxiety Anxiety Adult general medical exam Anxiety Allergies, Adverse Reactions, Alerts Allergen Type Severity Reaction Last Updated Verified Status metformin Allergy Unknown unknown March 11 1:00pm Yes Active weed pollen Allergy Unknown unknown March 11 1:00pm Yes Active cat dander Adverse Reaction Unknown unknown March 112021 1:00pm Yes Active dog dander Adverse Reaction Unknown unknown March 112021 1:00pm Yes Active Social History Smoking Status Status Start Date End Date Date of Observa tion Current some day smoker Apri l 2021 1:05pm Observation Status Observation Response Date of Response Alcohol Use Yes May 31, 2019 1 2:06pm alcohol intake frequency holidays/special occasi ons only March 11, 2022 1:05pm Substance/Street Drug Use No May 312018 12:06pm substance use type does not use March 11 022 1:05pm Smoking Status Current some day smoker March 112021 1:05pm Additional Data Assigned Sex Female Family History [...] 10 MG PO TWICE A DAY 30 r 2018 9:05am 2019 10:31a m Levonorgestre l-Ethinyl Estrad (Adio (28)) 0.15-0.03 mg tablet Discontin ued 1 TAB PO DAILY 85 y 2019 10:52am Augobe r 2019 11:44a m Hydroxyzine Hcl Discontin ued 0 .ROUTE .COMPLEX er 2019 1:14pm Octobe r 2019 11:43a m 1-2 tabs qhs PRN for insomnia Clonazepam Discontin ued 0.5 MG PO Q8H April 06, 2021 4:24pm Octobe r 2020 1:09pm Levonorgestre l-Ethinyl Estrad (Kurvelo (28)) 0.15-0.03 mg tablet Discontin ued 1 TAB PO DAILY 84 May 29, 2021 6:49pm June 15, 2021 10:52a m march skip placebo pills Clonazepam Active 0.5 MG PO Q8H 2021 1:47pm Buspirone Discontin ued 7.5 MG PO TWICE A DAY 180 April 06, 2021 1:35pm June 15, 2021 10:53a m Clonazepam Discontin ued 0.5 MG PO Q8H 10 April 06, 2021 1:54pm April 06, 2021 4:26pm 1-2 tabs as needed for anxiety Norethindrone (Contraceptiv e) Active 0.35 MG PO DAILY June 15, 2021 10:49am Buspirone Active 5 MG PO TWICE A DAY 180 2020 10:53am Hydroxyzine Hcl Discontin ued 10 MG PO TWICE A DAY December 20, 2019 10:29am June 07, 2020 1:10pm Clonazepam Discontin ued 0.5 MG PO Q8H 10 April 14, 2019 2:42pm Sept taco 2018 9:11am 1-2 tabs as needed for anxiety Buspirone Discontin ued 5 MG PO TWICE A DAY 60 April 14, 2019 2:44pm May 04, 2019 12:21p m Levonorgestre l-Ethinyl Estrad (Tankvelo (28)) 0.15-0.03 mg tablet Discontin ued 1 TAB PO DAILY April 14, 2019 2:44pm 2019 10:52a m Cholecalcifer ol (Vitamin D3) Discontin ued UNK UNK PO DAILY April 14, 2019 2:46pm Septem taco 2018 8:46am Biotin Active 15 MG PO DAILY April 14, 2019 2:50pm Loratadine (Claritin) 10 mg tablet Active 10 MG PO DAILY April 16, 2019 10:06am Cholecalcifer ol (Vitamin D3) Discontin ued 2000 UNITS PO DAILY er 2018 8:46am March 11, 2022 1:01pm Hydroxyzine Hcl Discontin ued 0 .ROUTE .COMPLEX September 15, 2020 11:37am Octobe r 29th, 2021 1:08pm 1-2 tabs qhs PRN for insomnia Buspirone Discontin ued 10 MG PO TWICE A DAY 180 September 15, 2020 11:38am February 19, 2021 3:58pm Clonazepam Discontin ued 0.5 MG PO Q8H September 15, 2020 11:41am April 06, 2021 1:55pm 1-2 tabs as needed for anxiety Levonorgestre l-Ethinyl Estrad (Tankvelo (28)) 0.15-0.03 mg tablet Discontin ued 1 TAB PO DAILY 84 September 15, 2020 11:44am May 29, 2021 6:49pm may skip placebo pills Clonazepam Discontin ued 0.5 MG PO Q8H September 28, 2021 1:08pm Januar y 2021 1:47pm Clonazepam Discontin ued 0.5 MG PO Q8H 14 2018 9:09am Octobe r 2019 11:43a m 1-2 tabs as [...] PO DAILY 90 June 07, 2020 1:06pm Octobe r 2019 11:37a m 1-2 tabs qhs PO daily PRN; Buspirone Discontin ued 5 MG PO TWICE A DAY 180 June 07, 2020 1:14pm Octobe r 2019 11:43a m Buspirone Discontin ued 15 MG PO TWICE A DAY February 19, 2021 3:57pm April 06, 2021 1:37pm Hydroxyzine Hcl Discontin ued 10 MG PO TWICE A DAY May 03, 2019 8:06am July 22, 2019 2:14pm Erenumab-Aooe (Aimovig Autoinjector) 70 mg/mL auto-injector Discontin ued 70 MG SC Q30D May 03, 2019 8:06am Septem taco 2018 8:46am Erenumab-Aooe (Aimovig Autoinjector) 70 mg/mL auto-injector Active 140 MG SC Q30D Septemb er 2018 8:46am Immunizations Immunization Event Date Not Given Reason Dose Number Supervisor Fabrication Department Lot Number Vaccine Information Statement (VIS) Detail Covid-19 30mcg/0.3ml Pfizer (Purple top) May 05, 2021 Covid-19 30mcg/0.3ml Pfizer (Purple top) May 26, 2021 Influenza IIV4 PF September 29, 2017 Influenza IIV4 PF December 20, 2019 [id number] Influenza Split Virus 3YR Older August 31, 2014 Tdap December 01, 2011 Tdap May 31, 2019 [id number] Procedures Procedure Date Performed Status ECHO Complete April 24, 2021 10:00am completed Relevant Diagnostic Tests and/or Laboratory Data Laboratory Results Test Date/Time Result Interpretation Reference Range Result Comment Performing Site Sodium Level April 24, 2021 9:34am 139 mmol/L 137-145 [address] [place] [address] Potassium Level April 24, 2021 9:34am 5.2 mmol/L 3.6-5.[address] [place] [address] Chloride Level April 24, 2021 9:34am 105 mmol/L 98-107 [facility] [address] [place] [address] Carbon Dioxide Level April 24, 2021 9:34am 23 mmol/L 22-30 [facility] [address] [place] [address] Anion Gap April 24, 2021 9:34am 11 7-16 [facility] [address] [place] [address] Blood Urea Nitrogen April 24, 2021 9:34am 13 mg/dL 7-17 [facility] [facility] [address] [place] [address] Creatinine April 24, 2021 9:34am 0.86 mg/dL 0.52-1.04 [facility] [address] [place] [address] Glomerular Filtration Rate Calc April 24, 2021 9:34am > 60 mL/min >60.0 [address] [facility] [address] [place] [address] Glucose Level April 24, 2021 9:34am 94 mg/dL 70-[address] [facility] [address] [place] [address] Calcium Level April 24, 2021 9:34am 9.4 mg/dL 8.4-10.[address] [facility] [facility] [address] [place] [address] Calcium Adjusted for Albumin April 24, 2021 9:34am 9.6 mg/dL 8.4-10.[address] [place] [address] Total Bilirubin April 24, 2021 9:34am 0.3 mg/dL 0.2-1.[address] [place] [address] Aspartate Amino Transf (AST/SGOT) April 24, 2021 9:34am 25 U/L 14-36 [facility] [address] [place] [address] Alanine Aminotransferase (ALT/SGPT) April 24, 2021 9:34am 23 U/L <35 As of 03/31/20, the Reference Range for ALT/SGPT for adult patients has been updated. The Reference Range for ALT/SGPT has not been established for patients <18 years of age. MAIN LAB [address] [place] [address] Total Protein April 24, 2021 9:34am 6.8 g/dL 6.3-8.[address] [place] [address] Albumin April 24, 2021 9:34am 4.1 g/dL 3.5-5.0 [facility] [facility] [address] [place] [address] Cholesterol Level April 24, 2021 9:34am 221 mg/dL 59-199 [facility] [address] [place] [address] HDL Cholesterol April 24, 2021 9:34am 54 mg/dL 40-60 The National Cholesterol Education Program (NCEP) has set the following guidelines (reference values) for cholesterol, HDL:Low HDL: <40 mg/dLNormal: 40-60 mg/dLDesirable : >60 mg/dL MAIN LAB [address] [facility] [address] LDL Cholesterol April 24, 2021 9:34am 135.6 mg/dL 0-129 MAIN LAB [address] [place] [address] VLDL Cholesterol April 24, 2021 9:34am 31.4 mg/dL 0-32 [address] [facility] [address] [place] [address] Cholesterol/HDL Ratio April 24, 2021 9:34am 4.09 0-3.9 MAIN LAB [address] [facility] [address] Triglycerides Level April 24, 2021 9:34am 157 mg/dL 0-149 MAIN LAB [address] [facility] [address] Alkaline Phosphatase April 24, 2021 9:34am 72 U/L 38-126 MAIN LAB [address] [facility] [address] Hemoglobin A1c Percent April 24, 2021 9:34am [...] achieved without excessive hypoglycemia. MAIN LAB [address] [facility] [address] Estimated Average Glucose mg/dL April 24, 2021 9:34am 93 mg/dL MAIN LAB [address] [facility] [address] Vital Signs Vital Reading Result Reference Range Collection Date/Time Height 65 [in_i] March 11 1:02pm Weight 88.45 kg March 11 1:02pm Body Temperature 98.2 [degF] 97.6-99.6 March 11, 2022 1:02pm Heart Rate 89 /min 60-100 March 11 1:02pm Respiratory rate 16 /min 12-24 March 11, 2022 1:02pm Oxygen saturation by Pulse oximetry 99 % 95-100 March 11, 2022 1:0 2pm BP Systolic 138 mm[Hg] 100-140 March 11 1:02pm BP Diastolic 86 mm[Hg] 50-85 March 11 1:02pm BMI (Body Mass Index) 32.4 kg/m2 March 11, 2022 1:02pm Advance Directives Advance Directive Response Recorded Date/ Time Does patient have an Advanced Directive? No August 19, 2015 10:32am Do we have a copy on file here at [facility]? No February 22, 2017 8:32am Pt has a Living Will? No August 19, 2015 10:32am Do we have a copy on file here at [facility]? No February 22, 2017 8:32am Pt has a Power of Milieu Coordinator? No Aug 10:32am Do we have a copy on file here at [facility]? No February 22, 2017 8:32am Insurance Providers Guarantor YAMILETH TAYLOR Address [address] [place] [address] Contact Info. Home Phone: Payer Policy Id Coverage Id Subscriber's Name Subscriber Id Effective Date Expiration Date [employer] [id number] YAMILETH Kaushal BRANDON [id number] [facility] [employer] (DO NOT USE) [id number] YAMILETH Kaushal BRANDON [id number] 2011 SELF PAY Self N/A Encounters Encounter Location(s) Arrival/Admit Date Discharge/Depart Date Provider(s) Departed Physician/Prov ider Office Visit [facility] April 06, 2021 7:48am April 06, 2021 1:58pm Brenda Hernandez NP Departed Clinical [facility] April 24, 2021 9:14am April 24, 2021 9:15am Brenda Hernandez NP Departed Clinical [facility] April 24, 2021 9:15am April 24, 2021 9:16am Brenda Hernandez NP Departed Physician/Prov ider Office Visit [facility] June 15, 2021 7:35am June 15, 2021 11:03am Brenda Hernandez NP Departed Physician/Prov ider Office Visit [facility] September 28, 2021 7:33am September 28, 2021 1:42pm Brenda Hernandez NP Departed Physician/Prov ider Office Visit [facility] March 11, 2022 12:35pm March 11, 2022 1:36pm Brenda Hernandez NP Recent Diagnosis Onset Date Family history of hypertrophic cardiomyo yg Anxiety Contraception management Anxiety Anxiety Adult general medical exam Anxiety Assessments Diagnosis Onset Date Resolution Status Family history of hypertrophic cardiomyopathy acute Anxiety chronic Contraception management acu te Anxiety chronic Anxiety chronic Adult general medical exam a cute Anxiety chronic Plan of Treatment Stable, doing okay with reduction in BuSpar. Next follow-up in 6 months at her physical. Clonazepam refilled, she uses this sparingly. She will complete a urine drug screen and contract at her next visit. Dental exam up-to-date Vision exam up-to-date Tetanus shot up-to-date Flu shot- declines Pneumonia shot - offered, declines Shingles shot Colonoscopy Fasting blood work Lung cancer screening test Pap - due 2022 Mammo Bone density test Advanced directive Discussed with DIE SETTER colleague Dr. Rviers her control options. Patient would like to [...]
--- OUTSIDE RECORDS SUMMARY | 2024-05-28 15:30 | XMS_ITS | Continuity of Care Document ---
Author Name Unknown Address [address] [place] [address] Phone [facility] Address [address] [place] [address] Phone Care Team Providers Care Layout Former Name Role Phone Brenda Hernandez Primary Care Provider Kishan Baltazar Attending Provider [phone] Alissa Us Attending Provider Brenda Hernandez Attending Provider [phone] Allergies, Adverse Reactions, Alerts Allergen Type Severity [...] ued 10 MG ORAL TWICE A DAY July 22, 2019 2:13pm [facility] 2018 8:05am Hydroxyzine Hcl Discontin ued 10 MG ORAL TWICE A DAY 30 October 19, 2019 8:05am December 20, 2019 9:31am flu vacc [id number] 6mos up(PF) Active 0.5 ML INTRAMUS CULAR ONCE 0.5 December 20, 2019 8:25am Sumatriptan Succinate Active 6 MG .BID Q30D December 20, 2019 8:45am Virgilina-3 Fatty Acids Active 2000 MG ORAL DAILY December 20, 2019 8:46am Hydroxyzine Hcl Active 10 MG ORAL TWICE A DAY 30 December 20, 2019 9:29am Clonazepam Discontin ued 0.5 MG ORAL Q8H 10 April 14, 2019 2:42pm [facility] 2018 9:11am 1-2 tabs as needed [...] UNK ORAL DAILY April 14, 2019 2:46pm [facility] 2018 8:46am Riboflavin (Vitamin B2) Active 100 MG ORAL TWICE A DAY April 14, 2019 2:48pm Magnesium Oxide Active 400 MG ORAL DAILY April 14, 2019 2:49pm Biotin Active 15 MG ORAL DAILY April 14, 2019 2:50pm Loratadine Active 10 MG ORAL DAILY April 16, 2019 10:06am Cholecalcifero l (Vitamin D3) Active 2000 UNITS ORAL [facility]ILY [facility] 8:[facility] Clonazepam Active 0.5 MG ORAL Q8H [facility] 9:09am 1-2 tabs as needed for [...] 70 MG Q30D May 03, 2019 8:06am Septemb 2018 8:46am Erenumab-Aooe Active 140 MG Q30D Sep tembe r 2018 8:46am Problems Active Problems Medical Problem Onset Date Status Polycystic ovaries June 29, 2015 Active Acute sinusitis April 23, 2017 Active Anxiety Active Arthralgia of shoulder May 16, 2015 Active Wheat sensitive enteropathy Acti ve Knee pain April 16, 2018 Active Lipoma [...] Performing Site Tissue Transglutami nase IgA Ab < 1.2 U/mL ----REFERENCE VALUE -<4.0 (Negative) [facility] Tissue Transglutami nase IgG Ab 1.3 U/mL ----REFERENCE VALUE -<6.0 (Negative)Test Performed by:[facility] [place] [id number] Director: Abdullahi Goodrich M.D. Ph.D.; CLIA# [id number] [facility] Urine 6-Acetylmorp negar Screen Negative ng/mL [facility] Urine Amphetamine Screen Negative ng/mL [facility] Urine Barbiturates Screen Negative ng/mL [facility] Urine Benzodiazepi guicho Screen Negative ng/mL [facility] Urine Buprenorphin e Screen Negative ng/mL [facility] Urine Cocaine Screen Negative ng/mL [facility] EDDP (Methadone Metabolite) Screen Negative ng/mL [facility] Urine Ethyl Glucuronide Screen Negative ng/mL [facility] Urine Methadone Screen Negative ng/mL [facility] Urine Opiates Screen Negative ng/mL [facility] Urine Oxycodone Screen Negative ng/mL [facility] Urine Propoxyphene Screen Negative ng/mL [facility] Urine Marijuana (THC) Screen Negative ng/mL [facility] Urine THC/Creatini ne Ratio Test not performed [facility] Urine Fentanyl Screen Negative ng/mL Testing Performed By:[address] CARCAMO , [address] Director: Estefania Aguilera MD, Ph.D [facility] Adulterants Urine Creatinine 39.15 mg/dL Testing Performed By:[address] CARLOS ALBERTO Mccormack, [address] Director: Estefania Aguilera MD, Ph.D [facility] [employer] Urine Oxidants <200 ug/mL [facility] [employer] Urine pH 5.3 [facility] [employer] Urine Specific [place] 1.004 g/mL ----REFERENCE VALUE -1.003 - 1.035 [facility] Wheat Allergen IgE Antibody <0.35 kU/L Class 0 (Negative <0.35)Test Performed by:[facility] [place] [id number] Director: Abdullahi Goodrich M.D. Ph.D.; CLIA# [id number] [facility] Wheat Allergen IgG Antibody 5.4 mcg/mL Reference ranges have not been [...] test wasdeveloped and its performance characteristics determined by[facility]. It has not been cleared or approved bythe U.S. Food and Drug Administration. Test Performed by:[facility], [id number] [place] [address] [facility] Advance Directives Advance Directive Response Recorded Date/ Time Does patient have an Advanced Directive? No August 19, 2015 10:32am Do we have a copy on file here at [facility]? No February 22, 2017 8:32am Pt has a Living Will? No August 19, 2015 10:32am Do we have a copy on file here at [facility]? No February 22, 2017 8:32am Pt has a Power of Devil Tender? No Aug 10:32am Do we have a copy on file here at [facility]? No February 22, 2017 8:32am Chief Complaint and Reason for Visit Chief Complaint Cervical pain US Ultrasound 60 Follow Up LACERATION Refill Request Scanned Amb Documentation med check [id number] Amb Documentation FAXES Lab Z00.01 F/U: Dec 2019 mood check Reason for Visit Wheat sensitive ente ropathy Encounters Encounter Location(s) Arrival/Admit Date Discharge /Depart Date Provider(s) Departed Physician/Provi payam Office Visit [facility] December 21, 2018 12:00am December 21, 2018 Brenda Hernandez NP Departed Physician/Provi payam Office Visit [facility] January 18, 2019 12:00am January 18, 2019 Brenda Hernandez NP Departed Physician/Provi payam Office Visit [facility] March 03, 2019 12:00am March 03, 2019 Brenda Hernandez NP Departed Physician/Provi payam Office Visit [facility] March 26, 2019 12:00am March 26, 2019 Brenda Hernandez NP Departed Physician/Provi payam Office Visit [facility] JUNIOR ACCOUNTING CLERK April 16, 2019 9:49am April 16, 2019 10:25am RITA Delacruz Departed Clinical [facility] April 23, 2019 9:01am April 23, 2019 9:02am Kishan Baltazar MD Departed Physician/Provi payam Office Visit [facility] JUNIOR ACCOUNTING CLERK April 23, 2019 9:03am April 23, 2019 9:52am Kishan Baltazar MD Departed Physician/Provi payam Office Visit [facility] JUNIOR ACCOUNTING CLERK April 23, 2019 9:04am April 23, 2019 9:52am RITA Delacruz Departed Emergency [facility] May 31, 2019 10:42am May 31, 2019 12:30pm null Registered Inpatient [facility] July 15, 2019 11:59pm Brenda Hernandez NP Registered Inpatient [facility] July 29, 2019 11:52am Mecca Toledo RN Departed Physician/Provi payam Office Visit [facility] August 03, 2019 8:39am August 03, 2019 10:31am Alissa Us APRN Departed Referred [facility] August 03, 2019 8:55am August 03, 2019 8:56am Alissa Us APRN Registered Inpatient [facility] October 18, 2019 8:39am Traci Salinas , DOMINIK Registered Inpatient [facility] October 19, 2019 11:59pm Brenda Hernandez NP Departed Clinical [facility] November 19, 2019 8:36am November 19, 2019 8:37am Brenda Hernandez NP Departed Physician/Provi payam Office Visit [facility] December 20, 2019 8:25am December 20, 2019 9:43am Brenda Hernandez NP Recent Diagnosis Onset Date Wheat sensitive enteropathy Assessments Diagnosis Onset Date Resolution Status Wheat sensitive enteropathy acute Family History Relationship Condition Age at [...] Event Date Not Given Reason Dose Number 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 Home Phone: Payer Policy Id Coverage Id Subscriber's Name Subscriber Id Effective Date Expiration Date Use It Better [employer] EM[employer] [id number] YAMILETH TAYLOR [id number] FEP Use It Better (DO NOT USE) [id number] YAMILETH TAYLOR [id number] 2011 SELF PAY Self N/A Plan of Treatment She reports her mood is very good since the Plur[employer] job hold has added and she has [...] could refer her for allergy testing with bilingual teacher assistant. She declines any referral or additional blood work at this time and will just avoid eating wheat. Future Tests Future scheduled test information is unavailable Pending Tests Pending diagnostic test information is unavailable Future Visits Future appointment information is unavailable Referrals to Other Providers Reason for Referral Referral Start Date Provider Provider Contact Information Provider Address Brenda Hernandez NP Work Phone: [facility] [address] [facility] [address] Brenda Hernandez NP Work Phone: [facility] Primary Care [facility] [address] [facility] [address] [facility] [address] Future Procedures Future procedure information is unavailable Future Medications Future medication information is unavailable Patient Instructions Brain Injury Mild Traum Conc uss Tx Crutches Weight Bearing Dc Strain Sprain Contusion Ch Social History Smoking Status Status Date of Observation Current some day smoker December 20 8:50am Observation Status Observation Response Date of Response Alcohol Use Yes May 31, 2019 1 2:06pm alcohol intake frequency holidays/special occasi ons only May 31, 2019 12:06pm Substance/Street Drug Use No May 312018 12:06pm substance use type does not use December 17, 2019 9:08pm Smoking Status Current some day smoker December 20, 2019 8:50am Assigned Sex Female Vital Signs Vital Reading Result Reference Range Collection Date/Time Height 65 [in_i] December 21, 8:12am Weight 88.95 kg December 21, 019 8:12am Body Temperature 98.4 [degF] 97.6-99.6 December 8:12am Heart Rate 102 /min 60-100 December 21, 019 8:12am Respiratory rate 16 /min 12-24 December 8:12am BP Systolic 124 mm[Hg] 100-140 December 21, 2 019 8:12am BP Diastolic 86 mm[Hg] 50-85 December 21, 019 8:12am BMI (Body Mass Index) 32.6 kg/m2 2018 8:12am Height 65 [in_i] April 16, 2019 10:00am Weight 94.80 kg April 16, 2019 10:00am Heart Rate 70 /min 60-100 April 16, 2019 10:00am Respiratory rate 18 /min 12-24 April 16, 019 10:00am BP Systolic 122 mm[Hg] [...] 2019 12:20pm Respiratory rate 18 /min -May 31 019 12:20pm Oxygen saturation by Pulse oximetry [...] Heart Rate 78 /min 60-100 December 20 020 8:40am Respiratory rate 16 /min 12-December 8:40am Oxygen saturation by Pulse oximetry 98 % 95-100 December 20, 2019 8 :40am BP Systolic 139 mm[Hg] 100-140 December 20 020 8:40am BP Diastolic 85 mm[Hg] 50-85 December 20 020 8:40am BMI (Body Mass Index) 34.4 kg/m2 2019 8:40am
--- OUTSIDE RECORDS SUMMARY | 2024-05-28 15:30 | XMS_ITS | Continuity of Care Document ---
Author Name Unknown Address [address] [place] [address] Phone [facility] Address [address] [place] [address] Phone Care Team Providers Care Underwater Roboticist Name Role Phone Brenda Hernandez Primary Care Provider Alissa Rivers Attending Provider Brenda Hernandez Attending Provider [phone] Allergies, Adverse Reactions, Alerts Allergen Type Severity [...] A DAY 180 May 04, 2019 12:21pm Januar y 2019 10:27a m Hydroxyzine Hcl Discontin ued 10 MG PO TWICE A DAY July 22, 2019 2:13pm Novemb er 2018 9:05am Hydroxyzine Hcl Discontin ued 10 MG PO TWICE A DAY 30 r 2018 9:05am 2019 10:31a m Levonorgestre l-Ethinyl Estrad (Kurvelo (28)) 0.15-0.03 mg tablet Discontin ued 1 TAB PO DAILY 84 y 2019 10:52am Octobe r 2019 11:44a m Hydroxyzine Hcl Discontin ued 0 .ROUTE .COMPLEX 30 er 2019 1:14pm Octobe r 2019 11:43a m 1-2 tabs qhs PRN for insomnia Clonazepam Active 0.5 MG PO Q8H April 06, 2021 4:24pm Buspirone Active 7.5 MG PO TWICE A DAY 180 2020 1:35pm Clonazepam Discontin ued 0.5 MG PO Q8H April 06, 2021 1:54pm April 06, 2021 4:26pm 1-2 tabs as needed for anxiety flu vacc [id number] 6mos up(PF) Discontin ued 0.5 ML IM ONCE 0.5 December 20, 2019 9:25am 2019 11:06a m Sumatriptan Succinate Active 6 MG SC .BID Q30D December 20, 2019 9:45am Hydroxyzine Hcl Discontin ued 10 MG PO TWICE A DAY 30 December 20, 2019 10:29am June 07, 2020 1:10pm Clonazepam Discontin ued 0.5 MG PO Q8H 10 April 14, 2019 2:42pm [facility] 2018 9:11am 1-2 tabs as needed for anxiety Buspirone Discontin ued 5 MG PO TWICE A DAY 60 April 14, 2019 2:44pm May 04, 2019 12:21p m Levonorgestre l-Ethinyl Estrad (Tankvelo (28)) 0.15-0.03 mg tablet Discontin ued 1 TAB PO DAILY April 14, 2019 2:44pm Februa ry 2019 10:52a m Cholecalcifer ol (Vitamin D3) Discontin ued UNK UNK PO DAILY April 14, 2019 2:46pm [facility] 2018 8:46am Riboflavin (Vitamin B2) Active 100 MG PO TWICE A DAY April 14, 2019 2:48pm Biotin Active 15 MG PO DAILY April 14, 2019 2:50pm Loratadine (Claritin) 10 mg tablet Active 10 MG PO DAILY April 16, 2019 10:06am Cholecalcifer ol (Vitamin D3) Active 2000 UNITS PO DAILY [facility] 2018 8:46am Hydroxyzine Hcl Active 0 .ROUTE [...] Discontin ued 0.5 MG PO Q8H [facility] 11:43a m 1-2 tabs as needed [...] 0 PO DAILY June 07, 2020 1:06pm Octobe r 2019 11:37a m 1-2 tabs qhs PO daily PRN; Buspirone Discontin ued 5 MG PO TWICE A DAY June 07, 2020 1:14pm Octobe r 2019 [...] MG SC Q30D Septemb er 2018 8:46am Problems Active Problems Medical [...] 16, 2018 Res olved Procedures Procedure Date Performed Status ECHO Complete April 24, 2021 10:00am completed Relevant Diagnostic Tests and/or Laboratory Data Laboratory Results Test Date/Time Result Interpretation Reference Range Result Comment Performing Site Sodium Level April 24, 2021 9:34am 139 mmol/L 137-145 MAIN LAB, [address] [place] [address] Potassium Level April 24, 2021 9:34am 5.2 mmol/L 3.6-5.0 [facility], [address] [place] [address] Chloride Level April 24, 2021 9:34am 105 mmol/L 98-107 [facility], [address] [place] [address] Carbon Dioxide Level April 24, 2021 9:34am 23 mmol/L 22-30 [facility], [address] [place] [address] Anion Gap April 24, 2021 9:34am 11 7-16 [facility], [address] [place] [address] 04956 Blood Urea Nitrogen April 24, 2021 9:34am 13 mg/dL 7-17 MA[facility] LAB, [address] [place] [address] Creatinine April 24, 2021 9:34am 0.86 mg/dL 0.52-1.04 MAIN LAB, [address] [place], [place] [address] Glomerular Filtration Rate Calc April 24, 2021 9:34am > 60 mL/min >60.0 MAIN LAB, [address] [place] [address] 15212 Glucose Level April 24, 2021 9:34am 94 mg/dL 70-100 [facility], [address] [place] [address] 49565 Calcium Level April 24, 2021 9:34am 9.4 mg/dL 8.4-10.2 MAIN LAB, [address] [place], [place] [address] Calcium Adjusted for Albumin April 24, 2021 9:34am 9.6 mg/dL 8.4-10.2 MA[facility] LAB, [address] [place] [address] Total Bilirubin April 24, 2021 9:34am 0.3 mg/dL 0.2-1.3 MAIN LAB, [address] [place], [place] [address] Aspartate Amino Transf (AST/SGOT) April 24, 2021 9:34am 25 U/L 14-36 MAIN LAB, [address] [place], [place] [address] Alanine Aminotransferase (ALT/SGPT) April 24, 2021 9:34am 23 U/L <35 As of 03/31/20, the Reference Range for ALT/SGPT for adult patients has been updated. The Reference Range for ALT/SGPT has not been established for patients <18 years of age. MAIN LAB, [address] [place], [place] [address] Total Protein April 24, 2021 9:34am 6.8 g/dL 6.3-8.2 MAIN LAB, [address] [place] [address] 26[address] Albumin April 24, 2021 9:34am 4.1 g/dL 3.5-5.0 MAIN LAB, [address] [place] [address] Cholesterol Level April 24, 2021 9:34am 221 mg/dL 59-199 MAIN LAB, [address] [place] [address] 30256 HDL Cholesterol April 24, 2021 9:34am 54 mg/dL 40-60 The National Cholesterol Education Program (NCEP) has set the following guidelines (reference values) for cholesterol, HDL:Low HDL: <40 mg/dLNormal: 40-60 mg/dLDesirable : >60 mg/dL MAIN LAB, [address] [facility] [address] LDL Cholesterol April 24, 2021 9:34am 135.6 mg/dL 0-129 MAIN LAB, [address] [place] [address] VLDL Cholesterol April 24, 2021 9:34am 31.4 mg/dL 0-32 MAIN LAB, [address] [place] [address] Cholesterol/HDL Ratio April 24, 2021 9:34am 4.09 0-3.9 MAIN LAB, [address] [place] [address] Triglycerides Level April 24, 2021 9:34am 157 mg/dL 0-149 MAIN LAB, [address] [place] [address] Alkaline Phosphatase April 24, 2021 9:34am 72 U/L 38-126 MAIN LAB, [address] [place] [address] Thyroid Stimulating Hormone (TSH) July 06, 2020 10:19am 1.52 mlU/L 0.47-4.68 TSH cascade is not recommended for patients in which pituitary or hypothalmic disorders are suspected. MAIN LAB, [address] [place] [address] Follicle Stimulating Hormone July 06, 2020 10:19am [...] have notbeen established.Te st performed or referred by[id number] [place] [address] Networker Prolactin July 06, 2020 10:19am 5.5 ng/mL See Table NOTE:Female Reference Ranges:PHYSIOL OGICAL STATUS EXPECTED RANGE--------- Postmenopausal 1.8 - 20.3 ng/mL 9.7 - 208.5 ng/mLNon-pregn ant 2.8 - 29.2 ng/mLReference Ranges for Prolactin in female patients <18 yearsold have not been established.Te st performed or referred by[address] Hemoglobin A1c Percent April 24, 2021 9:34am [...] be achieved without excessive hypoglycemia. MAIN LAB, [address] [place] [address] Hemoglobin A1c Percent July 06, 2020 10:19am [...] achieved without excessive hypoglycemia. MAIN LAB, [address] [facility] [address] Estimated Average Glucose mg/dL April 24, 2021 9:34am 93 mg/dL MAIN LAB, [address] [facility] [address] Estimated Average Glucose mg/dL July 06, 2020 10:19am 105 mg/dL MAIN LAB, [address] [place] [address] Advance Directives Advance Directive Response Recorded Date/ Time Does patient have an Advanced Directive? No August 19, 2015 10:32am Do we have a copy on file here at [facility]? No February 22, 2017 8:32am Pt has a Living Will? No August 19, 2015 10:32am Do we have a copy on file here at [facility]? No February 22, 2017 8:32am Pt has a Power of Residency Program Coordinator? No Sept emb2014 10:32am Do we have a copy on file here at [facility]? No February 22, 2017 8:32am Chief Complaint and Reason for Visit Chief Complaint ANXIETY FOLLOW UP/WA S PHYSICAL Lab CONSULT Follow Up Counseling referral (phone) Counseling f/u (phone) Counseling f/u (phone) Counseling f/u (phone) Annual Physical - Adult Mood check Z82.49 - Family history of ischemic heart disease Lab Reason for Visit Insomnia Anxiety Endometriosis Polycystic ovaries Insomnia Anxiety Anxiety Adult general medical exam Nicotine dependence White coat syndrome with hypertension Anxiety Family history of hypertrophic cardiomyopathy Anxiety Encounters Encounter Location(s) Arrival/Admit Date Discharge/Depart Date Provider(s) Departed Phys[facility] June 07, 2020 7:37am June 07, 2020 1:28pm Brenda Hernandez NP Departed Clinical [facility] July 06, 2020 10:07am July 06, 2020 10:08am Alissa Rivers MD Departed Physician/Prov ider [facility] REP[facility] July 17, 2020 2:06pm July 17, 2020 2:38pm Kishan Baltazar MD Departed Physician/Prov ider [facility] September 15, 2020 12:04pm September 15, 2020 12:04pm Brenda Hernandez NP Departed Physician/Prov ider [facility] September 18, 2020 7:38am September 18, 2020 10:45am MONISHA Cam Departed Physician/Prov ider [facility] October 02, 2020 11:38am October 02, 2020 11:38am MONISHA Cam Departed Physician/Prov ider [facility] October 16, 2020 12:45pm October 16, 2020 12:45pm MONISHA Cam Departed Physician/Prov ider [facility] October 30, 2020 9:11am October 30, 2020 12:34pm MONISHA Cam Departed Physician/Prov ider Office Visit [facility] mccormickenvironmental attorney February 19, 2021 2:54pm February 19, 2021 4:11pm Brenda Hernandez NP Departed Physician/Prov ider Office Visit [facility] mccormickenvironmental attorney April 06, 2021 7:48am April 06, 2021 1:58pm Brenda Hernandez NP Departed Clinical [facility] April 24, 2021 9:14am April 24, 2021 9:15am Brenda Hernandez NP Departed Clinical [facility] April 24, 2021 9:15am April 24, 2021 9:16am Brenda Hernandez NP Recent Diagnosis Onset Date [...] Event Date Not Given Reason Dose Number 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 Home Phone: Payer Policy Id Coverage Id Subscriber's Name Subscriber Id Effective Date Expiration Date [employer] EM[employer]YE[employer] [id number] YAMILETH TAYLOR [id number] FEP BLUE CROSS (DO NOT USE) [id number] YAMILETH TAYLOR [id number] 2011 SELF PAY Self N/A Plan of [...]
--- OUTSIDE RECORDS SUMMARY | 2024-05-28 15:30 | XMS_ITS | Continuity of Care Document ---
Author Name Unknown Address [address] [place] [address] Phone [facility] Address [address] [place] [address] Phone Care Team Providers Care Wood Repatcher Name Role Phone David, Brenda D Primary Care Provider Unavail able Deb Bynum Attending Provider Unavailabl e David, Brenda D Primary Care Provider Unavail able Kishan Baltazar Attending Provider Unavailable Allergies, Adverse Reactions, Alerts Allergen Type Severity [...] Qty Days Start Date End Date Instructions Clonazepam Active 0.5 MG ORAL Q8H 10 April 142018 2:42pm 1-2 tabs as needed for anxiety Buspirone Active 5 MG ORAL TWICE A DAY 60 April 14, 2019 2:44pm Levonorgestrel-Et hinyl Estrad Active 1 TAB ORAL DAILY April 14, 2019 2:44pm Feverfew Active 100 MG ORAL TWICE A DAY April 14, 2019 2:45pm Cholecalciferol (Vitamin D3) Active UNK UNK ORAL DAILY April 14, 2019 2:46pm Riboflavin (Vitamin B2) Active 100 MG ORAL TWICE A DAY April 14, 2019 2:48pm Magnesium Oxide Active 400 MG ORAL DAILY [facility] 2018 2:49pm Biotin Active 15 MG ORAL DAILY April 14, 2019 2:50pm Loratadine Active 10 MG ORAL DAILY April 162018 10:06am Sumatriptan Active 100 Septe mber 2016 5:17pm Problems Active Problems Medical Problem Onset Date [...] Interpretation Reference Range Result Comment Performing Site 25-Hydroxy Vitamin D2 May 01, 2018 8:06am < 4.0 ng/mL [facility] 25-Hydroxy Vitamin D3 May 01, 2018 8:06am 18 ng/mL [facility] [employer] 25-Hydroxy Vitamin D Total May 01, 2018 8:06am 18 ng/mL Interpretation: 10-19 ng/mL (mild to moderate deficiency)----- RE FERENCE VALUE 2 5-HYDROXY D TOTAL (D2+D3) Optimum levels in the healthypopulatio n are 20-50, patients with bone disease maybenefit from higher levels within this range. ---------ADDITIO NAL INFORMATION----- Th is test was developed and its performance characteristicsd etermined by [facility] in a manner consistent with CLIArequirements . This test has not been cleared or approved bythe U.S. Food and Drug Administration.T est Performed by:[facility] [place] [address] [facility] Testosterone Level May 01, 2018 8:06am 23 ng/dL 14-76 Reference Range: Premenopausal (21-60 yrs): 9-48 ng/dL Postmenopausal (45-89 yrs): <46 ng/dL The results of this assay can be falsely elevated due to the consumption of Biotin. [facility] Free Testosterone May 01, 2018 8:06am 0.3 ng/mL Test not recommended in patients with plasma protein abnormalities.Te st Performed by:[facility] [address] Sex Hormone Binding Globulin May 01, 2018 8:06am 54.8 nmol/L Reference Range: Premenopausal (21-60 yrs): >10.8 nmol/L Postmenopausal (45-89 yrs): 23.2-159.1 nmol/L The results of this assay can be falsely lowered due to the consumption of Biotin. [facility] Dehydroepiandr osterone Sulfate May 01, 2018 8:06am 194 ug/dL Test Performed by:[facility] [address] Chief Complaint and Reason for Visit Chief Complaint Lab Cervical pain US Ultrasound 60 Follow Up Encounters Encounter Location(s) Arrival/Admit Date Discharge/Depart Date Provider(s) Departed Clinical [facility] May 01, 2018 7:59am May 01, 2018 8:00am Deb Bynum DO Departed Physician/Prov ider [facility] project manager August 31, 2018 12:00am August 31, 2018 Brenda Hernandez NP Departed Physician/Prov [facility] December 21, 2018 12:00am December 21, 2018 Brenda Hernandez NP [facility]arted Physician[facility] January 18, 2019 12:00am January 18, 2019 Brenda Hernandez NP Departed Physician/Prov [facility] project [facility] March 03, 2019 12:00am March 03, 2019 Brenda Hernandez NP Departed Physician/Prov ider [facility] project [facility] March 26, 2019 12:00am March 26, 2019 Brenda Hernandez NP Departed Physician/Prov ider [facility] [place] rn MANAGER FIELD INVESTIGATIONS April 16, 2019 9:49am April 16, 2019 10:25am RITA Delacruz Departed Clinical [facility] MACHINE HEDDLE CLEANER April 23, 2019 9:01am April 23, 2019 9:02am Kishan Baltazar MD Departed Physician/Prov ider [facility] [facility]ormick MANAGER FIELD INVESTIGATIONS April 23, 2019 9:03am April 23, 2019 9:52am Kishan Baltazar MD [facility]ed [facility] MANAGER FIELD INVESTIGATIONS April 23, 2019 9:04am April 23, 2019 9:52am RITA Delacruz Assessments No Assessments Information Available Family History Relationship Condition Age at Onset Recorded Date/T baldemar Parent Cardiac disease Unknown Myocardial infarction Unknown Hypertension Unknown Parent Diabetes mellitus Unknown Hypertension Unknown Malignant neoplasm of uterus Unknown Not Specified Diabetes mellitus Unknown Malignant neoplasm Unknown Functional Status No Functional Status information available Goals No Goals Information Available Immunizations Immunization Event Date Not Given Reason Dose Number Helper Driver Lot Number Vaccine Information Statement (VIS) Detail Influenza IIV4 PF September 29, 2017 VIS not given Influenza Split Virus 3YR Older August 31, 2014 VIS not given Tdap December 01, 2011 VIS not given Mental Status No Mental Status Information Available Medical Equipment No Medical Equipment Information available Insurance Providers Guarantor YAMILETH TAYLOR Address [address] [place] [address] Contact Info. Home Phone: Payer Policy Id Coverage Id Subscriber's Name Subscriber Id Effective Date Expiration Date [employer] [id number] YAMILETH TAYLOR [id number] [facility] Blend (DO NOT USE) [id number] YAMILETH TAYLOR [id number] 2011 SELF PAY Self N/A Social History Assigned Sex Female Vital Signs [...] 31 9:45am Height 65 [in_i] December 21, 2 [...]
--- OUTSIDE RECORDS SUMMARY | 2024-05-28 15:30 | XMS_ITS | Continuity of Care Document ---
Author Name Unknown Address [address] [place] [address] Phone [facility] Address [address] [place] [address] Phone Care Team Providers Care Utility Locator Name Role Phone Brenda Hernandez Primary Care Provider Alissa Rivers Attending Provider [phone] Brenda Hernandez Attending Provider Allergies, Adverse Reactions, [...] tabs as needed for anxiety flu vacc [id number] 6mos up(PF) Discontin ued 0.5 ML IM [...] (Vitamin D3) Active 2000 UNITS PO DAILY [facility] 2018 8:46am Hydroxyzine Hcl Active 0 .ROUTE [...] Discontin u[facility] 0.5 [facility] 11:43a m 1-2 tabs [...] 2021 9:34am 139 mmol/L 137-145 MAIN LAB, [address] [place] [address] Potassium Level April 24, 2021 9:34am 5.2 mmol/L 3.6-5.0 MAIN LAB, [address] [place] [address] 89998 Chloride Level April 24, 2021 9:34am 105 mmol/L 98-107 MAIN [facility], [address] [place] [address] 47392 Carbon Dioxide Level April 24, 2021 9:34am 23 mmol/L 22-30 MAIN LAB, [address] [place] [address] 13545 Anion Gap April 24, 2021 9:34am 11 7-16 MAIN LAB, [address] [place] [address] 02376 Blood Urea Nitrogen April 24, 2021 9:34am 13 mg/dL 7-17 MAIN LAB, [address] [place] [address] 30188 Creatinine April 24, 2021 9:34am 0.86 mg/dL 0.52-1.04 MAIN LAB, [address] [place], [place] [address] Glomerular Filtration Rate Calc April 24, 2021 9:34am > 60 mL/min >60.0 MAIN LAB, [address] [place] [address] 85933 Glucose Level April 24, 2021 9:34am 94 mg/dL 70-100 MAIN LAB, [address] [place] [address] 30956 Calcium Level April 24, 2021 9:34am 9.4 mg/dL 8.4-10.2 MAIN LAB, [address] [place], [place] [address] Calcium Adjusted for Albumin April 24, 2021 9:34am 9.6 mg/dL 8.4-10.2 MAIN LAB, [address] [place] [address] 51497 Total Bilirubin April 24, 2021 9:34am 0.3 mg/dL 0.2-1.3 MAIN LAB, [address] [place], [place] [address] Aspartate Amino Transf (AST/SGOT) April 24, 2021 9:34am 25 U/L 14-36 MAIN LAB, [address] [place], [place] [address] Alanine Aminotransferase (ALT/SGPT) April 24, 2021 9:34am 23 U/L <35 As of 03/31/20, the Reference Range for ALT/SGPT for adult patients has been updated. The Reference Range for ALT/SGPT has not been established for patients <18 years of age. MAIN LAB, [address] [place], [place] [address] Total Protein April 24, 2021 9:34am 6.8 g/dL 6.3-8.2 MAIN LAB, [address] [place] [address] 06228 Albumin April 24, 2021 9:34am 4.1 g/dL 3.5-5.0 MAIN LAB, [address] [place] [address] 01765 Cholesterol Level April 24, 2021 9:34am 221 mg/dL 59-199 MAIN LAB, [address] [place] [address] 25306 HDL Cholesterol April 24, 2021 9:34am 54 mg/dL 40-60 The National Cholesterol Education Program (NCEP) has set the following guidelines (reference values) for cholesterol, HDL:Low HDL: <40 mg/dLNormal: 40-60 mg/dLDesirable : >60 mg/dL MAIN LAB, [address] [facility] [address] LDL Cholesterol April 24, 2021 9:34am 135.6 mg/dL 0-129 MAIN LAB, [address] [place] [address] 84532 VLDL Cholesterol April 24, 2021 9:34am 31.4 mg/dL 0-32 MAIN LAB, [address] [place] [address] 95136 Cholesterol/HDL Ratio April 24, 2021 9:34am 4.09 0-3.9 MAIN LAB, [address] [place] [address] 56100 Triglycerides Level April 24, 2021 9:34am 157 mg/dL 0-149 MAIN LAB, [address] [place] [address] 57528 Alkaline Phosphatase April 24, 2021 9:34am 72 U/L 38-126 MAIN LAB, [address] [place] [address] 62553 Thyroid Stimulating Hormone (TSH) July 06, 2020 10:19am 1.52 mlU/L 0.47-4.68 TSH cascade is not recommended for patients in which pituitary or hypothalmic disorders are suspected. MAIN LAB, [address] [place] [address] 14907 Follicle Stimulating Hormone July 06, 2020 10:19am [...] have notbeen established.Te st performed or referred by[id number] [place] [address] [employer] Prolactin July 06, 2020 10:19am 5.5 ng/mL See Table NOTE:Female Reference Ranges:PHYSIOL OGICAL STATUS EXPECTED RANGE--------- Postmenopausal 1.8 - 20.3 ng/mL 9.7 - 208.5 ng/mLNon-pregn ant 2.8 - 29.2 ng/mLReference Ranges for Prolactin in female patients <18 yearsold have not been established.Te st performed or referred by[address] Hemoglobin A1c Percent April 24, 2021 [...] be achieved without excessive hypoglycemia. MAIN LAB, [address] [place] [address] 13408 Hemoglobin A1c Percent July 06, 2020 10:19am [...] achieved without excessive hypoglycemia. MAIN LAB, [address] [facility] [address] Estimated Average Glucose mg/dL April 24, 2021 9:34am 93 mg/dL MAIN LAB, [address] [facility] [address] Estimated Average Glucose mg/dL July 06, 2020 10:19am 105 mg/dL MAIN LAB, [address] [place] [address]35 Advance Directives Advance Directive Response Recorded Date/ Time Does patient have an Advanced Directive? No August 19, 2015 10:32am Do we have a copy on file here at [facility]? No February 22, 2017 8:32am Pt has a Living Will? No August 19, 2015 10:32am Do we have a copy on file here at [facility]? No February 22, 2017 8:32am Pt has a Power of Principal Investigator? No Sept emb2014 10:32am Do we have a copy on file here at [facility]? No February 22, 2017 8:32am Chief Complaint [...] Date Provider(s) Departed Physician/Prov [facility]ness[facility] apprentice June 07, 2020 7:37am June 07, 2020 1:28pm Brenda Hernandez NP Departed Clinical [facility] July 06, 2020 10:07am July 06, 2020 10:08am Alissa Rivers MD Departed Physician/Prov [facility] PAPER FINAL INSPECTOR July 17, 2020 2:06pm July 17, 2020 2:38pm Kishan Baltazar MD Departed Physician/Prov ider [facility]ormick[facility]nessmaker apprentice September 15, 2020 12:04pm September 15, 2020 12:04pm Brenda Hernandez NP Departed Physician/Prov [facility] September 18, 2020 7:38am September 18, 2020 10:45am MONISHA Cam Departed Physician/Prov ider [facility] October 02, 2020 11:38am October 02, 2020 11:38am MONISHA Cam Departed Physician/Prov ider [facility] October 16, 2020 12:45pm October 16, 2020 12:45pm MONISHA Cam Departed Physician/Prov ider [facility] October 30, 2020 9:11am October 30, 2020 12:34pm MONISHA Cam Departed Physician/Prov ider Office [facility] mccormickharnessmaker apprentice February 19, 2021 2:54pm February 19, 2021 4:11pm Brenda Hernandez NP Departed Physician/Prov ider Office [facility] mccormickharnessmaker apprentice April 06, 2021 7:48am April 06, 2021 1:58pm Brenda Hernandez NP Departed Clinical [facility] April 24, 2021 9:14am April 24, 2021 9:15am Brenda Hernandez NP Departed Clinical [facility] April 24, 2021 9:15am April 24, [...] Event Date Not Given Reason Dose Number Past Due Accounts Clerk Lot Number Vaccine Information Statement (VIS) Detail Influenza IIV4 PF September 29, 2017 Influenza IIV4 PF December 20, 2019 [id number] Influenza Split Virus 3YR Older August 31, 2014 Tdap December 01, 2011 Tdap May 31, 2019 [id number] Mental Status No Mental Status Information Available Medical Equipment No Medical Equipment Information available Insurance Providers Guarantor YAMILETH TAYLOR Address [address] [place] [id number] Contact Info. Home Phone: Payer Policy Id Coverage Id Subscriber's Name Subscriber Id Effective Date Expiration Date [place] [employer] EM[employer]YE[employer] [id number] YAMILETH TAYLOR [id number] [employer] (DO NOT USE) [id number] YAMILETH TAYLOR [id number] 2011 SELF PAY Self N/A Plan of [...]
--- OUTSIDE RECORDS SUMMARY | 2024-05-28 15:30 | XMS_ITS | Continuity of Care Document ---
Author Name Unknown Address [address] [place] [address] Phone Organization [facility] Address [address] [place] [address] Phone Care Team Providers Care Revenue Research Analyst Name Role Phone Brenda Hernandez Primary Care Provider Alissa Rivers Attending Provider Brenda Hernandez Attending Provider Chief Complaint and Reason for Visit Chief Complaint Lab CONSULT Follow Up Counseling referral (phone) Counseling f/u (phone) Counseling f/u (phone) Counseling f/u (phone) Annual Physical - Adult Mood check Z82.49 - Family history of ischemic heart disease Lab Control Reason for Visit Endometriosis Polycystic ovaries Insomnia Anxiety Anxiety Adult general medical exam Nicotine dependence White coat syndrome with hypertension Anxiety Family history of hypertrophic cardiomyopathy Anxiety Contraception management Allergies, Adverse Reactions, Alerts Allergen Type Severity Reaction Last Updated Verified Status metformin Allergy Unknown unknown February 19 3:05pm Yes Active weed pollen Allergy Unknown unknown February 19 3:05pm Yes Active cat dander Adverse Reaction Unknown unknown February 192020 3:05pm Yes Active dog dander Adverse Reaction Unknown unknown February 192020 3:05pm Yes Active Social History Smoking Status Status Start Date End Date Date of Observa tion Current some day smoker June 15, 2021 11:03am Observation Status Observation Response Date of Response Alcohol Use Yes May 31, 2019 1 2:06pm alcohol intake frequency holidays/special occasi ons only February 19, 2021 3:08pm Substance/Street Drug Use No May 312018 12:06pm substance use type does not use February 19 3:08pm Smoking Status Current some day smoker May 11:03am Additional Data Assigned Sex Female Family History [...] insomnia Clonazepam Active 0.5 MG PO Q8H 10 April 06, 2021 4:24pm Levonorgestre l-Ethinyl Estrad (Tankvelo (28)) 0.15-0.03 mg [...] 5 MG PO TWICE A DAY 180 Ju ly 2020 10:53am flu vacc [id number] 6mos up(PF) Discontin ued 0.5 ML IM ONCE 0.5 December 20, 2019 9:25am Januar y 2019 11:06a m Sumatriptan Succinate Active 6 MG SC .BID Q30D December 20, 2019 9:45am Hydroxyzine Hcl Discontin ued 10 MG PO TWICE A DAY December 20, 2019 10:29am June 07, 2020 1:10pm Clonazepam Discontin ued 0.5 MG PO Q8H 10 April 14, 2019 2:42pm Sept2018 9:11am 1-2 tabs as needed for anxiety Buspirone Discontin ued 5 MG PO TWICE A DAY 60 April 14, 2019 2:44pm May 04, 2019 12:21p m Levonorgestre l-Ethinyl Estrad (Tankvelo (28)) 0.15-0.03 mg tablet Discontin ued 1 TAB PO DAILY April 14, 2019 2:44pm Februa 2019 10:52a m Cholecalcifer ol (Vitamin D3) Discontin ued UNK UNK PO DAILY April 14, 2019 2:46pm Sept taco 2018 8:46am Riboflavin (Vitamin B2) Active 100 MG PO TWICE A DAY April 14, 2019 2:48pm Biotin Active 15 MG PO DAILY April 14, 2019 2:50pm Loratadine (Claritin) 10 mg tablet Active 10 MG PO DAILY April 16, 2019 10:06am Cholecalcifer ol (Vitamin D3) Active 2000 UNITS [facility] 8:46am Hydroxyzine Hcl Active 0 .ROUTE .COMPLEX September 15, 2020 11:37am 1-2 tabs qhs PRN for insomnia Buspirone Discontin ued 10 MG PO TWICE A DAY September 15, 2020 11:38am February 19, 2021 3:58pm Clonazepam Discontin ued 0.5 MG PO Q8H September 15, 2020 11:41am April 06, 2021 1:55pm 1-2 tabs as needed for anxiety Levonorgestre l-Ethinyl Estrad (Adio (28)) 0.15-0.03 mg tablet Discontin ued 1 TAB PO DAILY September 15, 2020 11:44am May 29, 2021 6:49pm may skip placebo pills Clonazepam Discontin ued 0.5 MG PO Q8H 14 2018 9:09am [facility] 2019 11:43a m 1-2 tabs as [...] 0 PO DAILY June 07, 2020 1:06pm [facility] 11:37a m 1-2 tabs qhs PO daily PRN; Buspirone Discontin ued 5 MG PO TWICE A DAY June 07, 2020 1:14pm [facility] 11:43a m Buspirone Discontin ued [...] Event Date Not Given Reason Dose Number Print Controller Lot Number Vaccine Information Statement (VIS) Detail Covid-19 30mcg/0.3ml Pfizer May 05, 2021 Covid-19 30mcg/0.3ml Pfizer May 26, 2021 Influenza IIV4 PF September 29, 2017 Influenza IIV4 PF December 20, 2019 [id number] Influenza Split Virus 3YR Older August 31, 2014 Tdap December 01, 2011 Tdap May 31, 2019 [id number] Procedures Procedure Date Performed Status ECHO Complete April 24, 2021 10:00am completed Relevant Diagnostic Tests and/or Laboratory Data Laboratory Results Test Date/Time Result Interpretation Reference Range Result Comment Performing Site Sodium Level April 24, 2021 9:34am 139 mmol/L 137-145 MAIN [facility] [address] [place] [address] Potassium Level April 24, 2021 9:34am 5.2 mmol/L 3.6-5.0 [facility] [address] [place] [address]3049 Chloride Level April 24, 2021 9:34am 105 mmol/L 98-107 [facility] [address] [place] [address] 10672 Carbon Dioxide Level April 24, 2021 9:34am 23 mmol/L 22-30 [facility] [address] [place] [address] 99144 Anion Gap April 24, 2021 9:34am 11 7-16 MAIN [facility] [address] [place] [address] 54388 Blood Urea Nitrogen April 24, 2021 9:34am 13 mg/dL 7-17 MA[facility] [address] [place] [address] 08198 Creatinine April 24, 2021 9:34am 0.86 mg/dL 0.52-1.04 [facility] [address] [place] [address] 34061 Glomerular Filtration Rate Calc April 24, 2021 9:34am > 60 mL/min >60.0 MAIN [facility] [address] [place] [address] 62225 Glucose Level April 24, 2021 9:34am 94 mg/dL 70-100 [facility] [address] [place] [address] 94370 Calcium Level April 24, 2021 9:34am 9.4 mg/dL 8.4-10.2 MA[facility] [address] [place] [address] 98278 Calcium Adjusted for Albumin April 24, 2021 9:34am 9.6 mg/dL 8.4-10.2 [facility] [address] [place] [address] 89005 Total Bilirubin April 24, 2021 9:34am 0.3 mg/dL 0.2-1.3 MA[facility] [address] [place] [address] 90206 Aspartate Amino Transf (AST/SGOT) April 24, 2021 9:34am 25 U/L 14-36 MAIN LAB [address] [place] [address] 99454 Alanine Aminotransferase (ALT/SGPT) April 24, 2021 9:34am 23 U/L <35 As of 03/31/20, the Reference Range for ALT/SGPT for adult patients has been updated. The Reference Range for ALT/SGPT has not been established for patients <18 years of age. MAIN LAB [address] [place] [address] 64261 Total Protein April 24, 2021 9:34am 6.8 g/dL 6.3-8.2 [facility] [address] [place] [address] 71951 Albumin April 24, 2021 9:34am 4.1 g/dL 3.5-5.0 MAIN LAB [address] [place] [address] 19785 Cholesterol Level April 24, 2021 9:34am 221 mg/dL 59-199 MAIN LAB [address] [place] [address] 04142 HDL Cholesterol April 24, 2021 9:34am 54 mg/dL 40-60 The National Cholesterol Education Program (NCEP) has set the following guidelines (reference values) for cholesterol, HDL:Low HDL: <40 mg/dLNormal: 40-60 mg/dLDesirable : >60 mg/dL MAIN LAB [address] [place] [address] 02283 LDL Cholesterol April 24, 2021 9:34am 135.6 mg/dL 0-129 MAIN LAB [address] [facility] [address] VLDL Cholesterol April 24, 2021 9:34am 31.4 mg/dL 0-32 MAIN LAB [address] [facility] [address] Cholesterol/HDL Ratio April 24, 2021 9:34am 4.09 0-3.9 MAIN LAB [address] [facility] [address] Triglycerides Level April 24, 2021 9:34am 157 mg/dL 0-149 MAIN LAB [address] [facility] [address] Alkaline Phosphatase April 24, 2021 9:34am 72 U/L 38-126 MAIN LAB [address] [facility] [address] Thyroid Stimulating Hormone (TSH) July 06, 2020 10:19am 1.52 mlU/L 0.47-4.68 TSH cascade is not recommended for patients in which pituitary or hypothalmic disorders are suspected. MAIN LAB [address] [facility] [address] Follicle Stimulating Hormone July 06, 2020 10:19am [...] have notbeen established.Te st performed or referred by[address] [employer] Prolactin July 06, 2020 10:19am 5.5 ng/mL See Table NOTE:Female Reference Ranges:PHYSIOL OGICAL STATUS EXPECTED RANGE--------- Postmenopausal 1.8 - 20.3 ng/mL 9.7 - 208.5 ng/mLNon-pregn ant 2.8 - 29.2 ng/mLReference Ranges for Prolactin in female patients <18 yearsold have not been established.Te st performed or referred by[address] Hemoglobin A1c Percent July 06, 2020 [...] achieved without excessive hypoglycemia. MAIN LAB [address] [facility] [address] Hemoglobin A1c Percent April 24, 2021 9:34am [...] achieved without excessive hypoglycemia. MAIN LAB [address] [facility] [address] Estimated Average Glucose mg/dL July 06, 2020 10:19am 105 mg/dL MAIN LAB [address] [facility] [address] Estimated Average Glucose mg/dL April 24, 2021 9:34am 93 mg/dL MAIN LAB [address] [facility] [address] Vital Signs Vital Reading Result Reference Range [...] have a copy on file here at [facility]? No February 22, 2017 8:32am Pt has a Living Will? No August 19, 2015 10:32am Do we have a copy on file here at [facility]? No February 22, 2017 8:32am Pt has a Power of Collection Teller? No Aug 10:32am Do we have a copy on file here at [facility]? No February 22, 2017 8:32am Insurance Providers Guarantor YAMILETH TAYLOR Address [address] [place] [id number] Contact Info. Home Phone: Payer Policy Id Coverage Id Subscriber's Name Subscriber Id Effective Date Expiration Date [employer] [id number] YAMILETH TAYLOR [id number] [facility] [employer] (DO NOT USE) [id number] YAMILETH TAYLOR [id number] 2011 SELF PAY Self N/A Encounters Encounter Location(s) Arrival/Admit Date Discharge/Depart Date Provider(s) Departed Clinical [facility] July 06, 2020 10:07am July 06, 2020 10:08am Alissa Rivers MD Departed Physician/Prov ider Office Visit [facility] GEOPHYSICAL PARTY CHIEF July 17, 2020 2:06pm July 17, 2020 2:38pm Kishan Baltazar MD Departed Physician/Prov ider Office Visit [facility] Primary Care September 15, 2020 12:04pm September 15, 2020 12:04pm Brenda Heranndez NP Departed Physician/Prov ider Office Visit [facility] September 18, 2020 7:38am September 18, 2020 10:45am MONISHA Cam Departed Physician/Prov ider Office Visit [facility] October 02, 2020 11:38am October 02, 2020 11:38am Nasima Gomes MSW Departed Physician/Prov ider Office Visit [facility] October 16, 2020 12:45pm October 16, 2020 12:45pm MONISHA Cam Departed Physician/Prov ider Office Visit [facility] October 30, 2020 9:11am October 30, 2020 12:34pm MONISHA Cam Departed Physician/Prov ider Office Visit [facility] Primary Care February 19, 2021 2:54pm February 19, 2021 4:11pm Brenda Hernandez NP Departed Physician/Prov ider Office Visit [facility] Primary Care April 06, 2021 7:48am April 06, 2021 1:58pm Brenda Hernandez NP Departed Clinical [facility] April 24, 2021 9:14am April 24, 2021 9:15am Brenda Hernandez NP Departed Clinical [facility] April 24, 2021 9:15am April 24, 2021 9:16am Brenda Hernandez NP Departed Physician/Prov ider Office Visit [facility] Primary Care June 15, 2021 7:35am June 15, 2021 11:03am Brenda Hernandez NP Recent Diagnosis Onset Date Endometriosis Polycystic ovaries June 29, 2015 Insomnia Anxiety Anxiety Adult general medical exam Nicotine dependence White coat syndrome with hypertension Anxiety Family history of hypertrophic cardiomyo yg Anxiety Contraception management Assessments Diagnosis Onset Date Resolution Status Endometriosis acute Polycystic ovaries June 29, 2015 noneac tive Insomnia acute Anxiety chronic Anxiety chronic Adult general medical exam a cute Nicotine dependence acute White coat syndrome with hypertension acute Anxiety chronic Family history of hypertrophic cardiomyopathy acute Anxiety chronic Contraception management acu te Plan of Treatment cigars occasionlly, disucssed risk [...] to monitor recommended stopping smoking cigars Jagdeep 7???20 Anxiety poorly controlled. We will [...] reassured. Follow in 3 months for review. Discussed with GEOPH[employer]ICAL PARTY CHIEF colleague Dr. Rivers her control options. Patient [...]
--- OUTSIDE RECORDS SUMMARY | 2024-05-28 15:30 | XMS_ITS | Continuity of Care Document ---
Author Name Unknown Address [address] [place] [address] Phone [facility] Address [address] [place] [address] Phone Care Team Providers Care Lightning Rod Installer Name Role Phone Brenda Hernandez Primary Care Provider Brenda Hernandez Attending Provider Alissa Rivers Attending Provider Allergies, Adverse Reactions, Alerts Allergen Type Severity Reaction Last Updated Verified Status metformin Allergy Unknown unknown July 17 020 1:12pm Yes Active weed pollen Allergy Unknown unknown July 17, 2020 1:12pm Yes Active cat dander Adverse Reaction Unknown unknown July 012019 1:12pm Yes Active dog dander Adverse Reaction Unknown unknown July 012019 1:12pm Yes Active Medications Medication Status Dose Units Route Directions Qty Days St art Date End Date Instructions Buspirone Discontin ued 5 MG PO TWICE A DAY 180 May 04, 2019 11:21am Januar y 2019 9:27am Hydroxyzine Hcl Discontin ued 10 MG PO TWICE A DAY July 22, 2019 1:13pm Novem er 2018 8:05am Hydroxyzine Hcl Discontin ued 10 MG PO TWICE A DAY r 2018 8:05am 2019 9:31am Levonorgestre l-Ethinyl Estrad (Tankvelo (28)) 0.15-0.03 mg tablet Discontin ued 1 TAB PO DAILY 2019 9:52am Octobe r 2019 10:44a m Hydroxyzine Hcl Discontin ued 0 .ROUTE .COMPLEX er 2019 12:14pm Octobe r 2019 10:43a m 1-2 tabs qhs PRN for insomnia flu vacc [id number] 6mos up(PF) Discontin ued 0.5 ML IM ONCE 0.5 December 20, 2019 8:25am 2019 10:06a m Sumatriptan Succinate Active 6 MG SC .BID Q30D December 20, 2019 8:45am Hydroxyzine Hcl Discontin ued 10 MG PO TWICE A DAY 30 December 20, 2019 9:29am June 07, 2020 12:10p m Clonazepam Discontin ued 0.5 MG PO Q8H 10 April 14, 2019 1:42pm 2018 8:11am 1-2 tabs as needed for anxiety Buspirone Discontin ued 5 MG PO TWICE A DAY 60 April 14, 2019 1:44pm May 04, 2019 11:21a m Levonorgestre l-Ethinyl Estrad (Tankvelo (28)) 0.15-0.03 mg tablet Discontin ued 1 TAB PO DAILY April 14, 2019 1:44pm 2019 9:52am Cholecalcifer ol (Vitamin D3) Discontin ued UNK UNK PO DAILY April 14, 2019 1:46pm 2018 7:46am Riboflavin (Vitamin B2) Active 100 MG PO TWICE A DAY April 14, 2019 1:48pm Biotin Active 15 MG PO DAILY April 14, 2019 1:50pm Loratadine (Claritin) 10 mg tablet Active 10 MG PO DAILY April 16, 2019 9:06am Cholecalcifer ol (Vitamin D3) Active 2000 UNITS PO [facility] 7:46am Hydroxyzine Hcl Active 0 .ROUTE .COMPLEX September 15, 2020 10:37am 1-2 tabs qhs PRN for insomnia Buspirone Active 10 MG PO TWICE A DAY 180 Oc tob2019 10:38am Clonazepam Active 0.5 MG PO Q8H [facility] 10:41am 1-2 tabs as needed for anxiety Levonorgestre l-Ethinyl Estrad (Kurvelo (28)) 0.15-0.03 mg tablet Active 1 TAB PO DAILY 84 September 15, 2020 10:44am may skip placebo pills Clonazepam Discontin ued 0.5 MG PO Q8H 14 er 2018 8:09am [facility] 10:43a m 1-2 tabs as needed for anxiety Sumatriptan Discontin ued 20 MG NA ONCE July 29, 2019 10:53am July 29, 2019 10:57a m 1 spray intranasally once daily PRN at onset of migraine Sumatriptan Discontin ued 20 MG NA ONCE 1 July 29, 2019 10:57am June 07, 2020 12:12p m 1 spray intranasally once daily PRN at onset of migraine Trazodone Discontin ued 0 PO DAILY June 07, 2020 12:06pm [facility] r 2019 10:37a m 1-2 tabs qhs PO daily PRN; Buspirone Discontin ued 5 MG PO TWICE A DAY 180 June 07, 2020 12:14pm [facility] r 2019 10:43a m Hydroxyzine Hcl Discontin ued 10 MG PO TWICE A DAY May 03, 2019 7:06am July 22, 2019 1:14pm Erenumab-Aooe (Aimovig Autoinjector) 70 mg/mL auto-injector Discontin ued 70 MG SC Q30D May 03, 2019 7:06am Septem taco 2018 7:46am Erenumab-Aooe (Aimovig Autoinjector) 70 mg/mL auto-injector Active 140 MG SC [facility]30D [facility] 7:46am Problems Active Problems Medical Problem Onset Date [...] Thyroid Stimulating Hormone (TSH) July 06, 2020 9:19am 1.52 mlU/L 0.47-4.68 TSH cascade is not recommended for patients in which pituitary or hypothalmic disorders are suspected. MAIN LAB, [address] [place] [address] Follicle Stimulating Hormone July 06, 2020 9:19am 6.5 mIU/mL See Note NOTE:Female FSH Reference Ranges (>= 13 Menstruating):PH YSIOLOGICAL STATUS REFERENCE RANGE --------- Follicular (-12 to -4 days): 2.5 - 10.2 mIU/mL Midcycle (-3 to +2 days): 3.4 - 33.4 mIU/mL Luteal (+4 to +12 days): 1.5 - 9.1 mIU/mL Postmenopausal: 23.0 - 116.3 mIU/mLReference Ranges for female patients <13 years old have notbeen established.Test performed or referred by[id number] [place] [address] [employer] Prolactin July 06, 2020 9:19am 5.5 ng/mL See Table NOTE:Female Reference Ranges:PHYSIOLOG ICAL STATUS EXPECTED RANGE --------- Po stmenopausal 1.8 - 20.3 ng/mL 9.7 - 208.5 ng/mLNon-pregnan t 2.8 - 29.2 ng/mLReference Ranges for Prolactin in female patients <18 yearsold have not been established.Test performed or referred by[id number] [place] [address] Hemoglobin A1c Percent July 06, 2020 9:19am 5.30 % <5.7 <5.7%: Normal5.7%-6.4%: Prediabetes>=6.5 %: Diagnostic for diabetesGoals for Glycemic Control in Diabetes (ADA 2018)<7.0%: A1c target for non adults with diabetes. More or less stringent glycemic goals may be appropriate for individual patients.<7.5%: A1c target for children and adolescents with type I diabetes. A lower goal is reasonable if it can be achieved without excessive hypoglycemia. MAIN LAB, [address] [address] Estimated Average Glucose mg/dL July 06, 2020 9:19am 105 mg/dL MAIN LAB, [address] [id number] Tissue Transglutamina se IgA Ab November 19, 2019 8:52am < 1.2 U/mL ---REFERENCE VALUE < 4.0 (Negative) [facility] Tissue Transglutamina se IgG Ab November 19, 2019 8:52am 1.3 U/mL ---REFERENCE VALUE < 6.0 (Negative)Test Performed by:[address] [address]Ljd Director: Abdullahi Goodrich M.D. Ph.D.; CLIA# [id number] [facility] Wheat Allergen IgE Antibody November 19, 2019 8:52am <0.35 kU/L Class 0 (Negative <0.35)Test Performed by:[address] [address]Pnd Director: Abdullahi Goodrich M.D. Ph.D.; CLIA# [id number] [facility] Wheat Allergen IgG Antibody November 19, 2019 [...] test wasdeveloped and its performance characteristics determined by[facility]. It has not been cleared or approved bythe U.S. Food and Drug Administration.T est Performed by:[facility], [id number] [place] [address] [facility] Advance Directives Advance Directive Response Recorded Date/ Time Does patient have an Advanced Directive? No August 19, 2015 9:32am Do we have a copy on file here at [facility]? No February 22, 2017 7:32am Pt has a Living Will? No August 19, 2015 9:32am Do we have a copy on file here at [facility]? No February 22, 2017 7:32am Pt has a Power of Newspaper Library Manager? No Aug 9:32am Do we have a copy on file here at [facility]? 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 ANXIETY FOLLOW UP/WAS PHYSICAL Lab CONSULT Follow Up Counseling referral (phone) Counseling f/u (phone) Counseling f/u (phone) Counseling f/u (phone) Reason for Visit Wheat sensitive ente ropathy Abnormal uterine bleeding (AUB) Insomnia Anxiety Endometriosis Polycystic ovaries Insomnia Anxiety Encounters Encounter Location(s) Arrival/Admit Date Discharge/Depart Date Provider(s) Departed Clinical [facility] November 19, 2019 8:36am November 19, 2019 8:37am Brenda Hernandez NP Departed Physician/Prov ider [facility] December 20, 2019 8:25am December 20, 2019 9:43am Brenda Hernandez NP Departed Physician/Prov ider [facility] February 24, 2020 7:33am February 24, 2020 10:59pm Alissa Rivers MD Departed Physician/Prov ider [facility] June 07, 2020 6:37am June 07, 2020 12:28pm Brenda Hernandez NP Departed Clinical [facility] July 06, 2020 9:07am July 06, 2020 9:08am Alissa Rivers MD Departed Physician/Prov ider [facility] July 17, 2020 1:06pm July 17, 2020 1:38pm Kishan Baltazar MD Departed Physician/Prov ider [facility] September 15, 2020 11:04am September 15, 2020 11:04am Brenda Hernandez NP Departed Physician/Prov ider [facility] September 18, 2020 6:38am September 18, 2020 9:45am MONISHA Cam Departed Physician/Prov ider [facility] October 02, 2020 10:38am October 02, 2020 10:38am MONISHA Cam Departed Physician/Prov ider [facility] October 16, 2020 11:45am October 16, 2020 11:45am MONISHA Cam Departed Physician/Prov ider [facility] October 30, 2020 8:11am October 30, 2020 11:34am MONISHA Cam Recent Diagnosis Onset Date Wheat [...] Event Date Not Given Reason Dose Number Chain Link Fence Installer Lot Number Vaccine Information Statement (VIS) Detail Influenza IIV4 PF September 29, 2017 Influenza IIV4 PF December 20, 2019 [id number] Influenza Split Virus 3YR Older August 31, 2014 Tdap December 01, 2011 Tdap May 31, 2019 [id number] Mental Status No Mental Status Information Available Medical Equipment No Medical Equipment Information available Insurance Providers Guarantor YAMILETH TAYLOR Address [address] [address] Contact Info. 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 She declines any referral or additional blood [...] Alcohol Use Yes May 31, 2019 1 1:06am alcohol intake frequency holidays/special occasi ons only October 16, 2020 11:43am Substance/Street Drug Use No May 312018 11:06am substance use type does not use October 11:43am Smoking Status Current some day smoker September 15, 2020 11:02am Assigned Sex Female Vital Signs Vital Reading Result Reference Range Collection Date/Time Height 65 [in_i] December 20 8:40am Weight 94.00 kg December 20 020 8:40am Body Temperature 98.9 [degF] 97.6-99.6 December 8:40am Heart Rate 78 /min 60-100 Iesha 20th, 2 020 8:40am Respiratory rate 16 /min 12-24 December 8:40am Oxygen saturation by Pulse oximetry 98 % 95-100 December 20, 2019 8 :40am BP Systolic 139 mm[Hg] 100-140 December 20, 2 020 8:40am BP Diastolic 85 mm[Hg] 50-85 December 20, 2 020 8:40am BMI (Body Mass Index) 34.4 kg/m2 2019 8:40am Height 65 [in_i] July 17 2:14pm Weight 92.30 kg July 17 2:14pm BP Systolic 140 mm[Hg] 100-140 July 17 2:14pm BP Diastolic 90 mm[Hg] 50-85 July 17 2:14pm BMI (Body Mass Index) 33.8 kg/m2 July 17, 2020 2:14pm
--- OUTSIDE RECORDS SUMMARY | 2024-05-28 15:30 | XMS_ITS | Continuity of Care Document ---
Author Name Unknown Address [address] [place] [address] Phone [facility] Address [address] [place] [address] Phone Care Team Providers Care Coating And Embossing Unit Operator Name Role Phone Brenda Hernandez Primary [...] A DAY 180 May 04, 2019 11:21am 2019 9:27am Hydroxyzine Hcl Discontin ued 10 MG PO TWICE A DAY July 22, 2019 1:13pm Novem er 2018 8:05am Hydroxyzine Hcl Discontin ued 10 MG PO TWICE A DAY 30 r 2018 8:05am 2019 9:31am Levonorgestre l-Ethinyl Estrad (Tankvelo (28)) 0.15-0.03 mg tablet Discontin ued 1 TAB PO DAILY 2019 9:52am Octobe r 2019 10:44a m Hydroxyzine Hcl Discontin ued 0 .ROUTE .COMPLEX er 2019 12:14pm Octobe r 2019 10:43a m 1-2 tabs qhs PRN for insomnia flu vacc [id number] 6mos up(PF) Discontin ued 0.5 ML IM [...] D3) Active 2000 UNITS PO DAILY 2018 7:46am Hydroxyzine Hcl Active 0 .ROUTE .COMPLEX September 15, 2020 10:37am 1-2 tabs qhs PRN for insomnia Buspirone Active 10 MG PO TWICE A DAY 180 Oc tob2019 10:38am Clonazepam Active 0.5 MG PO Q8H 20 Octobe r 2019 10:41am 1-2 tabs as needed for anxiety Levonorgestre l-Ethinyl Estrad (Kurvelo (28)) 0.15-0.03 mg tablet Active 1 TAB PO DAILY September 15, 2020 10:44am may skip placebo pills Clonazepam Discontin ued 0.5 MG PO Q8H 14 er 2018 8:09am Octobe r 2019 10:43a m 1-2 tabs as [...] 0 PO DAILY June 07, 2020 12:06pm [facility] 10:37a m 1-2 tabs qhs PO daily PRN; Buspirone Discontin ued 5 MG PO TWICE A DAY 180 June 07, 2020 12:14pm Octobe r 2019 10:43a m Hydroxyzine Hcl Discontin ued 10 MG PO TWICE A DAY May 03, 2019 7:06am July 22, 2019 1:14pm Erenumab-Aooe (Aimovig Autoinjector) 70 mg/mL auto-injector Discontin ued 70 MG SC Q30D May 03, 2019 7:06am Septem taco 2018 7:46am Erenumab-Aooe (Aimovig Autoinjector) 70 mg/mL auto-injector Active 140 MG SC Q30D [facility] 7:46am Problems Active Problems Medical [...] or hypothalmic disorders are suspected. MAIN LAB, [address] [place] [address] Follicle Stimulating Hormone July 06, 2020 9:19am [...] old have notbeen established.Test performed or referred by[address] Prolactin July 06, 2020 9:19am 5.5 ng/mL See Table NOTE:Female Reference Ranges:PHYSIOLOG ICAL STATUS EXPECTED RANGE --------- Po stmenopausal 1.8 - 20.3 ng/mL 9.7 - 208.5 ng/mLNon-pregnan t 2.8 - 29.2 ng/mLReference Ranges for Prolactin in female patients <18 yearsold have not been established.Test performed or referred by[address] Hemoglobin A1c Percent July 06, 2020 9:19am [...] achieved without excessive hypoglycemia. MAIN LAB, [address] [address] Estimated Average Glucose mg/dL July 06, 2020 9:19am 105 mg/dL MAIN LAB, [address] [id number] Tissue Transglutamina se IgA Ab November 19, 2019 8:52am < 1.2 U/mL ---REFERENCE VALUE < 4.0 (Negative) [facility] Tissue Transglutamina se IgG Ab November 19, 2019 8:52am 1.3 U/mL ---REFERENCE VALUE < 6.0 (Negative)Test Performed by:[address] [id number] Director: Abdullahi Goodrich M.D. Ph.D.; CLIA# [id number] [facility] Wheat Allergen IgE Antibody November 19, 2019 8:52am <0.35 kU/L Class 0 (Negative <0.35)Test Performed by:[address] [id number] Director: Abdullahi Goodrich M.D. Ph.D.; CLIA# [id number] [facility] Wheat Allergen IgG Antibody November [...] test wasdeveloped and its performance characteristics determined by[facility]. It has not been cleared or approved bythe U.S. Food and Drug Administration.T est Performed by:[facility], [id number] [place] [address] [facility] Advance Directives Advance Directive Response Recorded Date/ Time Does patient have an Advanced Directive? No August 19, 2015 9:32am Do we have a copy on file here at [facility]? No February 22, 2017 7:32am Pt has a Living Will? No August 19, 2015 9:32am Do we have a copy on file here at [facility]? No February 22, 2017 7:32am Pt has a Power of Salon Assistant? No Aug 9:32am Do we have a copy on file here at [facility]? 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 ANXIETY FOLLOW UP/WAS PHYSICAL Lab CONSULT Follow Up Counseling referral (phone) Counseling f/u (phone) Reason for Visit Wheat sensitive ente ropathy Abnormal uterine bleeding (AUB) Insomnia Anxiety Endometriosis Polycystic ovaries Insomnia Anxiety Encounters Encounter Location(s) Arrival/Admit Date Discharge /Depart Date Provider(s) [facility]ick[facility]et marketing [facility] October 18, 2019 8:39am Traci Salinas RN [facility] mccormick[facility]et marketing analyst October 19, 2019 11:59pm Brenda Hernandez NP Departed Clinical [facility] November 19, 2019 8:36am November 19, 2019 8:37am Brenda Hernandez NP Departed Physician/Provi payam [facility] internet marketing [facility] December 20, 2019 8:25am December 20, 2019 9:43am Brenda Hernandez NP Departed Physician/Provi payam [facility] MANAGER INVESTMENT BANKING February 24, 2020 7:33am February 24, 2020 10:59pm Alissa Rivers MD Departed Physician/Provi payam [facility] internet marketing [facility] June 07, 2020 6:37am June 07, 2020 12:28pm Brenda Hernandez NP Departed Clinical [facility] July 06, 2020 9:07am July 06, 2020 9:08am Alissa Rivers MD Departed Physician/Provi payam [facility] rn MANAGER INVESTMENT BANKING July 17, 2020 1:06pm July 17, 2020 1:38pm Kishan Baltazar MD Departed Physician/Provi payam [facility] internet marketing analyst September 15, 2020 11:04am September 15, 2020 11:04am Brenda Hernandez NP Departed Physician/Provi payam [facility] September 18, 2020 6:38am September 18, 2020 9:45am MONISHA Cam Departed Physician/Provi payam [facility] October 02, 2020 10:38am October 02, 2020 10:38am MONISHA Cam Recent Diagnosis Onset Date Wheat [...] Event Date Not Given Reason Dose Number Museum Librarian Lot Number Vaccine Information Statement (VIS) Detail Influenza IIV4 PF September 29, 2017 Influenza IIV4 PF December 20, 2019 [id number] Influenza Split Virus 3YR Older August 31, 2014 Tdap December 01, 2011 Tdap May 31, 2019 [id number] Mental Status No Mental Status Information Available Medical Equipment No Medical Equipment Information available Insurance Providers Guarantor YAMILETH TAYLOR Address [address] [place] [id number] Contact Info. Home Phone: Payer Policy Id Coverage Id Subscriber's Name Subscriber Id Effective Date Expiration Date [employer] [id number] YAMILETH TAYLOR [id number] [facility] [employer] (DO NOT USE) [id number] YAMILETH TAYLOR [id number] 2011 SELF PAY Self N/A Plan of [...] could refer her for allergy testing with senior mobile application developer. She declines any referral or additional blood [...] intake frequency holidays/special occasi ons only October 02, 2020 10:37am Substance/Street Drug Use No May 312018 11:06am substance use type does not use October 02, 2020 10:37am Smoking Status Current some day smoker September 15, 2020 11:02am Assigned Sex Female Vital Signs Vital Reading Result Reference Range Collection Date/Time Height 65 [in_i] December 20 8:40am Weight 94.00 kg December 20 8:40am Body Temperature 98.9 [degF] 97.6-99.6 December 8:40am Heart Rate 78 /min 60-100 December 20 8:40am Respiratory rate 16 /min 12-24 December 8:40am Oxygen saturation by Pulse oximetry 98 % 95-100 December 20, 2019 8 :40am BP Systolic 139 mm[Hg] 100-140 December 20, 2 020 8:40am BP Diastolic 85 mm[Hg] 50-85 December 20, 2 020 8:40am BMI (Body Mass Index) 34.4 kg/m2 Deccatia 2019 8:40am Height 65 [in_i] July 17 2:14pm Weight 92.30 kg July 17 2:14pm BP Systolic 140 mm[Hg] 100-140 July 17 2:14pm BP Diastolic 90 mm[Hg] 50-85 July 17 2:14pm BMI (Body Mass Index) 33.8 kg/m2 July 17, 2020 2:14pm
--- OUTSIDE RECORDS SUMMARY | 2024-05-28 15:30 | XMS_ITS | Continuity of Care Document ---
Author Name Unknown Address [address] [place] [address] Phone [facility] Address [address] [place] [address] Phone Care Team Providers Care Co Teacher Name Role Phone David, Brenda D Primary [...] Magnesium Oxide Active 400 MG ORAL DAILY [facility] 2018 2:49pm Biotin Active 15 MG ORAL [...] May 01, 2018 8:06am < 4.0 ng/mL [place] [employer] 25-Hydroxy Vitamin D3 May 01, 2018 8:06am 18 ng/mL [facility] [employer]ood 25-Hydroxy Vitamin D Total May 01, 2018 8:06am 18 ng/mL Interpretation: 10-19 ng/mL (mild to moderate deficiency)----- RE FERENCE VALUE 2 5-HYDROXY D TOTAL (D2+D3) Optimum levels in the healthypopulatio n are 20-50, patients with bone disease maybenefit from higher levels within this range. ---------ADDITIO NAL INFORMATION----- Th is test was developed and its performance characteristicsd etermined by [facility] in a manner consistent with CLIArequirements . This test has not been cleared or approved bythe U.S. Food and Drug Administration.T est Performed by:[facility] [place], [place] [id number] [place] [address] Testosterone Level May 01, 2018 8:06am 23 ng/dL 14-76 Reference Range: Premenopausal (21-60 yrs): 9-48 ng/dL Postmenopausal (45-89 yrs): <46 ng/dL The results of this assay can be falsely elevated due to the consumption of Biotin. [facility] Free Testosterone May 01, 2018 8:06am 0.3 ng/mL Test not recommended in patients with plasma protein abnormalities.Te st Performed by:THE [address] Sex Hormone Binding Globulin May 01, 2018 8:06am 54.8 nmol/L Reference Range: Premenopausal (21-60 yrs): >10.8 nmol/L Postmenopausal (45-89 yrs): 23.2-159.1 nmol/L The results of this assay can be falsely lowered due to the consumption of Biotin. [facility] Dehydroepiandr osterone Sulfate May 01, 2018 8:06am 194 ug/dL Test Performed by:[facility] [address] Chief Complaint and Reason for Visit Chief Complaint Lab Cervical pain US Ultrasound 60 Follow Up Encounters Encounter Location(s) Arrival/Admit Date Discharge /Depart Date Provider(s) Departed Clinical [facility] May 01, 2018 7:59am May 01, 2018 8:00am Deb Bynum DO Departed Physician/Provi payam Office Visit [facility] August 31, 2018 12:00am August 31, 2018 Brenda Hernandez NP Departed Physician/Provi payam Office Visit [facility] December 21, 2018 12:00am December 21, 2018 Brenda Hernandez NP Departed Physician/Provi payam Office Visit [facility] January 18, 2019 12:00am January 18, 2019 Brenda Hernandez NP Departed Physician/Provi payam Office Visit [facility] March 03, 2019 12:00am March 03, 2019 Brenda Hernandez NP Departed Physician/Provi payam Office Visit [facility] March 26, 2019 12:00am March 26, 2019 Brenda Hernandez NP Departed Physician/Provi payam Office Visit [facility] DAIRY AND FOOD LABORATORY ASSISTANT April 16, 2019 9:49am April 16, 2019 10:25am RITA Delacruz Registered Clinical [facility] COMMUNITY CENTER COORDINATOR US April 23, 2019 9:01am Kishan Baltazar MD Departed Physician/Provi payam Office Visit [facility] DAIRY AND FOOD LABORATORY ASSISTANT April 23, 2019 9:03am April 23, 2019 9:52am Kishan Baltazar MD Departed Physician/Provi payam Office Visit [facility] DAIRY AND FOOD LABORATORY ASSISTANT April 23, 2019 9:04am April 23, 2019 [...] Event Date Not Given Reason Dose Number Scarf And Anneal Operator Lot Number Vaccine Information Statement (VIS) Detail Influenza IIV4 PF September 29, 2017 VIS not given Influenza Split Virus 3YR Older August 31, 2014 VIS not given Tdap December 01, 2011 VIS not given Mental Status No Mental Status Information Available Medical Equipment No Medical Equipment Information available Insurance Providers Guarantor YAMILETH TAYLOR Address [address] [place] [address] Contact Info. Home Phone: Payer Policy Id Coverage Id Subscriber's Name Subscriber Id Effective Date Expiration Date mobli [employer] [id number] YAMILETH TAYLOR [id number] [facility] mobli (DO NOT USE) [id number] YAMILETH TAYLOR [id number] 2011 SELF PAY Self N/A Social History [...]
--- OUTSIDE RECORDS SUMMARY | 2024-05-28 15:30 | XMS_ITS | Continuity of Care Document ---
Author Name Unknown Address [address] [place] [address] [facility] Address [address] [place] [address] Phone Care Team Providers Care Technology Applications Consultant Name Role Phone Brenda Hernandez Primary [...] tabs qhs PRN for insomnia flu vacc [id number] 6mos up(PF) Discontin ued 0.5 ML IM [...] 0 PO DAILY June 07, 2020 12:06pm [facility] 10:37a m 1-2 tabs [...] mg/mL auto-injector Active 140 MG SC [facility]D [facility] 7:46am Problems Active Problems Medical [...] or hypothalmic disorders are suspected. MAIN LAB, [address] [place] [address] Follicle Stimulating Hormone July 06, 2020 9:19am [...] old have notbeen established.Test performed or referred by[address] Prolactin July 06, 2020 9:19am 5.5 ng/mL See Table NOTE:Female Reference Ranges:PHYSIOLOG ICAL STATUS EXPECTED RANGE --------- Po stmenopausal 1.8 - 20.3 ng/mL 9.7 - 208.5 ng/mLNon-pregnan t 2.8 - 29.2 ng/mLReference Ranges for Prolactin in female patients <18 yearsold have not been established.Test performed or referred by[address] Hemoglobin A1c Percent July 06, 2020 [...] achieved without excessive hypoglycemia. MAIN LAB, [address] [address] Estimated Average Glucose mg/dL July 06, 2020 9:19am 105 mg/dL MAIN LAB, [address] [id number] Tissue Transglutamina se IgA Ab November 19, 2019 8:52am < 1.2 U/mL ---REFERENCE VALUE < 4.0 (Negative) [facility] Tissue Transglutamina se IgG Ab November 19, 2019 8:52am 1.3 U/mL ---REFERENCE VALUE < 6.0 (Negative)Test Performed by:[address] [id number] Director: Abdullahi Goodrich M.D. Ph.D.; CLIA# [id number] [facility] Wheat Allergen IgE Antibody November 19, 2019 8:52am <0.35 kU/L Class 0 (Negative <0.35)Test Performed by:[address] [id number] Director: Abdullahi Goodrich M.D. Ph.D.; CLIA# [id number] [facility] Wheat Allergen IgG Antibody November 19, [...] test wasdeveloped and its performance characteristics determined byAmplidata. It has not been cleared or approved bythe U.S. Food and Drug Administration.T est Performed by:[employer], [id number] [place] [address] [facility] Advance Directives Advance Directive Response Recorded Date/ Time Does patient have an Advanced Directive? No August 19, 2015 9:32am Do we have a copy on file here at [facility]? No February 22, 2017 7:32am Pt has a Living Will? No August 19, 2015 9:32am Do we have a copy on file here at [facility]? No February 22, 2017 7:32am Pt has a Power of Crystalizer? No Aug 9:32am Do we have a copy on file here at [facility]? 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 ANXIETY FOLLOW UP/WAS PHYSICAL Lab CONSULT Follow Up Counseling referral (phone) Counseling f/u (phone) Counseling f/u (phone) Reason for Visit Wheat sensitive ente ropathy Abnormal uterine bleeding (AUB) Insomnia Anxiety Endometriosis Polycystic ovaries Insomnia Anxiety Encounters Encounter Location(s) Arrival/Admit Date Discharge /Depart Date Provider(s) [facility] 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 installer October 18, 2019 8:39am Traci Salinas , DOMINIK [facility] 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 installer October 19, 2019 11:59pm Brenda Hernandez NP Departed Clinical [facility] November 19, 2019 8:36am November 19, 2019 8:37am Brenda Hernandez NP Departed Physician/Provi payam [facility] furnace installer December 20, 2019 8:25am December 20, 2019 9:43am Brenda Hernandez NP Departed Physician/Provi payam [facility] SPECIMEN BOSS February 24, 2020 7:33am February 24, 2020 10:59pm Alissa Rivers MD Departed Physician/Provi payam [facility] furnace installer June 07, 2020 6:37am June 07, 2020 12:28pm Brenda Hernandez NP Departed Clinical [facility] July 06, 2020 9:07am July 06, 2020 9:08am Alissa Rivers MD Departed Physician/Provi payam [facility] rn SPECIMEN BOSS July 17, 2020 1:06pm July 17, 2020 1:38pm Kishan Baltazar MD Departed Physician/Provi payam Office Visit [facility] furnace installer September 15, 2020 11:04am September 15, 2020 11:04am Brenda Hernandez NP Departed Physician/Provi payam [facility] September 18, 2020 6:38am September 18, 2020 9:45am MONISHA Cam Departed Physician/Provi payam [facility] October 02, 2020 10:38am October 02, 2020 10:38am MONISHA Cam Departed Physician/Provi payam [facility] October 16, 2020 11:45am October 16, 2020 11:45am MONISHA Cam Recent Diagnosis Onset Date Wheat [...] Event Date Not Given Reason Dose Number Deck Steward Lot Number Vaccine Information Statement (VIS) Detail Influenza IIV4 PF September 29, 2017 Influenza IIV4 PF December 20, 2019 [id number] Influenza Split Virus 3YR Older August 31, 2014 Tdap December 01, 2011 Tdap May 31, 2019 [id number] Mental Status No Mental Status Information Available Medical Equipment No Medical Equipment Information available Insurance Providers Guarantor YAMILETHСЕРГЕЙ AREVALOLEY Address [address] [facility] [address] Contact Info. Home Phone: Payer Policy Id Coverage Id Subscriber's Name Subscriber Id Effective Date Expiration Date [employer] [id number] YAMILETH Easley BRANDON [id number] [employer] (DO NOT USE) [id number] YAMILETH Easley BRANDON [id number] 2011 SELF PAY Self N/A Plan of [...] could refer her for allergy testing with coal tower operator. She declines any referral or additional blood [...] Range Collection Date/Time Height 65 [in_i] December 20, 020 8:40am Weight 94.00 kg December 20 020 8:40am Body Temperature 98.9 [degF] 97.6-99.6 December 8:40am Heart Rate 78 /min 60-100 December 20, 020 8:40am Respiratory rate 16 /min 12-24 [...]
--- OUTSIDE RECORDS SUMMARY | 2024-05-28 15:30 | XMS_ITS | Continuity of Care Document ---
Author Name Unknown Address [address] [place] [address] Phone [facility] Address [address] [place] [address] Phone Care Team Providers Care Customer Care Associate Name Role Phone Brenda Hernandez Primary Care [...] DAILY January 10, 2020 9:52am flu vacc [id number] 6mos up(PF) Discontinu ed 0.5 ML IM ONCE 0.5 December 20, 2019 8:25am December 20, 2019 10:06am Sumatriptan Succinate Active 6 MG SC .BID Q30D December 20, 2019 8:45am Red Level-3 Fatty Acids (Super Red Level-3) 1,000 mg capsule Active 2000 MG PO DAILY December 20, 2019 8:46am Hydroxyzine Hcl Discontinu ed 10 MG PO TWICE A DAY 30 December 20, 2019 9:29am June 07, 2020 1:10pm Clonazepam Discontinu ed 0.5 MG PO Q8H 10 April 14, 2019 2:42pm [facility] 2018 9:11am 1-2 tabs as needed for anxiety Buspirone Discontinu ed 5 MG PO TWICE A DAY 60 April 14, 2019 2:44pm May 04, 2019 12:21pm Levonorgestrel -Ethinyl Estrad (Kurvelo (28)) 0.15-0.03 mg tablet Discontinu ed 1 TAB PO DAILY April 14, 2019 2:44pm 2019 9:52am Cholecalcifero l (Vitamin D3) Discontinu ed UNK UNK PO DAILY April 14, 2019 2:46pm [facility] 2018 8:46am Riboflavin (Vitamin B2) Active [...] hypothalmic disorders are suspected. MAIN LAB, [address] [facility] [address] Hemoglobin A1c Percent July 06, 2020 10:19am [...] achieved without excessive hypoglycemia. MAIN LAB, [address] [place] [address] Estimated Average Glucose mg/dL July 06, 2020 10:19am 105 mg/dL MAIN LAB, [address] [place] [address] Tissue Transglutami nase IgA Ab November 19, 2019 8:52am < 1.2 U/mL ----REFERENCE VALUE -<4.0 (Negative) [facility] Tissue Transglutami nase IgG Ab November 19, 2019 8:52am 1.3 U/mL ----REFERENCE VALUE -<6.0 (Negative)Test Performed by:[address] [address]Kym Director: Abdullahi Goodrich M.D. Ph.D.; CLIA# [id number] [facility] Urine 6-Acetylmorp negar Screen August 03, 2019 8:55am Negative ng/mL [facility] Urine Amphetamine Screen August 03, 2019 8:55am Negative ng/mL [facility] Urine Barbiturates Screen August 03, 2019 8:55am Negative ng/mL [facility] [employer] Urine Benzodiazepi guicho Screen August 03, 2019 8:55am Negative ng/mL [facility] Urine Buprenorphin e Screen August 03, 2019 8:55am Negative ng/mL [facility] Urine Cocaine Screen August 03, 2019 8:55am Negative ng/mL [facility] [employer] EDDP (Methadone Metabolite) Screen August 03, 2019 8:55am Negative ng/mL [facility] Urine Ethyl Glucuronide Screen August 03, 2019 8:55am Negative ng/mL [facility] Urine Methadone Screen August 03, 2019 8:55am Negative ng/mL [facility] Urine Opiates Screen August 03, 2019 8:55am Negative ng/mL [facility] Urine Oxycodone Screen August 03, 2019 8:55am Negative ng/mL [facility] Urine Propoxyphene Screen August 03, 2019 8:55am Negative ng/mL [facility] Urine Marijuana (THC) Screen August 03, 2019 8:55am Negative ng/mL [facility] Urine THC/Creatini ne Ratio August 03, 2019 8:55am Test not performed [facility] Urine Fentanyl Screen August 03, 2019 8:55am Negative ng/mL Testing Performed By:[address] CARLOS ALBERTO Mccormack, [facility] [address]Qvu Director: Estefania Aguilera MD, Ph.D [facility] [employer] Urine Creatinine August 03, 2019 8:55am 39.15 mg/dL Testing Performed By:[address] CARLOS ALBERTO Mccormack, [facility] [address]Sjw Director: Estefania Aguilera MD, Ph.D [facility] [employer]ter[employer] Urine Oxidants August 03, 2019 8:55am <200 ug/mL [facility] [employer] Urine pH August 03, 2019 8:55am 5.3 [facility] [employer] Urine Specific Bennett August 03, 2019 8:55am 1.004 g/mL ----REFERENCE VALUE -1.003 - 1.035 [facility] Wheat Allergen IgE Antibody November 19, 2019 8:52am <0.35 kU/L Class 0 (Negative <0.35)Test Performed by:[facility] [place], [place] [address]Led Director: Abdullahi Goodrich M.D. Ph.D.; CLIA# [id number] [facility] Wheat Allergen IgG Antibody November 19, [...] test wasdeveloped and its performance characteristics determined byID90T. It has not been cleared or approved bythe U.S. Food and Drug Administration. Test Performed by:ID[facility], [id number] [facility] [place] [address] [facility] Advance Directives Advance Directive Response Recorded Date/ Time Does patient have an Advanced Directive? No August 19, 2015 10:32am Do we have a copy on file here at [facility]? No February 22, 2017 8:32am Pt has a Living Will? No August 19, 2015 10:32am Do we have a copy on file here at [facility]? No February 22, 2017 8:32am Pt has a Power of Gravity Prospecting Observer Helper? No Aug 10:32am Do we have a copy on file here at [facility]? 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 ANXIETY FOLLOW UP/WAS PHYSICAL Lab Reason for Visit Wheat sensitive ente ropathy Abnormal uterine bleeding (AUB) Insomnia Anxiety Encounters Encounter Location(s) Arrival/Admit Date Discharge /Depart Date Provider[facility]) [facility] July 15, 2019 11:59pm Brenda Hernandez NP Registered [facility]patient [facility] July 29, 2019 11:52am Mecca Toledo RN Departed Physician/Provi payam [facility] August 03, 2019 8:39am August 03, 2019 10:31am Alissa Us APRN Departed Referred [facility] Primary Care August 03, 2019 8:55am August 03, 2019 8:56am Alissa Us APRN [facility] October 18, 2019 8:39am Traci Salinas RN [facility] m[facility]ick[facility] director [facility] October 19, 2019 11:59pm Brenda Hernandez NP Departed Clinical [facility] November 19, 2019 8:36am November 19, 2019 8:37am Brenda Hernandez NP Departed Physician/Provi payam [facility] December 20, 2019 8:25am December 20, 2019 9:43am Brenda Hernandez NP Departed Physician/Provi payam [facility] HEALTHCARE MANAGER February 24, 2020 8:33am February 24, 2020 11:59pm Alissa Rivers MD Departed Physician/Provi payam [facility] director [facility] June 07, 2020 7:37am June 07, 2020 1:28pm Brenda Hernandez NP Departed Clinical [facility] July 06, 2020 10:07am July 06, 2020 10:08am Alissa Rivers MD Recent Diagnosis Onset Date [...] Event Date Not Given Reason 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 Home Phone: Payer Policy Id Coverage Id Subscriber's Name Subscriber Id Effective Date Expiration Date [employer]YEES [id number] YAMILETH TAYLOR [id number] [facility] [employer] (DO NOT USE) [id number] YAMILETH TAYLOR [id number] 2011 SELF PAY Self N/A Plan of [...] her mood is very good since the [employer] job hold has added and she has [...] could refer her for allergy testing with kier pleater. She declines any referral or additional blood [...] 20 020 8:40am Respiratory rate 16 /min 12-24 December 8:40am Oxygen saturation by Pulse oximetry 98 % 95-100 December 20, 2019 8 :40am BP Systolic 139 mm[Hg] 100-140 December 20 8:40am BP Diastolic 85 mm[Hg] 50-85 December 20 8:40am BMI (Body Mass Index) 34.4 kg/m2 2019 8:40am
--- OUTSIDE RECORDS SUMMARY | 2024-05-28 15:31 | XMS_ITS | Continuity of Care Document ---
Author Name Unknown Address [address] [place] [address] Phone [facility] Address [address] [place] [address] Phone Care Team Providers Care Field Rep Name Role Phone David, Brenda D Primary Care Provider Unavail able Ciarra Rubin Attending Provider Unavailable David, Brenda D Primary Care Provider Unavail able Deb Bynum Attending Provider Unavailabl e Allergies, Adverse Reactions, Alerts Allergen Type Severity Reaction Last Updated Verified Status metformin Allergy Unknown unknown April 16, 2019 Yes Active weed pollen Allergy unknown April 16, 2019 Yes Activ e cat dander Adverse Reaction Unknown unknown April 16, 2019 Yes Active dog dander Adverse Reaction Unknown unknown April 16, 2019 Yes Active Medications Medication Status Dose Units Route Sig Qty Days Start Date End Date Instructions Sumatriptan Active 100 Septe mber 2016 5:17pm [...] Act walt Procedures Procedure Date Performed Status Knee 4 vw Min Bilat April 16, 2018 active Relevant Diagnostic Tests and/or Laboratory Data Laboratory Results Test Date/Time Result Interpretation Reference Range Result Comment Performing Site 25-Hydroxy Vitamin D2 May 01, 2018 8:06am < 4.0 ng/mL [facility] 25-Hydroxy Vitamin D3 May 01, 2018 8:06am 18 ng/mL [facility] 25-Hydroxy Vitamin D Total May 01, 2018 8:06am 18 ng/mL Interpretation: 10-19 ng/mL (mild to moderate deficiency)----- RE FERENCE VALUE 2 5-HYDROXY D TOTAL (D2+D3) Optimum levels in the healthypopulatio n are 20-50, patients with bone disease maybenefit from higher levels within this range. ---------ADDITIO NAL INFORMATION----- Th is test was developed and its performance characteristicsd etermined by [facility] in a manner consistent with CLIArequirements . This test has not been cleared or approved bythe U.S. Food and Drug Administration.T est Performed by:[facility] [place] [id number] [place] [address] Testosterone Level May 01, 2018 8:06am 23 ng/dL 14-76 Reference Range: Premenopausal (21-60 yrs): 9-48 ng/dL Postmenopausal (45-89 yrs): <46 ng/dL The results of this assay can be falsely elevated due to the consumption of Biotin. [facility] Free Testosterone May 01, 2018 8:06am 0.3 ng/mL Test not recommended in patients with plasma protein abnormalities.Te st Performed by:THE [address] Sex Hormone Binding Globulin May 01, 2018 8:06am 54.8 nmol/L Reference Range: Premenopausal (21-60 yrs): >10.8 nmol/L Postmenopausal (45-89 yrs): 23.2-159.1 nmol/L The results of this assay can be falsely lowered due to the consumption of Biotin. [facility] Dehydroepiandr osterone Sulfate May 01, 2018 8:06am 194 ug/dL Test Performed by:[facility] [address] [facility] Chief Complaint and Reason for Visit Chief Complaint Xray Lab Cervical pain Encounters Encounter Location(s) Arrival/Admit Date Discharge/Depart Date Provider(s) Departed Physician/Prov ider Office Visit [facility] April 16, 2018 12:00am April 16, 2018 Ciarra Rubin NP Departed Clinical [facility] April 16, 2018 8:59am April 16, 2018 9:00am Ciarra Rubin NP Departed Clinical [facility] May 01, 2018 7:59am May 01, 2018 8:00am Deb Bynum DO Departed Physician/Prov ider Office Visit [facility] Primary Care August 31, 2018 12:00am August 31, 2018 Brenda Hernandez NP Departed Physician/Prov ider Office Visit [facility] December 21, 2018 12:00am December 21, 2018 Brenda Hernandez NP Departed Physician/Prov ider Office Visit [facility] January 18, 2019 12:00am January 18, 2019 Brenda Hernandez NP Departed Physician/Prov ider Office Visit [facility] March 03, 2019 12:00am March 03, 2019 Brenda Hernandez NP Departed Physician/Prov ider Office Visit [facility] March 26, 2019 12:00am March 26, 2019 Brenda Hernandez NP Departed Physician/Prov ider Office Visit [facility] MARINE SERVICE MANAGER April 16, 2019 9:49am April 16, 2019 10:25am RITA Delacruz Assessments No Assessments Information Available [...] Event Date Not Given Reason Dose Number Traffic Rate Clerk Lot Number Vaccine Information Statement (VIS) Detail Influenza IIV4 PF September 29, 2017 VIS not given Influenza Split Virus 3YR Older August 31, 2014 VIS not given Tdap December 01, 2011 VIS not given Mental Status No Mental Status Information Available Medical Equipment No Medical Equipment Information available Insurance Providers Guarantor YAMILETH Easley BRANDON Address [address] [place] [address] Contact Info. Home Phone: Payer Policy Id Coverage Id Subscriber's Name Subscriber Id Effective Date Expiration Date [employer] [id number] YAMILETH TAYLOR [id number] [facility] [employer] (DO NOT USE) [id number] YAMILETH Easley BRANDON [id number] 2011 SELF PAY Self N/A Social History Assigned Sex Female Vital Signs Vital Reading Result Reference Range Collection Date/Time Height 65 [in_i] April 16, 2018 9:16am Weight 83.91 kg April 16, 2018 9:16am Heart Rate 81 /min 60-100 April 16, 2018 9:16am Oxygen saturation by Pulse oximetry 98 % 95-100 April 16, 2018 9:16a m BP Systolic 120 mm[Hg] 100-140 April 16, 2018 9:16am BP Diastolic 82 mm[Hg] 50-85 April 16, 2018 9:16am Height 65 [in_i] August 31 9:45am Weight 88.70 kg August 31 9:45am Body Temperature 98.3 [degF] 97.6-99.6 August 9:45am Heart Rate 84 /min 60-100 August 31 9:45am Respiratory rate 17 /min 12-August 9:45am BP Systolic 118 mm[Hg] 100-140 August 31 9:45am BP Diastolic 82 mm[Hg] 50-85 August 31 9:45am Height 65 [in_i] December 21, 019 8:12am Weight 88.95 kg Iesha 21st, 2 019 8:12am Body Temperature 98.4 [degF] [...]
--- OUTSIDE RECORDS SUMMARY | 2024-05-28 15:31 | XMS_ITS | Continuity of Care Document ---
Author Name Unknown Address [address] [place] [address] Phone [facility] Address [address] [place] [address] Phone Care Team Providers Care Workforce Planner Name Role Phone David, Brenda D Primary [...] Magnesium Oxide Active 400 MG ORAL DAILY [facility] 2018 2:49pm Biotin Active 15 MG ORAL [...] May 01, 2018 8:06am < 4.0 ng/mL [facility] 25-Hydroxy Vitamin D3 May 01, 2018 8:06am 18 ng/mL [facility] [employer] 25-Hydroxy Vitamin D Total May 01, 2018 8:06am 18 ng/mL Interpretation: 10-19 ng/mL (mild to moderate deficiency)----- RE FERENCE VALUE 2 5-HYDROXY D TOTAL (D2+D3) Optimum levels in the healthypopulatio n are 20-50, patients with bone disease maybenefit from higher levels within this range. ---------ADDITIO NAL INFORMATION----- Th is test was developed and its performance characteristicsd etermined by [facility] in a manner consistent with CLIArequirements . This test has not been cleared or approved bythe U.S. Food and Drug Administration.T est Performed by:[facility] [place], [place] [id number] [place] [address] Testosterone Level May 01, 2018 8:06am 23 ng/dL 14-76 Reference Range: Premenopausal (21-60 yrs): 9-48 ng/dL Postmenopausal (45-89 yrs): <46 ng/dL The results of this assay can be falsely elevated due to the consumption of Biotin. [facility] Free Testosterone May 01, 2018 8:06am 0.3 ng/mL Test not recommended in patients with plasma protein abnormalities.Te st Performed by:[facility] [address] Sex Hormone Binding Globulin May 01, 2018 8:06am 54.8 nmol/L Reference Range: Premenopausal (21-60 yrs): >10.8 nmol/L Postmenopausal (45-89 yrs): 23.2-159.1 nmol/L The results of this assay can be falsely lowered due to the consumption of Biotin. [facility] Dehydroepiandr osterone Sulfate May 01, 2018 8:06am 194 ug/dL Test Performed by:[facility] [address] Chief Complaint and Reason for Visit Chief Complaint Lab Cervical pain US Ultrasound 60 Follow Up Encounters Encounter Location(s) Arrival/Admit Date Discharge /Depart Date Provider(s) Departed Clinical [facility] May 01, 2018 7:59am May 01, 2018 8:00am Deb Bynum DO Departed Physician/Provi payam Office Visit [facility] Primary Care August 31, 2018 12:00am August 31, 2018 Brenda Hernandez NP Departed Physician/Provi payam Office Visit [facility] Primary Care December 21, 2018 12:00am December 21, 2018 Brenda Hernandez NP Departed Physician/Provi payam Office Visit [facility] Primary Care January 18, 2019 12:00am January 18, 2019 Brenda Hernandez NP Departed Physician/Provi payam Office Visit [facility] Primary [facility] March 03, 2019 12:00am March 03, 2019 Brenda Hernandez NP Departed Physician/Provi payam Office Visit [facility] Primary [facility] March 26, 2019 12:00am March 26, 2019 Brenda Hernandez NP Departed Physician/Provi payam Office Visit [facility] 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 AND 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 April 16, 2019 9:49am April 16, 2019 10:25am RITA Delacruz Registered Clinical [facility] COMMERCIAL LAWN SPECIALIST US April 23, 2019 9:01am Kishan Baltazar MD Departed Physician/Provi payam Office Visit [facility] TRUCK RAILROAD AND BUS MOTOR MECHANIC April 23, 2019 9:03am April 23, 2019 9:52am Kishan Baltazar MD Registered Physician/Provi payam Office Visit [facility] TRUCK 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 Home Phone: Payer Policy Id Coverage Id Subscriber's Name Subscriber Id Effective Date Expiration Date [employer] [id number] YAMILETH TAYLOR [id number] [facility] [employer] (DO NOT USE) [id number] YAMILETH TAYLOR [id number] 2011 SELF PAY Self N/A Social History Assigned Sex Female Vital Signs Vital Reading Result Reference Range Collection Date/Time Height 65 [in_i] August 31 9:45am Weight 88.70 kg August 31 9:45am Body Temperature 98.3 [degF] 97.6-99.6 August 9:45am Heart Rate 84 /min 60-100 August 31 9:45am Respiratory rate 17 /min 12-24 August 9:45am BP Systolic 118 mm[Hg] 100-140 August 31 9:45am BP Diastolic 82 mm[Hg] 50-85 August 31 9:45am Height 65 [in_i] December 21, 2 019 8:12am Weight 88.95 kg December 21, 2 019 8:12am Body Temperature 98.4 [degF] 97.6-99.6 December 8:12am Heart Rate 102 /min 60-100 December 21, 2 019 8:12am Respiratory rate 16 /min -24 December 8:12am BP Systolic 124 mm[Hg] 100-140 [...]
--- OUTSIDE RECORDS SUMMARY | 2024-05-28 15:31 | XMS_ITS | Continuity of Care Document ---
Author Name Unknown Address [address] [place] [address] Phone [facility] Address [address] [place] [address] Phone Support Name Relationship Address Phone BRANDON [...] Unknown Unavail able Care Team Providers Care Test Grader Name Role Phone David, Brenda D Primary [...] Date Provider(s) Departed Physician/Provi payam [facility] August 31, 2018 12:00am August 31, 2018 Brenda Hernandez NP Departed Physician/Provi payam [facility] December 21, 2018 12:00am December 21, 2018 Brenda Hernandez NP Departed Physician/Provi payam [facility] January 18, 2019 12:00am January 18, 2019 Brenda Hernandez NP Departed Physician/Provi payam [facility] March 03, 2019 12:00am March 03, 2019 Brenda Hernandez NP Departed Physician/Provi payam [facility] March 26, 2019 12:00am March 26, 2019 Brenda Hernandez NP Departed Physician/Provi payam [facility] QUALITY PROCESS AUDITOR April 16, 2019 9:49am April 16, 2019 10:25am RITA Delacruz Departed Clinical [facility] BRAKE RIDER April 23, 2019 9:01am April 23, 2019 9:02am Kishan Baltazar MD Departed Physician/Provi payam [facility] QUALITY PROCESS AUDITOR April 23, 2019 9:03am April 23, 2019 9:52am Kishan Baltazar MD Departed Physician/Provi payam [facility]n QUALITY PROCESS AUDITOR April 23, 2019 9:04am April 23, 2019 9:52am RITA Delacruz Departed Emergency [facility] May 31, 2019 10:42am May 31, 2019 12:30pm null [facility] July 15, 2019 11:59pm Brenda Hernandez NP Registered Inpatient [facility]- July 29, 2019 11:52am Mecca Toledo RN Departed Physician/Provi payam [facility] August 03, 2019 8:39am August 03, 2019 10:31am Alissa Us APRN [facility]ed [facility] August 03, 2019 8:55am August 03, 2019 8:56am Alissa Us GI PHYSICIAN Assessments No Assessments Information Available Family History [...] Event Date Not Given Reason Dose Number Cmo Lot Number Vaccine Information Statement (VIS) Detail Influenza IIV4 PF September 29, 2017 VIS not given Influenza Split Virus 3YR Older August 31, 2014 VIS not given Tdap December 01, 2011 VIS not given Tdap May 31, 2019 [id number] VIS not given Mental Status No Mental Status Information Available Medical Equipment No Medical Equipment Information available Insurance Providers Guarantor YAMILETH M BRANDON Address [address] [facility] [address] Contact Info. Home Phone: Payer Policy Id Coverage Id Subscriber's Name Subscriber Id Effective Date Expiration Date [employer] EM[employer]ES [id number] YAMILETH TAYLOR [id number] [facility] [employer] (DO NOT USE) [id number] YAMILETH Easley BRANDON [id number] 2011 SELF PAY Self N/A Plan of Treatment Future Tests Future scheduled test information is unavailable Pending Tests Pending diagnostic test information is unavailable Future Visits Future appointment information is unavailable Referrals to Other Providers Reason for Referral Referral Start Date Provider Provider Contact Information Provider Address Bradford Gutierrez Work Phone: [facility] [address] [address] Future Procedures Future procedure information is unavailable [...] Body Temperature 98.9 [degF] 97.6-99.6 May 31, 019 10:45am Heart Rate 89 /min 60-100 [...]
--- OUTSIDE RECORDS SUMMARY | 2024-05-28 15:31 | XMS_ITS | Continuity of Care Document ---
Author Name Unknown Address [address], [place] [address] Phone Organization [facility] Address [address], [place] [address] Phone Care Team Providers Care Audiologist Name Role Phone JELANI Hernandez Primary Care Provider JELANI Hernandez Attending Provider Care Teams Patient Care Team Team Status: Active Member Role Status Dates Brenda Hernandez NP Primary Care Provider Active Patient Care Team Team Status: Inactive Member Role Status Dates Brenda Hernandez NP Primary Care Provider, Attendin g Provider Active Allergies, Adverse Reactions, Alerts Allergen Type Severity [...] use type does not use March 11 1:05pm Smoking Status Current some day smoker [...] PO TWICE A DAY r 2018 9:05am y 2019 10:31a m Levonorgestre l-Ethinyl Estrad (Kurvelo (28)) 0.15-0.03 mg tablet Discontin ued 1 TAB PO DAILY 2019 10:52am r 2019 11:44a m Hydroxyzine Hcl Discontin ued 0 .ROUTE .COMPLEX 30 er 2019 12:00am r 2019 11:43a m 1-2 tabs qhs PRN for insomnia Clonazepam Discontin ued 0.5 MG PO Q8H April 06, 2021 4:24pm Octobe r 2020 1:09pm Levonorgestre l-Ethinyl Estrad (Kurvelo (28)) 0.15-0.03 mg tablet Discontin ued 1 TAB PO DAILY 84 May 29, 2021 6:49pm June 15, 2021 10:52a m march skip placebo pills Clonazepam Discontin ued 0.5 MG PO Q8H 10 December 31, 2021 1:47pm March 11, 2022 1:41pm Buspirone Discontin ued 7.5 MG PO TWICE A DAY 180 April 06, 2021 1:35pm June 15, 2021 10:53a m Clonazepam Discontin ued 0.5 MG PO Q8H April 06, 2021 1:54pm April 06, 2021 4:26pm 1-2 tabs as needed for anxiety Norethindrone (Contraceptiv e) Active 0.35 MG PO DAILY 84 June 15, 2021 12:00am Buspirone Active 5 MG PO TWICE A DAY 180 2020 10:53am Hydroxyzine Hcl Discontin ued 10 MG PO TWICE A DAY December 20, 2019 10:29am June 07, 2020 1:10pm Clonazepam Active 1 MG PO Q8H 10 March 11, 2022 1:40pm Clonazepam Discontin ued 0.5 MG PO Q8H 10 April 14, 2019 12:00am taco 2018 9:11am 1-2 tabs as needed for anxiety Buspirone Discontin ued 5 MG PO TWICE A DAY 60 April 14, 2019 12:00am May 04, 2019 12:21p m Levonorgestre l-Ethinyl Estrad (Kurvelo (28)) 0.15-0.03 mg tablet Discontin ued 1 TAB PO DAILY April 14, 2019 12:00am Februa 2019 10:52a m Cholecalcifer ol (Vitamin D3) Discontin ued UNK UNK PO DAILY April 14, 2019 12:00am Septem taco 2018 8:46am Biotin Active 15 MG PO DAILY April 14, 2019 12:00am Loratadine (Claritin) 10 mg tablet Active 10 MG PO DAILY April 16, 2019 12:00am Cholecalcifer ol (Vitamin D3) Discontin ued 2000 UNITS PO DAILY Sept er 2018 8:46am March 11, 2022 1:01pm Hydroxyzine Hcl Discontin ued 0 .ROUTE .COMPLEX September 15, 2020 11:37am Octobe r 2020 1:08pm 1-2 tabs qhs PRN for insomnia Buspirone Discontin ued 10 MG PO TWICE A DAY 180 September 15, 2020 11:38am February 19, 2021 3:58pm Clonazepam Discontin ued 0.5 MG PO Q8H 20 September 15, 2020 11:41am April 06, 2021 1:55pm 1-2 tabs as needed for anxiety Levonorgestre l-Ethinyl Estrad (Kurvelo (28)) 0.15-0.03 mg tablet Discontin ued 1 TAB PO DAILY 84 September 15, 2020 11:44am May 29, 2021 6:49pm may skip placebo pills Clonazepam Discontin ued 0.5 MG PO Q8H 10 September 28, 2021 1:08pm Januar y 2021 1:47pm Clonazepam Discontin ued 0.5 MG PO Q8H 14 2018 9:09am Octobe r 2019 11:43a m 1-2 tabs as needed for anxiety Sumatriptan Discontin ued 20 MG NA ONCE July 29, 2019 12:00am July 29, 2019 11:57a m 1 spray intranasally once daily PRN at onset of migraine Sumatriptan Discontin ued 20 MG NA ONCE 1 July 29, 2019 11:57am June 07, 2020 1:12pm 1 spray intranasally once daily PRN at onset of migraine Trazodone Discontin ued 0 PO DAILY 90 June 07, 2020 12:00am Octobe r 2019 11:37a m 1-2 tabs qhs PO daily PRN; Buspirone Discontin ued 5 MG PO TWICE A DAY 180 June 07, 2020 12:00am Octobe r 2019 11:43a m Buspirone Discontin ued 15 MG PO TWICE A DAY 180 February 19, 2021 3:57pm April 06, 2021 1:37pm Hydroxyzine Hcl Discontin ued 10 MG PO TWICE A DAY May 03, 2019 12:00am July 22, 2019 2:14pm Erenumab-Aooe (Aimovig Autoinjector) 70 mg/mL auto-injector Discontin ued 70 MG SC Q30D May 03, 2019 12:00am Sept2018 8:46am Erenumab-Aooe (Aimovig Autoinjector) 70 mg/mL auto-injector Active 140 MG SC Q30D Septemb er 2018 8:46am Immunizations Immunization Event Date Not Given Reason Dose Number Carpet Sewing Machine Operator Lot Number Vaccine Information Statement (VIS) Detail Covid-19 30mcg/0.3ml Pfizer (Purple top) May 05, 2021 Covid-19 30mcg/0.3ml Pfizer (Purple top) May 26, 2021 Influenza IIV4 PF September 29, 2017 Influenza IIV4 PF December 20, 2019 [id number] Influenza Split Virus 3YR Older August 31, 2014 Tdap December 01, 2011 Tdap May 31, 2019 [id number] Insurance Providers Guarantor YAMILETH TAYLOR Address [address] [place] [address] Contact Info. Home Phone: Payer Policy Id Coverage Id Subscriber's Name Subscriber Id Effective Date Expiration Date Socitive [employer] EM[employer]YE[employer] [id number] YAMILETH TAYLOR [id number] [facility] Socitive (DO NOT USE) [id number] YAMILETH TAYLOR [id number] 2011 SELF PAY Self N/A Encounters Encounter Location(s) Arrival/Admit Date Discharge/Depart Date Provider(s) Departed Referred [facility] March 18, 2023 8:16pm March 18, 2023 8:17pm Brenda Hernandez NP Plan of Treatment Future Tests Future scheduled test information is unavailable Pending Tests Test Name Ordered Date Scheduled Date Thin Prep Pap Smear March 18, 2023 8:17pm Future Visits Future appointment information is unavailable Referrals to Other Providers Referral information is unavailable Future Procedures Procedure Name Ordered Date Scheduled Date Thin Prep PAP Test March 18, 2023 8:17pm March 18, 2023 8:17pm Future Medications Future medication information is unavailable Patient Instructions Patient instructions are unavailable
--- OUTSIDE RECORDS SUMMARY | 2024-05-28 15:31 | XMS_ITS | Continuity of Care Document ---
Author Name Unknown Address [address] [place] [id number] Phone [facility] Address [address] [place] [address] Phone Care Team Providers Care Department Coordinator Name Role Phone Brenda Hernandez Primary Care Provider Alissa Rivers Attending Provider Allergies, Adverse Reactions, Alerts Allergen Type Severity Reaction Last Updated Verified Status metformin Allergy Unknown unknown February 19 3:05pm Yes Active weed pollen Allergy Unknown unknown February 19, 021 3:05pm Yes Active cat dander Adverse Reaction Unknown unknown February 192020 3:05pm Yes Active dog dander Adverse Reaction Unknown unknown February 192020 3:05pm Yes Active Medications Medication Status Dose Units Route Directions Qty Days St art Date End Date Instructions Buspirone Discontin ued 5 MG PO TWICE A DAY 180 May 04, 2019 12:21pm Decstanley2019 10:27a m Hydroxyzine Hcl Discontin ued 10 MG PO TWICE A DAY July 22, 2019 2:13pm Novem er 2018 9:05am Hydroxyzine Hcl Discontin ued 10 MG PO TWICE A DAY 30 r 2018 9:05am 2019 10:31a m Levonorgestre l-Ethinyl Estrad (Tankvelo (28)) 0.15-0.03 mg tablet Discontin ued 1 TAB PO DAILY 84 2019 10:52am Augobe r 2019 11:44a m Hydroxyzine Hcl Discontin ued 0 .ROUTE .COMPLEX 30 2019 1:14pm Octobe r 2019 11:43a m 1-2 tabs qhs PRN for insomnia flu vacc [id number] 6mos up(PF) Discontin ued 0.5 ML IM ONCE 0.5 December 20, 2019 9:25am 2019 11:06a m Sumatriptan Succinate Active 6 MG SC .BID Q30D December 20, 2019 9:45am Hydroxyzine Hcl Discontin ued 10 MG PO TWICE A DAY 30 December 20, 2019 10:29am June 07, 2020 1:10pm Clonazepam Discontin ued 0.5 MG PO Q8H 10 April 14, 2019 2:42pm Augem taco 2018 9:11am 1-2 tabs as needed [...] PO DAILY April 14, 2019 2:46pm Augem taco 2018 8:46am Riboflavin (Vitamin B2) Active 100 MG PO TWICE A DAY April 14, 2019 2:48pm Biotin Active 15 MG PO DAILY April 14, 2019 2:50pm Loratadine (Claritin) 10 mg tablet Active 10 MG PO DAILY April 16, 2019 10:06am Cholecalcifer ol (Vitamin D3) Active 2000 UNITS PO DAILY [facility] 2018 8:46am Hydroxyzine Hcl Active 0 .ROUTE .COMPLEX 90 September 15, 2020 11:37am 1-2 tabs qhs PRN for insomnia Buspirone Discontin ued 10 MG PO TWICE A DAY 180 September 15, 2020 11:38am February 19, 2021 3:58pm Clonazepam Active 0.5 MG PO Q8H 20 [facility] 2019 11:41am 1-2 tabs as needed for anxiety Levonorgestre l-Ethinyl Estrad (Kurvelo (28)) 0.15-0.03 mg tablet Active 1 TAB PO DAILY 84 September 15, 2020 11:44am may skip placebo pills Clonazepam Discontin ued 0.5 [facility]H [facility] 2019 11:43a m 1-2 tabs as needed [...] 0 PO DAILY June 07, 2020 1:06pm [facility] 2019 11:37a m 1-2 tabs qhs PO daily PRN; Buspirone Discontin ued 5 MG PO TWICE A DAY 180 June 07, 2020 1:14pm [facility] 2019 11:43a m Buspirone Active 15 MG PO TWICE A DAY 180 [facility] 2020 3:57pm Hydroxyzine Hcl Discontin ued 10 MG PO TWICE A DAY May 03, 2019 8:06am July 22, 2019 2:14pm Erenumab-Aooe (Aimovig Autoinjector) 70 mg/mL auto-injector Discontin ued 70 MG SC Q30D May 03, 2019 8:06am Septem taco 2018 8:46am Erenumab-Aooe (Aimovig Autoinjector) 70 mg/mL auto-injector Active 140 MG SC Q30D [facility] 2018 8:46am Problems Active Problems Medical Problem Onset Date Status Nicotine dependence Active Insomnia Active Polycystic ovaries June 29, 2015 [...] or hypothalmic disorders are suspected. MAIN LAB, [address] [place] [address] Follicle Stimulating Hormone July 06, 2020 10:19am [...] have notbeen established.Te st performed or referred by[id number] [place] [address] MEDICAL [facility]ATOR[facility] Prolactin July 06, 2020 10:19am 5.5 ng/mL See Table NOTE:Female Reference Ranges:PHYSIOL OGICAL STATUS EXPECTED RANGE--------- Postmenopausal 1.8 - 20.3 ng/mL 9.7 - 208.5 ng/mLNon-pregn ant 2.8 - 29.2 ng/mLReference Ranges for Prolactin in female patients <18 yearsold have not been established.Te st performed or referred by[address] LABORATORIES Hemoglobin A1c Percent July 06, [...] achieved without excessive hypoglycemia. MAIN LAB, [address] [place] [address] Estimated Average Glucose mg/dL July 06, 2020 10:19am 105 mg/dL MAIN LAB, [address] [facility] [address] Advance Directives Advance Directive Response Recorded Date/ Time Does patient have an Advanced Directive? No August 19, 2015 10:32am Do we have a copy on file here at [facility] No February 22, 2017 8:32am Pt has a Living Will? No August 19, 2015 10:32am Do we have a copy on file here at [facility]? No February 22, 2017 8:32am Pt has a Power of Manager Clinical Services? No Aug 10:32am Do we have a copy on file here at [facility]? 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 annual exam ANXIETY FOLLOW UP/WAS PHYSICAL Lab CONSULT Follow Up Counseling referral (phone) Counseling f/u (phone) Counseling f/u (phone) Counseling f/u (phone) Annual Physical - Adult Reason for Visit Abnormal uterine ble eding (AUB) Insomnia Anxiety Endometriosis Polycystic ovaries Insomnia Anxiety Anxiety Adult general medical exam Nicotine dependence White coat syndrome with hypertension Anxiety Encounters Encounter Location(s) Arrival/Admit Date Discharge/Depart Date Provider(s) Departed Physician/Prov ider Office Visit [facility] MANUFACTURING QUALITY ENGINEER February 24, 2020 8:33am February 24, 2020 11:59pm Alissa Rivers MD Departed Physician/Prov ider Office Visit [facility] Primary Care June 07, 2020 7:37am June 07, 2020 1:28pm [facility] 10:07am July 06, 2020 10:08am Alissa Rivers MD Departed Physician/Prov ider Office Visit [facility] MANUFACTURING QUALITY ENGINEER July 17, 2020 2:06pm July 17, 2020 2:38pm Kishan Baltazar MD Departed Physician/Prov ider Office Visit [facility] Primary Care September 15, 2020 12:04pm September 15, 2020 12:04pm Brenda Hernandez NP Departed Physician/Prov ider Office Visit [facility] [...] Departed Physician/Prov ider Office Visit [facility] February 19, 2021 2:54pm February 19, 2021 4:11pm Brenda Hernandez NP Recent Diagnosis Onset Date Abnormal uterine bleeding (AUB) Insomnia Anxiety Endometriosis Polycystic ovaries June 29, 2015 Insomnia Anxiety Anxiety Adult general medical exam Nicotine dependence White coat syndrome with hypertension Anxiety Assessments Diagnosis Onset Date Resolution Status Abnormal uterine bleeding (AUB) acute Insomnia acute Anxiety chronic Endometriosis acute Polycystic ovaries June 29, 2015 noneac tive Insomnia acute Anxiety chronic Anxiety chronic Adult general medical exam a cute Nicotine dependence acute White coat syndrome with hypertension acute Anxiety chronic Family History Relationship Condition [...] Event Date Not Given Reason Dose Number Greenhouse Instructor Lot Number Vaccine Information Statement (VIS) Detail Influenza IIV4 PF September 29, 2017 Influenza IIV4 PF December 20, 2019 [id number] Influenza Split Virus 3YR Older August 31, 2014 Tdap December 01, 2011 Tdap May 31, 2019 [id number] Mental Status No Mental Status Information Available Medical Equipment No Medical Equipment Information available Insurance Providers Guarantor YAMILETH Kaushal BRANDON Address [address] [facility] [address] Contact Info. Home Phone: Payer Policy Id Coverage Id Subscriber's Name Subscriber Id Effective Date Expiration Date [employer] EMPLOYEES [id number] YAMILETH Kaushal BRANDON [id number] FEP [place] (DO NOT USE) [id number] YAMILETH M BRANDON [id number] 2011 SELF PAY Self N/A Plan of Treatment Dental exam up-to-date Vision exam up-to-date Tetanus shot up-to-date Flu shot - had this Pneumonia shot - declines Shingles shot - due 50 Colonoscopy - due 50 Fasting blood work - offered Pap - due 2022 Mammo - due 40 Bone density test - due 65 Home BPs 120-130/80s she will continue to monitor recommended stopping smoking cigars will try increasing buspar, she does not want to try SSRI she knows this could worsen headache in which we would try something else cigars occasionlly, disucssed risk Jagdeep 7 score of 6, anxiety control [...] reassured. Follow in 3 months for review. Future Tests Future scheduled test information is [...] of Observation Current some day smoker February 19, 2021 3:11pm Observation Status Observation Response Date of Response Alcohol Use Yes May 31, 2019 1 2:06pm alcohol intake frequency holidays/special occasi ons only February 19, 2021 3:08pm Substance/Street Drug Use No May 312018 12:06pm substance use type does not use February 19, 2 021 3:08pm Smoking Status Current some day smoker February 192020 3:11pm Assigned Sex Female Vital Signs Vital Reading [...]
--- OUTSIDE RECORDS SUMMARY | 2024-05-28 15:31 | XMS_ITS | Continuity of Care Document ---
Author Name Unknown Address [address] [place] [address] Phone [facility] Address [address] [place] [address] Phone Care Team Providers Care Harbormaster Name Role Phone Brenda Hernandez Primary Care Provider Alissa Rivers Attending Provider Brenda Hernandez Attending Provider Allergies, Adverse Reactions, [...] tabs as needed for anxiety flu vacc [id number] 6mos up(PF) Discontin ued 0.5 ML IM [...] (Vitamin D3) Active 2000 UNITS PO DAILY [facility] 2018 8:46am Hydroxyzine Hcl Active 0 .ROUTE [...] Discontin ued 0.5 MG PO Q8H [facility] 11:43a m 1-2 tabs [...] 2021 9:34am 139 mmol/L 137-145 MAIN LAB, [address] [place] [address] Potassium Level April 24, 2021 9:34am 5.2 mmol/L 3.6-5.0 MAIN LAB, [address] [place] [address] Chloride Level April 24, 2021 9:34am 105 mmol/L 98-107 MAIN LAB, [address] [place] [address] Carbon Dioxide Level April 24, 2021 9:34am 23 mmol/L 22-30 MAIN LAB, [address] [place] [address] Anion Gap April 24, 2021 9:34am 11 7-16 MAIN LAB, [address] [place] [address] Blood Urea Nitrogen April 24, 2021 9:34am 13 mg/dL 7-17 MAIN LAB, [address] [place] [address] Creatinine April 24, 2021 9:34am 0.86 mg/dL 0.52-1.04 MAIN LAB, [address] [place], [place] [address] Glomerular Filtration Rate Calc April 24, 2021 9:34am > 60 mL/min >60.0 MAIN LAB, [address] [place] [address] Glucose Level April 24, 2021 9:34am 94 mg/dL 70-100 MAIN LAB, [address] [place] [address] Calcium Level April 24, 2021 9:34am 9.4 mg/dL 8.4-10.2 MAIN LAB, [address] [place], [place] [address] Calcium Adjusted for Albumin April 24, 2021 9:34am 9.6 mg/dL 8.4-10.2 MAIN LAB, [address] [place] [address] Total Bilirubin April 24, 2021 9:34am 0.3 mg/dL 0.2-1.3 MAIN LAB, [address] [place], [place] [address] Aspartate Amino Transf (AST/SGOT) April 24, 2021 9:34am 25 U/L 14-36 MAIN LAB, [address] [place], [place] [address] Alanine Aminotransferase (ALT/SGPT) April 24, 2021 9:34am 23 U/L <35 As of 03/31/20, the Reference Range for ALT/SGPT for adult patients has been updated. The Reference Range for ALT/SGPT has not been established for patients <18 years of age. MAIN LAB, [address] [place], [place] [address] Total Protein April 24, 2021 9:34am 6.8 g/dL 6.3-8.2 MAIN LAB, [address] [place] [address] Albumin April 24, 2021 9:34am 4.1 g/dL 3.5-5.0 MAIN LAB, [address] [place] [address] Cholesterol Level April 24, 2021 9:34am 221 mg/dL 59-199 MAIN LAB, [address] [place] [address] HDL Cholesterol April 24, 2021 9:34am 54 mg/dL 40-60 The National Cholesterol Education Program (NCEP) has set the following guidelines (reference values) for cholesterol, HDL:Low HDL: <40 mg/dLNormal: 40-60 mg/dLDesirable : >60 mg/dL MAIN LAB, [address] [facility] [place] [facility] [address] LDL Cholesterol April 24, 2021 9:34am 135.6 mg/dL 0-129 MAIN LAB, [address] [place] [address] VLDL Cholesterol April 24, 2021 9:34am 31.4 mg/dL 0-32 MAIN LAB, [address] [place] [address] Cholesterol/HDL Ratio April 24, 2021 9:34am 4.09 0-3.9 MAIN LAB, [address] [place] [address] Triglycerides Level April 24, 2021 9:34am 157 mg/dL 0-149 MAIN LAB, [address] [place] [address] Alkaline Phosphatase April 24, 2021 9:34am 72 U/L 38-126 MAIN LAB, [address] [place] [address] Thyroid Stimulating Hormone (TSH) July 06, 2020 10:19am 1.52 mlU/L 0.47-4.68 TSH cascade is not recommended for patients in which pituitary or hypothalmic disorders are suspected. MAIN LAB, [address] [place] [address] Follicle Stimulating Hormone July 06, 2020 10:19am [...] notbeen established.Te st performed or referred by[id number] [place] [address] Quality Solicitors Prolactin July 06, 2020 10:19am 5.5 ng/mL See Table NOTE:Female Reference Ranges:PHYSIOL OGICAL STATUS EXPECTED RANGE--------- Postmenopausal 1.8 - 20.3 ng/mL 9.7 - 208.5 ng/mLNon-pregn ant 2.8 - 29.2 ng/mLReference Ranges for Prolactin in female patients <18 yearsold have not been established.Te st performed or referred by[address] Hemoglobin A1c Percent April 24, 2021 [...] be achieved without excessive hypoglycemia. MAIN LAB, [address] [place] [address] Hemoglobin A1c Percent July 06, 2020 10:19am [...] achieved without excessive hypoglycemia. MAIN LAB, [address] [facility] [place] [facility] [address] Estimated Average Glucose mg/dL April 24, 2021 9:34am 93 mg/dL MAIN LAB, [address] [facility] [place] [facility] [address] Estimated Average Glucose mg/dL July 06, 2020 10:19am 105 mg/dL MAIN LAB, [address] [place] [address] Advance Directives Advance Directive Response Recorded Date/ Time Does patient have an Advanced Directive? No August 19, 2015 10:32am Do we [place] [facility] No February 22, 2017 8:32am Pt has a Living Will? No August 19, 2015 10:32am Do we [place] a copy [place] [facility] No February 22, 2017 8:32am Pt has a Power of Fruit Tester? No Sept emb2014 10:32am Do we have a copy [place] [facility] No February 22, 2017 [...] Date Provider(s) Departed Physician[facility]Prov 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 June 07, 2020 7:37am June 07, 2020 1:28pm Brenda Hernandez NP Departed Clinical [facility] July 06, 2020 10:07am July 06, 2020 10:08am Alissa Rivers MD Departed Physician/Prov ider [facility] GEOGRAPHIC INFORMATION SYSTEM SURVEYOR July 17, 2020 2:06pm July 17, 2020 2:38pm Kishan Baltazar MD Departed Physician/Prov ider 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 September 15, 2020 12:04pm September 15, 2020 12:04pm Brenda Hernnadez NP Departed Physician/Prov ider [facility] September 18, 2020 7:38am September 18, 2020 10:45am MONISHA Cam Departed Physician/Prov ider [facility] October 02, 2020 11:38am October 02, 2020 11:38am MONISHA Cam Departed Physician/Prov ider [facility] October 16, 2020 12:45pm October 16, 2020 12:45pm MONISHA Cam Departed Physician/Prov ider [facility] October 30, 2020 9:11am October 30, 2020 12:34pm MONISHA Cam Departed Physician/Prov ider Office Visit [facility] 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 February 19, 2021 2:54pm February 19, 2021 4:11pm Brenda Hernandez NP Departed Physician/Prov ider Office [facility] 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 April 06, 2021 7:48am April 06, 2021 1:58pm Brenda Hernandez NP Departed Clinical [facility] April 24, 2021 9:14am April 24, 2021 9:15am Brenda Hernandez NP Departed Clinical [facility] April 24, 2021 9:15am April 24, [...] Event Date Not Given Reason Dose Number Funeral Counselor Lot Number Vaccine Information Statement (VIS) Detail Influenza IIV4 PF September 29, 2017 Influenza IIV4 PF December 20, 2019 [id number] Influenza Split Virus 3YR Older August 31, 2014 Tdap December 01, 2011 Tdap May 31, 2019 [id number] Mental Status No Mental Status Information Available Medical Equipment No Medical Equipment Information available Insurance Providers Guarantor YAMILETH TAYLOR Address [address] [place] [id number] Contact Info. Home Phone: Payer Policy Id Coverage Id Subscriber's Name Subscriber Id Effective Date Expiration Date [employer] FEDERAL EMPLOYEES [id number] YAMILETH TAYLOR [id number] FEP BLUE CROSS (DO NOT USE) [id number] YAMILETH TAYLOR [id number] 2011 SELF PAY Self N/A Plan of [...]
== END 2024-05-28 15:21 | disposition home or self-care (01) ==
LOC: LBN 15:20
PROVIDERS: PCP Nurse Practitioner Adult Health; Visit Provider Physician Assistant Medical
DX: J02.9 Acute pharyngitis, unspecified (principal)
CPT/HCPCS: 87070